=== PATIENT | male | born 1965 | race Hispanic/Latino ===

== ENCOUNTER 2018-08-03 19:24 | Emergency (ER) | payer MEDICARE ==
--- NOTE | 2018-08-03 19:53 | Emergency Department Report ---
Blank Doc - Documentation Documentation: This is a 52-year-old male that presents with SI. This initial assessment/diagnostic orders/clinical plan/treatment(s) is/are subject to change based on patient's health status, clinical progression and re- assessment by fellow clinical providers in the ED. Further treatment and workup at subsequent clinical providers discretion. Patient/guardians urged not to elope from the ED as their condition may be serious if not clinically assessed and managed. Initial orders include: 1- Patient sent to MAIN ED for further evaluation and treatment 2- planer chain offbearer was notified to have patient be brought back [facility]. 3- RN was notified to keep patient as close range and observation until room available 4- Patient presents with substantial risk of imminent harm to self, appears to be so unable to care for his/her own physical health and safety as to create an imminently life-endangering crisis, and has committed/expressed life endangering crisis to self. Due to this and other complaints, patient is put on 1013.
[2018-08-03 20:39] LABS: Hemoglobin 11.8 gm/dl (11.8-15.2); Mean Corpuscular HGB Conc 36 % (32-34); Mean Corpuscular Volume 85 fl (84-94); Platelet Count 253 K/mm3 (140-440); Red Blood Count 3.87 M/mm3 (3.65-5.03); Red Cell Distribution Width 17.1 % (13.2-15.2)
[2018-08-03 20:49] LABS: BUN/Creatinine Ratio 3; Blood Urea Nitrogen 3 mg/dL (9-20); Calcium 9.5 mg/dL (8.4-10.2); Hemolysis Index 5
[2018-08-03 20:57] LABS: Basophils % (Auto) 0.2 % (0.0-1.8); Eosinophils # (Auto) 0.1 K/mm3 (0.0-0.4); Eosinophils % (Auto) 1.9 % (0.0-4.3); Lymphocytes # (Auto) 2.3 K/mm3 (1.2-5.4); Lymphocytes % (Auto) 31.9 % (13.4-35.0); Monocytes # (Auto) 0.8 K/mm3 (0.0-0.8); Monocytes % (Auto) 10.6 % (0.0-7.3)
--- NOTE | 2018-08-03 21:05 | Emergency Department Report ---
ED Psych HPI - General Chief Complaint: Psych Stated Complaint: MH SUICIDAL THOUGHTS Time Seen by Provider: 08/03/18 19:52 Source: patient Mode of arrival: Ambulatory - History of Present Illness Initial Comments: Patient is a 52-year-old male with past history of mild developmental delay and schizophrenia who is presenting with 2 weeks of suicidal ideations without obvious plan. Patient states he has been feeling very depressed lately and doesn't feel like living anymore. Patient states he is not using any alcohol or drugs. Patient not having any auditory or visual hallucinations. Patient lives in a [facility]. Associated Psychiatric Symptoms: depression, suicidal ideation - Related Data Home Medications Medication Instructions Recorded Confirmed Last Taken FLUoxetine [PROzac] 40 mg PO QAM 08/03/18 08/14/18 08/03/18 diphenhydrAMINE [Benadryl CAP] 100 mg PO QHS 08/03/18 08/14/18 08/03/18 Allopurinol [Zyloprim] 100 mg PO QDAY 08/14/18 08/14/18 Unknown Cholecalciferol (Vitamin D3) 50,000 unit PO QWEEK 08/14/18 08/14/18 Unknown [Vitamin D3 50,000UNIT CAP] FLUoxetine [PROzac] 20 mg PO DAILY@1200 08/14/18 08/14/18 Unknown LORazepam [Ativan] 1 mg PO QAM 08/14/18 08/14/18 Unknown LORazepam [Ativan] 2 mg PO QHS 08/14/18 08/14/18 Unknown Multivitamin Tab [Multiple Vitamin 1 each PO QDAY 08/14/18 08/14/18 Unknown TAB (Theragran)] OLANZapine [Zyprexa] 10 mg PO QAM 08/14/18 08/14/18 Unknown OLANZapine [Zyprexa] 20 mg PO HS 08/14/18 08/14/18 Unknown Simvastatin 20 mg PO HS 08/14/18 08/14/18 Unknown buPROPion XL [Wellbutrin Xl] 150 mg PO QAM 08/14/18 08/14/18 Unknown risperiDONE [Risperdal] 2 mg PO QAM 08/14/18 08/14/18 Unknown Allergies Allergy/AdvReac Type Severity Reaction Status Date / Time Penicillins Allergy Unknown Verified 08/14/18 15:52 ED Review of Systems ROS: Stated complaint: MH SUICIDAL THOUGHTS Other details as noted in HPI Comment: All other systems reviewed and negative ED Past Medical Hx - Past Medical History Previous Medical History?: Yes Hx Psychiatric Treatment: Yes (schizophrenia, depression) Additional medical history: Mild retardation, - Surgical History Past Surgical History?: No - Social History Smoking Status: Former Smoker Substance Use Type: None - Medications Home Medications: Home Medications Medication Instructions Recorded Confirmed Last Taken Type FLUoxetine [PROzac] 40 mg PO QAM 08/03/18 08/14/18 08/03/18 History diphenhydrAMINE [Benadryl CAP] 100 mg PO QHS 08/03/18 08/14/18 08/03/18 History Allopurinol [Zyloprim] 100 mg PO QDAY 08/14/18 08/14/18 Unknown History Cholecalciferol (Vitamin D3) 50,000 unit PO QWEEK 08/14/18 08/14/18 Unknown History [Vitamin D3 50,000UNIT CAP] FLUoxetine [PROzac] 20 mg PO DAILY@1200 08/14/18 08/14/18 Unknown History LORazepam [Ativan] 1 mg PO QAM 08/14/18 08/14/18 Unknown History LORazepam [Ativan] 2 mg PO QHS 08/14/18 08/14/18 Unknown History Multivitamin Tab [Multiple Vitamin 1 each PO QDAY 08/14/18 08/14/18 Unknown History TAB (Theragran)] OLANZapine [Zyprexa] 10 mg PO QAM 08/14/18 08/14/18 Unknown History OLANZapine [Zyprexa] 20 mg PO HS 08/14/18 08/14/18 Unknown History Simvastatin 20 mg PO 08/14/18 08/14/18 Unknown History buPROPion XL [Wellbutrin Xl] 150 mg PO QAM 08/14/18 08/14/18 Unknown History risperiDONE [Risperdal] 2 mg PO QAM 08/14/18 08/14/18 Unknown History ED Physical Exam - General Limitations: Other General appearance: alert, in no apparent distress - Head Head exam: Present: atraumatic, normocephalic - Eye Eye exam: Present: normal appearance, PERRL, EOMI - ENT ENT exam: Present: mucous membranes moist - Neck Neck exam: Present: normal inspection - Respiratory Respiratory exam: Present: normal lung sounds bilaterally. Absent: respiratory distress, wheezes, rales, rhonchi - Cardiovascular Cardiovascular Exam: Present: regular rate, normal rhythm. Absent: systolic murmur, diastolic murmur, rubs, gallop - GI/Abdominal GI/Abdominal exam: Present: soft, normal bowel sounds. Absent: distended, tenderness, guarding, rebound - Rectal Rectal exam: Present: deferred - Extremities Exam Extremities exam: Present: normal inspection - Back Exam Back exam: Present: normal inspection - Neurological Exam Neurological exam: Present: alert, oriented X3 - Psychiatric Psychiatric exam: Present: normal affect, normal mood - Skin Skin exam: Present: warm, dry, intact, normal color. Absent: rash ED Course Vital Signs 08/03/18 08/04/18 19:53 01:41 Temperature 97.7 F 97.9 F Pulse Rate 93 H 82 Respiratory 18 Rate Blood Pressure 136/81 Blood Pressure 138/86 [Left] O2 Sat by Pulse 98 Oximetry ED Medical Decision Making - Lab Data Result diagrams: 08/03/18 20:02 08/03/18 20:02 Lab Results 08/03/18 08/03/18 08/03/18 Range/Units 20:02 20:02 20:02 WBC 7.2 (4.5-11.0) K/mm3 RBC 3.87 (3.65-5.03) M/mm3 Hgb 11.8 (11.8-15.2) gm/dl Hct 33.0 L (35.5-45.6) % MCV 85 (84-94) fl MCH 31 (28-32) pg MCHC 36 H (32-34) % RDW 17.1 H (13.2-15.2) % Plt Count 253 (140-440) K/mm3 Lymph % (Auto) 31.9 (13.4-35.0) % [place] % (Auto) 10.6 H (0.0-7.3) % Eos % (Auto) 1.9 (0.0-4.3) % Baso % (Auto) 0.2 (0.0-1.8) % Lymph # 2.3 (1.2-5.4) K/mm3 [place] # 0.8 (0.0-0.8) K/mm3 Eos # 0.1 (0.0-0.4) K/mm3 Baso # 0.0 (0.0-0.1) K/mm3 Add Manual Diff Complete Total Counted 100 Seg Neutrophils % 55.4 (40.0-70.0) % Seg Neuts % (Manual) 65.0 (40.0-70.0) % Band Neutrophils % 0 % Lymphocytes % (Manual) 27.0 (13.4-35.0) % Reactive Lymphs % (Man) 0 % Monocytes % (Manual) 5.0 (0.0-7.3) % Eosinophils % (Manual) 2.0 (0.0-4.3) % Basophils % (Manual) 1.0 (0.0-1.8) % Metamyelocytes % 0 % Myelocytes % 0 % Promyelocytes % 0 % Blast Cells % 0 % Nucleated RBC % Not Reportable Seg Neutrophils # 4.1 (1.8-7.7) K/mm3 Seg Neutrophils # Man 4.7 (1.8-7.7) K/mm3 Band Neutrophils # 0.0 K/mm3 Lymphocytes # (Manual) 1.9 (1.2-5.4) K/mm3 Abs React Lymphs (Man) 0.0 K/mm3 Monocytes # (Manual) 0.4 (0.0-0.8) K/mm3 Eosinophils # (Manual) 0.1 (0.0-0.4) K/mm3 Basophils # (Manual) 0.1 (0.0-0.1) K/mm3 Metamyelocytes # 0.0 K/mm3 Myelocytes # 0.0 K/mm3 Promyelocytes # 0.0 K/mm3 Blast Cells # 0.0 K/mm3 WBC Morphology Not Reportable Hypersegmented Neuts Not Reportable Hyposegmented Neuts Not Reportable Hypogranular Neuts Not Reportable Smudge Cells Not Reportable Toxic Granulation Not Reportable Toxic Vacuolation Not Reportable Dohle Bodies Not Reportable Pelger-Huet Anomaly Not Reportable Anne-Marie Rods Not Reportable Platelet Estimate Not Reportable Clumped Platelets Not Reportable Plt Clumps, EDTA Not Reportable Large Platelets Not Reportable Giant Platelets Not Reportable Platelet Satelliting Not Reportable Plt Morphology Comment Not Reportable RBC Morphology Normal Dimorphic RBCs Not Reportable Polychromasia Not Reportable Hypochromasia Not Reportable Poikilocytosis Not Reportable Anisocytosis Not Reportable Microcytosis Not Reportable Macrocytosis Not Reportable Spherocytes Not Reportable Pappenheimer Bodies Not Reportable Sickle Cells Not Reportable Target Cells Not Reportable Tear Drop Cells Not Reportable Ovalocytes Not Reportable Helmet Cells Not Reportable Cunningham-Nicut Bodies Not Reportable [place] Rings Not Reportable Mikel Cells Not Reportable Bite Cells Not Reportable Crenated Cell Not Reportable Elliptocytes Not Reportable Acanthocytes (Spur) Not Reportable Rouleaux Not Reportable Hemoglobin C Crystals Not Reportable Schistocytes Not Reportable Malaria parasites Not Reportable Hector Bodies Not Reportable Hem Pathologist Commnt No Sodium 133 L (137-145) mmol/L Potassium 3.3 L (3.6-5.0) mmol/L Chloride 95.3 L (98-107) mmol/L Carbon Dioxide 22 (22-30) mmol/L Anion Gap 19 mmol/L BUN 3 L (9-20) mg/dL Creatinine 0.9 (0.8-1.5) mg/dL Estimated GFR > 60 ml/min BUN/Creatinine Ratio 3 % Glucose 99 (75-100) mg/dL Calcium 9.5 (8.4-10.2) mg/dL Urine Color (Yellow) Urine Turbidity (Clear) Urine pH (5.0-7.0) Ur Specific [place] (1.003-1.030) Urine Protein (Negative) mg/dL Urine Glucose (UA) (Negative) mg/dL Urine Ketones (Negative) mg/dL Urine Blood (Negative) Urine Nitrite (Negative) Urine Bilirubin (Negative) Urine Urobilinogen (<2.0) mg/dL Ur Leukocyte Esterase (Negative) Urine WBC (Auto) (0.0-6.0) /HPF Urine RBC (Auto) (0.0-6.0) /HPF Urine Mucus /HPF Salicylates < 0.3 L (2.8-20.0) mg/dL Urine Opiates Screen Urine Methadone Screen Acetaminophen (10.0-30.0) ug/mL Ur Barbiturates Screen Ur Phencyclidine Scrn Ur Amphetamines Screen U Benzodiazepines Scrn Urine Cocaine Screen U Marijuana (THC) Screen Drugs of Abuse Note Plasma/Serum Alcohol (0-0.07) % 08/03/18 08/03/18 08/03/18 Range/Units 20:02 20:02 20:30 WBC (4.5-11.0) K/mm3 RBC (3.65-5.03) M/mm3 Hgb (11.8-15.2) gm/dl Hct (35.5-45.6) % MCV (84-94) fl MCH (28-32) pg MCHC (32-34) % RDW (13.2-15.2) % Plt Count (140-440) K/mm3 Lymph % (Auto) (13.4-35.0) % [place] % (Auto) (0.0-7.3) % Eos % (Auto) (0.0-4.3) % Baso % (Auto) (0.0-1.8) % Lymph # (1.2-5.4) K/mm3 [place] # (0.0-0.8) K/mm3 Eos # (0.0-0.4) K/mm3 Baso # (0.0-0.1) K/mm3 Add Manual Diff Total Counted Seg Neutrophils % (40.0-70.0) % Seg Neuts % (Manual) (40.0-70.0) % Band Neutrophils % % Lymphocytes % (Manual) (13.4-35.0) % Reactive Lymphs % (Man) % Monocytes % (Manual) (0.0-7.3) % Eosinophils % (Manual) (0.0-4.3) % Basophils % (Manual) (0.0-1.8) % Metamyelocytes % % Myelocytes % % Promyelocytes % % Blast Cells % % Nucleated RBC % Seg Neutrophils # (1.8-7.7) K/mm3 Seg Neutrophils # Man (1.8-7.7) K/mm3 Band Neutrophils # K/mm3 Lymphocytes # (Manual) (1.2-5.4) K/mm3 Abs React Lymphs (Man) K/mm3 Monocytes # (Manual) (0.0-0.8) K/mm3 Eosinophils # (Manual) (0.0-0.4) K/mm3 Basophils # (Manual) (0.0-0.1) K/mm3 Metamyelocytes # K/mm3 Myelocytes # K/mm3 Promyelocytes # K/mm3 Blast Cells # K/mm3 WBC Morphology Hypersegmented Neuts Hyposegmented Neuts Hypogranular Neuts Smudge Cells Toxic Granulation Toxic Vacuolation Dohle Bodies Pelger-Huet Anomaly Anne-Marie Rods Platelet Estimate Clumped Platelets Plt Clumps, EDTA Large Platelets Giant Platelets Platelet Satelliting Plt Morphology Comment RBC Morphology Dimorphic RBCs Polychromasia Hypochromasia Poikilocytosis Anisocytosis Microcytosis Macrocytosis Spherocytes Pappenheimer Bodies Sickle Cells Target Cells Tear Drop Cells Ovalocytes Helmet Cells Cunningham-Nicut Bodies [place] Rings [place] Cells Bite Cells Crenated Cell Elliptocytes Acanthocytes (Spur) Rouleaux Hemoglobin C Crystals Schistocytes Malaria parasites Hector Bodies Hem Pathologist Commnt Sodium (137-145) mmol/L Potassium (3.6-5.0) mmol/L Chloride (98-107) mmol/L Carbon Dioxide (22-30) mmol/L Anion Gap mmol/L BUN (9-20) mg/dL Creatinine (0.8-1.5) mg/dL Estimated GFR ml/min BUN/Creatinine Ratio % Glucose (75-100) mg/dL Calcium (8.4-10.2) mg/dL Urine Color Colorless (Yellow) Urine Turbidity Clear (Clear) Urine pH 6.0 (5.0-7.0) Ur Specific [place] 1.001 L (1.003-1.030) Urine Protein <15 mg/dl (Negative) mg/dL Urine Glucose (UA) Neg (Negative) mg/dL Urine Ketones Neg (Negative) mg/dL Urine Blood Neg (Negative) Urine Nitrite Neg (Negative) Urine Bilirubin Neg (Negative) Urine Urobilinogen < 2.0 (<2.0) mg/dL Ur Leukocyte Esterase Neg (Negative) Urine WBC (Auto) 1.0 (0.0-6.0) /HPF Urine RBC (Auto) 1.0 (0.0-6.0) /HPF Urine Mucus Few /HPF Salicylates (2.8-20.0) mg/dL Urine Opiates Screen Urine Methadone Screen Acetaminophen < 5.0 L (10.0-30.0) ug/mL Ur Barbiturates Screen Ur Phencyclidine Scrn Ur Amphetamines Screen U Benzodiazepines Scrn Urine Cocaine Screen U Marijuana (THC) Screen Drugs of Abuse Note Plasma/Serum Alcohol < 0.01 (0-0.07) % 08/03/18 Range/Units 20:30 WBC (4.5-11.0) K/mm3 RBC (3.65-5.03) M/mm3 Hgb (11.8-15.2) gm/dl Hct (35.5-45.6) % MCV (84-94) fl MCH (28-32) pg MCHC (32-34) % RDW (13.2-15.2) % Plt Count (140-440) K/mm3 Lymph % (Auto) (13.4-35.0) % [place] % (Auto) (0.0-7.3) % Eos % (Auto) (0.0-4.3) % Baso % (Auto) (0.0-1.8) % Lymph # (1.2-5.4) K/mm3 [place] # (0.0-0.8) K/mm3 Eos # (0.0-0.4) K/mm3 Baso # (0.0-0.1) K/mm3 Add Manual Diff Total Counted Seg Neutrophils % (40.0-70.0) % Seg Neuts % (Manual) (40.0-70.0) % Band Neutrophils % % Lymphocytes % (Manual) (13.4-35.0) % Reactive Lymphs % (Man) % Monocytes % (Manual) (0.0-7.3) % Eosinophils % (Manual) (0.0-4.3) % Basophils % (Manual) (0.0-1.8) % Metamyelocytes % % Myelocytes % % Promyelocytes % % Blast Cells % % Nucleated RBC % Seg Neutrophils # (1.8-7.7) K/mm3 Seg Neutrophils # Man (1.8-7.7) K/mm3 Band Neutrophils # K/mm3 Lymphocytes # (Manual) (1.2-5.4) K/mm3 Abs React Lymphs (Man) K/mm3 Monocytes # (Manual) (0.0-0.8) K/mm3 Eosinophils # (Manual) (0.0-0.4) K/mm3 Basophils # (Manual) (0.0-0.1) K/mm3 Metamyelocytes # K/mm3 Myelocytes # K/mm3 Promyelocytes # K/mm3 Blast Cells # K/mm3 WBC Morphology Hypersegmented Neuts Hyposegmented Neuts Hypogranular Neuts Smudge Cells Toxic Granulation Toxic Vacuolation Dohle Bodies Pelger-Huet Anomaly Anne-Marie Rods Platelet Estimate Clumped Platelets Plt Clumps, EDTA Large Platelets Giant Platelets Platelet Satelliting Plt Morphology Comment RBC Morphology Dimorphic RBCs Polychromasia Hypochromasia Poikilocytosis Anisocytosis Microcytosis Macrocytosis Spherocytes Pappenheimer Bodies Sickle Cells Target Cells Tear Drop Cells Ovalocytes Helmet Cells Cunningham-Nicut Bodies [place] Rings Mikel Cells Bite Cells Crenated Cell Elliptocytes Acanthocytes (Spur) Rouleaux Hemoglobin C Crystals Schistocytes Malaria parasites Hector Bodies Hem Pathologist Commnt Sodium (137-145) mmol/L Potassium (3.6-5.0) mmol/L Chloride (98-107) mmol/L Carbon Dioxide (22-30) mmol/L Anion Gap mmol/L BUN (9-20) mg/dL Creatinine (0.8-1.5) mg/dL Estimated GFR ml/min BUN/Creatinine Ratio % Glucose (75-100) mg/dL Calcium (8.4-10.2) mg/dL Urine Color (Yellow) Urine Turbidity (Clear) Urine pH (5.0-7.0) Ur Specific [place] (1.003-1.030) Urine Protein (Negative) mg/dL Urine Glucose (UA) (Negative) mg/dL Urine Ketones (Negative) mg/dL Urine Blood (Negative) Urine Nitrite (Negative) Urine Bilirubin (Negative) Urine Urobilinogen (<2.0) mg/dL Ur Leukocyte Esterase (Negative) Urine WBC (Auto) (0.0-6.0) /HPF Urine RBC (Auto) (0.0-6.0) /HPF Urine Mucus /HPF Salicylates (2.8-20.0) mg/dL Urine Opiates Screen Presumptive negative Urine Methadone Screen Presumptive negative Acetaminophen (10.0-30.0) ug/mL Ur Barbiturates Screen Presumptive negative Ur Phencyclidine Scrn Presumptive negative Ur Amphetamines Screen Presumptive negative U Benzodiazepines Scrn Presumptive negative Urine Cocaine Screen Presumptive negative U Marijuana (THC) Screen Presumptive negative Drugs of Abuse Note Disclamer Plasma/Serum Alcohol (0-0.07) % - Medical Decision Making Patient is a 52-year-old gentleman who is presenting with mental health issues. Patient on his laboratory studies does show a very slight decrease of his sodium chloride level. Patient given a liter of normal saline. Patient is now medically clear for psychiatric placement. Critical care attestation.: If time is entered above; I have spent that time in minutes in the direct care of this critically ill patient, excluding procedure time. ED Disposition Clinical Impression: Encounter for psychiatric assessment, Suicidal ideation Disposition: [id number]/TX-[id number] PSY HOSP/PSY UNIT Is pt being admited?: No Condition: Stable Referrals: ZOHAIB COLIN MD [Primary Care Provider] - 3-5 Days
[2018-08-03 21:07] LABS: Bilirubin,Urine NEG (Negative); Blood,Urine NEG (Negative); Color,Urine Colorless (Yellow); Mucus,Urine FEW /HPF; Protein,Urine <15 mg/dL mg/dL (Negative); Urobilinogen,Urine < 2.0 mg/dL (<2.0)
[2018-08-03 21:31] LABS: Amphetamine Screen,Urine PRESUMPTIVE NEGATIVE; Benzodiazepines Screen,Urine PRESUMPTIVE NEGATIVE; Cannabinoid Screen,Urine PRESUMPTIVE NEGATIVE; Cocaine Screen,Urine PRESUMPTIVE NEGATIVE; Methadone Screen,Urine PRESUMPTIVE NEGATIVE; Opiate Screen,Urine PRESUMPTIVE NEGATIVE
[2018-08-03] MEDS ORDERED: NACL 0.9% 1000 ML 1,000 ML IV ONE (21:35)
[2018-08-03] MEDS ORDERED: K-DUR PO ONE (21:35)
[2018-08-03 21:50] LABS: RBC Morphology Normal; Total Cells Counted 100
[2018-08-03] MEDS ORDERED: BENADRYL PO PRN (22:53)
[2018-08-04 01:42] VITALS: BP 138/86
== END 2018-08-04 07:44 ==
LOC: EEVIPCON 19:24 → ED 19:24
DX: F32.9 Major depressive disorder, single episode, unspecified (principal); R45.851 Suicidal ideations; F20.9 Schizophrenia, unspecified; Z87.891 Personal history of nicotine dependence; Z88.0 Allergy status to penicillin; Z79.899 Other long term (current) drug therapy
CPT/HCPCS: 36415; 80048; 80307; 81001; 85007; 85025; 99285; G0480; J7030; 80320

== ENCOUNTER 2018-08-14 15:51 | Inpatient (IN) | payer MEDICARE ==
--- NOTE | 2018-08-14 16:48 | Emergency Department Report ---
ED Shortness of Breath HPI - General Chief Complaint: Dyspnea/Respdistress Stated Complaint: SOB Time Seen by Provider: 08/14/18 16:15 Source: patient, old records reviewed Mode of arrival: Ambulatory Limitations: No Limitations - History of Present Illness Initial Comments: 52-year-old male with a past medical history is mild developmental delay, schiz ophrenia, and depression presented to the hospital after being discharged from [facility] today with shortness of breath 1 week. Patient was admitted to hospital 1 week for suicidal ideation. He was discharged into the care of a provider from his assisted living facility who was at the bedside. Patient apparently was treated with antibiotics while at [facility] without improvement. He has a persistent dry cough and was noted to have difficulty breathing when picked up by assisted jail provider. Initial triage note says 86% saturation on room air and subsequently is documented patient has a 95% O2 sat on 3 L nasal cannula. Initial respiratory rate of 37 documented as well with a repeat rate 25 while on supplemental oxygen. He has a history of smoking in the past but denies current tobacco use, cardiac history other than a heart murmur, and denies history of lung disease. No complaints of calf tenderness, leg edema, hemoptysis, or fever. Patient did complain of mild anterior chest pain earlier but denies chest pain at this time. - Related Data Home Medications Medication Instructions Recorded Confirmed Last Taken FLUoxetine [PROzac] 40 mg PO QAM 08/03/18 08/14/18 08/03/18 diphenhydrAMINE [Benadryl CAP] 100 mg PO QHS 08/03/18 08/14/18 08/03/18 Allopurinol [Zyloprim] 100 mg PO QDAY 08/14/18 08/14/18 Unknown Cholecalciferol (Vitamin D3) 50,000 unit PO QWEEK 08/14/18 08/14/18 Unknown [Vitamin D3 50,000UNIT CAP] FLUoxetine [PROzac] 20 mg PO DAILY@1200 08/14/18 08/14/18 Unknown LORazepam [Ativan] 1 mg PO QAM 08/14/18 08/14/18 Unknown LORazepam [Ativan] 2 mg PO QHS 08/14/18 08/14/18 Unknown Multivitamin Tab [Multiple Vitamin 1 each PO QDAY 08/14/18 08/14/18 Unknown TAB (Theragran)] OLANZapine [Zyprexa] 10 mg PO QAM 08/14/18 08/14/18 Unknown OLANZapine [Zyprexa] 20 mg PO HS 08/14/18 08/14/18 Unknown Simvastatin 20 mg PO 08/14/18 08/14/18 Unknown buPROPion XL [Wellbutrin Xl] 150 mg PO QAM 08/14/18 08/14/18 Unknown risperiDONE [Risperdal] 2 mg PO QAM 08/14/18 08/14/18 Unknown Allergies Allergy/AdvReac Type Severity Reaction Status Date / Time Penicillins Allergy Unknown Verified 08/14/18 15:52 ED Review of Systems ROS: Stated complaint: SOB Other details as noted in HPI Comment: All other systems reviewed and negative ED Past Medical Hx - Past Medical History Hx Psychiatric Treatment: Yes (schizophrenia, depression) Additional medical history: Mild retardation, - Social History Smoking Status: Former Smoker Substance Use Type: None - Medications Home Medications: Home Medications Medication Instructions Recorded Confirmed Last Taken Type FLUoxetine [PROzac] 40 mg PO QAM 08/03/18 08/14/18 08/03/18 History diphenhydrAMINE [Benadryl CAP] 100 mg PO QHS 08/03/18 08/14/18 08/03/18 History Allopurinol [Zyloprim] 100 mg PO QDAY 08/14/18 08/14/18 Unknown History Cholecalciferol (Vitamin D3) 50,000 unit PO QWEEK 08/14/18 08/14/18 Unknown History [Vitamin D3 50,000UNIT CAP] FLUoxetine [PROzac] 20 mg PO DAILY@1200 08/14/18 08/14/18 Unknown History LORazepam [Ativan] 1 mg PO QAM 08/14/18 08/14/18 Unknown History LORazepam [Ativan] 2 mg PO QHS 08/14/18 08/14/18 Unknown History Multivitamin Tab [Multiple Vitamin 1 each PO QDAY 08/14/18 08/14/18 Unknown Hist ory TAB (Theragran)] OLANZapine [Zyprexa] 10 mg PO QAM 08/14/18 08/14/18 Unknown History OLANZapine [Zyprexa] 20 mg PO 08/14/18 08/14/18 Unknown History Simvastatin 20 mg PO 08/14/18 08/14/18 Unknown History buPROPion XL [Wellbutrin Xl] 150 mg PO QAM 08/14/18 08/14/18 Unknown History risperiDONE [Risperdal] 2 mg PO QAM 08/14/18 08/14/18 Unknown History ED Physical Exam - General Limitations: No Limitations - Other Other exam information: General: No limitations Head exam: Atraumatic, normocephalic Eyes exam: Normal appearance, pupils equal reactive to light, extraocular movements intact ENT: Moist mucous membrane, normal oropharynx Neck exam: Normal inspection, full range of motion, no meningismus nontender Respiratory exam: Tachypnea, bilateral rhonchi, intermittent dry cough with deep inspiration Cardiovascular: Normal rate and rhythm, normal heart sounds Abdomen: Soft, nondistended, and nontender, with normal bowel sounds, no rebound, or guarding Extremity: Full range of motion normal inspection, no calf tenderness or leg edema Back: Normal Inspection, full range of motion, no tenderness Neurologic: Alert, cranial nerves intact, no motor or sensory deficit Psychiatric: normal affect, normal mood Skin: Warm, dry, intact ED Course Vital Signs 08/14/18 08/14/18 08/14/18 16:00 16:03 16:15 Temperature 98.7 F Pulse Rate 88 87 Respiratory 37 H 25 H Rate Blood Pressure 116/69 O2 Sat by Pulse 86 95 94 Oximetry 08/14/18 08/14/18 08/14/18 16:30 16:45 17:00 Temperature Pulse Rate 89 86 80 Respiratory 32 H 23 43 H Rate Blood Pressure 123/78 123/78 120/71 O2 Sat by Pulse 94 90 95 Oximetry 08/14/18 08/14/18 08/14/18 17:21 17:30 17:45 Temperature Pulse Rate 82 90 Respiratory 28 H 36 H Rate Blood Pressure 120/71 114/63 121/65 O2 Sat by Pulse 100 97 98 Oximetry 08/14/18 08/14/18 08/14/18 18:00 18:15 18:30 Temperature Pulse Rate 82 88 77 Respiratory 20 29 H 34 H Rate Blood Pressure 118/68 134/77 130/67 O2 Sat by Pulse 98 95 96 Oximetry 08/14/18 08/14/18 08/14/18 18:45 19:00 19:55 Temperature Pulse Rate 83 79 Respiratory 28 H 30 H 33 H Rate Blood Pressure 129/74 120/64 120/64 O2 Sat by Pulse 93 94 94 Oximetry 08/14/18 08/14/18 08/14/18 20:00 20:15 20:30 Temperature Pulse Rate 78 78 Respiratory 21 24 Rate Blood Pressure 128/65 121/66 134/77 O2 Sat by Pulse 94 98 98 Oximetry - ABG Interpretation Ph: [phone] PCO2: 29 PO2: 57 Bicarbonate: 21 Interpretation: respiratory alkalosis, other (mild hypoxia) ED Medical Decision Making - Lab Data Result diagrams: 08/14/18 16:33 08/14/18 16:43 Lab Results 08/14/18 08/14/18 08/14/18 Range/Units 16:33 16:33 16:33 WBC 8.8 (4.5-11.0) K/mm3 RBC 3.38 L (3.65-5.03) M/mm3 Hgb 9.9 L (11.8-15.2) gm/dl Hct 29.2 L (35.5-45.6) % MCV 86 (84-94) fl MCH 29 (28-32) pg MCHC 34 (32-34) % RDW 17.3 H (13.2-15.2) % Plt Count 331 (140-440) K/mm3 Add Manual Diff Complete Total Counted 100 Seg Neuts % (Manual) 87.0 H (40.0-70.0) % Band Neutrophils % 0 % Lymphocytes % (Manual) 6.0 L (13.4-35.0) % Reactive Lymphs % (Man) 0 % Monocytes % (Manual) 4.0 (0.0-7.3) % Eosinophils % (Manual) 3.0 (0.0-4.3) % Basophils % (Manual) 0 (0.0-1.8) % Metamyelocytes % 0 % Myelocytes % 0 % Promyelocytes % 0 % Blast Cells % 0 % Nucleated RBC % Not Reportable Seg Neutrophils # Man 7.7 (1.8-7.7) K/mm3 Band Neutrophils # 0.0 K/mm3 Lymphocytes # (Manual) 0.5 L (1.2-5.4) K/mm3 Abs React Lymphs (Man) 0.0 K/mm3 Monocytes # (Manual) 0.4 (0.0-0.8) K/mm3 Eosinophils # (Manual) 0.3 (0.0-0.4) K/mm3 Basophils # (Manual) 0.0 (0.0-0.1) K/mm3 Metamyelocytes # 0.0 K/mm3 Myelocytes # 0.0 K/mm3 Promyelocytes # 0.0 K/mm3 Blast Cells # 0.0 K/mm3 WBC Morphology Not Reportable Hypersegmented Neuts Not Reportable Hyposegmented Neuts Not Reportable Hypogranular Neuts Not Reportable Smudge Cells Not Reportable Toxic Granulation Not Reportable Toxic Vacuolation Not Reportable Dohle Bodies Not Reportable Pelger-Huet Anomaly Not Reportable Anne-Marie Rods Not Reportable Platelet Estimate Appears normal Clumped Platelets Not Reportable Plt Clumps, EDTA Not Reportable Large Platelets Not Reportable Giant Platelets Not Reportable Platelet Satelliting Not Reportable Plt Morphology Comment Not Reportable RBC Morphology Not Reportable Dimorphic RBCs Not Reportable Polychromasia Not Reportable Hypochromasia Not Reportable Poikilocytosis Not Reportable Anisocytosis Few Microcytosis Not Reportable Macrocytosis Not Reportable Spherocytes Not Reportable Pappenheimer Bodies Not Reportable Sickle Cells Not Reportable Target Cells Not Reportable Tear Drop Cells Not Reportable Ovalocytes Not Reportable Helmet Cells Not Reportable Cunningham-Watchtower Bodies Not Reportable Sodus Rings Not Reportable [place] Cells Not Reportable Bite Cells Not Reportable Crenated Cell Not Reportable Elliptocytes Not Reportable Acanthocytes (Spur) Not Reportable Rouleaux Not Reportable Hemoglobin C Crystals Not Reportable Schistocytes Not Reportable Malaria parasites Not Reportable Hector Bodies Not Reportable Hem Pathologist Commnt No PT (12.2-14.9) Sec. INR (0.87-1.13) APTT (24.2-36.6) Sec. POC ABG pH (7.35-7.45) POC ABG pO2 (80-105) POC ABG HCO3 (22-26 mml/L) POC ABG Total CO2 (23-27mmol/L) POC ABG O2 Sat POC ABG Base Excess ((-2) - (+3)mmol/L) FiO2 % Sodium (137-145) mmol/L Potassium (3.6-5.0) mmol/L Chloride (98-107) mmol/L Carbon Dioxide (22-30) mmol/L Anion Gap mmol/L BUN (9-20) mg/dL Creatinine (0.8-1.5) mg/dL Estimated GFR ml/min BUN/Creatinine Ratio % Glucose (75-100) mg/dL Calcium (8.4-10.2) mg/dL Total Creatine Kinase 204 H (55-170) units/L CK-MB (CK-2) 1.9 (0.0-4.0) ng/mL CK-MB (CK-2) Rel Index 0.9 (0-4) Troponin T < 0.010 (0.00-0.029) ng/mL NT-Pro-B Natriuret Pep (0-900) pg/mL 08/14/18 08/14/18 08/14/18 Range/Units 16:33 16:43 16:43 WBC (4.5-11.0) K/mm3 RBC (3.65-5.03) M/mm3 Hgb (11.8-15.2) gm/dl Hct (35.5-45.6) % MCV (84-94) fl MCH (28-32) pg MCHC (32-34) % RDW (13.2-15.2) % Plt Count (140-440) K/mm3 Add Manual Diff Total Counted Seg Neuts % (Manual) (40.0-70.0) % Band Neutrophils % % Lymphocytes % (Manual) (13.4-35.0) % Reactive Lymphs % (Man) % Monocytes % (Manual) (0.0-7.3) % Eosinophils % (Manual) (0.0-4.3) % Basophils % (Manual) (0.0-1.8) % Metamyelocytes % % Myelocytes % % Promyelocytes % % Blast Cells % % Nucleated RBC % Seg Neutrophils # Man (1.8-7.7) K/mm3 Band Neutrophils # K/mm3 Lymphocytes # (Manual) (1.2-5.4) K/mm3 Abs React Lymphs (Man) K/mm3 Monocytes # (Manual) (0.0-0.8) K/mm3 Eosinophils # (Manual) (0.0-0.4) K/mm3 Basophils # (Manual) (0.0-0.1) K/mm3 Metamyelocytes # K/mm3 Myelocytes # K/mm3 Promyelocytes # K/mm3 Blast Cells # K/mm3 WBC Morphology Hypersegmented Neuts Hyposegmented Neuts Hypogranular Neuts Smudge Cells Toxic Granulation Toxic Vacuolation Dohle Bodies Pelger-Huet Anomaly Anne-Marie Rods Platelet Estimate Clumped Platelets Plt Clumps, EDTA Large Platelets Giant Platelets Platelet Satelliting Plt Morphology Comment RBC Morphology Dimorphic RBCs Polychromasia Hypochromasia Poikilocytosis Anisocytosis Microcytosis Macrocytosis Spherocytes Pappenheimer Bodies Sickle Cells Target Cells Tear Drop Cells Ovalocytes Helmet Cells Cunningham-Watchtower Bodies [place] Rings [place] Cells Bite Cells Crenated Cell Elliptocytes Acanthocytes (Spur) Rouleaux Hemoglobin C Crystals Schistocytes Malaria parasites Hector Bodies Hem Pathologist Commnt PT 15.1 H (12.2-14.9) Sec. INR 1.22 H (0.87-1.13) APTT 31.2 (24.2-36.6) Sec. POC ABG pH (7.35-7.45) POC ABG pO2 (80-105) POC ABG HCO3 (22-26 mml/L) POC ABG Total CO2 (23-27mmol/L) POC ABG O2 Sat POC ABG Base Excess ((-2) - (+3)mmol/L) FiO2 % Sodium 140 (137-145) mmol/L Potassium 3.5 L (3.6-5.0) mmol/L Chloride 101.5 (98-107) mmol/L Carbon Dioxide 22 (22-30) mmol/L Anion Gap 20 mmol/L BUN 13 (9-20) mg/dL Creatinine 0.9 (0.8-1.5) mg/dL Estimated GFR > 60 ml/min BUN/Creatinine Ratio 14 % Glucose 99 (75-100) mg/dL Calcium 9.1 (8.4-10.2) mg/dL Total Creatine Kinase (55-170) units/L CK-MB (CK-2) (0.0-4.0) ng/mL CK-MB (CK-2) Rel Index (0-4) Troponin T (0.00-0.029) ng/mL NT-Pro-B Natriuret Pep 199.0 (0-900) pg/mL 08/14/18 Range/Units 17:01 WBC (4.5-11.0) K/mm3 RBC (3.65-5.03) M/mm3 Hgb (11.8-15.2) gm/dl Hct (35.5-45.6) % MCV (84-94) fl MCH (28-32) pg MCHC (32-34) % RDW (13.2-15.2) % Plt Count (140-440) K/mm3 Add Manual Diff Total Counted Seg Neuts % (Manual) (40.0-70.0) % Band Neutrophils % % Lymphocytes % (Manual) (13.4-35.0) % Reactive Lymphs % (Man) % Monocytes % (Manual) (0.0-7.3) % Eosinophils % (Manual) (0.0-4.3) % Basophils % (Manual) (0.0-1.8) % Metamyelocytes % % Myelocytes % % Promyelocytes % % Blast Cells % % Nucleated RBC % Seg Neutrophils # Man (1.8-7.7) K/mm3 Band Neutrophils # K/mm3 Lymphocytes # (Manual) (1.2-5.4) K/mm3 Abs React Lymphs (Man) K/mm3 Monocytes # (Manual) (0.0-0.8) K/mm3 Eosinophils # (Manual) (0.0-0.4) K/mm3 Basophils # (Manual) (0.0-0.1) K/mm3 Metamyelocytes # K/mm3 Myelocytes # K/mm3 Promyelocytes # K/mm3 Blast Cells # K/mm3 WBC Morphology Hypersegmented Neuts Hyposegmented Neuts Hypogranular Neuts Smudge Cells Toxic Granulation Toxic Vacuolation Dohle Bodies Pelger-Huet Anomaly Anne-Marie Rods Platelet Estimate Clumped Platelets Plt Clumps, EDTA Large Platelets Giant Platelets Platelet Satelliting Plt Morphology Comment RBC Morphology Dimorphic RBCs Polychromasia Hypochromasia Poikilocytosis Anisocytosis Microcytosis Macrocytosis Spherocytes Pappenheimer Bodies Sickle Cells Target Cells Tear Drop Cells Ovalocytes Helmet Cells Cunningham-Watchtower Bodies [place] Rings [place] Cells Bite Cells Crenated Cell Elliptocytes Acanthocytes (Spur) Rouleaux Hemoglobin C Crystals Schistocytes Malaria parasites Hector Bodies Hem Pathologist Commnt PT (12.2-14.9) Sec. INR (0.87-1.13) APTT (24.2-36.6) Sec. POC ABG pH 7.468 H (7.35-7.45) POC ABG pO2 57 L (80-105) POC ABG HCO3 21.2 (22-26 mml/L) POC ABG Total CO2 22 (23-27mmol/L) POC ABG O2 Sat 91 POC ABG Base Excess -2 ((-2) - (+3)mmol/L) FiO2 21 % Sodium (137-145) mmol/L Potassium (3.6-5.0) mmol/L Chloride (98-107) mmol/L Carbon Dioxide (22-30) mmol/L Anion Gap mmol/L BUN (9-20) mg/dL Creatinine (0.8-1.5) mg/dL Estimated GFR ml/min BUN/Creatinine Ratio % Glucose (75-100) mg/dL Calcium (8.4-10.2) mg/dL Total Creatine Kinase (55-170) units/L CK-MB (CK-2) (0.0-4.0) ng/mL CK-MB (CK-2) Rel Index (0-4) Troponin T (0.00-0.029) ng/mL NT-Pro-B Natriuret Pep (0-900) pg/mL - EKG Data -: EKG Interpreted by Id EKG shows normal: sinus rhythm, axis (qrs -28 ), QRS complexes (qrsd 96), ST-T waves (no stemi) Rate: normal (88) - EKG Data When compared to previous EKG there are: previous EKG unavailable - Radiology Data Radiology results: report reviewed PROCEDURE: Chest XR. TECHNIQUE: AP and lateral chest radiographs were obtained. HISTORY: Cough, shortness of breath. COMPARISONS: None. FINDINGS: The patient has taken a shallow inspiration. The heart size is difficult to evaluate. The lungs are hypoinflated. There is some hazy opacity in the left midlung which could represent early pneumonia. Repeat PA and lateral radiographs done in the radiology Department are recommended. There are no pleural effusions. The soft tissues and regional skeleton are unremarkable. IMPRESSION: Shallow inspiration. Limited study. Possible early left-sided pneumonia. PROCEDURE: CT ANGIO CHEST TECHNIQUE: Computerized tomographic angiography of the chest was performed after the IV injection of iodinated nonionic contrast including image processing. The image data was postprocessed using 2-dimensional multiplanar reformatted (MPR) and 3-dimensional (MIP and/or volume rendered) techniques. Automated exposure control, adjustment of mA and/or kV according to patient size, or iterative reconstruction dose optimization techniques were utilized. CT DOSE LENGTH PRODUCT: 665.1 mGycm HISTORY: sob, cough FINDINGS: Contrast-enhanced CT angiography of the chest was performed following the intravenous administration of iodinated contrast. Sagittal and coronal MIP three-dimensional reformatted images were generated. These images demonstrate no CT evidence of pulmonary thromboembolic disease. Th ere is no aortic dissection. The ascending thoracic aorta is normal in size. The heart is mildly large. There are mildly enlarged mediastinal lymph nodes. Left anterior hilar node measures approximately 2.7 x 1.1 cm. Right hilar node measures approximately 1.2 x 1.7 cm. There is multifocal bilateral airspace disease involving both upper lobes the lingula and both lower lobes, consistent with pneumonia. There is a small right pleural effusion. In the upper abdomen, the visualized portion of the liver and spleen are unremarkable. IMPRESSION: No CT evidence of pulmonary thromboembolic disease Multifocal bilateral airspace disease, suspicious for pneumonia Small right pleural effusion - Medical Decision Making ABG reveals a respiratory alkalosis mild hypoxia. Patient placed on 3 L of nasal cannula oxygen with improvement levaquin for b/l pneumonia given no signs of septic shock Dr Sosa informed for admission - Differential Diagnosis pneumonia, bronchitis, CHF, pulmonary embolism, [place] Critical Care Time: No Critical care attestation.: If time is entered above; I have spent that time in minutes in the direct care of this critically ill patient, excluding procedure time. ED Disposition Clinical Impression: Bilateral pneumonia, Mental deficiency, Schizophrenia, Depression, Anemia, Hypoxia, Respiratory alkalosis Disposition: OP ADMIT IP TO THIS HOSP Is pt being admited?: Yes Condition: Stable Time of Disposition: 22:00 (DR Sosa/hosp)
[2018-08-14 16:57] LABS: Hematocrit 29.2 % (35.5-45.6); Hemoglobin 9.9 gm/dl (11.8-15.2); Mean Corpuscular HGB Conc 34 % (32-34); Mean Corpuscular Volume 86 fl (84-94); Platelet Count 331 K/mm3 (140-440); Red Blood Count 3.38 M/mm3 (3.65-5.03); Red Cell Distribution Width 17.3 % (13.2-15.2)
[2018-08-14 17:19] LABS: BUN/Creatinine Ratio 14; Blood Urea Nitrogen 13 mg/dL (9-20); Calcium 9.1 mg/dL (8.4-10.2); Hemolysis Index 0
[2018-08-14 17:19] LABS: Creatine Kinase MB 1.9 ng/mL (0.0-4.0)
[2018-08-14 17:35] LABS: INR 1.22 (0.87-1.13)
[2018-08-14 17:36] LABS: Partial Thromboplastin Time 31.2 Sec. (24.2-36.6)
[2018-08-14 17:49] LABS: Basophils % (Manual) 0 % (0.0-1.8); Total Cells Counted 100
[2018-08-14 17:51] LABS: Anisocytosis Few
[2018-08-14] MEDS ORDERED: LEVAQUIN 750MG/150ML 750 MG/150 ML BAG IV ONE (17:58)
--- NOTE | 2018-08-14 18:16 | XRay Report ---
PROCEDURE: Chest. TECHNIQUE: AP and lateral chest radiographs were obtained. HISTORY: Cough, shortness of breath. COMPARISONS: None. FINDINGS: The patient has taken a shallow inspiration. The heart size is difficult to evaluate. The lungs are h ypoinflated. There is some hazy opacity in the left midlung which could represent early pneumonia. Re peat PA and lateral radiographs done in the radiology Department are recommended. There are no pleura l effusions. The soft tissues and regional skeleton are unremarkable. IMPRESSION: Shallow inspiration. Limited study. Possible early left-sided pneumonia. This document is electronically signed by Filipe La MD., August 14 2018 06:14:21 PM ET
--- NOTE | 2018-08-14 21:28 | Cat Scan Report ---
PROCEDURE: CT ANGIO CHEST TECHNIQUE: Computerized tomographic angiography of the chest was performed after the IV injection of iodinated nonionic contrast including image processing. The image data was postprocessed using 2-di mensional multiplanar reformatted (MPR) and 3-dimensional (MIP and/or volume rendered) techniques. Au tomated exposure control, adjustment of mA and/or kV according to patient size, or iterative reconstr uction dose optimization techniques were utilized. CT DOSE LENGTH PRODUCT: 665.1 mGycm HISTORY: sob, cough FINDINGS: Contrast-enhanced CT angiography of the chest was performed following the intravenous admin istration of iodinated contrast. Sagittal and coronal MIP three-dimensional reformatted images were g enerated. These images demonstrate no CT evidence of pulmonary thromboembolic disease. There is no aortic disse ction. The ascending thoracic aorta is normal in size. The heart is mildly large. There are mildly enlarged mediastinal lymph nodes. Left anterior hilar node measures approximately 2. 7 x 1.1 cm. Right hilar node measures approximately 1.2 x 1.7 cm. There is multifocal bilateral airspace disease involving both upper lobes the lingula and both lower lobes, consistent with pneumonia. There is a small right pleural effusion. In the upper abdomen, the visualized portion of the liver and spleen are unremarkable. IMPRESSION: No CT evidence of pulmonary thromboembolic disease Multifocal bilateral airspace disease, suspicious for pneumonia Small right pleural effusion This document is electronically signed by Bob Kitchen MD., August 14 2018 09:26:19 PM ET
[2018-08-14] MEDS ORDERED: ZOFRAN IV PRN (22:29)
[2018-08-14] MEDS ORDERED: SODIUM CHLORIDE FLUSH SYRINGE 10 ML IV PRN (22:29)
[2018-08-14] MEDS ORDERED: PERCOCET 5/325 PO PRN (22:35)
[2018-08-14] MEDS ORDERED: MILK OF MAGNESIA PO PRN (22:35)
--- NOTE | 2018-08-14 22:48 | History and Physical Report ---
<XIMENA SUN - Last Filed: 08/15/18 06:22> History of Present Illness Date of examination: 08/14/18 Date of admission: 08/14/18 22:09 Chief complaint: Acute Major depression with suicidal ideation History of depression History of schizophrenia History of present illness: Pt is a 52-year-old male with PMHx of developmental delay, schizophrenia, and depression who presents to the ER with complaints of shortness of breath and cou gh 1 day. According to the information provided to the ER from the facility, patient was discharged yesterday from a facility for suicidal ideation to have difficulty breathing. Patient O2 sat was noted to be 86% and improve after application of oxygen via n/c. Pt denies a history of COPD but admits to history of smoking, denies ill-contact but states that the air conditioning at the location was very cold, hemoptysis, or fever. Patient reports chest pain with cough, denies palpitation, denies headache, denies chest pain denies fever or chills. In the ER, pt had a chest x-ray that showed multifocal bilateral air space disease suspicious for pneumonia. Pt was started on antibiotic and a dmitted for further evaluation and treatment. Past History Past Medical History: No medical history, other (schizophrenia) Past Surgical History: No surgical history Social history: no significant social history Family history: no significant family history Medications and Allergies Allergies Allergy/AdvReac Type Severity Reaction Status Date / Time Penicillins Allergy Unknown Verified 08/14/18 15:52 Home Medications Medication Instructions Recorded Confirmed Last Taken Type FLUoxetine [PROzac] 40 mg PO QAM 08/03/18 08/14/18 08/03/18 History diphenhydrAMINE [Benadryl CAP] 100 mg PO QHS 08/03/18 08/14/18 08/03/18 History Allopurinol [Zyloprim] 100 mg PO QDAY 08/14/18 08/14/18 Unknown History Cholecalciferol (Vitamin D3) 50,000 unit PO QWEEK 08/14/18 08/14/18 Unknown History [Vitamin D3 50,000UNIT CAP] FLUoxetine [PROzac] 20 mg PO DAILY@1200 08/14/18 08/14/18 Unknown History LORazepam [Ativan] 1 mg PO QAM 08/14/18 08/14/18 Unknown History LORazepam [Ativan] 2 mg PO QHS 08/14/18 08/14/18 Unknown History Multivitamin Tab [Multiple Vitamin 1 each PO QDAY 08/14/18 08/14/18 Unknown History TAB (Theragran)] OLANZapine [Zyprexa] 10 mg PO QAM 08/14/18 08/14/18 Unknown History OLANZapine [Zyprexa] 20 mg PO HS 08/14/18 08/14/18 Unknown History Simvastatin 20 mg PO HS 08/14/18 08/14/18 Unknown History buPROPion XL [Wellbutrin Xl] 150 mg PO QAM 08/14/18 08/14/18 Unknown History risperiDONE [Risperdal] 2 mg PO QAM 08/14/18 08/14/18 Unknown History Active Meds: Active Medications Acetaminophen (Tylenol) 650 mg PO Q4H PRN PRN Reason: Pain MILD(1-3)/Fever >100.5/LOCO Docusate Sodium (Colace) 100 mg PO BID DOMINIC Enoxaparin Sodium (Lovenox) 30 mg SUB-Q QDAY DOMINIC Magnesium Hydroxide (Milk Of Magnesia) 30 ml PO Q4H PRN PRN Reason: Constipation Ondansetron HCl (Zofran) 4 mg IV Q8H PRN PRN Reason: Nausea And Vomiting Oxycodone/Acetaminophen (Percocet 5/325) 1 tab PO Q6H PRN PRN Reason: Pain, Moderate (4-6) Sodium Chloride (Sodium Chloride Flush Syringe 10 Ml) 10 ml IV BID DOMINIC Sodium Chloride (Sodium Chloride Flush Syringe 10 Ml) 10 ml IV PRN PRN PRN Reason: LINE FLUSH Exam - Constitutional Vitals: Temp Pulse Resp BP Pulse Ox 98.7 F 81 25 H 132/66 97 08/14/18 16:00 08/14/18 22:30 08/14/18 22:30 08/14/18 22:30 08/14/18 22:30 Results - Labs CBC & Chem 7: 08/14/18 16:33 08/14/18 16:43 Labs: Laboratory Last Values WBC 8.8 K/mm3 (4.5-11.0) 08/14/18 16:33 RBC 3.38 M/mm3 (3.65-5.03) L 08/14/18 16:33 Hgb 9.9 gm/dl (11.8-15.2) L 08/14/18 16:33 Hct 29.2 % (35.5-45.6) L 08/14/18 16:33 MCV 86 fl (84-94) 08/14/18 16:33 MCH 29 pg (28-32) 08/14/18 16:33 MCHC 34 % (32-34) 08/14/18 16:33 RDW 17.3 % (13.2-15.2) H 08/14/18 16:33 Plt Count 331 K/mm3 (140-440) 08/14/18 16:33 Add Manual Diff Complete 08/14/18 16:33 Total Counted 100 08/14/18 16:33 Seg Neuts % (Manual) 87.0 % (40.0-70.0) H 08/14/18 16:33 0 % 08/14/18 16:33 6.0 % (13.4-35.0) L 08/14/18 16:33 Reactive Lymphs % (Man) 0 % 08/14/18 16:33 4.0 % (0.0-7.3) 08/14/18 16:33 3.0 % (0.0-4.3) 08/14/18 16:33 0 % (0.0-1.8) 08/14/18 16:33 0 % 08/14/18 16:33 0 % 08/14/18 16:33 0 % 08/14/18 16:33 0 % 08/14/18 16:33 Nucleated RBC % Not Reportable 08/14/18 16:33 Seg Neutrophils # Man 7.7 K/mm3 (1.8-7.7) 08/14/18 16:33 Band Neutrophils # 0.0 K/mm3 08/14/18 16:33 0.5 K/mm3 (1.2-5.4) L 08/14/18 16:33 Abs React Lymphs (Man) 0.0 K/mm3 08/14/18 16:33 0.4 K/mm3 (0.0-0.8) 08/14/18 16:33 0.3 K/mm3 (0.0-0.4) 08/14/18 16:33 0.0 K/mm3 (0.0-0.1) 08/14/18 16:33 0.0 K/mm3 08/14/18 16:33 0.0 K/mm3 08/14/18 16:33 0.0 K/mm3 08/14/18 16:33 Blast Cells # 0.0 K/mm3 08/14/18 16:33 WBC Morphology Not Reportable 08/14/18 16:33 Hypersegmented Neuts Not Reportable 08/14/18 16:33 Hyposegmented Neuts Not Reportable 08/14/18 16:33 Hypogranular Neuts Not Reportable 08/14/18 16:33 Not Reportable 08/14/18 16:33 Not Reportable 08/14/18 16:33 Not Reportable 08/14/18 16:33 Not Reportable 08/14/18 16:33 Not Reportable 08/14/18 16:33 Not Reportable 08/14/18 16:33 Appears normal 08/14/18 16:33 Not Reportable 08/14/18 16:33 Plt Clumps, EDTA Not Reportable 08/14/18 16:33 Not Reportable 08/14/18 16:33 Not Reportable 08/14/18 16:33 Not Reportable 08/14/18 16:33 Plt Morphology Comment Not Reportable 08/14/18 16:33 RBC Morphology Not Reportable 08/14/18 16:33 Dimorphic RBCs Not Reportable 08/14/18 16:33 Not Reportable 08/14/18 16:33 Not Reportable 08/14/18 16:33 Not Reportable 08/14/18 16:33 Few 08/14/18 16:33 Not Reportable 08/14/18 16:33 Not Reportable 08/14/18 16:33 Not Reportable 08/14/18 16:33 Not Reportable 08/14/18 16:33 Not Reportable 08/14/18 16:33 Not Reportable 08/14/18 16:33 Not Reportable 08/14/18 16:33 Not Reportable 08/14/18 16:33 Not Reportable 08/14/18 16:33 Not Reportable 08/14/18 16:33 Not Reportable 08/14/18 16:33 Not Reportable 08/14/18 16:33 Not Reportable 08/14/18 16:33 Not Reportable 08/14/18 16:33 Not Reportable 08/14/18 16:33 Acanthocytes (Spur) Not Reportable 08/14/18 16:33 Rouleaux Not Reportable 08/14/18 16:33 Not Reportable 08/14/18 16:33 Not Reportable 08/14/18 16:33 Not Reportable 08/14/18 16:33 Not Reportable 08/14/18 16:33 Hem Pathologist Commnt No 08/14/18 16:33 PT 15.1 Sec. (12.2-14.9) H 08/14/18 16:43 INR 1.22 (0.87-1.13) H 08/14/18 16:43 APTT 31.2 Sec. (24.2-36.6) 08/14/18 16:43 POC ABG pH 7.468 (7.35-7.45) H 08/14/18 17:01 POC ABG pO2 57 (80-105) L 08/14/18 17:01 POC ABG HCO3 21.2 (22-26 mml/L) 08/14/18 17:01 POC ABG Total CO2 22 (23-27mmol/L) 08/14/18 17:01 POC ABG O2 Sat 91 08/14/18 17:01 POC ABG Base Excess -2 ((-2) - (+3)mmol/L) 08/14/18 17:01 21 % 08/14/18 17:01 Sodium 140 mmol/L (137-145) 08/14/18 16:43 Potassium 3.5 mmol/L (3.6-5.0) L 08/14/18 16:43 Chloride 101.5 mmol/L (98-107) 08/14/18 16:43 Carbon Dioxide 22 mmol/L (22-30) 08/14/18 16:43 20 mmol/L 08/14/18 16:43 BUN 13 mg/dL (9-20) 08/14/18 16:43 0.9 mg/dL (0.8-1.5) 08/14/18 16:43 Estimated GFR > 60 ml/min 08/14/18 16:43 14 % 08/14/18 16:43 Glucose 99 mg/dL (75-100) 08/14/18 16:43 Calcium 9.1 mg/dL (8.4-10.2) 08/14/18 16:43 204 units/L (55-170) H 08/14/18 16:33 CK-MB (CK-2) 1.9 ng/mL (0.0-4.0) 08/14/18 16:33 CK-MB (CK-2) Rel Index 0.9 (0-4) 08/14/18 16:33 < 0.010 ng/mL (0.00-0.029) 08/14/18 16:33 NT-Pro-B Natriuret Pep 199.0 pg/mL (0-900) 08/14/18 16:33 Assessment and Plan Assessment and plan: 1. Acute dyspnea 2 Acute pneumonia 3. History of schizophrenia 4. History of major depression 5. Recent suicidal ideation Plan: Patient is admitted for pneumonia Starts CAP Protocol with Levaquin Continue nebulizer treatmemt PRN for SOB O2 to keep sat > 92% Cough supressent with tessalon perle Resume home meds Further plan per hospital course Plan of care was d/w pt, voiced understanding Pt's condition and plan of care of care discussed with Dr Sosa Advance Directives: Yes VTE prophylaxis?: Mechanical <DEEDEE SOSA E - Last Filed: 08/17/18 21:51> History of Present Illness Date of admission: 08/14/18 22:09 Medications and Allergies Active Meds: Active Medications Acetaminophen (Tylenol) 650 mg PO Q4H PRN PRN Reason: Pain MILD(1-3)/Fever >100.5/LOCO Docusate Sodium (Colace) 100 mg PO BID DOMINIC Enoxaparin Sodium (Lovenox) 40 mg SUB-Q QDAY@1000 DOMINIC Famotidine (Pepcid) 20 mg PO BID DOMINIC Vancomycin HCl 1,500 mg/ (Sodium Chloride) 530 mls @ 333 mls/hr IV ONCE ONE; Protocol Stop: 08/15/18 07:05 Sodium Chloride (Nacl 0.9% 1000 Ml) 1,000 mls @ 50 mls/hr IV DIRECT DOMINIC Levofloxacin/Dextrose (Levaquin 750mg/150ml) 750 mg in 150 mls @ 100 mls/hr IV Q24HR DOMINIC; Protocol Vancomycin HCl 1,250 mg/ (Sodium Chloride) 275 mls @ 166.667 mls/hr IV Q12H DOMINIC Magnesium Hydroxide (Milk Of Magnesia) 30 ml PO Q4H PRN PRN Reason: Constipation Ondansetron HCl (Zofran) 4 mg IV Q8H PRN PRN Reason: Nausea And Vomiting Oxycodone/Acetaminophen (Percocet 5/325) 1 tab PO Q6H PRN PRN Reason: Pain, Moderate (4-6) Sodium Chloride (Sodium Chloride Flush Syringe 10 Ml) 10 ml IV BID DOMINIC Sodium Chloride (Sodium Chloride Flush Syringe 10 Ml) 10 ml IV PRN PRN PRN Reason: LINE FLUSH Exam - Constitutional Vitals: Temp Pulse Resp BP Pulse Ox 98.8 F 92 H 20 147/69 94 08/15/18 06:22 08/15/18 06:22 08/15/18 06:22 08/15/18 06:22 08/15/18 06:22 Results - Labs CBC & Chem 7: 08/17/18 09:09 08/17/18 09:09 Labs: Laboratory Last Values WBC 8.8 K/mm3 (4.5-11.0) 08/14/18 16:33 RBC 3.38 M/mm3 (3.65-5.03) L 08/14/18 16:33 Hgb 9.9 gm/dl (11.8-15.2) L 08/14/18 16:33 Hct 29.2 % (35.5-45.6) L 08/14/18 16:33 MCV 86 fl (84-94) 08/14/18 16:33 MCH 29 pg (28-32) 08/14/18 16:33 MCHC 34 % (32-34) 08/14/18 16:33 RDW 17.3 % (13.2-15.2) H 08/14/18 16:33 Plt Count 331 K/mm3 (140-440) 08/14/18 16:33 Add Manual Diff Complete 08/14/18 16:33 Total Counted 100 08/14/18 16:33 Seg Neuts % (Manual) 87.0 % (40.0-70.0) H 08/14/18 16:33 0 % 08/14/18 16:33 6.0 % (13.4-35.0) L 08/14/18 16:33 Reactive Lymphs % (Man) 0 % 08/14/18 16:33 4.0 % (0.0-7.3) 08/14/18 16:33 3.0 % (0.0-4.3) 08/14/18 16:33 0 % (0.0-1.8) 08/14/18 16:33 0 % 08/14/18 16:33 0 % 08/14/18 16:33 0 % 08/14/18 16:33 0 % 08/14/18 16:33 Nucleated RBC % Not Reportable 08/14/18 16:33 Seg Neutrophils # Man 7.7 K/mm3 (1.8-7.7) 08/14/18 16:33 Band Neutrophils # 0.0 K/mm3 08/14/18 16:33 0.5 K/mm3 (1.2-5.4) L 08/14/18 16:33 Abs React Lymphs (Man) 0.0 K/mm3 08/14/18 16:33 0.4 K/mm3 (0.0-0.8) 08/14/18 16:33 0.3 K/mm3 (0.0-0.4) 08/14/18 16:33 0.0 K/mm3 (0.0-0.1) 08/14/18 16:33 0.0 K/mm3 08/14/18 16:33 0.0 K/mm3 08/14/18 16:33 0.0 K/mm3 08/14/18 16:33 Blast Cells # 0.0 K/mm3 08/14/18 16:33 WBC Morphology Not Reportable 08/14/18 16:33 Hypersegmented Neuts Not Reportable 08/14/18 16:33 Hyposegmented Neuts Not Reportable 08/14/18 16:33 Hypogranular Neuts Not Reportable 08/14/18 16:33 Not Reportable 08/14/18 16:33 Not Reportable 08/14/18 16:33 Not Reportable 08/14/18 16:33 Not Reportable 08/14/18 16:33 Not Reportable 08/14/18 16:33 Not Reportable 08/14/18 16:33 Appears normal 08/14/18 16:33 Not Reportable 08/14/18 16:33 Plt Clumps, EDTA Not Reportable 08/14/18 16:33 Not Reportable 08/14/18 16:33 Not Reportable 08/14/18 16:33 Not Reportable 08/14/18 16:33 Plt Morphology Comment Not Reportable 08/14/18 16:33 RBC Morphology Not Reportable 08/14/18 16:33 Dimorphic RBCs Not Reportable 08/14/18 16:33 Not Reportable 08/14/18 16:33 Not Reportable 08/14/18 16:33 Not Reportable 08/14/18 16:33 Few 08/14/18 16:33 Not Reportable 08/14/18 16:33 Not Reportable 08/14/18 16:33 Not Reportable 08/14/18 16:33 Not Reportable 08/14/18 16:33 Not Reportable 08/14/18 16:33 Not Reportable 08/14/18 16:33 Not Reportable 08/14/18 16:33 Not Reportable 08/14/18 16:33 Not Reportable 08/14/18 16:33 Not Reportable 08/14/18 16:33 Not Reportable 08/14/18 16:33 Not Reportable 08/14/18 16:33 Not Reportable 08/14/18 16:33 Not Reportable 08/14/18 16:33 Not Reportable 08/14/18 16:33 Acanthocytes (Spur) Not Reportable 08/14/18 16:33 Rouleaux Not Reportable 08/14/18 16:33 Not Reportable 08/14/18 16:33 Not Reportable 08/14/18 16:33 Not Reportable 08/14/18 16:33 Not Reportable 08/14/18 16:33 Hem Pathologist Commnt No 08/14/18 16:33 PT 15.1 Sec. (12.2-14.9) H 08/14/18 16:43 INR 1.22 (0.87-1.13) H 08/14/18 16:43 APTT 31.2 Sec. (24.2-36.6) 08/14/18 16:43 POC ABG pH 7.468 (7.35-7.45) H 08/14/18 17:01 POC ABG pO2 57 (80-105) L 08/14/18 17:01 POC ABG HCO3 21.2 (22-26 mml/L) 08/14/18 17:01 POC ABG Total CO2 22 (23-27mmol/L) 08/14/18 17:01 POC ABG O2 Sat 91 08/14/18 17:01 POC ABG Base Excess -2 ((-2) - (+3)mmol/L) 08/14/18 17:01 21 % 08/14/18 17:01 Sodium 140 mmol/L (137-145) 08/14/18 16:43 Potassium 3.5 mmol/L (3.6-5.0) L 08/14/18 16:43 Chloride 101.5 mmol/L (98-107) 08/14/18 16:43 Carbon Dioxide 22 mmol/L (22-30) 08/14/18 16:43 20 mmol/L 08/14/18 16:43 BUN 13 mg/dL (9-20) 08/14/18 16:43 0.9 mg/dL (0.8-1.5) 08/14/18 16:43 Estimated GFR > 60 ml/min 08/14/18 16:43 14 % 08/14/18 16:43 Glucose 99 mg/dL (75-100) 08/14/18 16:43 Calcium 9.1 mg/dL (8.4-10.2) 08/14/18 16:43 204 units/L (55-170) H 08/14/18 16:33 CK-MB (CK-2) 1.9 ng/mL (0.0-4.0) 08/14/18 16:33 CK-MB (CK-2) Rel Index 0.9 (0-4) 08/14/18 16:33 < 0.010 ng/mL (0.00-0.029) 08/14/18 16:33 NT-Pro-B Natriuret Pep 199.0 pg/mL (0-900) 08/14/18 16:33 Presumptive negative 08/14/18 Unknown Presumptive negative 08/14/18 Unknown Ur Barbiturates Screen Presumptive negative 08/14/18 Unknown Ur Phencyclidine Scrn Presumptive negative 08/14/18 Unknown Ur Amphetamines Screen Presumptive negative 08/14/18 Unknown U Benzodiazepines Scrn Presumptive negative 08/14/18 Unknown Presumptive negative 08/14/18 Unknown U Marijuana (THC) Screen Presumptive negative 08/14/18 Unknown Disclamer 08/14/18 Unknown Assessment and Plan Assessment and plan: 52 -year-old man with a history of schizophrenia, depression and was recently discharged from [facility] for suicide ideation was brought to the emergency room complaining of cough for 1 week, shortness of breath. He received a course of antibiotic while at an [facility], unclear which one. Patient found to to have bilateral pneumonia, continue antibiotic. Patient seen and examined, d/w BUSINESS INTEGRATION ANALYST.
[2018-08-15 02:17] LABS: Amphetamine Screen,Urine PRESUMPTIVE NEGATIVE; Benzodiazepines Screen,Urine PRESUMPTIVE NEGATIVE; Cannabinoid Screen,Urine PRESUMPTIVE NEGATIVE; Cocaine Screen,Urine PRESUMPTIVE NEGATIVE; Methadone Screen,Urine PRESUMPTIVE NEGATIVE; Opiate Screen,Urine PRESUMPTIVE NEGATIVE
[2018-08-15] MEDS ORDERED: VANCOMYCIN 1,500 MG in NACL 0.9% 500 ML 500 ML IV ONE (05:30)
[2018-08-15] MEDS ORDERED: VANCOMYCIN PHARMACY TO DOSE IV SCH (06:00)
[2018-08-15] MEDS: NACL 0.9% 1000 ML 1,000 ML IV SCH (06:44)
[2018-08-15] MEDS: LEVAQUIN 750MG/150ML 750 MG/150 ML BAG IV SCH (09:52)
[2018-08-15] MEDS: PEPCID PO SCH ×2 (09:53→23:00)
[2018-08-15] MEDS: LOVENOX SUB-Q SCH (09:53)
[2018-08-15] MEDS: COLACE PO SCH ×2 (09:53→23:00)
[2018-08-15] MEDS ORDERED: LOVENOX SUB-Q SCH (10:00)
[2018-08-15] MEDS: TYLENOL PO PRN (10:06)
[2018-08-15] MEDS: VANCOMYCIN 1,250 MG in NACL 0.9% 250ML 250 ML IV SCH (19:26)
[2018-08-15] MEDS: SODIUM CHLORIDE FLUSH SYRINGE 10 ML IV SCH ×2 (19:26→23:00)
[2018-08-16] MEDS: VANCOMYCIN 1,250 MG in NACL 0.9% 250ML 250 ML IV SCH ×2 (07:02→18:21)
[2018-08-16] MEDS: PEPCID PO SCH ×2 (09:25→22:11)
[2018-08-16] MEDS: LEVAQUIN 750MG/150ML 750 MG/150 ML BAG IV SCH (09:25)
[2018-08-16] MEDS: LOVENOX SUB-Q SCH (09:26)
[2018-08-16] MEDS: COLACE PO SCH ×2 (09:26→23:00)
[2018-08-16] MEDS: SODIUM CHLORIDE FLUSH SYRINGE 10 ML IV SCH ×2 (09:31→22:14)
--- NOTE | 2018-08-16 12:05 | Progress Note ---
Assessment and Plan - Patient Problems (1) Bilateral pneumonia Current Visit: Yes Status: Acute Qualifiers: Lung location: lower lobe of lung Plan to address problem: Cont Abx (2) Respiratory failure with hypoxia Current Visit: Yes Status: Acute Qualifiers: Chronicity: acute Qualified Code(s): J96.01 - Acute respiratory failure with hypoxia Plan to address problem: Improved (3) Anemia Current Visit: Yes Status: Chronic Qualifiers: Anemia type: unspecified type Qualified Code(s): D64.9 - Anemia, unspecified Plan to address problem: Anemia w/u (4) Hypokalemia Current Visit: Yes Status: Acute Plan to address problem: Supplemented (5) Schizophrenia Current Visit: Yes Status: Chronic Qualifiers: Schizophrenia type: unspecified Qualified Code(s): F20.9 - Schizophrenia, unspecified Plan to address problem: Cont Zyprexa (6) Depression Current Visit: Yes Status: Chronic Qualifiers: Depression Type: unspecified Qualified Code(s): F32.9 - Major depressive disorder, single episode, unspecified Plan to address problem: Cont antidepressants (7) Gout Current Visit: Yes Status: Chronic Qualifiers: Gout site: unspecified site Plan to address problem: Cont Allopurinol (8) HLD (hyperlipidemia) Current Visit: Yes Status: Chronic Qualifiers: Hyperlipidemia type: mixed hyperlipidemia Qualified Code(s): E78.2 - Mixed hyperlipidemia Plan to address problem: Cont statins (9) DVT prophylaxis Current Visit: Yes Status: Acute Plan to address problem: On Lovenox and GI prophylaxis Subjective Date of service: 08/16/18 Principal diagnosis: LLL PNA Interval history: 52-year-old male with PMHx of developmental delay, schizophrenia, and depression presents to the ER with complaints of shortness of breath and cough 1 day. According to the information provided to the ER from the facility, patient was discharged yesterday from a facility for suicidal ideation . Has difficulty breathing. Patient O2 sat was noted to be 86% and improve after application of oxygen via n/c. Pt denies a history of COPD but admits to history of smoking, denies ill-contact but states that the air conditioning at the location was very cold, denies palpitation, denies headache, denies chest pain denies fever or chills. In the ER, pt had a chest x-ray that showed multifocal bilateral air space disease suspicious for pneumonia. Objective - Constitutional Vitals: Vital Signs - 12hr 08/16/18 08/16/18 05:32 08:36 Temperature 98.3 F Pulse Rate 90 Respiratory 20 Rate Blood Pressure 144/89 O2 Sat by Pulse 97 97 Oximetry General appearance: Present: no acute distress, well-nourished - EENT Eyes: PERRL, EOM intact ENT: hearing intact, clear oral mucosa Ears: bilateral: normal - Neck Neck: supple, normal ROM - Respiratory Respiratory effort: normal Respiratory: bilateral: CTA, rhonchi, wheezing - Breasts Breasts: normal - Cardiovascular Heart rate: 78 Rhythm: regular Heart Sounds: Present: S1 & S2. Absent: gallop, rub Extremities: no ischemia, pulses intact, No edema, normal color, Full ROM - Gastrointestinal General gastrointestinal: Present: soft, non-tender, non-distended, normal bowel sounds - Genitourinary Male genitourinary: deferred, normal - Integumentary Integumentary: clear, warm, dry - Musculoskeletal Musculoskeletal: 1, strength equal bilaterally - Neurologic Neurologic: moves all extremities - Psychiatric Psychiatric: memory intact, appropriate mood/affect, intact judgment & insight - Allied health notes Allied health notes reviewed: nursing, case management - Labs CBC & Chem 7: 08/14/18 16:33 08/14/18 16:43
--- NOTE | 2018-08-16 12:20 | Progress Note ---
Assessment and Plan - Patient Problems (1) Bilateral pneumonia Current Visit: Yes Status: Acute Qualifiers: Lung location: lower lobe of lung Plan to address problem: Cont Abx (2) Respiratory failure with hypoxia Current Visit: Yes Status: Acute Qualifiers: Chronicity: acute Qualified Code(s): J96.01 - Acute respiratory failure with hypoxia Plan to address problem: Improved (3) Anemia Current Visit: Yes Status: Chronic Qualifiers: Anemia type: unspecified type Qualified Code(s): D64.9 - Anemia, unspecified Plan to address problem: Anemia w/u (4) Hypokalemia Current Visit: Yes Status: Acute Plan to address problem: Supplemented (5) Schizophrenia Current Visit: Yes Status: Chronic Qualifiers: Schizophrenia type: unspecified Qualified Code(s): F20.9 - Schizophrenia, unspecified Plan to address problem: Cont Zyprexa (6) Depression Current Visit: Yes Status: Chronic Qualifiers: Depression Type: unspecified Qualified Code(s): F32.9 - Major depressive disorder, single episode, unspecified Plan to address problem: Cont antidepressants (7) Gout Current Visit: Yes Status: Chronic Qualifiers: Gout site: unspecified site Plan to address problem: Cont Allopurinol (8) HLD (hyperlipidemia) Current Visit: Yes Status: Chronic Qualifiers: Hyperlipidemia type: mixed hyperlipidemia Qualified Code(s): E78.2 - Mixed hyperlipidemia Plan to address problem: Cont statins (9) DVT prophylaxis Current Visit: Yes Status: Acute Plan to address problem: On Lovenox and GI prophylaxis Subjective Date of service: 08/15/18 Principal diagnosis: LLL PNA Interval history: 52-year-old male with PMHx of developmental delay, schizophrenia, and depression presents to the ER with complaints of shortness of breath and cough 1 day. According to the information provided to the ER from the facility, patient was discharged yesterday from a facility for suicidal ideation . Has difficulty breathing. Patient O2 sat was noted to be 86% and improve after application of oxygen via n/c. Pt denies a history of COPD but admits to history of smoking, denies ill-contact but states that the air conditioning at the location was very cold, denies palpitation, denies headache, denies chest pain denies fever or chills. In the ER, pt had a chest x-ray that showed multifocal bilateral air space disease suspicious for pneumonia. Objective - Constitutional Vitals: Vital Signs - 12hr 08/16/18 08/16/18 08/16/18 05:32 08:36 11:19 Temperature 98.3 F 98.8 F Pulse Rate 90 69 Respiratory 20 20 Rate Blood Pressure 144/89 115/68 O2 Sat by Pulse 97 97 93 Oximetry General appearance: Present: no acute distress, well-nourished - EENT Eyes: PERRL, EOM intact ENT: hearing intact, clear oral mucosa Ears: bilateral: normal - Neck Neck: supple, normal ROM - Respiratory Respiratory effort: normal Respiratory: bilateral: CTA - Breasts Breasts: normal - Cardiovascular Heart rate: 78 Rhythm: regular Heart Sounds: Present: S1 & S2. Absent: gallop, rub Extremities: no ischemia, pulses intact, No edema, normal color, Full ROM - Gastrointestinal General gastrointestinal: Present: soft, non-tender, non-distended, normal bowel sounds - Genitourinary Male genitourinary: normal - Integumentary Integumentary: clear, warm, dry - Musculoskeletal Musculoskeletal: 1, strength equal bilaterally - Neurologic Neurologic: moves all extremities - Psychiatric Psychiatric: memory intact, appropriate mood/affect, intact judgment & insight - Labs CBC & Chem 7: 08/14/18 16:33 08/14/18 16:43
[2018-08-16] MEDS: ZYLOPRIM PO SCH (14:31)
[2018-08-16] MEDS: DUONEB *Not for PRN Use IH SCH ×2 (16:17→20:52)
[2018-08-16] MEDS: NACL 0.9% 1000 ML 1,000 ML IV SCH (18:21)
[2018-08-16] MEDS ORDERED: NON-FORMULARY (Olanzapine [Zyprexa] 20 MG) PO SCH (22:00)
[2018-08-16] MEDS ORDERED: NON-FORMULARY (Simvastatin [Simvastatin] 20 MG) PO SCH (22:00)
[2018-08-16] MEDS: PRAVACHOL PO SCH (22:08)
[2018-08-16] MEDS: ATIVAN PO SCH (22:10)
[2018-08-16] MEDS: BENADRYL PO SCH (22:11)
[2018-08-17] MEDS: DUONEB *Not for PRN Use IH SCH ×4 (07:40→21:03)
[2018-08-17] MEDS: VANCOMYCIN 1,250 MG in NACL 0.9% 250ML 250 ML IV SCH ×2 (08:28→17:32)
[2018-08-17] MEDS: LEVAQUIN 750MG/150ML 750 MG/150 ML BAG IV SCH (09:42)
[2018-08-17] MEDS: WELLBUTRIN XL PO SCH (09:45)
[2018-08-17] MEDS: ZYLOPRIM PO SCH (09:45)
[2018-08-17] MEDS: RisperDAL PO SCH (09:45)
[2018-08-17] MEDS: LOVENOX SUB-Q SCH (09:45)
[2018-08-17] MEDS: PEPCID PO SCH ×2 (09:45→22:24)
[2018-08-17] MEDS: COLACE PO SCH ×3 (09:46→22:24)
[2018-08-17] MEDS: SODIUM CHLORIDE FLUSH SYRINGE 10 ML IV SCH ×2 (09:46→22:25)
[2018-08-17] MEDS ORDERED: NON-FORMULARY (Risperidone [Risperdal] 2 MG) PO SCH (10:00)
[2018-08-17] MEDS ORDERED: OLANZAPINE 10 MG PO SCH (10:00)
[2018-08-17 10:37] LABS: Basophils % (Auto) 0.2 % (0.0-1.8); Eosinophils # (Auto) 0.1 K/mm3 (0.0-0.4); Eosinophils % (Auto) 0.8 % (0.0-4.3); Lymphocytes # (Auto) 0.5 K/mm3 (1.2-5.4); Lymphocytes % (Auto) 7.1 % (13.4-35.0); Mean Corpuscular HGB Conc 33 % (32-34); Mean Corpuscular Volume 87 fl (84-94); Monocytes # (Auto) 0.7 K/mm3 (0.0-0.8); Monocytes % (Auto) 9.2 % (0.0-7.3); Platelet Count 293 K/mm3 (140-440); Red Blood Count 3.12 M/mm3 (3.65-5.03)
[2018-08-17] MEDS: PROzac PO SCH (11:03)
[2018-08-17 11:44] LABS: Alanine Aminotransferase 21 units/L (7-56); Albumin 3.2 g/dL (3.9-5); BUN/Creatinine Ratio 9; Blood Urea Nitrogen 7 mg/dL (9-20); Calcium 8.4 mg/dL (8.4-10.2); Hemolysis Index 21
[2018-08-17] MEDS: BENADRYL PO SCH (22:24)
[2018-08-17] MEDS: PRAVACHOL PO SCH (22:24)
[2018-08-17] MEDS: ATIVAN PO SCH (22:25)
--- NOTE | 2018-08-17 23:26 | Event Note ---
Date: 08/17/18 Call to see patient He has increase work of breathing on BIPAP Give steroids now, neb treatment and start aztrenam ABG reviewed, will repeat ABG, obtain CXR transfer patient to [facility] for close monitoring The high probability of a clinically significant, sudden or life threatening deterioration of the [CV, GI, respiratory] system(s) required my full and direct attention, intervention and personal management. The aggregate critical care time was [ 35] minutes. This time is in addition to time spent performing reported procedures but includes the following: x] Data Review and interpretation [x] Patient assessment and monitoring of vital signs [x] Documentation [x] Medication orders and management
[2018-08-17] MEDS ORDERED: SOLU-Medrol IV ONE (23:32)
[2018-08-17] MEDS: AZACTAM/NS 1 GM/50 ML 1 GM/50 ML VIAL IV SCH (23:50)
--- NOTE | 2018-08-18 00:56 | XRay Report ---
PROCEDURE: Chest. TECHNIQUE: Portable AP view. HISTORY: Shortness of breath. COMPARISONS: Chest 08/14/2018. FINDINGS: The heart size is normal. The right lung is grossly clear. There are some air bronchograms visible in the lower half of the left lung. There is some fluffy opacity present laterally. The basilar opacity has worsened since the previous study. Left-sided pneumonia is considered likely. There are no defin ite pleural effusions. The soft tissues are unremarkable. There is a mild thoracic scoliosis. IMPRESSION: Worsening of left-sided pneumonia. This document is electronically signed by Filipe La MD., August 18 2018 12:54:12 AM ET
[2018-08-18] MEDS: SOLU-Medrol IV SCH ×4 (01:39→19:13)
[2018-08-18] MEDS: NACL 0.9% 1000 ML 1,000 ML IV SCH (04:31)
[2018-08-18] MEDS: AZACTAM/NS 1 GM/50 ML 1 GM/50 ML VIAL IV SCH ×3 (06:11→19:13)
[2018-08-18] MEDS: DUONEB *Not for PRN Use IH SCH ×4 (08:16→19:27)
--- NOTE | 2018-08-18 12:54 | Consultation ---
History of Present Illness Consult date: 08/18/18 Requesting physician: MARTHA AZUL Reason for consult: other (Acute Hypoxemic Respiratory Failure) History of present illness: PULMONARY/CCM CONSULT NOTE (Full dictation # [id number]) Please see dictated notes for full details Past History Past Medical History: No medical history, other (schizophrenia) Past Surgical History: No surgical history Social history: no significant social history Family history: no significant family history Medications and Allergies Allergies Allergy/AdvReac Type Severity Reaction Status Date / Time Penicillins Allergy Unknown Verified 08/14/18 15:52 Home Medications Medication Instructions Recorded Confirmed Last Taken Type FLUoxetine [PROzac] 40 mg PO QAM 08/03/18 08/14/18 08/03/18 History diphenhydrAMINE [Benadryl CAP] 100 mg PO QHS 08/03/18 08/14/18 08/03/18 History Allopurinol [Zyloprim] 100 mg PO QDAY 08/14/18 08/14/18 Unknown History Cholecalciferol (Vitamin D3) 50,000 unit PO QWEEK 08/14/18 08/14/18 Unknown History [Vitamin D3 50,000UNIT CAP] FLUoxetine [PROzac] 20 mg PO DAILY@1200 08/14/18 08/14/18 Unknown History LORazepam [Ativan] 1 mg PO QAM 08/14/18 08/14/18 Unknown History LORazepam [Ativan] 2 mg PO QHS 08/14/18 08/14/18 Unknown History Multivitamin Tab [Multiple Vitamin 1 each PO QDAY 08/14/18 08/14/18 Unknown His tory TAB (Theragran)] OLANZapine [Zyprexa] 10 mg PO QAM 08/14/18 08/14/18 Unknown History OLANZapine [Zyprexa] 20 mg PO HS 08/14/18 08/14/18 Unknown History Simvastatin 20 mg PO HS 08/14/18 08/14/18 Unknown History buPROPion XL [Wellbutrin Xl] 150 mg PO QAM 08/14/18 08/14/18 Unknown History risperiDONE [Risperdal] 2 mg PO QAM 08/14/18 08/14/18 Unknown History Active Meds: Active Medications Acetaminophen (Tylenol) 650 mg PO Q4H PRN PRN Reason: Pain MILD(1-3)/Fever >100.5/LOCO Last Admin: 08/15/18 10:06 Dose: 650 mg Documented by: Albuterol/Ipratropium (Duoneb *Not For Prn Use*) 1 ampul IH QIDRT [facility] Last Admin: 08/18/18 08:16 Dose: 1 ampul Documented by: Allopurinol (Zyloprim) 100 mg PO QDAY [facility] Last Admin: 08/17/18 09:45 Dose: 100 mg Documented by: Bupropion HCl (Wellbutrin Xl) 150 mg PO QAM [facility] Last Admin: 08/17/18 09:45 Dose: 150 mg Documented by: Diphenhydramine HCl (Benadryl) 100 mg PO QHS [facility] Last Admin: 08/17/18 22:24 Dose: 100 mg Documented by: Docusate Sodium (Colace) 100 mg PO BID [facility] Last Admin: 08/17/18 22:24 Dose: Not Given Documented by: Enoxaparin Sodium (Lovenox) 40 mg SUB-Q QDAY@1000 [facility] Last Admin: 08/17/18 09:45 Dose: 40 mg Documented by: Famotidine (Pepcid) 20 mg PO BID [facility] Last Admin: 08/17/18 22:24 Dose: 20 mg Documented by: Fluoxetine HCl (Prozac) 20 mg PO DAILY@1200 [facility] Last Admin: 08/17/18 11:03 Dose: 20 mg Documented by: Sodium Chloride (Nacl 0.9% 1000 Ml) 1,000 mls @ 50 mls/hr IV DIRECT [facility] Last Admin: 08/18/18 04:31 Dose: 50 mls/hr Documented by: Aztreonam (Azactam/Ns 1 Gm/50 Ml) 1 gm in 50 mls @ 50 mls/hr IV Q6HR [facility]; Protocol Last Admin: 08/18/18 06:11 Dose: 50 mls/hr Documented by: Vancomycin HCl 1,250 mg/ (Sodium Chloride) 275 mls @ 166.667 mls/hr IV Q8H [facility] Levofloxacin (Levaquin) 750 mg PO DAILY [facility] Lorazepam (Ativan) 2 mg PO QHS [facility] Last Admin: 08/17/18 22:25 Dose: 2 mg Documented by: Magnesium Hydroxide (Milk Of Magnesia) 30 ml PO Q4H PRN PRN Reason: Constipation Methylprednisolone Sodium Succinate (Solu-Medrol) 125 mg IV Q6HR [facility] Last Admin: 08/18/18 06:11 Dose: 125 mg Documented by: Olanzapine (Zyprexa) 20 mg PO QHS [facility] Last Admin: 08/17/18 22:27 Dose: 20 mg Documented by: Ondansetron HCl (Zofran) 4 mg IV Q8H PRN PRN Reason: Nausea And Vomiting Pravastatin Sodium (Pravachol) 40 mg PO QHS [facility] Last Admin: 08/17/18 22:24 Dose: 40 mg Documented by: Risperidone (Risperdal) 2 mg PO QAM [facility] Last Admin: 08/17/18 09:45 Dose: 2 mg Documented by: Sodium Chloride (Sodium Chloride Flush Syringe 10 Ml) 10 ml IV BID [facility] Last Admin: 08/17/18 22:25 Dose: 10 ml Documented by: Sodium Chloride (Sodium Chloride Flush Syringe 10 Ml) 10 ml IV PRN PRN PRN Reason: LINE FLUSH Physical Examination Vital signs: Vital Signs Temp Pulse Ox 98.7 F 86 08/14/18 16:00 08/14/18 16:00 Results - Laboratory Findings CBC and BMP: 08/17/18 09:09 08/17/18 09:09 ABG POC ABG pH 7.383 (7.35-7.45) 08/18/18 01:21 POC ABG pCO2 40.6 (35-45) 08/18/18 01:21 POC ABG pO2 98 (80-105) 08/18/18 01:21 POC ABG HCO3 24.2 (22-26 mml/L) 08/18/18 01:21 POC ABG Total CO2 25 (23-27mmol/L) 08/18/18 01:21 POC ABG O2 Sat 97 08/18/18 01:21 PT/INR, D-dimer PT 15.1 Sec. (12.2-14.9) H 08/14/18 16:43 INR 1.22 (0.87-1.13) H 08/14/18 16:43 Abnormal lab findings: Abnormal Labs 08/14/18 08/14/18 08/14/18 16:33 16:33 16:43 RBC 3.38 L Hgb 9.9 L Hct 29.2 L RDW 17.3 H Lymph % (Auto) [place] % (Auto) Lymph # Seg Neutrophils % Seg Neuts % (Manual) 87.0 H Lymphocytes % (Manual) 6.0 L Lymphocytes # (Manual) 0.5 L PT INR POC ABG pH POC ABG pCO2 POC ABG pO2 Potassium 3.5 L Carbon Dioxide BUN Glucose Total Creatine Kinase 204 H Total Protein Albumin Vancomycin Trough 08/14/18 08/14/18 08/17/18 16:43 17:01 09:09 RBC 3.12 L Hgb 9.0 L Hct 27.0 L RDW 17.0 H Lymph % (Auto) 7.1 L [place] % (Auto) 9.2 H Lymph # 0.5 L Seg Neutrophils % 82.7 H Seg Neuts % (Manual) Lymphocytes % (Manual) Lymphocytes # (Manual) PT 15.1 H INR 1.22 H POC ABG pH 7.468 H POC ABG pCO2 POC ABG pO2 57 L Potassium Carbon Dioxide BUN Glucose Total Creatine Kinase Total Protein Albumin Vancomycin Trough 08/17/18 08/17/18 08/17/18 09:09 11:30 23:21 RBC Hgb Hct RDW Lymph % (Auto) [place] % (Auto) Lymph # Seg Neutrophils % Seg Neuts % (Manual) Lymphocytes % (Manual) Lymphocytes # (Manual) PT INR POC ABG pH 7.225 L POC ABG pCO2 54.6 H POC ABG pO2 50 L 110 H Potassium 3.5 L Carbon Dioxide 20 L BUN 7 L Glucose 125 H Total Creatine Kinase Total Protein 6.2 L Albumin 3.2 L Vancomycin Trough 08/18/18 04:49 RBC Hgb Hct RDW Lymph % (Auto) [place] % (Auto) Lymph # Seg Neutrophils % Seg Neuts % (Manual) Lymphocytes % (Manual) Lymphocytes # (Manual) PT INR POC ABG pH POC ABG pCO2 POC ABG pO2 Potassium Carbon Dioxide BUN Glucose Total Creatine Kinase Total Protein Albumin Vancomycin Trough 4.7 L
[2018-08-18] MEDS ORDERED: HYDROMET PO PRN (13:09)
[2018-08-18] MEDS ORDERED: HALDOL IV PRN (13:18)
[2018-08-18] MEDS: PEPCID PO SCH ×2 (13:20→22:05)
[2018-08-18] MEDS: COLACE PO SCH ×2 (13:20→22:05)
[2018-08-18] MEDS: LOVENOX SUB-Q SCH (13:21)
[2018-08-18] MEDS: RisperDAL PO SCH (13:21)
[2018-08-18] MEDS ORDERED: LASIX IV STA (13:23)
[2018-08-18] MEDS ORDERED: LASIX ONE (13:26)
[2018-08-18] MEDS: LEVAQUIN PO SCH (13:32)
[2018-08-18] MEDS: ZYLOPRIM PO SCH (13:32)
[2018-08-18] MEDS: SODIUM CHLORIDE FLUSH SYRINGE 10 ML IV SCH ×2 (13:33→22:15)
[2018-08-18] MEDS: PROzac PO SCH (13:34)
[2018-08-18] MEDS: WELLBUTRIN XL PO SCH (13:42)
[2018-08-18 14:35] LABS: Hematocrit 30.2 % (35.5-45.6); Hemoglobin 10.1 gm/dl (11.8-15.2); Mean Corpuscular HGB Conc 33 % (32-34); Mean Corpuscular Volume 87 fl (84-94); Red Blood Count 3.46 M/mm3 (3.65-5.03); Red Cell Distribution Width 17.6 % (13.2-15.2)
[2018-08-18 14:55] LABS: C-Reactive Protein 31.1 mg/dL (0.00-1.30)
[2018-08-18 14:59] LABS: BUN/Creatinine Ratio TNR; Blood Urea Nitrogen TNR mg/dL (9-20); Calcium TNR mg/dL (8.4-10.2); Hemolysis Index TNR
--- NOTE | 2018-08-18 15:05 | Progress Note ---
Assessment and Plan - Patient Problems (1) Bilateral pneumonia Current Visit: Yes Status: Acute Qualifiers: Lung location: lower lobe of lung Plan to address problem: Cont Abx (2) Respiratory failure with hypoxia Current Visit: Yes Status: Acute Qualifiers: Chronicity: acute Qualified Code(s): J96.01 - Acute respiratory failure with hypoxia Plan to address problem: Improved (3) Anemia Current Visit: Yes Status: Chronic Qualifiers: Anemia type: unspecified type Qualified Code(s): D64.9 - Anemia, unspecified Plan to address problem: Anemia w/u (4) Hypokalemia Current Visit: Yes Status: Acute Plan to address problem: Supplemented (5) Schizophrenia Current Visit: Yes Status: Chronic Qualifiers: Schizophrenia type: unspecified Qualified Code(s): F20.9 - Schizophrenia, unspecified Plan to address problem: Cont Zyprexa (6) Depression Current Visit: Yes Status: Chronic Qualifiers: Depression Type: unspecified Qualified Code(s): F32.9 - Major depressive disorder, single episode, unspecified Plan to address problem: Cont antidepressants (7) Gout Current Visit: Yes Status: Chronic Qualifiers: Gout site: unspecified site Plan to address problem: Cont Allopurinol (8) HLD (hyperlipidemia) Current Visit: Yes Status: Chronic Qualifiers: Hyperlipidemia type: mixed hyperlipidemia Qualified Code(s): E78.2 - Mixed hyperlipidemia Plan to address problem: Cont statins (9) DVT prophylaxis Current Visit: Yes Status: Acute Plan to address problem: On Lovenox and GI prophylaxis Subjective Date of service: 08/17/18 Principal diagnosis: LLL PNA Interval history: 52-year-old male with PMHx of developmental delay, schizophrenia, and depression presents to the ER with complaints of shortness of breath and cough 1 day. According to the information provided to the ER from the facility, patient was discharged yesterday from a facility for suicidal ideation . Has difficulty breathing. Patient O2 sat was noted to be 86% and improve after application of oxygen via n/c. Pt denies a history of COPD but admits to history of smoking, denies ill-contact but states that the air conditioning at the location was very cold, denies palpitation, denies headache, denies chest pain denies fever or chills. In the ER, pt had a chest x-ray that showed multifocal bilateral air space disease suspicious for pneumonia. Objective - Constitutional Vitals: Vital Signs - 12hr 08/18/18 08/18/18 08/18/18 03:11 03:21 03:30 Temperature Pulse Rate 87 86 85 Pulse Rate [ Bilateral] Pulse Rate [ From Monitor] Respiratory 39 H 37 H 38 H Rate Respiratory Rate [Bilateral ] Blood Pressure 125/76 125/76 124/66 O2 Sat by Pulse 92 Oximetry 08/18/18 08/18/18 08/18/18 03:41 03:51 04:00 Temperature 99.2 F Pulse Rate 84 83 83 Pulse Rate [ Bilateral] Pulse Rate [ 83 From Monitor] Respiratory 37 H 37 H 35 H Rate Respiratory Rate [Bilateral ] Blood Pressure 124/66 124/66 114/70 O2 Sat by Pulse 95 Oximetry 08/18/18 08/18/18 08/18/18 04:11 04:21 04:30 Temperature Pulse Rate 84 84 84 Pulse Rate [ Bilateral] Pulse Rate [ From Monitor] Respiratory 36 H 36 H 36 H Rate Respiratory Rate [Bilateral ] Blood Pressure 114/70 114/70 117/67 O2 Sat by Pulse 95 95 95 Oximetry 08/18/18 08/18/18 08/18/18 04:41 04:51 05:00 Temperature Pulse Rate 107 H 88 83 Pulse Rate [ Bilateral] Pulse Rate [ From Monitor] Respiratory 42 H 35 H 38 H Rate Respiratory Rate [Bilateral ] Blood Pressure 117/67 117/67 94/60 O2 Sat by Pulse 94 95 94 Oximetry 08/18/18 08/18/18 08/18/18 05:11 05:21 05:30 Temperature Pulse Rate 80 82 81 Pulse Rate [ Bilateral] Pulse Rate [ From Monitor] Respiratory 33 H 35 H 35 H Rate Respiratory Rate [Bilateral ] Blood Pressure 94/60 94/60 103/62 O2 Sat by Pulse 95 95 92 Oximetry 08/18/18 08/18/18 08/18/18 05:41 05:51 06:00 Temperature Pulse Rate 80 79 79 Pulse Rate [ Bilateral] Pulse Rate [ From Monitor] Respiratory 36 H 36 H 37 H Rate Respiratory Rate [Bilateral ] Blood Pressure 103/62 103/62 99/62 O2 Sat by Pulse 95 95 95 Oximetry 08/18/18 08/18/18 08/18/18 06:11 06:21 06:30 Temperature Pulse Rate 80 80 77 Pulse Rate [ Bilateral] Pulse Rate [ From Monitor] Respiratory 33 H 34 H 32 H Rate Respiratory Rate [Bilateral ] Blood Pressure 99/62 99/62 103/63 O2 Sat by Pulse 94 94 94 Oximetry 08/18/18 08/18/18 08/18/18 06:41 06:51 07:00 Temperature Pulse Rate 78 77 77 Pulse Rate [ Bilateral] Pulse Rate [ From Monitor] Respiratory 34 H 35 H 33 H Rate Respiratory Rate [Bilateral ] Blood Pressure 103/63 103/63 106/66 O2 Sat by Pulse 95 95 95 Oximetry 08/18/18 08/18/18 08/18/18 07:11 07:21 07:30 Temperature Pulse Rate 80 77 84 Pulse Rate [ Bilateral] Pulse Rate [ From Monitor] Respiratory 33 H 28 H 36 H Rate Respiratory Rate [Bilateral ] Blood Pressure 106/66 106/66 113/67 O2 Sat by Pulse 95 97 98 Oximetry 08/18/18 08/18/18 08/18/18 07:40 07:51 08:00 Temperature 97.1 F L Pulse Rate 93 H 95 H 83 Pulse Rate [ Bilateral] Pulse Rate [ From Monitor] Respiratory 41 H 35 H 42 H Rate Respiratory Rate [Bilateral ] Blood Pressure 113/67 113/67 103/55 O2 Sat by Pulse 94 94 92 Oximetry 08/18/18 08/18/18 08/18/18 08:11 08:12 08:16 Temperature Pulse Rate 115 H 107 H Pulse Rate [ 104 H Bilateral] Pulse Rate [ From Monitor] Respiratory 36 H 48 H Rate Respiratory 45 H Rate [Bilateral ] Blood Pressure 113/67 103/55 O2 Sat by Pulse 78 L 94 Oximetry 08/18/18 08/18/18 08/18/18 08:21 08:26 08:31 Temperature Pulse Rate 109 H 113 H Pulse Rate [ 120 H Bilateral] Pulse Rate [ From Monitor] Respiratory 50 H 51 H Rate Respiratory 45 H Rate [Bilateral ] Blood Pressure 113/67 99/60 O2 Sat by Pulse 92 96 Oximetry 08/18/18 08/18/18 08/18/18 08:41 08:51 09:00 Temperature Pulse Rate 103 H 98 H 94 H Pulse Rate [ Bilateral] Pulse Rate [ From Monitor] Respiratory 45 H 39 H 42 H Rate Respiratory Rate [Bilateral ] Blood Pressure 99/60 99/60 115/55 O2 Sat by Pulse 98 98 95 Oximetry 08/18/18 08/18/18 08/18/18 09:11 09:21 09:30 Temperature Pulse Rate 94 H 91 H 97 H Pulse Rate [ Bilateral] Pulse Rate [ From Monitor] Respiratory 44 H 37 H 36 H Rate Respiratory Rate [Bilateral ] Blood Pressure 99/60 99/60 123/64 O2 Sat by Pulse 98 96 96 Oximetry 08/18/18 08/18/18 08/18/18 09:41 09:51 10:00 Temperature Pulse Rate 89 89 92 H Pulse Rate [ Bilateral] Pulse Rate [ From Monitor] Respiratory 35 H 35 H 37 H Rate Respiratory Rate [Bilateral ] Blood Pressure 123/64 123/64 124/72 O2 Sat by Pulse 96 97 96 Oximetry 08/18/18 08/18/18 08/18/18 10:11 10:21 10:30 Temperature Pulse Rate 85 83 85 Pulse Rate [ Bilateral] Pulse Rate [ From Monitor] Respiratory 35 H 35 H 35 H Rate Respiratory Rate [Bilateral ] Blood Pressure 124/72 124/72 116/71 O2 Sat by Pulse 96 97 95 Oximetry 08/18/18 08/18/18 08/18/18 10:41 10:51 11:00 Temperature Pulse Rate 83 85 86 Pulse Rate [ Bilateral] Pulse Rate [ From Monitor] Respiratory 35 H 36 H 35 H Rate Respiratory Rate [Bilateral ] Blood Pressure 116/71 116/71 120/65 O2 Sat by Pulse 97 95 93 Oximetry 08/18/18 08/18/18 08/18/18 11:09 11:11 11:21 Temperature Pulse Rate 89 89 85 Pulse Rate [ Bilateral] Pulse Rate [ From Monitor] Respiratory 35 H 36 H 31 H Rate Respiratory Rate [Bilateral ] Blood Pressure 120/65 116/71 116/71 O2 Sat by Pulse 92 92 92 Oximetry 08/18/18 08/18/18 08/18/18 11:30 11:41 11:51 Temperature Pulse Rate 88 87 84 Pulse Rate [ Bilateral] Pulse Rate [ From Monitor] Respiratory 33 H 35 H 36 H Rate Respiratory Rate [Bilateral ] Blood Pressure 120/73 120/73 120/73 O2 Sat by Pulse 93 92 91 Oximetry 08/18/18 08/18/18 08/18/18 12:00 12:11 12:21 Temperature Pulse Rate 85 90 85 Pulse Rate [ Bilateral] Pulse Rate [ From Monitor] Respiratory 37 H 35 H 38 H Rate Respiratory Rate [Bilateral ] Blood Pressure 111/72 111/72 111/72 O2 Sat by Pulse 88 92 90 Oximetry 08/18/18 13:06 Temperature Pulse Rate 100 H Pulse Rate [ Bilateral] Pulse Rate [ From Monitor] Respiratory 48 H Rate Respiratory Rate [Bilateral ] Blood Pressure 118/66 O2 Sat by Pulse 86 Oximetry General appearance: Present: no acute distress, well-nourished - EENT Eyes: PERRL, EOM intact ENT: hearing intact, clear oral mucosa Ears: bilateral: normal - Neck Neck: supple, normal ROM - Respiratory Respiratory effort: normal Respiratory: bilateral: CTA - Breasts Breasts: normal - Cardiovascular Rhythm: regular Heart Sounds: Present: S1 & S2. Absent: gallop, rub Extremities: pulses intact, No edema, normal color, Full ROM - Gastrointestinal General gastrointestinal: Present: soft, non-tender, non-distended, normal bowel sounds - Genitourinary Male genitourinary: normal - Integumentary Integumentary: clear, warm, dry - Musculoskeletal Musculoskeletal: 1, strength equal bilaterally - Neurologic Neurologic: moves all extremities - Psychiatric Psychiatric: memory intact, appropriate mood/affect, intact judgment & insight - Labs CBC & Chem 7: 08/18/18 13:50 08/18/18 13:50 Labs: Abnormal lab results 08/17/18 08/18/18 08/18/18 Range/Units 23:21 04:49 13:06 WBC (4.5-11.0) K/mm3 RBC (3.65-5.03) M/mm3 Hgb (11.8-15.2) gm/dl Hct (35.5-45.6) % RDW (13.2-15.2) % POC ABG pH 7.225 L (7.35-7.45) POC ABG pCO2 54.6 H (35-45) POC ABG pO2 110 H 58 L (80-105) C-Reactive Protein (0.00-1.30) mg/dL Vancomycin Trough 4.7 L (5.0-20.0) ug/mL 08/18/18 08/18/18 Range/Units 13:50 13:50 WBC 14.8 H (4.5-11.0) K/mm3 RBC 3.46 L (3.65-5.03) M/mm3 Hgb 10.1 L (11.8-15.2) gm/dl Hct 30.2 L (35.5-45.6) % RDW 17.6 H (13.2-15.2) % POC ABG pH (7.35-7.45) POC ABG pCO2 (35-45) POC ABG pO2 (80-105) C-Reactive Protein 31.10 H (0.00-1.30) mg/dL Vancomycin Trough (5.0-20.0) ug/mL
[2018-08-18 16:28] LABS: Band Neutrophils # (Manual) 0.1 K/mm3; Basophils % (Manual) 0 % (0.0-1.8); Eosinophils % (Manual) 0 % (0.0-4.3); Total Cells Counted 100
[2018-08-18 16:29] LABS: Anisocytosis 1+; Giant Platelets Few; Hypochromasia 1+; Ovalocytes Few
[2018-08-18 16:30] LABS: Platelet Estimate Consistent w Auto; Poikilocytosis 1+
[2018-08-18 17:05] LABS: Platelet Count 273 K/mm3 (140-440)
[2018-08-18] MEDS: LASIX IV SCH (19:13)
[2018-08-18] MEDS: ATIVAN PO SCH (22:05)
[2018-08-18] MEDS: PRAVACHOL PO SCH (22:05)
[2018-08-18] MEDS: BENADRYL PO SCH (22:05)
[2018-08-19] MEDS: SOLU-Medrol IV SCH ×4 (00:11→22:10)
[2018-08-19] MEDS: AZACTAM/NS 1 GM/50 ML 1 GM/50 ML VIAL IV SCH ×3 (00:11→12:32)
[2018-08-19] MEDS: VANCOMYCIN 1,250 MG in NACL 0.9% 250ML 250 ML IV SCH ×5 (00:12→16:33)
[2018-08-19] MEDS: LASIX IV SCH ×2 (06:15→18:22)
--- NOTE | 2018-08-19 07:09 | Progress Note ---
Assessment and Plan - Patient Problems (1) Respiratory failure with hypoxia Current Visit: Yes Status: Acute Qualifiers: Chronicity: acute Qualified Code(s): J96.01 - Acute respiratory failure with hypoxia Plan to address problem: On Bipap Intubation if necessary Duonebs IV Solumedrol and IV abx (2) Bilateral pneumonia Current Visit: Yes Status: Acute Qualifiers: Lung location: lower lobe of lung Plan to address problem: Cont Abx (3) Anemia Current Visit: Yes Status: Chronic Qualifiers: Anemia type: unspecified type Qualified Code(s): D64.9 - Anemia, unspecified Plan to address problem: Anemia w/u (4) Hypokalemia Current Visit: Yes Status: Acute Plan to address problem: Supplemented (5) Schizophrenia Current Visit: Yes Status: Chronic Qualifiers: Schizophrenia type: unspecified Qualified Code(s): F20.9 - Schizophrenia, unspecified Plan to address problem: Cont Zyprexa (6) Depression Current Visit: Yes Status: Chronic Qualifiers: Depression Type: unspecified Qualified Code(s): F32.9 - Major depressive disorder, single episode, unspecified Plan to address problem: Cont antidepressants (7) Gout Current Visit: Yes Status: Chronic Qualifiers: Gout site: unspecified site Plan to address problem: Cont Allopurinol (8) HLD (hyperlipidemia) Current Visit: Yes Status: Chronic Qualifiers: Hyperlipidemia type: mixed hyperlipidemia Qualified Code(s): E78.2 - Mixed hyperlipidemia Plan to address problem: Cont statins (9) DVT prophylaxis Current Visit: Yes Status: Acute Plan to address problem: On Lovenox and GI prophylaxis Subjective Date of service: 08/18/18 Principal diagnosis: LLL PNA Interval history: 52-year-old male with PMHx of developmental delay, schizophrenia, and depression presents to the ER with complaints of shortness of breath and cough 1 day. According to the information provided to the ER from the facility, patient was discharged yesterday from a facility for suicidal ideation . Has difficulty breathing. Patient O2 sat was noted to be 86% and improve after application of oxygen via n/c. Pt denies a history of COPD but admits to history of smoking, denies ill-contact but states that the air conditioning at the location was very cold, denies palpitation, denies headache, denies chest pain denies fever or chills. In the ER, pt had a chest x-ray that showed multifocal bilateral air space disease suspicious for pneumonia. Overnite went into resp distress and transferred to ICU for Intesive care On Bipap Objective - Constitutional Vitals: Vital Signs - 12hr 08/18/18 08/18/18 08/18/18 19:21 19:28 19:30 Temperature Pulse Rate 85 79 Pulse Rate [ From Monitor] Pulse Rate [ 79 Left Lower Lobe ] Respiratory 33 H 41 H Rate Respiratory 39 H Rate [Left Lower Lobe] Blood Pressure 122/72 118/71 O2 Sat by Pulse 95 95 Oximetry 08/18/18 08/18/18 08/18/18 19:35 19:47 20:00 Temperature 98.2 F Pulse Rate 100 H Pulse Rate [ 102 H From Monitor] Pulse Rate [ 80 Left Lower Lobe ] Respiratory 45 H Rate Respiratory 45 H Rate [Left Lower Lobe] Blood Pressure 117/60 O2 Sat by Pulse 95 Oximetry 08/18/18 08/18/18 08/18/18 20:01 20:30 21:00 Temperature Pulse Rate 103 H 94 H 91 H Pulse Rate [ From Monitor] Pulse Rate [ Left Lower Lobe ] Respiratory 44 H 47 H 41 H Rate Respiratory Rate [Left Lower Lobe] Blood Pressure 117/60 112/63 100/54 O2 Sat by Pulse 94 94 Oximetry 08/18/18 08/18/18 08/18/18 21:30 22:00 22:30 Temperature Pulse Rate 89 85 83 Pulse Rate [ From Monitor] Pulse Rate [ Left Lower Lobe ] Respiratory 41 H 37 H 30 H Rate Respiratory Rate [Left Lower Lobe] Blood Pressure 111/61 104/59 113/63 O2 Sat by Pulse 95 95 95 Oximetry 08/18/18 08/18/18 08/19/18 23:00 23:30 00:00 Temperature 97.8 F Pulse Rate 88 84 83 Pulse Rate [ 102 H From Monitor] Pulse Rate [ Left Lower Lobe ] Respiratory 28 H 28 H 27 H Rate Respiratory Rate [Left Lower Lobe] Blood Pressure 110/60 103/58 110/62 O2 Sat by Pulse 92 93 95 Oximetry 08/19/18 08/19/18 08/19/18 00:30 01:00 01:30 Temperature Pulse Rate 83 81 83 Pulse Rate [ From Monitor] Pulse Rate [ Left Lower Lobe ] Respiratory 25 H 27 H 28 H Rate Respiratory Rate [Left Lower Lobe] Blood Pressure 104/57 104/57 103/58 O2 Sat by Pulse 89 89 89 Oximetry 08/19/18 08/19/18 08/19/18 02:00 02:30 03:00 Temperature Pulse Rate 81 77 81 Pulse Rate [ From Monitor] Pulse Rate [ Left Lower Lobe ] Respiratory 28 H 30 H 29 H Rate Respiratory Rate [Left Lower Lobe] Blood Pressure 97/54 104/59 99/59 O2 Sat by Pulse 89 90 91 Oximetry 08/19/18 08/19/18 08/19/18 03:30 04:00 04:23 Temperature 98.9 F Pulse Rate 82 82 84 Pulse Rate [ 102 H From Monitor] Pulse Rate [ Left Lower Lobe ] Respiratory 33 H 29 H 32 H Rate Respiratory Rate [Left Lower Lobe] Blood Pressure 101/49 99/53 99/53 O2 Sat by Pulse 90 91 95 Oximetry 08/19/18 08/19/18 08/19/18 04:30 05:00 05:30 Temperature Pulse Rate 91 H 80 83 Pulse Rate [ From Monitor] Pulse Rate [ Left Lower Lobe ] Respiratory 33 H 30 H 29 H Rate Respiratory Rate [Left Lower Lobe] Blood Pressure 101/49 101/47 106/53 O2 Sat by Pulse 91 92 Oximetry 08/19/18 06:00 Temperature Pulse Rate 78 Pulse Rate [ From Monitor] Pulse Rate [ Left Lower Lobe ] Respiratory 26 H Rate Respiratory Rate [Left Lower Lobe] Blood Pressure 97/46 O2 Sat by Pulse 91 Oximetry General appearance: Present: severe distress, well-nourished - EENT Eyes: PERRL, EOM intact ENT: hearing intact, clear oral mucosa Ears: bilateral: normal - Neck Neck: supple, normal ROM - Respiratory Respiratory effort: normal Respiratory: bilateral: CTA, rhonchi, wheezing - Breasts Breasts: normal - Cardiovascular Heart rate: 99 Rhythm: regular Heart Sounds: Present: S1 & S2. Absent: gallop, rub Extremities: pulses intact, No edema, normal color, Full ROM - Gastrointestinal General gastrointestinal: Present: soft, non-tender, non-distended, normal bowel sounds - Genitourinary Male genitourinary: normal - Integumentary Integumentary: clear, warm, dry - Musculoskeletal Musculoskeletal: 1, strength equal bilaterally - Neurologic Neurologic: moves all extremities - Psychiatric Psychiatric: memory intact, appropriate mood/affect, intact judgment & insight - Labs CBC & Chem 7: 08/18/18 13:50 08/18/18 13:50 Labs: Abnormal lab results 08/18/18 08/18/18 08/18/18 Range/Units 13:06 13:50 13:50 WBC 14.8 H (4.5-11.0) K/mm3 RBC 3.46 L (3.65-5.03) M/mm3 Hgb 10.1 L (11.8-15.2) gm/dl Hct 30.2 L (35.5-45.6) % RDW 17.6 H (13.2-15.2) % Seg Neuts % (Manual) 95.0 H (40.0-70.0) % Lymphocytes % (Manual) 3.0 L (13.4-35.0) % Seg Neutrophils # Man 14.1 H (1.8-7.7) K/mm3 Lymphocytes # (Manual) 0.4 L (1.2-5.4) K/mm3 POC ABG pO2 58 L (80-105) C-Reactive Protein 31.10 H (0.00-1.30) mg/dL CXR Worsening Left sided Pneumonia - Imaging and cardiology Chest x-ray: report reviewed
[2018-08-19] MEDS ORDERED: PROVENTIL IH PRN (07:17)
--- NOTE | 2018-08-19 07:56 | Progress Note ---
Assessment and Plan Acute respiratory failure secondary to bilateral pneumonia HAP present on admission Schizophrenia, Depression Developmental delay Endotracheal intubation, once intubated -Lung protective strategies -CXR and ABG -VAP bundle addressed -Supplemental oxygen to keep O2 sats 88-90% -Bronchodilators -Short course of steroids -Place small bowel feeding tube, once position is confirmed start enteral tube feeding -Accuchecks with glycemic control -Target blood glucose <180mg/dL -Nutrition consult -Agitation management -Titrate sedation to RAAS 0 to -1 -Prevention of delirium, maintenance of sleep-wake cycle -Empiric antibiotic therapy for HAP/aspiration pneumonia -Will de-escalate therapy based on microbiology/SD/Cultures -Avoid nephrotoxic agents, adjust all antibiotics and medications for CrCL and GFR -VTE and Stress ulcer prophylaxis Consults- ID CONDITION: CRITICAL PROGNOSIS: GUARDED CODE STATUS: FULL CODE The high probability of a clinically significant, sudden or life-threatening deterioration of the [respiratory] system(s) required my full and direct attention, intervention and personal management. The aggregate critical care time was [65] minutes without overlap. Time includes spent on; [x] Data Review and interpretation [x] Patient assessment and monitoring of vital signs [x] Documentation [x] Medication orders and management Subjective Date of service: 08/19/18 Principal diagnosis: LLL PNA Interval history: Patient is seen today for: Acute hypoxemic respiratory failure, multifocal pneumonia, Seen and examined at bedside; 24hour events reviewed; nursing and respiratory c are staff consulted; no adverse overnight events reported to me; on going low grade fevers, has been on continuous BIPAP with acute desaturations when it is taken off, did not tolerate high flow oxygen Objective - Exam Narrative Exam: Physical Exam: Constitutional: tacypnic with moderate respiratory distress on BIPAP Head, Ears, Nose: Normocephalic, atraumatic. External ears, nose normal Eyes: Conjunctivae/corneas clear. No icterus. No ptosis. Neck: Supple, no meningeal signs Cardiovascular: Tacycardia, S1, S2 normal. Respiratory:Decreased AE bilaterally, GI: Soft, non-tender; bowel sounds normal. No peritoneal signs Musculoskeletal: No pedal edema, no cyanosis. Skin: No rash or abscess Hem/Lymphatic: No palpable cervical or supraclavicular nodes. No lymphangitis Psych: no agitation Neurological: Awake, alert, non-focal Vital Signs - 12hr 08/18/18 08/18/18 08/18/18 20:00 20:01 20:30 Temperature Pulse Rate 100 H 103 H 94 H Pulse Rate [ 102 H From Monitor] Respiratory 45 H 44 H 47 H Rate Blood Pressure 117/60 117/60 112/63 O2 Sat by Pulse 95 94 Oximetry 08/18/18 08/18/18 08/18/18 21:00 21:30 22:00 Temperature Pulse Rate 91 H 89 85 Pulse Rate [ From Monitor] Respiratory 41 H 41 H 37 H Rate Blood Pressure 100/54 111/61 104/59 O2 Sat by Pulse 94 95 95 Oximetry 08/18/18 08/18/18 08/18/18 22:30 23:00 23:30 Temperature Pulse Rate 83 88 84 Pulse Rate [ From Monitor] Respiratory 30 H 28 H 28 H Rate Blood Pressure 113/63 110/60 103/58 O2 Sat by Pulse 95 92 93 Oximetry 08/19/18 08/19/18 08/19/18 00:00 00:30 01:00 Temperature 97.8 F Pulse Rate 83 83 81 Pulse Rate [ 102 H From Monitor] Respiratory 27 H 25 H 27 H Rate Blood Pressure 110/62 104/57 104/57 O2 Sat by Pulse 95 89 89 Oximetry 08/19/18 08/19/18 08/19/18 01:30 02:00 02:30 Temperature Pulse Rate 83 81 77 Pulse Rate [ From Monitor] Respiratory 28 H 28 H 30 H Rate Blood Pressure 103/58 97/54 104/59 O2 Sat by Pulse 89 89 90 Oximetry 08/19/18 08/19/18 08/19/18 03:00 03:30 04:00 Temperature 98.9 F Pulse Rate 81 82 82 Pulse Rate [ 102 H From Monitor] Respiratory 29 H 33 H 29 H Rate Blood Pressure 99/59 101/49 99/53 O2 Sat by Pulse 91 90 91 Oximetry 08/19/18 08/19/18 08/19/18 04:23 04:30 05:00 Temperature Pulse Rate 84 91 H 80 Pulse Rate [ From Monitor] Respiratory 32 H 33 H 30 H Rate Blood Pressure 99/53 101/49 101/47 O2 Sat by Pulse 95 91 Oximetry 08/19/18 08/19/18 08/19/18 05:30 06:00 06:30 Temperature Pulse Rate 83 78 80 Pulse Rate [ From Monitor] Respiratory 29 H 26 H 28 H Rate Blood Pressure 106/53 97/46 102/63 O2 Sat by Pulse 92 91 95 Oximetry 08/19/18 08/19/18 07:00 07:30 Temperature Pulse Rate 86 90 Pulse Rate [ From Monitor] Respiratory 31 H 34 H Rate Blood Pressure 117/74 112/54 O2 Sat by Pulse 93 93 Oximetry CBC and BMP: 08/19/18 07:25 08/19/18 07:25 ABG, PT/INR, D-dimer: ABG POC ABG pH 7.419 (7.35-7.45) 08/19/18 04:40 POC ABG pCO2 41.6 (35-45) 08/19/18 04:40 POC ABG pO2 89 (80-105) 08/19/18 04:40 POC ABG HCO3 26.9 (22-26 mml/L) 08/19/18 04:40 POC ABG Total CO2 28 (23-27mmol/L) 08/19/18 04:40 POC ABG O2 Sat 97 08/19/18 04:40 PT/INR, D-dimer PT 15.1 Sec. (12.2-14.9) H 08/14/18 16:43 INR 1.22 (0.87-1.13) H 08/14/18 16:43 Abnormal lab findings: Abnormal Labs 08/14/18 08/14/18 08/14/18 16:33 16:33 16:43 WBC RBC 3.38 L Hgb 9.9 L Hct 29.2 L RDW 17.3 H Lymph % (Auto) Blount % (Auto) Lymph # Seg Neutrophils % Seg Neuts % (Manual) 87.0 H Lymphocytes % (Manual) 6.0 L Seg Neutrophils # Man Lymphocytes # (Manual) 0.5 L PT INR POC ABG pH POC ABG pCO2 POC ABG pO2 Potassium 3.5 L Carbon Dioxide BUN Glucose Total Creatine Kinase 204 H C-Reactive Protein Total Protein Albumin Vancomycin Trough 08/14/18 08/14/18 08/17/18 16:43 17:01 09:09 WBC RBC 3.12 L Hgb 9.0 L Hct 27.0 L RDW 17.0 H Lymph % (Auto) 7.1 L Blount % (Auto) 9.2 H Lymph # 0.5 L Seg Neutrophils % 82.7 H Seg Neuts % (Manual) Lymphocytes % (Manual) Seg Neutrophils # Man Lymphocytes # (Manual) PT 15.1 H INR 1.22 H POC ABG pH 7.468 H POC ABG pCO2 POC ABG pO2 57 L Potassium Carbon Dioxide BUN Glucose Total Creatine Kinase C-Reactive Protein Total Protein Albumin Vancomycin Trough 08/17/18 08/17/18 08/17/18 09:09 11:30 23:21 WBC RBC Hgb Hct RDW Lymph % (Auto) Blount % (Auto) Lymph # Seg Neutrophils % Seg Neuts % (Manual) Lymphocytes % (Manual) Seg Neutrophils # Man Lymphocytes # (Manual) PT INR POC ABG pH 7.225 L POC ABG pCO2 54.6 H POC ABG pO2 50 L 110 H Potassium 3.5 L Carbon Dioxide 20 L BUN 7 L Glucose 125 H Total Creatine Kinase C-Reactive Protein Total Protein 6.2 L Albumin 3.2 L Vancomycin Trough 08/18/18 08/18/18 08/18/18 04:49 13:06 13:50 WBC RBC Hgb Hct RDW Lymph % (Auto) Blount % (Auto) Lymph # Seg Neutrophils % Seg Neuts % (Manual) Lymphocytes % (Manual) Seg Neutrophils # Man Lymphocytes # (Manual) PT INR POC ABG pH POC ABG pCO2 POC ABG pO2 58 L Potassium Carbon Dioxide BUN Glucose Total Creatine Kinase C-Reactive Protein 31.10 H Total Protein Albumin Vancomycin Trough 4.7 L 08/18/18 13:50 WBC 14.8 H RBC 3.46 L Hgb 10.1 L Hct 30.2 L RDW 17.6 H Lymph % (Auto) Blount % (Auto) Lymph # Seg Neutrophils % Seg Neuts % (Manual) 95.0 H Lymphocytes % (Manual) 3.0 L Seg Neutrophils # Man 14.1 H Lymphocytes # (Manual) 0.4 L PT INR POC ABG pH POC ABG pCO2 POC ABG pO2 Potassium Carbon Dioxide BUN Glucose Total Creatine Kinase C-Reactive Protein Total Protein Albumin Vancomycin Trough
[2018-08-19 08:09] LABS: Alanine Aminotransferase 24 units/L (7-56); BUN/Creatinine Ratio 23; Blood Urea Nitrogen 23 mg/dL (9-20); Calcium 8.9 mg/dL (8.4-10.2); Hemolysis Index 19
[2018-08-19] MEDS: DUONEB *Not for PRN Use IH SCH ×4 (08:55→20:15)
[2018-08-19 09:02] LABS: Hematocrit 28.9 % (35.5-45.6); Hemoglobin 9.5 gm/dl (11.8-15.2); Mean Corpuscular HGB Conc 33 % (32-34); Mean Corpuscular Volume 87 fl (84-94); Platelet Count 319 K/mm3 (140-440); Red Blood Count 3.32 M/mm3 (3.65-5.03); Red Cell Distribution Width 17.7 % (13.2-15.2)
[2018-08-19] MEDS: SODIUM CHLORIDE FLUSH SYRINGE 10 ML IV SCH ×2 (10:30→22:20)
[2018-08-19 10:36] LABS: Total Cells Counted 100
[2018-08-19 10:37] LABS: Basophils % (Manual) 0 % (0.0-1.8); Eosinophils % (Manual) 0 % (0.0-4.3); Monocytes % (Manual) 0 % (0.0-7.3)
[2018-08-19 10:38] LABS: Hypochromasia 1+
[2018-08-19] MEDS: LOVENOX SUB-Q SCH (10:38)
[2018-08-19 10:39] LABS: Platelet Estimate Consistent w Auto
[2018-08-19] MEDS: COLACE PO SCH ×2 (10:39→22:10)
[2018-08-19] MEDS: PEPCID PO SCH ×2 (10:39→22:10)
[2018-08-19] MEDS: RisperDAL PO SCH (10:39)
[2018-08-19] MEDS: LEVAQUIN PO SCH (10:40)
[2018-08-19] MEDS: WELLBUTRIN XL PO SCH (10:55)
[2018-08-19] MEDS: PROzac PO SCH (11:10)
[2018-08-19] MEDS ORDERED: SUBLIMAZE ONE (11:46)
--- NOTE | 2018-08-19 11:56 | Procedure Note ---
Date of procedure: 08/19/18 Pre-op diagnosis: Acute hypoxemic respiratory failure, multifocal PNA Post-op diagnosis: same Procedure: Endotracheal intubation using Mac4, direct laryngoscopy Vocal cords visualized, size 8.0 placed without difficulty. Midazolam 3mg and Sux 50mg was administered prior to intubation Anesthesia: other (RSI- midazolam 3mg, Suxa 50mg) Surgeon: RAQUEL ARTEAGA Estimated blood loss: none Pathology: none Condition: critical Disposition: ICU
[2018-08-19] MEDS ORDERED: VASELINE LIP THERAPY TP PRN (12:01)
[2018-08-19] MEDS ORDERED: SUBLIMAZE IV PRN (12:01)
[2018-08-19] MEDS ORDERED: ARTIFICIAL TEARS OPHTH OINT OU PRN (12:01)
[2018-08-19] MEDS ORDERED: VERSED ONE (12:04)
[2018-08-19] MEDS: fentaNYL DRIP Premix 2,000 MCG/100 ML BAG IV SCH ×2 (12:35→18:15)
[2018-08-19] MEDS: DIPRIVAN 10 MG/ML 1,000 MG/100 ML BOTTLE IV SCH ×2 (12:44→22:10)
--- NOTE | 2018-08-19 13:22 | XRay Report ---
PROCEDURE: XR CHEST 1V AP TECHNIQUE: Frontal chest radiograph. HISTORY: intubation COMPARISONS: 08/17/2018. FINDINGS: The endotracheal tube tip projects in the mid thoracic trachea. The enteric tube tip projects in the stomach. The cardiomediastinal silhouette is normal. Multifocal bilateral consolidative opacities are worsened. No pleural effusion. No pneumothorax. No acute osseous abnormality. IMPRESSION: 1. Endotracheal tube tip projecting in the mid thoracic trachea. 2. Worsened multifocal bilateral pneumonia. This document is electronically signed by Patricia Priest., August 19 2018 01:20:33 PM ET
[2018-08-19] MEDS ORDERED: SIMPLE SYRUP FEEDTUBE PRN ×2 (13:43)
[2018-08-19] MEDS ORDERED: PANCREAZE DR 10,500 UNIT FEEDTUBE PRN (13:43)
[2018-08-19] MEDS ORDERED: SODIUM BICARBONATE FEEDTUBE PRN (13:43)
--- NOTE | 2018-08-19 14:40 | Consultation ---
HISTORY OF PRESENT ILLNESS: The patient is a 52-year-old male with past medical history significant for mild developmental delay, schizophrenia and depression. He apparently was at outpatient rehab/psych unit [facility]. He was discharged on the day of presentation, which I believe was yesterday, came in complaining of shortness of breath that had been going on about a week. He reportedly had been treated for a possible pneumonia at outpatient rehab facility. He was hypoxemic in the Emergency Room. He does have a tobacco smoking history in the past, unable to quantify it. He denied current tobacco use. He was evaluated in the Emergency Room and ultimately diagnosed with bilateral pneumonia and he was admitted with a diagnosis of pneumonia, CHF, possible PE and admitted to the medical floor. It seems like he decompensated later in the day with increased work of breathing, was placed on BiPAP and transferred to the intensive care unit for closer monitoring. The patient has continued to be short of breath in the unit and we are asked to assist with management. He denied any nausea, vomiting, or overt aspiration prior to coming to the hospital. When I stopped by to see him, he was resting in bed. He was on the BiPAP machine breathing in the 40s. He had just been aroused from sleep. He denied any acute chest pain. He admitted to shortness of breath. He denied any new onset leg pain or swelling either unilaterally or bilaterally or any suggestion of venous thromboembolic phenomenon. He denied any subjective fevers. He mentioned that he might have been around someone who was ill too and may have picked up something from them. This really is as much of the history of presentation as I have. PAST MEDICAL HISTORY: 1. Schizophrenia. 2. Developmental delay, depression. PAST SURGICAL HISTORY: Denies. MEDICATIONS: He was on at the time I stopped by to see him were reviewed. Pertinent medications include the following: Tylenol 650 mg p.o. q. 4 hours p.r.n. mild pain or fevers, DuoNeb nebulizer treatments q.i.d., allopurinol 100 mg p.o. daily, Azactam 1 gram IV q. 6 hours, Wellbutrin-XL 150 mg p.o. q.a.m., Benadryl 100 mg p.o. at bedtime, docusate sodium 100 mg p.o. b.i.d., Lovenox 40 mg subcutaneous daily, Pepcid 20 mg p.o. b.i.d., Prozac 20 mg p.o. daily, Levaquin 750 mg p.o. daily, Ativan 2 mg p.o. at bedtime scheduled, Solu-Medrol 125 mg IV q. 6 hours, Zyprexa 20 mg p.o. at bedtime, Zofran 4 mg IV q. 8 hours p.r.n. nausea and vomiting, Pravachol 40 mg p.o. at bedtime, Risperdal 2 mg p.o. q.a.m., and vancomycin 1.25 grams IV q. 8 hours. ALLERGIES: TO PENICILLINS. NATURE OF THIS ALLERGY IS UNKNOWN. DIET: Well-built gentleman. Denies acute weight loss or gain in the preceding few weeks to months. FAMILY AND SOCIAL HISTORY: Apparently lives in the community. He describes himself as a former smoker. Denies current alcohol, tobacco, or illicit drug use or abuse. Family history is otherwise unknown. REVIEW OF SYSTEMS: Difficult to obtain secondary to the patient's medical and mental condition. Since he has been here, no gross hematochezia or melena, no gross hematuria. No hematemesis. No hemoptysis. He denies palpitations. He denies any new onset seizures. No new onset focal weakness. He denies heat or cold intolerance. He denies polydipsia or polyuria. Complete 13-system review of systems is obtained as best as I could. Pertinent positives and/or negatives are as in body of history above, otherwise noncontributory. PHYSICAL EXAMINATION: VITAL SIGNS: At presentation, he was afebrile, temperature 98.7 degrees Fahrenheit with a pulse of 88, respiratory rate of 37, blood pressure 116/69, oxygen sats were 94%, inspired oxygen concentration at that time was not recorded. His T-max has been 100.4 axillary that was yesterday. When I stopped by to see him, he was on the bilevel positive air pressure ventilation therapy 06/12 with a sat rate of 20 and 80% FiO2. GENERAL: This is a middle-aged male. Normocephalic, atraumatic, on the bilevel positive air pressure ventilation machine with moderately increased respiratory effort at rest. EXAMINATION OF THE HEAD, EYES, EARS, NOSE AND THROAT: He is anicteric. No conjunctival erythema. Oropharynx is moist, has the BiPAP full mask on him. No thyromegaly, no gross jugular venous distention. Grossly, no palpable lymph nodes in the supraclavicular or submandibular lymph node chains. LUNGS: Auscultation of both lung [place] reveals bilateral rales and crackles. No active wheezing. CARDIAC: Heart sounds 1 and 2 are heard, regular rate and rhythm at the time of my evaluation without overt rubs or murmurs. ABDOMEN: Soft, full, bowel sounds are positive, nontender. No palpable hepatosplenomegaly. EXTREMITIES: Without overt digital clubbing or cyanosis and no pedal edema. He has full range of movement. Pedal pulses are palpable and strong bilaterally. NEUROLOGICALLY: Pupils equal, round, about 3-4 mm, reactive to light. Extraocular muscle movements appeared intact. He had spontaneous movements to all 4 extremities. The skin was of normal turgor without overt cellulitis or rash. He was warm to touch. PSYCHIATRIC: His mood was actually normal and his affect was appropriate. LABORATORY DATA: From my review are as follows: Admission white cell count 8800, hemoglobin 9.9, hematocrit 29.2, platelets 331. No band forms at presentation. INR 1.22. Arterial blood gas at presentation showed a pH of 7.47, pCO2 was not recorded, pO2 was 57 on room air. Serum sodium was 140, potassium 3.5, chloride 102, bicarbonate 22, BUN 13, creatinine 0.9 and a glucose of 99. CPK was up slightly at 204. Troponin within normal limits. BNP was within normal limits. Urine drug screen was negative. Most recent ABG showed a pH of 7.39, pO2 was ____, 70% FiO2 on the BiPAP machine with the above-mentioned settings. Hemoglobin was 9.0 yesterday. His earlier gas showed a pH of 7.38, pCO2 of 41, pO2 of 98 on 100% FiO2 on BiPAP. His BUN today is 7, creatinine is 0.8. Vancomycin trough 4.7. Blood cultures no growth to date. Chest x-ray has been reviewed. I have also reviewed the CT angio. I do agree no gross filling defects consistent with significant pulmonary emboli. He has bilateral patchy infiltrates involving both lung [place] as well as dependent infiltrates with some air bronchograms, significant motion artifact, minimal ____ pleural effusion. He does have some mediastinal adenopathy, left hilar node 2.7 x 1.1 cm and right hilar node 1.2 x 1.7 as well as some ground-glass opacifications. ASSESSMENT: 1. Acute hypoxemic respiratory failure. 2. Acute respiratory distress syndrome. 3. Possible aspiration pneumonia. 4. History of depression. 5. History of schizophrenia. 6. Anemia that is normocytic. 7. Mild metabolic acidosis. 8. Hypokalemia. PLAN: There may be an element of pulmonary edema also at [facility] in this gentleman. I do note that his BMP was within normal limits at presentation. It is unclear how much volume resuscitation he has received during this admission though and again it is unclear what his baseline cardiac function is. He does not also seem to have gross cardiomegaly and some of the interstitial markings actually appear to be chronic and this gentleman could well have a diffuse proliferative lung disease. The hope will be that we can get him through this with bilevel positive airway pressure ventilation support. I will try and get his antipsychotic medications into him and see if this can take an edge of his breathing. He seems to calm down and breathe a little easier on the machine when he is not agitated or excited. We will try and get some sputum sent for Gram stain, cultures and sensitivities. I will get a CRP level and a lactic acid level to better evaluate the true infectious potential of this infiltrates. We will continue systemic steroids for now. I will add long-acting bronchodilators and inhaled corticosteroids in the short term. Infectious Disease input will be sought. I will give him a trial of Lasix 20 mg IV x 1 and watch his response to that. Stat chemistries will be done as well as a repeat CBC and addressed. I will also get a magnesium level and address as necessary. A 2D echocardiogram will be ordered. I have asked him about his DNR status. He wants me to do everything including intubation. If he does not respond to the continuous BiPAP therapy, we will go ahead and electively intubate him. He is appropriately on GI and DVT prophylaxis. Flu and pneumonia vaccination will be addressed per protocol. Thank you very much for the consult, Dr. Longoria. We will follow along. We will follow him closely. He is at higher risk including the risk of from cardiopulmonary system deterioration. At this time, I have spent about 35-40 minutes of critical care time without overlap and excluding any procedural time that may be necessary. JOB# [id number] OMARI[facility]JOANNA STUB[facility]
--- NOTE | 2018-08-19 15:23 | Consultation ---
History of Present Illness - Reason for Consult Consult date: 08/19/18 Bilateral pneumonia Requesting physician: CAITIE BOYD - History of Present Illness The patient is a 52-year-old male with history of developmental delay, schizophrenia, recently discharged from a psychiatric facility for suicidal ideation and was admitted from the emergency room on 08/14/2018 after he presented with complaints of cough with shortness of breath. He was noted to be hypoxic. Chest x-ray was suggestive of bilateral multifocal pneumonia. He was requiring BiPAP. Started empirically on levofloxacin and vancomycin. Due to worsening, he was intubated, aztreonam was added. Infectious diseases was consulted. Patient is also on IV steroids. Patient has had a few low-grade tem peratures this hospitalization. MAXIMUM TEMPERATURE was 100.4F yesterday. Unable to obtain history, history obtained by chart review. Review of Systems: Sedated, intubated unable to provide. Past History Past Medical History: No medical history, other (schizophrenia) Past Surgical History: No surgical history Social history: no significant social history Family history: no significant family history Medications and Allergies Allergies Allergy/AdvReac Type Severity Reaction Status Date / Time Penicillins Allergy Unknown Verified 08/14/18 15:52 Home Medications Medication Instructions Recorded Confirmed Last Taken Type FLUoxetine [PROzac] 40 mg PO QAM 08/03/18 08/14/18 08/03/18 History diphenhydrAMINE [Benadryl CAP] 100 mg PO QHS 08/03/18 08/14/18 08/03/18 History Allopurinol [Zyloprim] 100 mg PO QDAY 08/14/18 08/14/18 Unknown History Cholecalciferol (Vitamin D3) 50,000 unit PO QWEEK 08/14/18 08/14/18 Unknown History [Vitamin D3 50,000UNIT CAP] FLUoxetine [PROzac] 20 mg PO DAILY@1200 08/14/18 08/14/18 Unknown History LORazepam [Ativan] 1 mg PO QAM 08/14/18 08/14/18 Unknown History LORazepam [Ativan] 2 mg PO QHS 08/14/18 08/14/18 Unknown History Multivitamin Tab [Multiple Vitamin 1 each PO QDAY 08/14/18 08/14/18 Unknown History TAB (Theragran)] OLANZapine [Zyprexa] 10 mg PO QAM 08/14/18 08/14/18 Unknown History OLANZapine [Zyprexa] 20 mg PO 08/14/18 08/14/18 Unknown History Simvastatin 20 mg PO 08/14/18 08/14/18 Unknown History buPROPion XL [Wellbutrin Xl] 150 mg PO QA 08/14/18 08/14/18 Unknown History risperiDONE [Risperdal] 2 mg PO QA 08/14/18 08/14/18 Unknown History Active Meds: Active Medications Acetaminophen (Tylenol) 650 mg PO Q4H PRN PRN Reason: Pain MILD(1-3)/Fever >100.5/LOCO Last Admin: 08/15/18 10:06 Dose: 650 mg Documented by: Albuterol (Proventil) 2.5 mg IH Q4HRT PRN PRN Reason: Shortness Of Breath Albuterol/Ipratropium (Duoneb *Not For Prn Use*) 1 ampul IH QIDRT [facility] Last Admin: 08/19/18 12:55 Dose: 1 ampul Documented by: Allopurinol (Zyloprim) 100 mg PO QDAY [facility] Last Admin: 08/18/18 13:32 Dose: 100 mg Documented by: Lipase/Protease/Amylase (Pancrerubén Dr 10,500 Unit) 1 each FEEDTUBE PRN PRN PRN Reason: For Clogged Feeding Tube Bupropion HCl (Wellbutrin Xl) 150 mg PO QAM [facility] Last Admin: 08/19/18 10:55 Dose: 150 mg Documented by: Diphenhydramine HCl (Benadryl) 100 mg PO QHS [facility] Last Admin: 08/18/18 22:05 Dose: 100 mg Documented by: Docusate Sodium (Colace) 100 mg PO BID [facility] Last Admin: 08/19/18 10:39 Dose: 100 mg Documented by: Enoxaparin Sodium (Lovenox) 40 mg SUB-Q QDAY@1000 [facility] Last Admin: 08/19/18 10:38 Dose: 40 mg Documented by: Famotidine (Pepcid) 20 mg PO BID [facility] Last Admin: 08/19/18 10:39 Dose: 20 mg Documented by: Fentanyl (Sublimaze) 50 mcg IV Q10MIN PRN PRN Reason: ANALGESIA Fluoxetine HCl (Prozac) 20 mg PO DAILY@1200 [facility] Last Admin: 08/19/18 11:10 Dose: 20 mg Documented by: Furosemide (Lasix) 20 mg IV 0600,1800 [facility] Last Admin: 08/19/18 06:15 Dose: 20 mg Documented by: Haloperidol Lactate (Haldol) 5 mg IV Q6H PRN PRN Reason: Agitation Stop: 08/20/18 13:17 Last Admin: 08/19/18 08:11 Dose: 5 mg Documented by: Hydrocodone Bit/Homatropine Methylb (Hydromet) 10 ml PO Q6H PRN PRN Reason: Cough Last Admin: 08/18/18 13:35 Dose: 10 ml Documented by: Hydrophilic Ointment (Vaseline Lip Therapy) 1 applic TP Q2HR PRN PRN Reason: Dry Lips Sodium Chloride (Nacl 0.9% 1000 Ml) 1,000 mls @ 50 mls/hr IV DIRECT [facility] Last Admin: 08/18/18 04:31 Dose: 50 mls/hr Documented by: Aztreonam (Azactam/Ns 1 Gm/50 Ml) 1 gm in 50 mls @ 50 mls/hr IV Q6HR [facility]; Protocol Last Admin: 08/19/18 06:15 Dose: 50 mls/hr Documented by: Vancomycin HCl 1,250 mg/ (Sodium Chloride) 275 mls @ 166.667 mls/hr IV Q8H [facility] Last Admin: 08/19/18 08:21 Dose: 166.667 mls/hr Documented by: Fentanyl Citrate (Fentanyl Drip Premix) 2,000 mcg in 100 mls @ 3.935 mls/hr IV TITR [facility]; Protocol Propofol (Diprivan 10 Mg/Ml) 1,000 mg in 100 mls @ 2.361 mls/hr IV TITR [facility]; Protocol Last Titration: 08/19/18 13:16 Dose: 20 mcg/kg/min, 9.444 mls/hr Documented by: Levofloxacin (Levaquin) 750 mg PO DAILY [facility] Last Admin: 08/19/18 10:40 Dose: 750 mg Documented by: Lorazepam (Ativan) 2 mg PO QHS [facility] Last Admin: 08/18/18 22:05 Dose: 2 mg Documented by: Magnesium Hydroxide (Milk Of Magnesia) 30 ml PO Q4H PRN PRN Reason: Constipation Methylprednisolone Sodium Succinate (Solu-Medrol) 60 mg IV Q8HR [facility] Multi-Ingred Cream/Lotion/Oil/Oint (Artificial Tears Ophth Oint) 1 applic OU Q4HR PRN PRN Reason: Dry Eye(s) Olanzapine (Zyprexa) 20 mg PO QHS [facility] Last Admin: 08/18/18 22:05 Dose: 20 mg Documented by: Ondansetron HCl (Zofran) 4 mg IV Q8H PRN PRN Reason: Nausea And Vomiting Pravastatin Sodium (Pravachol) 40 mg PO QHS [facility] Last Admin: 08/18/18 22:05 Dose: 40 mg Documented by: Risperidone (Risperdal) 2 mg PO QAM [facility] Last Admin: 08/19/18 10:39 Dose: 2 mg Documented by: Simple Syrup (Simple Syrup) 15 ml FEEDTUBE PRN PRN PRN Reason: Hypoglycemia Simple Syrup (Simple Syrup) 30 ml FEEDTUBE PRN PRN PRN Reason: Hypoglycemia Sodium Bicarbonate (Sodium Bicarbonate) 325 mg FEEDTUBE PRN PRN PRN Reason: For Clogged Feeding Tube Sodium Chloride (Sodium Chloride Flush Syringe 10 Ml) 10 ml IV BID [facility] Last Admin: 08/18/18 22:15 Dose: 10 ml Documented by: Sodium Chloride (Sodium Chloride Flush Syringe 10 Ml) 10 ml IV PRN PRN PRN Reason: LINE FLUSH Physical Examination - Physical Exam Narrative exam: Physical Exam: Constitutional: sedated, intubated Head, Ears, Nose: Normocephalic, atraumatic. External ears, nose normal Eyes: Conjunctivae/corneas clear. No icterus. No ptosis. Neck: Supple, no meningeal signs Oral: intubated Cardiovascular: S1, S2 normal. Respiratory: Good air entry, clear to auscultation bilaterally GI: Soft, non-tender; bowel sounds normal. No peritoneal signs Musculoskeletal: No pedal edema, no cyanosis. Skin: No rash or abscess Hem/Lymphatic: No palpable cervical or supraclavicular nodes. No lymphangitis Psych: no agitation Neurological: sedated, intubated, on vent - Constitutional Vitals: Vital Signs Temp Pulse Resp BP Pulse Ox 97.6 F 92 H 35 H 120/63 97 08/19/18 12:00 08/19/18 11:50 08/19/18 11:00 08/19/18 11:50 08/19/18 11:50 Temperature -Last 24 Hours Temperature 97.6 F Temperature 97.6 F Temperature 98.9 F Temperature 97.8 F Temperature 98.2 F Temperature 98.3 F Results - Labs CBC & Chem 7: 08/19/18 07:25 08/19/18 07:25 Labs: Abnormal lab results 08/18/18 08/19/18 08/19/18 Range/Units 13:50 07:25 07:25 WBC 12.7 H (4.5-11.0) K/mm3 RBC 3.32 L (3.65-5.03) M/mm3 Hgb 9.5 L (11.8-15.2) gm/dl Hct 28.9 L (35.5-45.6) % RDW 17.7 H (13.2-15.2) % Seg Neuts % (Manual) 95.0 H 95.0 H (40.0-70.0) % Lymphocytes % (Manual) 3.0 L 5.0 L (13.4-35.0) % Seg Neutrophils # Man 14.1 H 12.1 H (1.8-7.7) K/mm3 Lymphocytes # (Manual) 0.4 L 0.6 L (1.2-5.4) K/mm3 POC ABG pCO2 (35-45) POC ABG pO2 (80-105) BUN 23 H (9-20) mg/dL Glucose 139 H (75-100) mg/dL AST 41 H (5-40) units/L Alkaline Phosphatase 149 H (35-129) units/L Albumin 3.0 L (3.9-5) g/dL 08/19/18 Range/Units 15:10 WBC (4.5-11.0) K/mm3 RBC (3.65-5.03) M/mm3 Hgb (11.8-15.2) gm/dl Hct (35.5-45.6) % RDW (13.2-15.2) % Seg Neuts % (Manual) (40.0-70.0) % Lymphocytes % (Manual) (13.4-35.0) % Seg Neutrophils # Man (1.8-7.7) K/mm3 Lymphocytes # (Manual) (1.2-5.4) K/mm3 POC ABG pCO2 49.0 H (35-45) POC ABG pO2 71 L (80-105) BUN (9-20) mg/dL Glucose (75-100) mg/dL AST (5-40) units/L Alkaline Phosphatase (35-129) units/L Albumin (3.9-5) g/dL - Imaging and Cardiology Chest x-ray: report reviewed, image reviewed (Chest x-ray shows multifocal bilateral pneumonia. Endotracheal tube in position) CT scan - chest: report reviewed, image reviewed (CT chest and you have shows no evidence of pulmonary embolism. Showed multifocal bilateral airspace disease concerning for pneumonia.) Assessment and Plan Cultures: 08/14/2018 Blood culture: No growth A/P: 52-year-old male with history of developmental delay, schizophrenia, recently discharged from a psychiatric facility for suicidal ideation now with: 1) Acute respiratory failure secondary to bilateral pneumonia: Cover for HCAP given recent hospitalization to psych facility. Intubated, sedated. 2) Schizophrenia, Depression: Patient is on risperidone, olanzapine, Haldol. Also on Wellbutrin and fluoxetine. At risk of QT prolongation especially with levofloxacin. 3) PCN allergy: unknown, at least >10 years history per his caregiver at the bedside. Low risk of cross reactivity with Cephalosporins. Recs: d/rachell Aztreonam, levofloxacin Started IV Cefepime 2 gm q12 hrs Added Doxycycline for atypical coverage (avoiding Azithromycin and Levofloxacin due to risk of QT prolongation) Continue IV Vancomycin, target trough: 10-20 mcg/ml Pneumococcal and Legionella Ur Ag Influenza screen ordered D/W RN and caregiver at bedside. Levi Luna MD [facility] C: [phone] O: [phone] F: [phone]
[2018-08-19] MEDS: ZYLOPRIM PO SCH (15:33)
[2018-08-19] MEDS: DOXYCYCLINE HYCLATE 100 MG in NACL 0.9% 250ML 250 ML IV SCH (16:19)
--- NOTE | 2018-08-19 18:09 | Progress Note ---
Assessment and Plan ./Acute Respiratory failure with hypoxia S/p Bipap but no improvement Intubated today, CC following cont Duonebs IV Solumedrol and IV abx / Bilateral pneumonia, patient not in sepsis Cont Abx, follow cx, ID consulted Cover for HCAP given recent hospitalization to psych facility. /Leukocytosis, steroid-induced / Anemia Anemia w/u ordered / Hypokalemia, Supplemented / Schizophrenia, on Zyprexa /Depression, on antidepressants / Gout , Cont Allopurinol / HLD (hyperlipidemia), Cont statins / DVT prophylaxis On Lovenox and GI prophylaxis Brief history: 52-year-old male with PMHx of developmental delay, schizophrenia, and depression with recent h/o SI presented to the ER with complaints of shortness of breath and cough 1 day. Patient O2 sat was noted to be 86% and improve after application of oxygen via n/c. Pt denies a history of COPD but admits to history of smoking. In the ER, pt had a chest x-ray that showed multifocal bilateral air space disease suspicious for pneumonia. Following admission Overnight went into resp distress and transferred to ICU for Intesive care On Bipap. He then eventually intubated today. Subjective Date of service: 08/19/18 Principal diagnosis: BL PNA Interval history: Patient seen and examined. Medical records and medication list reviewed. Overnight remained on BiPAP but noticed to have increased work for breathing Patient intubated today at bedside Discussed with critical care attending Objective - Constitutional Vitals: Vital Signs - 12hr 08/19/18 08/19/18 08/19/18 06:30 07:00 07:30 Temperature Pulse Rate 80 86 90 Pulse Rate [ From Monitor] Respiratory 28 H 31 H 34 H Rate Blood Pressure 102/63 117/74 112/54 O2 Sat by Pulse 95 93 93 Oximetry 08/19/18 08/19/18 08/19/18 08:00 08:30 09:00 Temperature 97.6 F Pulse Rate 97 H 82 80 Pulse Rate [ 91 H From Monitor] Respiratory 54 H 29 H 28 H Rate Blood Pressure 108/58 113/63 112/58 O2 Sat by Pulse 92 93 94 Oximetry 08/19/18 08/19/18 08/19/18 09:30 10:00 10:30 Temperature Pulse Rate 97 H 89 97 H Pulse Rate [ From Monitor] Respiratory 34 H 31 H 35 H Rate Blood Pressure 111/56 113/60 129/74 O2 Sat by Pulse 88 89 91 Oximetry 08/19/18 08/19/18 08/19/18 11:00 11:30 11:50 Temperature Pulse Rate 92 H 106 H 92 H Pulse Rate [ From Monitor] Respiratory 35 H 44 H Rate Blood Pressure 120/63 121/68 120/63 O2 Sat by Pulse 93 89 97 Oximetry 08/19/18 08/19/18 08/19/18 12:00 12:30 13:00 Temperature 97.6 F Pulse Rate 112 H 125 H 106 H Pulse Rate [ 91 H From Monitor] Respiratory 22 38 H 25 H Rate Blood Pressure 126/72 109/76 101/46 O2 Sat by Pulse 88 86 89 Oximetry 08/19/18 08/19/18 08/19/18 13:30 14:00 14:30 Temperature Pulse Rate 87 83 83 Pulse Rate [ From Monitor] Respiratory 19 13 20 Rate Blood Pressure 91/47 90/52 100/54 O2 Sat by Pulse 90 93 Oximetry 08/19/18 08/19/18 08/19/18 15:00 15:30 16:00 Temperature 98.3 F Pulse Rate 80 76 81 Pulse Rate [ From Monitor] Respiratory 24 30 H 28 H Rate Blood Pressure 85/60 104/56 95/55 O2 Sat by Pulse 90 95 92 Oximetry 08/19/18 16:30 Temperature Pulse Rate 76 Pulse Rate [ From Monitor] Respiratory 30 H Rate Blood Pressure 100/63 O2 Sat by Pulse 94 Oximetry General appearance: Present: no acute distress, well-nourished - EENT Eyes: no scleral icterus, no conjunctival injection ENT: clear oral mucosa, dentition normal, other (intubated) Ears: bilateral: normal - Neck Neck: supple - Respiratory Respiratory effort: other (on MV) Respiratory: bilateral: rhonchi - Cardiovascular Rhythm: regular Heart Sounds: Present: S1 & S2. Absent: gallop, rub Extremities: pulses intact, No edema, normal color - Gastrointestinal General gastrointestinal: Present: soft, non-tender, non-distended, normal bowel sounds - Integumentary Integumentary: clear, warm, dry - Musculoskeletal Musculoskeletal: 1, strength equal bilaterally - Neurologic Neurologic: moves all extremities - Psychiatric Psychiatric: other (sedated) - Labs CBC & Chem 7: 08/19/18 07:25 06/29/19 07:25 Labs: Abnormal lab results 06/29/19 06/29/19 06/29/19 Range/Units 07:25 07:25 15:10 WBC 12.7 H (4.5-11.0) K/mm3 RBC 3.32 L (3.65-5.03) M/mm3 Hgb 9.5 L (11.8-15.2) gm/dl Hct 28.9 L (35.5-45.6) % RDW 17.7 H (13.2-15.2) % Seg Neuts % (Manual) 95.0 H (40.0-70.0) % Lymphocytes % (Manual) 5.0 L (13.4-35.0) % Seg Neutrophils # Man 12.1 H (1.8-7.7) K/mm3 Lymphocytes # (Manual) 0.6 L (1.2-5.4) K/mm3 POC ABG pCO2 49.0 H (35-45) POC ABG pO2 71 L (80-105) BUN 23 H (9-20) mg/dL Glucose 139 H (75-100) mg/dL AST 41 H (5-40) units/L Alkaline Phosphatase 149 H (35-129) units/L Albumin 3.0 L (3.9-5) g/dL - Imaging and cardiology Chest x-ray: report reviewed
[2018-08-19] MEDS: MAXIPIME/NS 2 GM/100 ML 2 GM/100 ML BAG IV SCH (18:18)
[2018-08-19] MEDS: BENADRYL PO SCH (22:00)
[2018-08-19] MEDS: ATIVAN PO SCH (22:10)
[2018-08-19] MEDS: PRAVACHOL PO SCH (22:10)
[2018-08-19] MEDS: NACL 0.9% 1000 ML 1,000 ML IV SCH (22:54)
[2018-08-20] MEDS: fentaNYL DRIP Premix 2,000 MCG/100 ML BAG IV SCH ×3 (00:18→18:26)
[2018-08-20] MEDS: VANCOMYCIN 1,250 MG in NACL 0.9% 250ML 250 ML IV SCH ×3 (00:18→18:17)
[2018-08-20] MEDS: MAXIPIME/NS 2 GM/100 ML 2 GM/100 ML BAG IV SCH ×2 (05:08→18:34)
[2018-08-20] MEDS: DOXYCYCLINE HYCLATE 100 MG in NACL 0.9% 250ML 250 ML IV SCH ×2 (05:30→18:56)
[2018-08-20] MEDS: SOLU-Medrol IV SCH ×3 (06:08→21:27)
[2018-08-20] MEDS: LASIX IV SCH ×2 (06:09→18:45)
[2018-08-20] MEDS: KCL 20MEQ/100ML 20 MEQ/100 ML BAG IV SCH ×3 (07:41→09:50)
[2018-08-20] MEDS: DIPRIVAN 10 MG/ML 1,000 MG/100 ML BOTTLE IV SCH (07:42)
[2018-08-20] MEDS: DUONEB *Not for PRN Use IH SCH ×5 (07:45→19:28)
--- NOTE | 2018-08-20 08:06 | XRay Report ---
EXAM: XR CHEST 1V AP HISTORY: follow up respiratory failure TECHNIQUE: AP chest x-ray dated 08/20/2018 at 1:51 AM. COMPARISON: Chest x-ray dated 08/19/2018 FINDINGS: ET tube in situ with distal tip approximately 4.1 cm above the ben (adequate position). Dobbhoff f eeding tube in situ with distal tip in the proximal body of stomach. There is evidence for cardiomegaly. The pulmonary vascularity and interstitial markings are diffusely prominent, consistent with CHF or volume overload in the appropriate clinical setting; differential diagnosis includes (but is not limited to) bronchitis and bronchopneumonia in the appropriate clinica l setting. Large lingular and left lower lobe lung parenchymal infiltrates in keeping with acute consolidative p neumonia or clinical setting. There is no pneumothorax seen. The visualized bony structures are withi n normal limits. IMPRESSION: 1. Findings consistent with CHF or volume overload in the appropriate clinical setting (with mild i nterval improvement since the previous exam); DDX includes bronchitis and bronchopneumonia in the marcelino ropriate clinical setting. Clinical correlation is advised. 2. Large lingular and left lower lobe lung parenchymal infiltrates in keeping with acute consolidati ve pneumonia or clinical setting. 3. Recommend clinical correlation and appropriate followup evaluation as clinically warranted to ens ure complete clearance. This document is electronically signed by Maria De Jesus Biggs MD., August 20 2018 08:04:04 AM [place]
--- NOTE | 2018-08-20 09:33 | Progress Note ---
Assessment and Plan Acute respiratory failure secondary to bilateral pneumonia, now on MVS HAP present on admission Schizophrenia, Depression Developmental delay Leukocytosis -Lung protective strategies -Wean FIO2 , once at 50 % with acceptable PaO2, start weaning PEEP -CXR and ABG in am -VAP bundle addressed -Supplemental oxygen to keep O2 sats 88-90% -Bronchodilators -Short course of steroids -Diuresis, while monitoring hemodynamics, renal function and electrolyte profile -Accuchecks with glycemic control -Target blood glucose <180mg/dL -Enteral nutrition with aspiration precautions -Agitation management -Titrate sedation to RAAS 0 to -1 -Prevention of delirium, maintenance of sleep-wake cycle -Empiric antibiotic therapy for HAP/aspiration pneumonia -Will de-escalate therapy based on microbiology/SD/Cultures -Avoid nephrotoxic agents, adjust all antibiotics and medications for CrCL and GFR -VTE and Stress ulcer prophylaxis -Place a hernandez catheter, clinically appears to have a distended bladder. Bladder scan ordered Will daily assess the need for ongoing need for hernandez catheter -Follow up 2D echo results/report ID consult notes reviewed, appreciate input Discussed care with hospitalist service Dicussed with RT/RN CONDITION: CRITICAL PROGNOSIS: GUARDED CODE STATUS: FULL CODE The high probability of a clinically significant, sudden or life-threatening deterioration of the [respiratory] system(s) required my full and direct attention, intervention and personal management. The aggregate critical care time was [35] minutes without overlap. Time includes spent on; [x] Data Review and interpretation [x] Patient assessment and monitoring of vital signs [x] Documentation [x] Medication orders and management Subjective Date of service: 08/20/18 Principal diagnosis: LLL PNA Interval history: Patient is seen today for: Acute hypoxemic respiratory failure, multifocal pneumonia, sepsis Seen and examined at bedside; 24hour events reviewed; nursing and respiratory care staff consulted; no adverse overnight events reported to me; on going low grade fevers,Vitals, labs, medications, chart and imaging reviewed. Remains on mechanical ventilatory support, on PEEP 10 and FIO2 of 100% PaO2 of 90 No vasopressor support Objective - Exam Narrative Exam: Constitutional:orally intubated, ETT to MVS No patietn-ventilatory dyssynchrony, not in any distress Head, Ears, Nose: Normocephalic, atraumatic. External ears, nose normal Eyes: Conjunctivae/corneas clear. No icterus. No ptosis. Neck: Supple, no meningeal signs Cardiovascular: Tachycardia, S1, S2 normal. Respiratory:Decreased AE bilaterally, Coarse BS bilaterally GI: Soft, non-tender; bowel sounds normal. No peritoneal signs Musculoskeletal: No pedal edema, no cyanosis. Skin: No rash or abscess Hem/Lymphatic: No palpable cervical or supraclavicular nodes. No lymphangitis Psych: no agitation Neurological:Sedated Vital Signs - 12hr 08/19/18 08/19/18 08/19/18 22:00 22:30 22:47 Temperature Pulse Rate 67 71 69 Pulse Rate [ 67 From Monitor] Pulse Rate [ Left Lower Lobe ] Respiratory 30 H 30 H 30 H Rate Respiratory Rate [Left Lower Lobe] Blood Pressure 101/57 108/66 101/59 O2 Sat by Pulse 97 89 96 Oximetry 08/19/18 08/19/18 08/19/18 23:00 23:04 23:30 Temperature Pulse Rate 67 65 61 Pulse Rate [ From Monitor] Pulse Rate [ Left Lower Lobe ] Respiratory 30 H 30 H 30 H Rate Respiratory Rate [Left Lower Lobe] Blood Pressure 100/57 100/57 101/54 O2 Sat by Pulse 98 98 99 Oximetry 08/19/18 08/20/18 08/20/18 23:45 00:00 00:30 Temperature 98.8 F Pulse Rate 65 59 L Pulse Rate [ 65 From Monitor] Pulse Rate [ Left Lower Lobe ] Respiratory 30 H 30 H Rate Respiratory Rate [Left Lower Lobe] Blood Pressure 100/56 101/55 O2 Sat by Pulse 96 100 Oximetry 08/20/18 08/20/18 08/20/18 01:00 01:30 02:00 Temperature Pulse Rate 63 59 L 57 L Pulse Rate [ 65 From Monitor] Pulse Rate [ Left Lower Lobe ] Respiratory 30 H 30 H 30 H Rate Respiratory Rate [Left Lower Lobe] Blood Pressure 97/49 104/55 105/60 O2 Sat by Pulse 100 100 99 Oximetry 08/20/18 08/20/18 08/20/18 02:30 03:00 03:30 Temperature Pulse Rate 55 L 53 L 51 L Pulse Rate [ From Monitor] Pulse Rate [ Left Lower Lobe ] Respiratory 30 H 30 H 30 H Rate Respiratory Rate [Left Lower Lobe] Blood Pressure 103/58 107/56 108/59 O2 Sat by Pulse 90 86 99 Oximetry 08/20/18 08/20/18 08/20/18 03:37 03:50 04:00 Temperature 98.4 F Pulse Rate 52 L 55 L Pulse Rate [ 57 L From Monitor] Pulse Rate [ Left Lower Lobe ] Respiratory 30 H Rate Respiratory Rate [Left Lower Lobe] Blood Pressure 102/56 105/54 O2 Sat by Pulse 97 94 Oximetry 08/20/18 08/20/18 08/20/18 04:30 05:00 05:30 Temperature Pulse Rate 59 L 55 L 54 L Pulse Rate [ From Monitor] Pulse Rate [ Left Lower Lobe ] Respiratory 30 H 30 H 30 H Rate Respiratory Rate [Left Lower Lobe] Blood Pressure 101/51 106/56 104/58 O2 Sat by Pulse 94 100 Oximetry 08/20/18 08/20/18 08/20/18 06:00 06:30 07:00 Temperature Pulse Rate 55 L 49 L 58 L Pulse Rate [ From Monitor] Pulse Rate [ Left Lower Lobe ] Respiratory 30 H 30 H 30 H Rate Respiratory Rate [Left Lower Lobe] Blood Pressure 102/60 116/67 101/57 O2 Sat by Pulse 95 94 96 Oximetry 08/20/18 08/20/18 08/20/18 07:30 07:35 07:49 Temperature Pulse Rate 55 L 53 L Pulse Rate [ From Monitor] Pulse Rate [ 76 Left Lower Lobe ] Respiratory 30 H Rate Respiratory 30 H Rate [Left Lower Lobe] Blood Pressure 111/68 111/68 O2 Sat by Pulse 99 100 Oximetry 08/20/18 08/20/18 08:00 08:30 Temperature 97.7 F Pulse Rate 63 66 Pulse Rate [ From Monitor] Pulse Rate [ Left Lower Lobe ] Respiratory 30 H 30 H Rate Respiratory Rate [Left Lower Lobe] Blood Pressure 105/65 121/83 O2 Sat by Pulse 86 92 Oximetry CBC and BMP: 08/23/18 05:34 08/23/18 05:34 ABG, PT/INR, D-dimer: ABG POC ABG pH 7.346 (7.35-7.45) L 08/20/18 04:03 POC ABG pCO2 50.2 (35-45) H 08/20/18 04:03 POC ABG pO2 180 (80-105) H 08/20/18 04:03 POC ABG HCO3 27.4 (22-26 mml/L) 08/20/18 04:03 POC ABG Total CO2 29 (23-27mmol/L) 08/20/18 04:03 POC ABG O2 Sat 100 08/20/18 04:03 PT/INR, D-dimer PT 15.1 Sec. (12.2-14.9) H 08/14/18 16:43 INR 1.22 (0.87-1.13) H 08/14/18 16:43 Abnormal lab findings: Abnormal Labs 08/14/18 08/14/18 08/14/18 16:33 16:33 16:43 WBC RBC 3.38 L Hgb 9.9 L Hct 29.2 L RDW 17.3 H Lymph % (Auto) [place] % (Auto) Lymph # Seg Neutrophils % Seg Neuts % (Manual) 87.0 H Lymphocytes % (Manual) 6.0 L Seg Neutrophils # Man Lymphocytes # (Manual) 0.5 L PT INR POC ABG pH POC ABG pCO2 POC ABG pO2 Potassium 3.5 L Carbon Dioxide BUN Glucose AST Alkaline Phosphatase Total Creatine Kinase 204 H C-Reactive Protein Total Protein Albumin Vancomycin Trough 08/14/18 08/14/18 08/17/18 16:43 17:01 09:09 WBC RBC 3.12 L Hgb 9.0 L Hct 27.0 L RDW 17.0 H Lymph % (Auto) 7.1 L [place] % (Auto) 9.2 H Lymph # 0.5 L Seg Neutrophils % 82.7 H Seg Neuts % (Manual) Lymphocytes % (Manual) Seg Neutrophils # Man Lymphocytes # (Manual) PT 15.1 H INR 1.22 H POC ABG pH 7.468 H POC ABG pCO2 POC ABG pO2 57 L Potassium Carbon Dioxide BUN Glucose AST Alkaline Phosphatase Total Creatine Kinase C-Reactive Protein Total Protein Albumin Vancomycin Trough 08/17/18 08/17/18 08/17/18 09:09 11:30 23:21 WBC RBC Hgb Hct RDW Lymph % (Auto) [place] % (Auto) Lymph # Seg Neutrophils % Seg Neuts % (Manual) Lymphocytes % (Manual) Seg Neutrophils # Man Lymphocytes # (Manual) PT INR POC ABG pH 7.225 L POC ABG pCO2 54.6 H POC ABG pO2 50 L 110 H Potassium 3.5 L Carbon Dioxide 20 L BUN 7 L Glucose 125 H AST Alkaline Phosphatase Total Creatine Kinase C-Reactive Protein Total Protein 6.2 L Albumin 3.2 L Vancomycin Trough 08/18/18 08/18/18 08/18/18 04:49 13:06 13:50 WBC RBC Hgb Hct RDW Lymph % (Auto) [place] % (Auto) Lymph # Seg Neutrophils % Seg Neuts % (Manual) Lymphocytes % (Manual) Seg Neutrophils # Man Lymphocytes # (Manual) PT INR POC ABG pH POC ABG pCO2 POC ABG pO2 58 L Potassium Carbon Dioxide BUN Glucose AST Alkaline Phosphatase Total Creatine Kinase C-Reactive Protein 31.10 H Total Protein Albumin Vancomycin Trough 4.7 L 08/18/18 08/19/18 08/19/18 13:50 07:25 07:25 WBC 14.8 H 12.7 H RBC 3.46 L 3.32 L Hgb 10.1 L 9.5 L Hct 30.2 L 28.9 L RDW 17.6 H 17.7 H Lymph % (Auto) [place] % (Auto) Lymph # Seg Neutrophils % Seg Neuts % (Manual) 95.0 H 95.0 H Lymphocytes % (Manual) 3.0 L 5.0 L Seg Neutrophils # Man 14.1 H 12.1 H Lymphocytes # (Manual) 0.4 L 0.6 L PT INR POC ABG pH POC ABG pCO2 POC ABG pO2 Potassium Carbon Dioxide BUN 23 H Glucose 139 H AST 41 H Alkaline Phosphatase 149 H Total Creatine Kinase C-Reactive Protein Total Protein Albumin 3.0 L Vancomycin Trough 08/19/18 08/20/18 15:10 04:03 WBC RBC Hgb Hct RDW Lymph % (Auto) [place] % (Auto) Lymph # Seg Neutrophils % Seg Neuts % (Manual) Lymphocytes % (Manual) Seg Neutrophils # Man Lymphocytes # (Manual) PT INR POC ABG pH 7.346 L POC ABG pCO2 49.0 H 50.2 H POC ABG pO2 71 L 180 H Potassium Carbon Dioxide BUN Glucose AST Alkaline Phosphatase Total Creatine Kinase C-Reactive Protein Total Protein Albumin Vancomycin Trough Chest x-ray: image reviewed (Bilateral alveolar infiltrates, alveolar edema/consolidation)
[2018-08-20] MEDS: PEPCID PO SCH ×2 (09:36→21:27)
[2018-08-20] MEDS: ZYLOPRIM PO SCH (09:36)
[2018-08-20] MEDS: RisperDAL PO SCH (09:37)
[2018-08-20] MEDS: LOVENOX SUB-Q SCH (09:37)
[2018-08-20] MEDS: SODIUM CHLORIDE FLUSH SYRINGE 10 ML IV SCH ×2 (09:39→21:28)
--- NOTE | 2018-08-20 11:14 | Progress Note ---
Assessment and Plan ./Acute Respiratory failure with hypoxia S/p Bipap but no improvement Intubated 08/19, CC following cont Duonebs IV Solumedrol and IV abx / Bilateral pneumonia, patient not in sepsis Cont Abx, follow cx, ID consulted Cover for HCAP given recent hospitalization to psych facility. /Leukocytosis, steroid-induced / Anemia Anemia w/u ordered / Hypokalemia, Supplemented / Schizophrenia, on Zyprexa /Depression, on antidepressants / Gout , Cont Allopurinol / HLD (hyperlipidemia), Cont statins / DVT prophylaxis On Lovenox and GI prophylaxis Brief history: 52-year-old male with PMHx of developmental delay, schizophrenia, and depression with recent h/o SI presented to the ER with complaints of shortness of breath and cough 1 day. Patient O2 sat was noted to be 86% and improve after application of oxygen via n/c. Pt denies a history of COPD but admits to history of smoking. In the ER, pt had a chest x-ray that showed multifocal bilateral air space disease suspicious for pneumonia. Following admission Overnight went into resp distress and transferred to ICU for Intesive care On Bipap. He then eventually intubated on 08/19. Subjective Date of service: 08/20/18 Principal diagnosis: BL PNA Interval history: Patient seen and examined. Medical records and medication list reviewed. Patient remained intubated and sedated Discussed with critical care attending Objective - Exam Narrative Exam: General appearance: Present: no acute distress, well-nourished - EENT Eyes: no scleral icterus, no conjunctival injection ENT: clear oral mucosa, dentition normal, other (intubated) Ears: bilateral: normal - Neck Neck: supple - Respiratory Respiratory effort: other (on MV) Respiratory: bilateral: rhonchi - Cardiovascular Rhythm: regular Heart Sounds: Present: S1 & S2. Absent: gallop, rub Extremities: pulses intact, No edema, normal color - Gastrointestinal General gastrointestinal: Present: soft, non-tender, non-distended, normal bowel sounds - Integumentary Integumentary: clear, warm, dry - Musculoskeletal Musculoskeletal: 1, strength equal bilaterally - Neurologic Neurologic: moves all extremities - Psychiatric Psychiatric: other (sedated) - Constitutional Vitals: Vital Signs - 12hr 08/19/18 08/19/18 08/20/18 23:30 23:45 00:00 Temperature 98.8 F Pulse Rate 61 65 Pulse Rate [ 65 From Monitor] Pulse Rate [ Left Lower Lobe ] Respiratory 30 H 30 H Rate Respiratory Rate [Left Lower Lobe] Blood Pressure 101/54 100/56 O2 Sat by Pulse 99 96 Oximetry 08/20/18 08/20/18 08/20/18 00:30 01:00 01:30 Temperature Pulse Rate 59 L 63 59 L Pulse Rate [ From Monitor] Pulse Rate [ Left Lower Lobe ] Respiratory 30 H 30 H 30 H Rate Respiratory Rate [Left Lower Lobe] Blood Pressure 101/55 97/49 104/55 O2 Sat by Pulse 100 100 100 Oximetry 08/20/18 08/20/18 08/20/18 02:00 02:30 03:00 Temperature Pulse Rate 57 L 55 L 53 L Pulse Rate [ 65 From Monitor] Pulse Rate [ Left Lower Lobe ] Respiratory 30 H 30 H 30 H Rate Respiratory Rate [Left Lower Lobe] Blood Pressure 105/60 103/58 107/56 O2 Sat by Pulse 99 90 86 Oximetry 08/20/18 08/20/18 08/20/18 03:30 03:37 03:50 Temperature 98.4 F Pulse Rate 51 L 52 L Pulse Rate [ From Monitor] Pulse Rate [ Left Lower Lobe ] Respiratory 30 H Rate Respiratory Rate [Left Lower Lobe] Blood Pressure 108/59 102/56 O2 Sat by Pulse 99 97 Oximetry 08/20/18 08/20/18 08/20/18 04:00 04:30 05:00 Temperature Pulse Rate 55 L 59 L 55 L Pulse Rate [ 57 L From Monitor] Pulse Rate [ Left Lower Lobe ] Respiratory 30 H 30 H 30 H Rate Respiratory Rate [Left Lower Lobe] Blood Pressure 105/54 101/51 106/56 O2 Sat by Pulse 94 94 100 Oximetry 08/20/18 08/20/18 08/20/18 05:30 06:00 06:30 Temperature Pulse Rate 54 L 55 L 49 L Pulse Rate [ From Monitor] Pulse Rate [ Left Lower Lobe ] Respiratory 30 H 30 H 30 H Rate Respiratory Rate [Left Lower Lobe] Blood Pressure 104/58 102/60 116/67 O2 Sat by Pulse 95 94 Oximetry 08/20/18 08/20/18 08/20/18 07:00 07:30 07:35 Temperature Pulse Rate 58 L 55 L 53 L Pulse Rate [ From Monitor] Pulse Rate [ Left Lower Lobe ] Respiratory 30 H 30 H Rate Respiratory Rate [Left Lower Lobe] Blood Pressure 101/57 111/68 111/68 O2 Sat by Pulse 96 99 100 Oximetry 08/20/18 08/20/18 08/20/18 07:49 08:00 08:30 Temperature 97.7 F Pulse Rate 63 66 Pulse Rate [ From Monitor] Pulse Rate [ 76 Left Lower Lobe ] Respiratory 30 H 30 H Rate Respiratory 30 H Rate [Left Lower Lobe] Blood Pressure 105/65 121/83 O2 Sat by Pulse 86 92 Oximetry 08/20/18 08/20/18 08/20/18 09:00 09:30 10:00 Temperature Pulse Rate 74 68 68 Pulse Rate [ From Monitor] Pulse Rate [ Left Lower Lobe ] Respiratory 28 H 20 22 Rate Respiratory Rate [Left Lower Lobe] Blood Pressure 118/70 107/60 117/64 O2 Sat by Pulse 98 99 97 Oximetry 08/20/18 08/20/18 10:30 11:00 Temperature Pulse Rate 73 65 Pulse Rate [ From Monitor] Pulse Rate [ Left Lower Lobe ] Respiratory 10 L 25 H Rate Respiratory Rate [Left Lower Lobe] Blood Pressure 108/54 103/58 O2 Sat by Pulse 100 100 Oximetry - Labs CBC & Chem 7: 08/21/18 04:43 08/21/18 04:43 Labs: Abnormal lab results 08/19/18 08/20/18 Range/Units 15:10 04:03 POC ABG pH 7.346 L (7.35-7.45) POC ABG pCO2 49.0 H 50.2 H (35-45) POC ABG pO2 71 L 180 H (80-105)
[2018-08-20] MEDS: WELLBUTRIN XL PO SCH (12:31)
[2018-08-20] MEDS: COLACE PO SCH ×2 (12:31→21:27)
[2018-08-20] MEDS: PROzac PO SCH (12:44)
[2018-08-20] MEDS ORDERED: QUELICIN ONE (14:32)
[2018-08-20] MEDS ORDERED: VERSED IV ONE (14:32)
[2018-08-20] MEDS: PRAVACHOL PO SCH (21:26)
[2018-08-20] MEDS: ATIVAN PO SCH (21:26)
[2018-08-20] MEDS: BENADRYL PO SCH (21:27)
[2018-08-21] MEDS: VANCOMYCIN 1,250 MG in NACL 0.9% 250ML 250 ML IV SCH ×2 (00:33→08:45)
[2018-08-21] MEDS: NACL 0.9% 1000 ML 1,000 ML IV SCH (02:45)
[2018-08-21] MEDS: MAXIPIME/NS 2 GM/100 ML 2 GM/100 ML BAG IV SCH (04:28)
[2018-08-21] MEDS: DOXYCYCLINE HYCLATE 100 MG in NACL 0.9% 250ML 250 ML IV SCH ×2 (04:29→16:24)
--- NOTE | 2018-08-21 04:33 | XRay Report ---
PROCEDURE: XR CHEST 1V AP TECHNIQUE: Chest radiograph single view. HISTORY: follow up respiratory failure COMPARISONS: 08/20/2018 . FINDINGS: Endotracheal tube terminates approximately 7 cm from the ben. Enteric tube is coiled within the st omach. Patient is rotated. No mediastinal shift. Cardiac silhouette is not enlarged. No pneumothorax. Left pleural effusion. Patchy opacities in the left greater than right lung are similar to prior. IMPRESSION: Satisfactory appearance of the patient's support apparatus without pneumothorax or significant change compared to 08/20/2018. This document is electronically signed by Filipe Rowe MD., August 21 2018 04:31:52 AM ET
[2018-08-21] MEDS: fentaNYL DRIP Premix 2,000 MCG/100 ML BAG IV SCH ×2 (05:32→18:58)
[2018-08-21] MEDS: SOLU-Medrol IV SCH ×3 (05:33→23:01)
[2018-08-21] MEDS: LASIX IV SCH ×2 (05:33→17:24)
[2018-08-21 05:39] LABS: Hematocrit 26.3 % (35.5-45.6); Hemoglobin 8.5 gm/dl (11.8-15.2); Mean Corpuscular HGB Conc 33 % (32-34); Mean Corpuscular Volume 87 fl (84-94); Platelet Count 273 K/mm3 (140-440); Red Blood Count 3.02 M/mm3 (3.65-5.03); Red Cell Distribution Width 17.9 % (13.2-15.2)
[2018-08-21 06:00] LABS: BUN/Creatinine Ratio 30; Blood Urea Nitrogen 27 mg/dL (9-20); Calcium 8.6 mg/dL (8.4-10.2); Hemolysis Index 0
[2018-08-21 07:59] LABS: Basophils % (Manual) 0 % (0.0-1.8); Eosinophils % (Manual) 0 % (0.0-4.3); Total Cells Counted 100
[2018-08-21 08:01] LABS: Anisocytosis Few; Hypochromasia Few
[2018-08-21 08:03] LABS: Platelet Estimate Consistent w Auto; Stomatocytes Few
[2018-08-21] MEDS: DUONEB *Not for PRN Use IH SCH ×4 (08:22→19:04)
[2018-08-21] MEDS: ZYLOPRIM PO SCH (09:00)
[2018-08-21] MEDS: RisperDAL PO SCH (09:00)
[2018-08-21] MEDS: LOVENOX SUB-Q SCH (09:00)
[2018-08-21] MEDS: WELLBUTRIN XL PO SCH (09:00)
[2018-08-21] MEDS: PEPCID PO SCH ×2 (09:00→23:06)
[2018-08-21] MEDS: SODIUM CHLORIDE FLUSH SYRINGE 10 ML IV SCH (09:01)
[2018-08-21] MEDS: COLACE PO SCH ×2 (09:29→23:18)
--- NOTE | 2018-08-21 09:39 | Progress Note ---
Assessment and Plan Acute hypoxemic respiratory failure. Acute respiratory distress syndrome. Possible aspiration pneumonia (HAP) History of depression. History of schizophrenia. Anemia that is normocytic. Mild metabolic acidosis. Hypokalemia. Developmental delay - advance ETT 2 cm - continue diuresis and follow BUN/Cr/electrolytes (reduce lasix to daily dosing) - advance enteral nutrition to goal rate - increase free water flushes to 300 mls q4h re: hypernatremia - begin Flomax (Urinary retention reported with 1.5 liters drained post hernandez catheter - reduce set rate to 25/min (repeat ABG tonight) - discontinue IVF - schedukle albuterol nebs - continue lung protective strategies - daily CXR and ABG in short term - VAP bundle addressed - continue supplemental oxygen to keep O2 sats 88-90% - continue bronchodilators with pulmonary hygiene per RT - continus systemic steroids with quick taper - continue accuchecks with glycemic control per SSI for target blood glucose <180mg/dL - Agitation management - Titrate sedation to RAAS 0 to -1 - Prevention of delirium, maintenance of sleep-wake cycle - Empiric antibiotic therapy for HAP/aspiration pneumonia (ID consult placed) - Will de-escalate therapy based on microbiology/SD/Cultures - Avoid nephrotoxic agents, adjust all antibiotics and medications for CrCL and GFR - VTE and Stress ulcer prophylaxis CONDITION: CRITICAL PROGNOSIS: GUARDED CODE STATUS: FULL CODE The high probability of a clinically significant, sudden or life-threatening deterioration of the [respiratory] system(s) required my full and direct attention, intervention and personal management. The aggregate critical care time was [32] minutes without overlap. Time includes spent on; [x] Data Review and interpretation [x] Patient assessment and monitoring of vital signs [x] Documentation [x] Medication orders and management Subjective Date of service: 08/21/18 Principal diagnosis: Ac. hypoxemic resp failure; Multifocal Pneumonia (HAP); ARDS; Anemia Interval history: Patient is seen today for: Acute hypoxemic respiratory failure; multifocal pneumonia (HAP); ARDS; depression; schizophrenia; Anemia; Developmental delay Seen and examined at bedside; 24hour events reviewed; nursing and respiratory care staff consulted; no adverse overnight events reported to me; intubated over the week end; hypoxemia slowly improving; FiO2 at 80% but rooom to wean; 2D ECHO shows diastolic dysfunction; good response to empiric diuresis Objective Vital Signs - 12hr 08/20/18 08/20/18 08/20/18 21:53 22:00 22:30 Temperature Pulse Rate 66 67 74 Pulse Rate [ Left Lower Lobe ] Respiratory 11 L 17 25 H Rate Respiratory Rate [Left Lower Lobe] Blood Pressure 103/53 106/55 110/57 O2 Sat by Pulse 100 100 100 Oximetry 08/20/18 08/20/18 08/20/18 23:00 23:30 23:41 Temperature Pulse Rate 70 66 68 Pulse Rate [ Left Lower Lobe ] Respiratory 12 11 L Rate Respiratory Rate [Left Lower Lobe] Blood Pressure 102/51 106/50 106/50 O2 Sat by Pulse 100 100 100 Oximetry 08/20/18 08/21/18 08/21/18 23:58 00:00 00:30 Temperature 98.2 F Pulse Rate 68 70 Pulse Rate [ Left Lower Lobe ] Respiratory 15 21 Rate Respiratory Rate [Left Lower Lobe] Blood Pressure 84/51 108/54 O2 Sat by Pulse 94 99 Oximetry 08/21/18 08/21/18 08/21/18 01:00 01:30 02:00 Temperature Pulse Rate 67 65 67 Pulse Rate [ Left Lower Lobe ] Respiratory 19 21 13 Rate Respiratory Rate [Left Lower Lobe] Blood Pressure 114/52 112/56 112/56 O2 Sat by Pulse 100 100 100 Oximetry 08/21/18 08/21/18 08/21/18 02:30 03:00 03:30 Temperature Pulse Rate 65 64 67 Pulse Rate [ Left Lower Lobe ] Respiratory 19 28 H 27 H Rate Respiratory Rate [Left Lower Lobe] Blood Pressure 103/52 109/53 109/51 O2 Sat by Pulse 100 100 100 Oximetry 08/21/18 08/21/18 08/21/18 04:00 04:04 04:30 Temperature 98.8 F Pulse Rate 68 64 67 Pulse Rate [ Left Lower Lobe ] Respiratory 24 30 H Rate Respiratory Rate [Left Lower Lobe] Blood Pressure 106/48 106/48 105/50 O2 Sat by Pulse 98 100 96 Oximetry 08/21/18 08/21/18 08/21/18 05:00 05:30 06:00 Temperature Pulse Rate 68 66 75 Pulse Rate [ Left Lower Lobe ] Respiratory 28 H 24 24 Rate Respiratory Rate [Left Lower Lobe] Blood Pressure 113/52 109/53 115/62 O2 Sat by Pulse 95 94 94 Oximetry 08/21/18 08/21/18 08/21/18 06:30 07:00 07:30 Temperature Pulse Rate 69 69 67 Pulse Rate [ Left Lower Lobe ] Respiratory 24 31 H 31 H Rate Respiratory Rate [Left Lower Lobe] Blood Pressure 109/53 109/51 108/53 O2 Sat by Pulse 92 96 95 Oximetry 08/21/18 08/21/18 08/21/18 08:00 08:30 09:00 Temperature Pulse Rate 69 108 H 84 Pulse Rate [ 98 H Left Lower Lobe ] Respiratory 28 H 22 19 Rate Respiratory 30 H Rate [Left Lower Lobe] Blood Pressure 103/52 109/43 114/53 O2 Sat by Pulse 95 88 98 Oximetry Constitutional: no acute distress, other (middle aged CM, normocephalic on MVS and riding set rate of 30/min) Eyes: non-icteric ENT: oropharynx moist, other (ETT 23 cm VENTURA) Neck: supple, no lymphadenopathy, other (no thyromegaly) Effort: mildly labored Ascultation: Bilateral: rales Percussion: Bilateral: not dull Cardiovascular: regular rate and rhythm, other (No R/M) Gastrointestinal: normoactive bowel sounds, soft, non-tender, non-distended Integumentary: normal Extremities: no cyanosis, no edema, pink and warm, pulses normal, no ischemia or petechiae Neurologic: non-focal exam (grossly), pupils equal and round, motor strength normal and, unable to assess, other (sedated) Psychiatric: other (sedated) CBC and BMP: 08/21/18 04:43 08/21/18 04:43 ABG, PT/INR, D-dimer: ABG POC ABG pH 7.368 (7.35-7.45) 08/21/18 04:18 POC ABG pCO2 51.0 (35-45) H 08/21/18 04:18 POC ABG pO2 78 (80-105) L 08/21/18 04:18 POC ABG HCO3 29.4 (22-26 mml/L) 08/21/18 04:18 POC ABG Total CO2 31 (23-27mmol/L) 08/21/18 04:18 POC ABG O2 Sat 95 08/21/18 04:18 PT/INR, D-dimer PT 15.1 Sec. (12.2-14.9) H 08/14/18 16:43 INR 1.22 (0.87-1.13) H 08/14/18 16:43 Abnormal lab findings: Abnormal Labs 08/14/18 08/14/18 08/14/18 16:33 16:33 16:43 WBC RBC 3.38 L Hgb 9.9 L Hct 29.2 L RDW 17.3 H Lymph % (Auto) Crawford % (Auto) Lymph # Seg Neutrophils % Seg Neuts % (Manual) 87.0 H Lymphocytes % (Manual) 6.0 L Seg Neutrophils # Man Lymphocytes # (Manual) 0.5 L PT INR POC ABG pH POC ABG pCO2 POC ABG pO2 Sodium Potassium 3.5 L Chloride Carbon Dioxide BUN Glucose AST Alkaline Phosphatase Total Creatine Kinase 204 H C-Reactive Protein Total Protein Albumin Vancomycin Trough 08/14/18 08/14/18 08/17/18 16:43 17:01 09:09 WBC RBC 3.12 L Hgb 9.0 L Hct 27.0 L RDW 17.0 H Lymph % (Auto) 7.1 L Crawford % (Auto) 9.2 H Lymph # 0.5 L Seg Neutrophils % 82.7 H Seg Neuts % (Manual) Lymphocytes % (Manual) Seg Neutrophils # Man Lymphocytes # (Manual) PT 15.1 H INR 1.22 H POC ABG pH 7.468 H POC ABG pCO2 POC ABG pO2 57 L Sodium Potassium Chloride Carbon Dioxide BUN Glucose AST Alkaline Phosphatase Total Creatine Kinase C-Reactive Protein Total Protein Albumin Vancomycin Trough 08/17/18 08/17/18 08/17/18 09:09 11:30 23:21 WBC RBC Hgb Hct RDW Lymph % (Auto) Crawford % (Auto) Lymph # Seg Neutrophils % Seg Neuts % (Manual) Lymphocytes % (Manual) Seg Neutrophils # Man Lymphocytes # (Manual) PT INR POC ABG pH 7.225 L POC ABG pCO2 54.6 H POC ABG pO2 50 L 110 H Sodium Potassium 3.5 L Chloride Carbon Dioxide 20 L BUN 7 L Glucose 125 H AST Alkaline Phosphatase Total Creatine Kinase C-Reactive Protein Total Protein 6.2 L Albumin 3.2 L Vancomycin Trough 08/18/18 08/18/18 08/18/18 04:49 13:06 13:50 WBC RBC Hgb Hct RDW Lymph % (Auto) Crawford % (Auto) Lymph # Seg Neutrophils % Seg Neuts % (Manual) Lymphocytes % (Manual) Seg Neutrophils # Man Lymphocytes # (Manual) PT INR POC ABG pH POC ABG pCO2 POC ABG pO2 58 L Sodium Potassium Chloride Carbon Dioxide BUN Glucose AST Alkaline Phosphatase Total Creatine Kinase C-Reactive Protein 31.10 H Total Protein Albumin Vancomycin Trough 4.7 L 08/18/18 08/19/18 08/19/18 13:50 07:25 07:25 WBC 14.8 H 12.7 H RBC 3.46 L 3.32 L Hgb 10.1 L 9.5 L Hct 30.2 L 28.9 L RDW 17.6 H 17.7 H Lymph % (Auto) Crawford % (Auto) Lymph # Seg Neutrophils % Seg Neuts % (Manual) 95.0 H 95.0 H Lymphocytes % (Manual) 3.0 L 5.0 L Seg Neutrophils # Man 14.1 H 12.1 H Lymphocytes # (Manual) 0.4 L 0.6 L PT INR POC ABG pH POC ABG pCO2 POC ABG pO2 Sodium Potassium Chloride Carbon Dioxide BUN 23 H Glucose 139 H AST 41 H Alkaline Phosphatase 149 H Total Creatine Kinase C-Reactive Protein Total Protein Albumin 3.0 L Vancomycin Trough 08/19/18 08/20/18 08/21/18 15:10 04:03 04:18 WBC RBC Hgb Hct RDW Lymph % (Auto) Crawford % (Auto) Lymph # Seg Neutrophils % Seg Neuts % (Manual) Lymphocytes % (Manual) Seg Neutrophils # Man Lymphocytes # (Manual) PT INR POC ABG pH 7.346 L POC ABG pCO2 49.0 H 50.2 H 51.0 H POC ABG pO2 71 L 180 H 78 L Sodium Potassium Chloride Carbon Dioxide BUN Glucose AST Alkaline Phosphatase Total Creatine Kinase C-Reactive Protein Total Protein Albumin Vancomycin Trough 08/21/18 08/21/18 04:43 04:43 WBC 14.1 H RBC 3.02 L Hgb 8.5 L Hct 26.3 L RDW 17.9 H Lymph % (Auto) Crawford % (Auto) Lymph # Seg Neutrophils % Seg Neuts % (Manual) 95.0 H Lymphocytes % (Manual) 3.0 L Seg Neutrophils # Man 13.4 H Lymphocytes # (Manual) 0.4 L PT INR POC ABG pH POC ABG pCO2 POC ABG pO2 Sodium 149 H Potassium Chloride 111.2 H Carbon Dioxide BUN 27 H Glucose 164 H AST Alkaline Phosphatase Total Creatine Kinase C-Reactive Protein Total Protein Albumin Vancomycin Trough Chest x-ray: image reviewed (TT riding high; persistent bilateral infiltrates) Allied health notes reviewed: nursing
--- NOTE | 2018-08-21 11:42 | Progress Note ---
Assessment and Plan Cultures: 08/14/2018 Blood culture: No growth 08/18/2018 resp culture: normal resp aminata. A/P: 52-year-old male with history of developmental delay, schizophrenia, recently discharged from a psychiatric facility for suicidal ideation now with: 1) Acute respiratory failure secondary to bilateral pneumonia: Cover for HCAP given recent hospitalization to psych facility. Intubated, sedated. 2) Schizophrenia, Depression: Patient is on risperidone, olanzapine, Haldol. Also on Wellbutrin and fluoxetine. At risk of QT prolongation especially with levofloxacin. 3) PCN allergy: unknown, at least >10 years history per his caregiver at the bedside. Low risk of cross reactivity with Cephalosporins. Tolerating Cefepime well. Recs: stopped Cefepime, switched to IV Ceftriaxone 2 gm q24 hrs discontinued vancomycin continue Doxycycline for atypical coverage (avoiding Azithromycin and Levofloxacin due to risk of QT prolongation) f/u Pneumococcal and Legionella Ur Ag Levi Luna MD [facility] C: [phone] O: [phone] F: [phone] Subjective Date of service: 08/21/18 Principal diagnosis: Ac. hypoxemic resp failure; Multifocal Pneumonia (HAP); ARDS; Anemia Interval history: No fever. Remains on the vent. Sedated. History and ROS limited. Objective - Exam Narrative Exam: Physical Exam: Constitutional: sedated, intubated Head, Ears, Nose: Normocephalic, atraumatic. External ears, nose normal Eyes: Conjunctivae/corneas clear. No icterus. No ptosis. Neck: Supple, no meningeal signs Oral: intubated Cardiovascular: S1, S2 normal, no murmur heard Respiratory: Good air entry, clear to auscultation bilaterally GI: Soft, non-tender; bowel sounds normal. No peritoneal signs Musculoskeletal: No pedal edema, no cyanosis. Skin: No rash or abscess Hem/Lymphatic: No palpable cervical or supraclavicular nodes. No lymphangitis Psych: no agitation Neurological: sedated, intubated, on vent - Constitutional Vitals: Vital Signs Temp Pulse Resp BP Pulse Ox 99.8 F H 72 31 H 106/53 96 08/21/18 08:00 08/21/18 11:28 08/21/18 10:30 08/21/18 11:28 08/21/18 11:28 Temperature -Last 24 Hours Temperature 99.8 F Temperature 98.8 F Temperature 98.2 F Temperature 98.9 F Temperature 98.4 F Temperature 97.7 F - Labs CBC & Chem 7: 08/21/18 04:43 08/21/18 04:43 Labs: Abnormal lab results 08/21/18 08/21/18 08/21/18 Range/Units 04:18 04:43 04:43 WBC 14.1 H (4.5-11.0) K/mm3 RBC 3.02 L (3.65-5.03) M/mm3 Hgb 8.5 L (11.8-15.2) gm/dl Hct 26.3 L (35.5-45.6) % RDW 17.9 H (13.2-15.2) % Seg Neuts % (Manual) 95.0 H (40.0-70.0) % Lymphocytes % (Manual) 3.0 L (13.4-35.0) % Seg Neutrophils # Man 13.4 H (1.8-7.7) K/mm3 Lymphocytes # (Manual) 0.4 L (1.2-5.4) K/mm3 POC ABG pCO2 51.0 H (35-45) POC ABG pO2 78 L (80-105) Sodium 149 H (137-145) mmol/L Chloride 111.2 H (98-107) mmol/L BUN 27 H (9-20) mg/dL Glucose 164 H (75-100) mg/dL - Imaging and cardiology Chest x-ray: report reviewed, image reviewed (bilateral infiltrates +. ET tube +)
[2018-08-21] MEDS: PROzac PO SCH (12:30)
[2018-08-21] MEDS: ROCEPHIN/NS 2 GM/100 ML 2 GM/100 ML BAG IV SCH (13:15)
[2018-08-21] MEDS: FLOMAX PO SCH (13:35)
--- NOTE | 2018-08-21 14:19 | Progress Note ---
Assessment and Plan ./Acute Respiratory failure with hypoxia S/p Bipap but no improvement Intubated 08/19, CC following cont Duonebs IV Solumedrol and IV abx / Bilateral pneumonia, patient not in sepsis Cont Abx, follow cx, ID consulted Cover for HCAP given recent hospitalization to psych facility. /Leukocytosis, steroid-induced / Anemia Anemia w/u ordered / Hypokalemia, Supplemented / Schizophrenia, on Zyprexa /Depression, on antidepressants / Gout , Cont Allopurinol / HLD (hyperlipidemia), Cont statins / DVT prophylaxis On Lovenox and GI prophylaxis Brief history: 52-year-old male with PMHx of developmental delay, schizophrenia, and depression with recent h/o SI presented to the ER with complaints of shortness of breath and cough 1 day. Patient O2 sat was noted to be 86% and improve after application of oxygen via n/c. Pt denies a history of COPD but admits to history of smoking. In the ER, pt had a chest x-ray that showed multifocal bilateral air space disease suspicious for pneumonia. Following admission Overnight went into resp distress and transferred to ICU for Intesive care On Bipap. He then eventually intubated on 08/19. The high probability of a clinically significant, sudden or life threatening deterioration of the [35] system(s) required my full and direct attention, intervention and personal management. The aggregate critical care time was [] minutes. This time is in addition to time spent performing reported procedures but includes the following: [x] Data Review and interpretation [x] Patient assessment and monitoring of vital signs [x] Documentation [x] Medication orders and management Subjective Date of service: 08/21/18 Principal diagnosis: BL PNA Interval history: Patient seen and examined. Medical records and medication list reviewed. Patient remained intubated and sedated Discussed with critical care attending Objective - Exam Narrative Exam: General appearance: Present: no acute distress, well-nourished - EENT Eyes: no scleral icterus, no conjunctival injection ENT: clear oral mucosa, dentition normal, other (intubated) Ears: bilateral: normal - Neck Neck: supple - Respiratory Respiratory effort: other (on MV) Respiratory: bilateral: rhonchi - Cardiovascular Rhythm: regular Heart Sounds: Present: S1 & S2. Absent: gallop, rub Extremities: pulses intact, No edema, normal color - Gastrointestinal General gastrointestinal: Present: soft, non-tender, non-distended, normal bowel sounds - Integumentary Integumentary: clear, warm, dry - Musculoskeletal Musculoskeletal: 1, strength equal bilaterally - Neurologic Neurologic: moves all extremities - Psychiatric Psychiatric: other (sedated) - Constitutional Vitals: Vital Signs - 12hr 08/21/18 08/21/18 08/21/18 02:30 03:00 03:30 Temperature Pulse Rate 65 64 67 Pulse Rate [ Throughout] Respiratory 19 28 H 27 H Rate Respiratory Rate [ Throughout] Blood Pressure 103/52 109/53 109/51 O2 Sat by Pulse 100 100 100 Oximetry 08/21/18 08/21/18 08/21/18 04:00 04:04 04:30 Temperature 98.8 F Pulse Rate 68 64 67 Pulse Rate [ Throughout] Respiratory 24 30 H Rate Respiratory Rate [ Throughout] Blood Pressure 106/48 106/48 105/50 O2 Sat by Pulse 98 100 96 Oximetry 08/21/18 08/21/18 08/21/18 05:00 05:30 06:00 Temperature Pulse Rate 68 66 75 Pulse Rate [ Throughout] Respiratory 28 H 24 24 Rate Respiratory Rate [ Throughout] Blood Pressure 113/52 109/53 115/62 O2 Sat by Pulse 95 94 94 Oximetry 08/21/18 08/21/18 08/21/18 06:30 07:00 07:30 Temperature Pulse Rate 69 69 67 Pulse Rate [ Throughout] Respiratory 24 31 H 31 H Rate Respiratory Rate [ Throughout] Blood Pressure 109/53 109/51 108/53 O2 Sat by Pulse 92 96 95 Oximetry 08/21/18 08/21/18 08/21/18 08:00 08:22 08:30 Temperature 99.8 F H Pulse Rate 69 108 H Pulse Rate [ 98 H Throughout] Respiratory 28 H 22 Rate Respiratory 30 H Rate [ Throughout] Blood Pressure 103/52 109/43 O2 Sat by Pulse 95 88 Oximetry 08/21/18 08/21/18 08/21/18 08:32 09:00 09:30 Temperature Pulse Rate 84 75 Pulse Rate [ 69 Throughout] Respiratory 19 25 H Rate Respiratory 25 H Rate [ Throughout] Blood Pressure 114/53 107/50 O2 Sat by Pulse 98 97 Oximetry 08/21/18 08/21/18 08/21/18 10:00 10:30 11:28 Temperature Pulse Rate 72 71 72 Pulse Rate [ 69 Throughout] Respiratory 28 H 31 H Rate Respiratory 24 Rate [ Throughout] Blood Pressure 106/52 109/50 106/53 O2 Sat by Pulse 95 97 96 Oximetry 08/21/18 11:38 Temperature Pulse Rate Pulse Rate [ 82 Throughout] Respiratory Rate Respiratory 28 H Rate [ Throughout] Blood Pressure O2 Sat by Pulse Oximetry - Labs CBC & Chem 7: 08/21/18 04:43 08/21/18 04:43 Labs: Abnormal lab results 08/21/18 08/21/18 08/21/18 Range/Units 04:18 04:43 04:43 WBC 14.1 H (4.5-11.0) K/mm3 RBC 3.02 L (3.65-5.03) M/mm3 Hgb 8.5 L (11.8-15.2) gm/dl Hct 26.3 L (35.5-45.6) % RDW 17.9 H (13.2-15.2) % Seg Neuts % (Manual) 95.0 H (40.0-70.0) % Lymphocytes % (Manual) 3.0 L (13.4-35.0) % Seg Neutrophils # Man 13.4 H (1.8-7.7) K/mm3 Lymphocytes # (Manual) 0.4 L (1.2-5.4) K/mm3 POC ABG pCO2 51.0 H (35-45) POC ABG pO2 78 L (80-105) Sodium 149 H (137-145) mmol/L Chloride 111.2 H (98-107) mmol/L BUN 27 H (9-20) mg/dL Glucose 164 H (75-100) mg/dL
[2018-08-21] MEDS ORDERED: PROVENTIL IH SCH (16:00)
[2018-08-21] MEDS: PRAVACHOL PO SCH (23:04)
[2018-08-21] MEDS: BENADRYL PO SCH (23:06)
[2018-08-21] MEDS: ATIVAN PO SCH (23:07)
[2018-08-21] MEDS: DIPRIVAN 10 MG/ML 1,000 MG/100 ML BOTTLE IV SCH (23:24)
--- NOTE | 2018-08-22 04:57 | XRay Report ---
CHEST 1 VIEW INDICATION / CLINICAL INFORMATION: follow up respiratory failure. COMPARISON: 08/21/2018 FINDINGS: SUPPORT DEVICES: It appears that the endotracheal tube has been advanced slightly. The tip is now 4 c m above the ben. Dobbhoff feeding tube is stable in position. HEART / MEDIASTINUM: No significant abnormality. LUNGS / PLEURA: There is diffuse bilateral airspace disease, greater within the left lung. Air bronch ograms are seen bilaterally, more obvious in the left lung. Overall the bilateral airspace disease ma y be slightly improved. No significant pleural effusion. No pneumothorax. ADDITIONAL FINDINGS: No significant additional findings. IMPRESSION: 1. Diffuse bilateral airspace disease, slightly improved compared to 08/21/2018. 2. ET tube has been advanced and is now 4 cm above the ben. Signer Name: Altagracia Bergeron MD Signed: 08/22/2018 4:53 AM Workstation Name: [id number]
[2018-08-22 06:42] LABS: BUN/Creatinine Ratio 31; Blood Urea Nitrogen 28 mg/dL (9-20); Calcium 8.6 mg/dL (8.4-10.2); Hemolysis Index 22
[2018-08-22] MEDS: DOXYCYCLINE HYCLATE 100 MG in NACL 0.9% 250ML 250 ML IV SCH ×2 (06:48→15:51)
[2018-08-22] MEDS: SOLU-Medrol IV SCH ×3 (06:49→21:46)
[2018-08-22] MEDS: DUONEB *Not for PRN Use IH SCH ×4 (08:17→19:30)
--- NOTE | 2018-08-22 08:56 | Progress Note ---
Assessment and Plan Assessment and plan: 52-year-old male with PMHx of developmental delay, schizophrenia, and depression with recent h/o SI presented to the ER with complaints of shortness of breath and cough 1 day. Patient O2 sat was noted to be 86% and improve after application of oxygen via n/c. Pt denies a history of COPD but admits to history of smoking. In the ER, pt had a chest x-ray that showed multifocal bilateral air space disease suspicious for pneumonia. Following admission Overnight went into resp distress and transferred to ICU for Intesive care On Bipap. He then eventually intubated on 08/19. Acute Respiratory failure with hypoxia s/p intubated 08/19/18 cont Duonebs IV Solumedrol and IV abx Bilateral pneumonia, Cont Abx, follow cx, ID consulted Cover for HCAP given recent hospitalization to psych facility. Leukocytosis, steroid-induced Anemia Anemia w/u ordered Hypokalemia, Supplemented Schizophrenia, on Zyprexa Depression, on antidepressants Gout , Cont Allopurinol HLD (hyperlipidemia), Cont statins DVT prophylaxis On Lovenox and GI prophylaxis History Interval history: Still intubated, sedated Hospitalist Physical - Physical exam Narrative exam: Gen: Not in acute distress, intubated, sedated HEENT: Normocephalic, atraumatic Neck: supple, no JVD Heart: S1 and S2 reg, no murmurs, rubs or gallop Lungs: Bilateral rhonchi, Abd: soft, non tender, non distended, normal BS Ext: No edema, no clubbing, no cyanosis, Neuro: Sedated, intubated - Constitutional Vitals: Temp Pulse Resp BP Pulse Ox 100.4 F H 72 23 119/65 94 08/22/18 03:33 08/22/18 08:25 08/22/18 08:17 08/22/18 08:25 08/22/18 08:25 General appearance: Present: no acute distress, well-nourished Results - Labs CBC & Chem 7: 08/21/18 04:43 08/22/18 05:46 Labs: Laboratory Last Values WBC 14.1 K/mm3 (4.5-11.0) H 08/21/18 04:43 RBC 3.02 M/mm3 (3.65-5.03) L 08/21/18 04:43 Hgb 8.5 gm/dl (11.8-15.2) L 08/21/18 04:43 Hct 26.3 % (35.5-45.6) L 08/21/18 04:43 MCV 87 fl (84-94) 08/21/18 04:43 MCH 28 pg (28-32) 08/21/18 04:43 MCHC 33 % (32-34) 08/21/18 04:43 RDW 17.9 % (13.2-15.2) H 08/21/18 04:43 Plt Count 273 K/mm3 (140-440) 08/21/18 04:43 Lymph % (Auto) Parking Assistant 08/18/18 13:50 [place] % (Auto) 9.2 % (0.0-7.3) H 08/17/18 09:09 Eos % (Auto) 0.8 % (0.0-4.3) 08/17/18 09:09 Baso % (Auto) 0.2 % (0.0-1.8) 08/17/18 09:09 Lymph # Parking Assistant 08/18/18 13:50 [place] # 0.7 K/mm3 (0.0-0.8) 08/17/18 09:09 Eos # 0.1 K/mm3 (0.0-0.4) 08/17/18 09:09 Baso # 0.0 K/mm3 (0.0-0.1) 08/17/18 09:09 Add Manual Diff Complete 08/21/18 04:43 Total Counted 100 08/21/18 04:43 Seg Neutrophils % Parking Assistant 08/21/18 04:43 Seg Neuts % (Manual) 95.0 % (40.0-70.0) H 08/21/18 04:43 0 % 08/21/18 04:43 3.0 % (13.4-35.0) L 08/21/18 04:43 Reactive Lymphs % (Man) 0 % 08/21/18 04:43 2.0 % (0.0-7.3) 08/21/18 04:43 0 % (0.0-4.3) 08/21/18 04:43 0 % (0.0-1.8) 08/21/18 04:43 0 % 08/21/18 04:43 0 % 08/21/18 04:43 0 % 08/21/18 04:43 0 % 08/21/18 04:43 Nucleated RBC % Not Reportable 08/21/18 04:43 Seg Neutrophils # 6.3 K/mm3 (1.8-7.7) 08/17/18 09:09 Seg Neutrophils # Man 13.4 K/mm3 (1.8-7.7) H 08/21/18 04:43 Band Neutrophils # 0.0 K/mm3 08/21/18 04:43 0.4 K/mm3 (1.2-5.4) L 08/21/18 04:43 Abs React Lymphs (Man) 0.0 K/mm3 08/21/18 04:43 0.3 K/mm3 (0.0-0.8) 08/21/18 04:43 0.0 K/mm3 (0.0-0.4) 08/21/18 04:43 0.0 K/mm3 (0.0-0.1) 08/21/18 04:43 0.0 K/mm3 08/21/18 04:43 0.0 K/mm3 08/21/18 04:43 0.0 K/mm3 08/21/18 04:43 Blast Cells # 0.0 K/mm3 08/21/18 04:43 WBC Morphology Not Reportable 08/21/18 04:43 WBC Morphology TNR 08/21/18 04:43 Hypersegmented Neuts Not Reportable 08/21/18 04:43 Hyposegmented Neuts Not Reportable 08/21/18 04:43 Hypogranular Neuts Not Reportable 08/21/18 04:43 Not Reportable 08/21/18 04:43 Not Reportable 08/21/18 04:43 Not Reportable 08/21/18 04:43 Not Reportable 08/21/18 04:43 Not Reportable 08/21/18 04:43 Not Reportable 08/21/18 04:43 Consistent w auto 08/21/18 04:43 Not Reportable 08/21/18 04:43 Plt Clumps, EDTA Not Reportable 08/21/18 04:43 Not Reportable 08/21/18 04:43 Not Reportable 08/21/18 04:43 Not Reportable 08/21/18 04:43 Plt Morphology Comment Not Reportable 08/21/18 04:43 RBC Morphology Not Reportable 08/21/18 04:43 Dimorphic RBCs Not Reportable 08/21/18 04:43 Not Reportable 08/21/18 04:43 Few 08/21/18 04:43 Not Reportable 08/21/18 04:43 Few 08/21/18 04:43 Not Reportable 08/21/18 04:43 Not Reportable 08/21/18 04:43 Not Reportable 08/21/18 04:43 Not Reportable 08/21/18 04:43 Not Reportable 08/21/18 04:43 Not Reportable 08/21/18 04:43 Not Reportable 08/21/18 04:43 Not Reportable 08/21/18 04:43 Few 08/21/18 04:43 Not Reportable 08/21/18 04:43 Not Reportable 08/21/18 04:43 Not Reportable 08/21/18 04:43 Not Reportable 08/21/18 04:43 Not Reportable 08/21/18 04:43 Not Reportable 08/21/18 04:43 Not Reportable 08/21/18 04:43 Acanthocytes (Spur) Not Reportable 08/21/18 04:43 Rouleaux Not Reportable 08/21/18 04:43 Not Reportable 08/21/18 04:43 Not Reportable 08/21/18 04:43 Not Reportable 08/21/18 04:43 Not Reportable 08/21/18 04:43 Hem Pathologist Commnt No 08/21/18 04:43 PT 15.1 Sec. (12.2-14.9) H 08/14/18 16:43 INR 1.22 (0.87-1.13) H 08/14/18 16:43 APTT 31.2 Sec. (24.2-36.6) 08/14/18 16:43 POC ABG pH 7.435 (7.35-7.45) 08/22/18 04:20 POC ABG pCO2 49.4 (35-45) H 08/22/18 04:20 POC ABG pO2 53 (80-105) L 08/22/18 04:20 POC ABG HCO3 33.2 (22-26 mml/L) 08/22/18 04:20 POC ABG Total CO2 35 (23-27mmol/L) 08/22/18 04:20 POC ABG O2 Sat 88 08/22/18 04:20 POC ABG Base Excess 9 ((-2) - (+3)mmol/L) 08/22/18 04:20 60 % 08/22/18 04:20 Sodium 148 mmol/L (137-145) H 08/22/18 05:46 Potassium 4.7 mmol/L (3.6-5.0) 08/22/18 05:46 Chloride 105.5 mmol/L (98-107) 08/22/18 05:46 Carbon Dioxide 30 mmol/L (22-30) 08/22/18 05:46 17 mmol/L 08/22/18 05:46 BUN 28 mg/dL (9-20) H 08/22/18 05:46 0.9 mg/dL (0.8-1.5) 08/22/18 05:46 Estimated GFR > 60 ml/min 08/22/18 05:46 31 % 08/22/18 05:46 Glucose 155 mg/dL (75-100) H 08/22/18 05:46 Lactic Acid 2.10 mmol/L (0.7-2.0) H* 08/22/18 05:46 Calcium 8.6 mg/dL (8.4-10.2) 08/22/18 05:46 Phosphorus 3.80 mg/dL (2.5-4.5) 08/18/18 13:50 Magnesium 2.00 mg/dL (1.7-2.3) 08/18/18 13:50 0.40 mg/dL (0.1-1.2) 08/19/18 07:25 AST 41 units/L (5-40) H 08/19/18 07:25 ALT 24 units/L (7-56) 08/19/18 07:25 149 units/L (35-129) H 08/19/18 07:25 204 units/L (55-170) H 08/14/18 16:33 CK-MB (CK-2) 1.9 ng/mL (0.0-4.0) 08/14/18 16:33 CK-MB (CK-2) Rel Index 0.9 (0-4) 08/14/18 16:33 < 0.010 ng/mL (0.00-0.029) 08/14/18 16:33 3.60 mg/dL (0.00-1.30) H 08/21/18 15:54 NT-Pro-B Natriuret Pep 199.0 pg/mL (0-900) 08/14/18 16:33 6.7 g/dL (6.3-8.2) 08/19/18 07:25 3.0 g/dL (3.9-5) L 08/19/18 07:25 0.8 % 08/19/18 07:25 Vancomycin Trough 19.3 ug/mL (5.0-20.0) 08/21/18 15:46 Presumptive negative 08/14/18 Unknown Presumptive negative 08/14/18 Unknown Ur Barbiturates Screen Presumptive negative 08/14/18 Unknown Ur Phencyclidine Scrn Presumptive negative 08/14/18 Unknown Ur Amphetamines Screen Presumptive negative 08/14/18 Unknown U Benzodiazepines Scrn Presumptive negative 08/14/18 Unknown Presumptive negative 08/14/18 Unknown U Marijuana (THC) Screen Presumptive negative 08/14/18 Unknown Disclamer 08/14/18 Unknown Active Medications - Current Medications Current Medications: Generic Name Dose Route Start Last Admin Trade Name Freq PRN Reason Stop Dose Admin Acetaminophen 650 mg 08/14/18 22:29 08/15/18 10:06 Tylenol PO 650 mg Q4H PRN Administration Pain MILD(1-3)/Fever >100.5/LOCO Albuterol 2.5 mg 08/19/18 07:17 Proventil IH Q4HRT PRN Shortness Of Breath Albuterol/Ipratropium 1 ampul 08/16/18 16:00 08/22/18 08:17 Duoneb *Not For Prn Use* IH 1 ampul QIDRT DOMINIC Administration Allopurinol 100 mg 08/16/18 13:00 08/21/18 09:00 Zyloprim PO 100 mg QDAY DOMINIC Administration Lipase/Protease/Amylase 1 each 08/19/18 13:43 Pancreaze 10,500 Unit FEEDTUBE PRN PRN For Clogged Feeding Tube Bupropion HCl 150 mg 08/17/18 10:00 08/21/18 09:00 Wellbutrin Xl PO 150 mg QAM DOMINIC Administration Diphenhydramine HCl 100 mg 08/16/18 22:00 08/21/18 23:06 Benadryl PO 100 mg QHS DOMINIC Administration Docusate Sodium 100 mg 08/15/18 10:00 08/21/18 23:18 Colace PO 100 mg BID DOMINIC Administration Enoxaparin Sodium 40 mg 08/15/18 10:00 08/21/18 09:00 Lovenox SUB-Q 40 mg QDAY@1000 DOMINIC Administration Famotidine 20 mg 08/15/18 10:00 08/21/18 23:06 Pepcid PO 20 mg BID DOMINIC Administration Fentanyl 50 mcg 08/19/18 12:01 Sublimaze IV Q10MIN PRN ANALGESIA Fluoxetine HCl 20 mg 08/17/18 12:00 08/21/18 12:30 Prozac PO 20 mg DAILY@1200 DOMINIC Administration Hydrocodone Bit/Homatropine Methylb 10 ml 08/18/18 13:09 08/18/18 13:35 Hydromet PO 10 ml Q6H PRN Administration Cough Hydrophilic Ointment 1 applic 08/19/18 12:01 Vaseline Lip Therapy TP Q2HR PRN Dry Lips Sodium Chloride 1,000 mls @ 50 mls/hr 08/15/18 06:00 08/21/18 02:45 Nacl 0.9% 1000 Ml IV 50 mls/hr DIRECT DOMINIC Administration Fentanyl Citrate 2,000 mcg in 100 mls @ 3.935 mls/hr 08/19/18 13:00 08/21/18 18:58 Fentanyl Drip Premix IV 2 mcg/kg/hr TITR DOMINIC 7.87 mls/hr Administration Protocol 1 MCG/KG/HR Propofol 1,000 mg in 100 mls @ 2.361 mls/hr 08/19/18 13:00 08/21/18 23:24 Diprivan 10 Mg/Ml IV 5 mcg/kg/min TITR DOMINIC 2.361 mls/hr Administration Protocol 5 MCG/KG/MIN Doxycycline Hyclate 100 mg/ 250 mls @ 250 mls/hr 08/19/18 16:30 08/22/18 06:48 Sodium Chloride IV 250 mls/hr Q12H DOMINIC Administration Protocol Ceftriaxone Sodium 2 gm in 100 mls @ 200 mls/hr 08/21/18 12:30 08/21/18 13:15 Rocephin/Ns 2 Gm/100 Ml IV 200 mls/hr Q24HR DOMINIC Administration Protocol Lorazepam 2 mg 08/16/18 22:00 08/21/18 23:07 Ativan PO 2 mg QHS DOMINIC Administration Magnesium Hydroxide 30 ml 08/14/18 22:35 Milk Of Magnesia PO Q4H PRN Constipation Methylprednisolone Sodium Succinate 60 mg 08/19/18 14:00 08/22/18 06:49 Solu-Medrol IV 60 mg Q8HR DOMINIC Administration Multi-Ingred Cream/Lotion/Oil/Oint 1 applic 08/19/18 12:01 Artificial Tears Ophth Oint OU Q4HR PRN Dry Eye(s) Olanzapine 20 mg 08/16/18 22:00 08/21/18 23:04 Zyprexa PO 20 mg QHS DOMINIC Administration Ondansetron HCl 4 mg 08/14/18 22:29 Zofran IV Q8H PRN Nausea And Vomiting Pravastatin Sodium 40 mg 08/16/18 22:00 08/21/18 23:04 Pravachol PO 40 mg QHS DOMINIC Administration Risperidone 2 mg 08/17/18 10:00 08/21/18 09:00 Risperdal PO 2 mg QAM DOMINCI Administration Simple Syrup 15 ml 08/19/18 13:43 Simple Syrup FEEDTUBE PRN PRN Hypoglycemia Simple Syrup 30 ml 08/19/18 13:43 Simple Syrup FEEDTUBE PRN PRN Hypoglycemia Sodium Bicarbonate 325 mg 08/19/18 13:43 Sodium Bicarbonate FEEDTUBE PRN PRN For Clogged Feeding Tube Sodium Chloride 10 ml 08/15/18 10:00 08/21/18 09:01 Sodium Chloride Flush Syringe 10 Ml IV 10 ml BID DOMINIC Administration Sodium Chloride 10 ml 08/14/18 22:29 Sodium Chloride Flush Syringe 10 Ml IV PRN PRN LINE FLUSH Tamsulosin HCl 0.4 mg 08/21/18 13:00 08/21/18 13:35 Flomax PO 0.4 mg QDAY DOMINIC Administration Nutrition/Malnutrition Assess - Dietary Evaluation Nutrition/Malnutrition Findings: Nutrition Notes Start: 08/19/18 13:37 Freq: Status: Active Protocol: Document 08/21/18 14:05 RM (Rec: 08/21/18 14:13 RM [email or web address]) Nutrition Notes Initial or Follow up Reassessment Current Diagnosis Respiratory Failure, Hyperlipidemia Other Pertinent Diagnosis LLL pneu, Developmental delay, Hx schizophrenia Current Diet Osmolite 1.5 at 55 ml/hr Labs/Tests Na 149 K 5 Pertinent Medications Lasix, Solumedrol, Propofol at 2.4ml/hr (provides 64 kcal) Height 5 ft 11 in Weight 74 kg [place] Body Weight (kg) 78.18 BMI 22.7 Subjective/Other Information Pt remains on vent. Observed Osmolite 1.5 infusing at goal rate. Per nurse pt is tolerating TF and MD ordered water flush increase to 300 ml to address hypernatremia. Percent of energy/protein needs met: 100%/88% Burn Absent Trauma Absent #1 Nutrition Diagnosis Inadequate oral intake Diagnosis Progress(for reassessment Continues documentation) Is patient on ventilator? Yes Is Patient Ambulatory and/or Out of Bed No REE-([facility]-confined to bed) [phone] Calculation Used for Recommendations [facility] Additional Notes Pro needs 1.2-2g/k-157g/ day Fluid needs 1ml/kcal Nutrition Intervention Nutrition Support: Osmolite 1.5 at 55ml/hr 300 ml water flush q4h until hypernatremia resolves. 150ml water flush q4h once hypernatremia resolves. Kcal 1,980 Protein (gm) 83 Carbohydrates (gm) 269 Fat (gm) 65 Fluid (mL) 1,006 Goal #1 TF tolerance Goal #2 TF (at goal rate) to continue to meet at least 80% energy and pro needs Anticipated Discharge Needs: Unable to determine at this time Follow-Up By: 08/24/18 Additional Comments Follow for TF tolerance, Na lab, K lab
[2018-08-22] MEDS: fentaNYL DRIP Premix 2,000 MCG/100 ML BAG IV SCH ×2 (09:49→20:08)
[2018-08-22] MEDS: ROCEPHIN/NS 2 GM/100 ML 2 GM/100 ML BAG IV SCH (10:00)
[2018-08-22] MEDS: LOVENOX SUB-Q SCH (10:09)
[2018-08-22] MEDS: WELLBUTRIN XL PO SCH (10:09)
[2018-08-22] MEDS: FLOMAX PO SCH (10:09)
[2018-08-22] MEDS: RisperDAL PO SCH (10:09)
[2018-08-22] MEDS: PEPCID PO SCH ×2 (10:10→21:46)
[2018-08-22] MEDS: ZYLOPRIM PO SCH (10:10)
[2018-08-22] MEDS: COLACE PO SCH ×2 (10:10→21:49)
[2018-08-22] MEDS: SODIUM CHLORIDE FLUSH SYRINGE 10 ML IV SCH ×2 (10:10→21:48)
--- NOTE | 2018-08-22 10:52 | Progress Note ---
Assessment and Plan Acute hypoxemic respiratory failure. Acute respiratory distress syndrome. Possible aspiration pneumonia (HAP) History of depression. History of schizophrenia. Anemia that is normocytic. Mild metabolic acidosis. Hypokalemia. Developmental delay - hold lasix - suspect mild lactic acidemia post diuresis is non-infectious; will trend CRP & lactate levels - advance enteral nutrition to goal rate - increase free water flushes to 300 mls q4h re: hypernatremia - continue Flomax (Urinary retention reported with 1.5 liters drained post hernandez catheter - reduce set rate to 20/min - increased Peep to 10 cm H2O - continue albuterol nebs with pulmonary hygiene per RT - continue lung protective strategies - daily CXR and ABG in short term - VAP bundle addressed - continue supplemental oxygen to keep O2 sats 88-90% - continue bronchodilators with pulmonary hygiene per RT - continus systemic steroids with quick taper - continue accuchecks with glycemic control per SSI for target blood glucose <180mg/dL - Agitation management - Titrate sedation to RASS 0 to -1 - Prevention of delirium, maintenance of sleep-wake cycle - Empiric antibiotic therapy for HAP/aspiration pneumonia (ID consult placed) - Will de-escalate therapy based on microbiology/SD/Cultures - Avoid nephrotoxic agents, adjust all antibiotics and medications for CrCL and GFR - VTE and Stress ulcer prophylaxis CONDITION: CRITICAL PROGNOSIS: GUARDED CODE STATUS: FULL CODE The high probability of a clinically significant, sudden or life-threatening deterioration of the [respiratory] system(s) required my full and direct attention, intervention and personal management. The aggregate critical care time was [36] minutes without overlap. Time includes spent on; [x] Data Review and interpretation [x] Patient assessment and monitoring of vital signs [x] Documentation [x] Medication orders and management Subjective Date of service: 08/22/18 Principal diagnosis: Ac. hypoxemic resp failure; Multifocal Pneumonia (HAP); ARDS; Anemia Interval history: Patient is seen today for: Acute hypoxemic respiratory failure; multifocal pneumonia (HAP); ARDS; depression; schizophrenia; Anemia; Developmental delay Seen and examined at bedside; 24hour events reviewed; nursing and respiratory care staff consulted; no adverse overnight events reported to me; remains on MVS; sedated; still requiring 70% FiO2 to keep O2 sat's > 90%; no high grade fevers; no seizures; very good response to diuretics overnight Objective Vital Signs - 12hr 07/01/19 07/01/19 07/01/19 23:00 23:30 23:46 Temperature 100.5 F H Pulse Rate 81 116 H Pulse Rate [ From Monitor] Pulse Rate [ Throughout] Respiratory 9 L 15 Rate Respiratory Rate [ Throughout] Blood Pressure 110/55 106/71 O2 Sat by Pulse 93 88 Oximetry 08/22/18 08/22/18 08/22/18 00:00 00:09 00:30 Temperature Pulse Rate 74 76 75 Pulse Rate [ 96 H From Monitor] Pulse Rate [ Throughout] Respiratory 10 L 9 L Rate Respiratory Rate [ Throughout] Blood Pressure 105/51 105/51 107/53 O2 Sat by Pulse 96 92 91 Oximetry 08/22/18 08/22/18 08/22/18 01:00 01:30 02:00 Temperature Pulse Rate 74 73 76 Pulse Rate [ From Monitor] Pulse Rate [ Throughout] Respiratory 12 9 L 10 L Rate Respiratory Rate [ Throughout] Blood Pressure 106/53 112/55 103/53 O2 Sat by Pulse 90 92 90 Oximetry 08/22/18 08/22/18 08/22/18 02:30 03:00 03:30 Temperature Pulse Rate 76 75 72 Pulse Rate [ From Monitor] Pulse Rate [ Throughout] Respiratory 13 16 14 Rate Respiratory Rate [ Throughout] Blood Pressure 111/55 112/55 105/57 O2 Sat by Pulse 92 88 92 Oximetry 08/22/18 08/22/18 08/22/18 03:33 04:00 04:13 Temperature 100.4 F H Pulse Rate 75 73 Pulse Rate [ 93 H From Monitor] Pulse Rate [ Throughout] Respiratory 12 Rate Respiratory Rate [ Throughout] Blood Pressure 109/53 109/53 O2 Sat by Pulse 89 92 Oximetry 08/22/18 08/22/18 08/22/18 04:30 05:00 05:30 Temperature Pulse Rate 75 75 75 Pulse Rate [ From Monitor] Pulse Rate [ Throughout] Respiratory 14 18 15 Rate Respiratory Rate [ Throughout] Blood Pressure 111/56 108/58 111/61 O2 Sat by Pulse 95 96 94 Oximetry 08/22/18 08/22/18 08/22/18 06:00 06:31 07:00 Temperature Pulse Rate 76 113 H 83 Pulse Rate [ From Monitor] Pulse Rate [ Throughout] Respiratory 10 L 14 10 L Rate Respiratory Rate [ Throughout] Blood Pressure 116/60 116/60 119/61 O2 Sat by Pulse 95 89 94 Oximetry 08/22/18 08/22/18 08/22/18 07:30 08:00 08:17 Temperature 99.4 F Pulse Rate 75 84 Pulse Rate [ 85 From Monitor] Pulse Rate [ 76 Throughout] Respiratory 20 20 Rate Respiratory 23 Rate [ Throughout] Blood Pressure 117/59 117/62 O2 Sat by Pulse 90 91 Oximetry 08/22/18 08:25 Temperature Pulse Rate 72 Pulse Rate [ From Monitor] Pulse Rate [ Throughout] Respiratory Rate Respiratory Rate [ Throughout] Blood Pressure 119/65 O2 Sat by Pulse 94 Oximetry Constitutional: no acute distress, other (middle aged CM, normocephalic on MVS and riding set rate of 30/min) Eyes: non-icteric ENT: oropharynx moist, other (ETT 23 cm VENTURA) Neck: supple, no lymphadenopathy, other (no thyromegaly) Effort: mildly labored Ascultation: Bilateral: rales Percussion: Bilateral: not dull Cardiovascular: regular rate and rhythm, other (No R/M) Gastrointestinal: normoactive bowel sounds, soft, non-tender, non-distended Integumentary: normal Extremities: no cyanosis, no edema, pink and warm, pulses normal, no ischemia or petechiae Neurologic: non-focal exam (grossly), pupils equal and round, motor strength normal and, unable to assess, other (sedated) Psychiatric: other (sedated) CBC and BMP: 08/21/18 04:43 08/22/18 05:46 ABG, PT/INR, D-dimer: ABG POC ABG pH 7.435 (7.35-7.45) 08/22/18 04:20 POC ABG pCO2 49.4 (35-45) H 08/22/18 04:20 POC ABG pO2 53 (80-105) L 08/22/18 04:20 POC ABG HCO3 33.2 (22-26 mml/L) 08/22/18 04:20 POC ABG Total CO2 35 (23-27mmol/L) 08/22/18 04:20 POC ABG O2 Sat 88 08/22/18 04:20 PT/INR, D-dimer PT 15.1 Sec. (12.2-14.9) H 08/14/18 16:43 INR 1.22 (0.87-1.13) H 08/14/18 16:43 Abnormal lab findings: Abnormal Labs 08/14/18 08/14/18 08/14/18 16:33 16:33 16:43 WBC RBC 3.38 L Hgb 9.9 L Hct 29.2 L RDW 17.3 H Lymph % (Auto) [place] % (Auto) Lymph # Seg Neutrophils % Seg Neuts % (Manual) 87.0 H Lymphocytes % (Manual) 6.0 L Seg Neutrophils # Man Lymphocytes # (Manual) 0.5 L PT INR POC ABG pH POC ABG pCO2 POC ABG pO2 Sodium Potassium 3.5 L Chloride Carbon Dioxide BUN Glucose Lactic Acid AST Alkaline Phosphatase Total Creatine Kinase 204 H C-Reactive Protein Total Protein Albumin Vancomycin Trough 08/14/18 08/14/18 08/17/18 16:43 17:01 09:09 WBC RBC 3.12 L Hgb 9.0 L Hct 27.0 L RDW 17.0 H Lymph % (Auto) 7.1 L [place] % (Auto) 9.2 H Lymph # 0.5 L Seg Neutrophils % 82.7 H Seg Neuts % (Manual) Lymphocytes % (Manual) Seg Neutrophils # Man Lymphocytes # (Manual) PT 15.1 H INR 1.22 H POC ABG pH 7.468 H POC ABG pCO2 POC ABG pO2 57 L Sodium Potassium Chloride Carbon Dioxide BUN Glucose Lactic Acid AST Alkaline Phosphatase Total Creatine Kinase C-Reactive Protein Total Protein Albumin Vancomycin Trough 08/17/18 08/17/18 08/17/18 09:09 11:30 23:21 WBC RBC Hgb Hct RDW Lymph % (Auto) [place] % (Auto) Lymph # Seg Neutrophils % Seg Neuts % (Manual) Lymphocytes % (Manual) Seg Neutrophils # Man Lymphocytes # (Manual) PT INR POC ABG pH 7.225 L POC ABG pCO2 54.6 H POC ABG pO2 50 L 110 H Sodium Potassium 3.5 L Chloride Carbon Dioxide 20 L BUN 7 L Glucose 125 H Lactic Acid AST Alkaline Phosphatase Total Creatine Kinase C-Reactive Protein Total Protein 6.2 L Albumin 3.2 L Vancomycin Trough 08/18/18 08/18/18 08/18/18 04:49 13:06 13:50 WBC RBC Hgb Hct RDW Lymph % (Auto) [place] % (Auto) Lymph # Seg Neutrophils % Seg Neuts % (Manual) Lymphocytes % (Manual) Seg Neutrophils # Man Lymphocytes # (Manual) PT INR POC ABG pH POC ABG pCO2 POC ABG pO2 58 L Sodium Potassium Chloride Carbon Dioxide BUN Glucose Lactic Acid AST Alkaline Phosphatase Total Creatine Kinase C-Reactive Protein 31.10 H Total Protein Albumin Vancomycin Trough 4.7 L 08/18/18 08/19/18 08/19/18 13:50 07:25 07:25 WBC 14.8 H 12.7 H RBC 3.46 L 3.32 L Hgb 10.1 L 9.5 L Hct 30.2 L 28.9 L RDW 17.6 H 17.7 H Lymph % (Auto) [place] % (Auto) Lymph # Seg Neutrophils % Seg Neuts % (Manual) 95.0 H 95.0 H Lymphocytes % (Manual) 3.0 L 5.0 L Seg Neutrophils # Man 14.1 H 12.1 H Lymphocytes # (Manual) 0.4 L 0.6 L PT INR POC ABG pH POC ABG pCO2 POC ABG pO2 Sodium Potassium Chloride Carbon Dioxide BUN 23 H Glucose 139 H Lactic Acid AST 41 H Alkaline Phosphatase 149 H Total Creatine Kinase C-Reactive Protein Total Protein Albumin 3.0 L Vancomycin Trough 08/19/18 08/20/18 08/21/18 15:10 04:03 04:18 WBC RBC Hgb Hct RDW Lymph % (Auto) [place] % (Auto) Lymph # Seg Neutrophils % Seg Neuts % (Manual) Lymphocytes % (Manual) Seg Neutrophils # Man Lymphocytes # (Manual) PT INR POC ABG pH 7.346 L POC ABG pCO2 49.0 H 50.2 H 51.0 H POC ABG pO2 71 L 180 H 78 L Sodium Potassium Chloride Carbon Dioxide BUN Glucose Lactic Acid AST Alkaline Phosphatase Total Creatine Kinase C-Reactive Protein Total Protein Albumin Vancomycin Trough 08/21/18 08/21/18 08/21/18 04:43 04:43 15:54 WBC 14.1 H RBC 3.02 L Hgb 8.5 L Hct 26.3 L RDW 17.9 H Lymph % (Auto) [place] % (Auto) Lymph # Seg Neutrophils % Seg Neuts % (Manual) 95.0 H Lymphocytes % (Manual) 3.0 L Seg Neutrophils # Man 13.4 H Lymphocytes # (Manual) 0.4 L PT INR POC ABG pH POC ABG pCO2 POC ABG pO2 Sodium 149 H Potassium Chloride 111.2 H Carbon Dioxide BUN 27 H Glucose 164 H Lactic Acid AST Alkaline Phosphatase Total Creatine Kinase C-Reactive Protein 3.60 H Total Protein Albumin Vancomycin Trough 08/21/18 08/21/18 08/21/18 19:15 20:10 21:33 WBC RBC Hgb Hct RDW Lymph % (Auto) [place] % (Auto) Lymph # Seg Neutrophils % Seg Neuts % (Manual) Lymphocytes % (Manual) Seg Neutrophils # Man Lymphocytes # (Manual) PT INR POC ABG pH POC ABG pCO2 51.6 H POC ABG pO2 63 L Sodium Potassium Chloride Carbon Dioxide BUN Glucose Lactic Acid 2.80 H* 2.20 H* AST Alkaline Phosphatase Total Creatine Kinase C-Reactive Protein Total Protein Albumin Vancomycin Trough 08/21/18 08/22/18 08/22/18 23:08 04:20 05:46 WBC RBC Hgb Hct RDW Lymph % (Auto) [place] % (Auto) Lymph # Seg Neutrophils % Seg Neuts % (Manual) Lymphocytes % (Manual) Seg Neutrophils # Man Lymphocytes # (Manual) PT INR POC ABG pH POC ABG pCO2 49.4 H POC ABG pO2 53 L Sodium Potassium Chloride Carbon Dioxide BUN Glucose Lactic Acid 2.20 H* 2.10 H* AST Alkaline Phosphatase Total Creatine Kinase C-Reactive Protein Total Protein Albumin Vancomycin Trough 08/22/18 08/22/18 05:46 09:08 WBC RBC Hgb Hct RDW Lymph % (Auto) [place] % (Auto) Lymph # Seg Neutrophils % Seg Neuts % (Manual) Lymphocytes % (Manual) Seg Neutrophils # Man Lymphocytes # (Manual) PT INR POC ABG pH POC ABG pCO2 POC ABG pO2 Sodium 148 H Potassium Chloride Carbon Dioxide BUN 28 H Glucose 155 H Lactic Acid 2.20 H* AST Alkaline Phosphatase Total Creatine Kinase C-Reactive Protein Total Protein Albumin Vancomycin Trough Chest x-ray: image reviewed Allied health notes reviewed: nursing
[2018-08-22] MEDS: PROzac PO SCH (12:47)
--- NOTE | 2018-08-22 13:08 | Progress Note ---
Assessment and Plan Cultures: 08/14/2018 Blood culture: No growth 08/18/2018 resp culture: normal resp aminata. A/P: 52-year-old male with history of developmental delay, schizophrenia, recently discharged from a psychiatric facility for suicidal ideation now with: 1) Acute respiratory failure secondary to bilateral pneumonia: Cover for HCAP given recent hospitalization to psych facility. Cultures growing normal resp aminata, so abx de-escalated to Ceftriaxone and Doxycycline. Intubated, sedated. 2) Schizophrenia, Depression: Patient is on risperidone, olanzapine, Haldol. Also on Wellbutrin and fluoxetine. At risk of QT prolongation especially with levofloxacin. 3) PCN allergy: unknown, at least >10 years history per his caregiver at the bedside. Low risk of cross reactivity with Cephalosporins. Tolerating Cefepime and Ceftriaxone well. Recs: continue IV Ceftriaxone 2 gm q24 hrs continue Doxycycline for atypical coverage (avoiding Azithromycin and Levofloxacin due to risk of QT prolongation) f/u Pneumococcal and Legionella Ur Ag repeat CBCd and BMP ordered MD [facility] C: [phone] O: [phone] F: [phone] Subjective Date of service: 08/22/18 Principal diagnosis: Ac. hypoxemic resp failure; Multifocal Pneumonia (HAP); AR DS; Anemia Interval history: Low grade fever. Remains sedated, on the vent. On tube feeds at 55 cc/hr. Objective - Exam Narrative Exam: Physical Exam: Constitutional: sedated, intubated Head, Ears, Nose: Normocephalic, atraumatic. External ears, nose normal Eyes: Conjunctivae/corneas clear. No icterus. No ptosis. Neck: Supple, no meningeal signs Oral: intubated Cardiovascular: S1, S2 normal, no murmur heard Respiratory: Good air entry, clear to auscultation bilaterally GI: Soft, non-tender; bowel sounds normal. No peritoneal signs Musculoskeletal: No pedal edema, no cyanosis. Skin: No rash or abscess Hem/Lymphatic: No palpable cervical or supraclavicular nodes. No lymphangitis Psych: no agitation Neurological: sedated, intubated, on vent - Constitutional Vitals: Vital Signs Temp Pulse Resp BP Pulse Ox 99.0 F 80 20 115/62 95 08/22/18 12:00 08/22/18 12:04 08/22/18 12:04 08/22/18 12:00 08/22/18 12:00 Temperature -Last 24 Hours Temperature 99.0 F Temperature 99 F Temperature 99.4 F Temperature 100.4 F Temperature 100.5 F Temperature 97.9 F Temperature 98.8 F - Labs CBC & Chem 7: 08/21/18 04:43 08/22/18 05:46 Labs: Abnormal lab results 08/21/18 08/21/18 08/21/18 Range/Units 15:54 19:15 20:10 POC ABG pCO2 51.6 H (35-45) POC ABG pO2 63 L (80-105) Sodium (137-145) mmol/L BUN (9-20) mg/dL Glucose (75-100) mg/dL Lactic Acid 2.80 H* (0.7-2.0) mmol/L C-Reactive Protein 3.60 H (0.00-1.30) mg/dL 08/21/18 08/21/18 08/22/18 Range/Units 21:33 23:08 04:20 POC ABG pCO2 49.4 H (35-45) POC ABG pO2 53 L (80-105) Sodium (137-145) mmol/L BUN (9-20) mg/dL Glucose (75-100) mg/dL Lactic Acid 2.20 H* 2.20 H* (0.7-2.0) mmol/L C-Reactive Protein (0.00-1.30) mg/dL 08/22/18 08/22/18 08/22/18 Range/Units 05:46 05:46 09:08 POC ABG pCO2 (35-45) POC ABG pO2 (80-105) Sodium 148 H (137-145) mmol/L BUN 28 H (9-20) mg/dL Glucose 155 H (75-100) mg/dL Lactic Acid 2.10 H* 2.20 H* (0.7-2.0) mmol/L C-Reactive Protein (0.00-1.30) mg/dL
[2018-08-22] MEDS: BENADRYL PO SCH (21:46)
[2018-08-22] MEDS: PRAVACHOL PO SCH (21:47)
[2018-08-22] MEDS: ATIVAN PO SCH (22:41)
--- NOTE | 2018-08-23 04:15 | XRay Report ---
CHEST 1 VIEW INDICATION / CLINICAL INFORMATION: follow up respiratory failure. COMPARISON: 08/22/2018 FINDINGS: SUPPORT DEVICES: ET tube and feeding tube remain in stable and satisfactory position. HEART / MEDIASTINUM: No significant abnormality. LUNGS / PLEURA: Previously noted bilateral airspace disease persists but does appear to be slightly i mproved within the right lung. No significant large pleural effusion noted. No pneumothorax. ADDITIONAL FINDINGS: No significant additional findings. IMPRESSION: 1. Improving parenchymal disease within the right lung. Stable airspace disease noted throughout the left lung. Signer Name: Altagracia Bergeron MD Signed: 08/23/2018 4:10 AM Workstation Name: [id number]
[2018-08-23] MEDS: SOLU-Medrol IV SCH ×3 (06:00→22:13)
[2018-08-23] MEDS: DIPRIVAN 10 MG/ML 1,000 MG/100 ML BOTTLE IV SCH ×2 (06:00→20:15)
[2018-08-23] MEDS: DOXYCYCLINE HYCLATE 100 MG in NACL 0.9% 250ML 250 ML IV SCH ×2 (06:02→16:38)
--- NOTE | 2018-08-23 06:07 | Progress Note ---
Assessment and Plan Acute hypoxemic respiratory failure. Acute respiratory distress syndrome. Possible aspiration pneumonia (HAP) History of depression. History of schizophrenia. Anemia that is normocytic. Mild metabolic acidosis. Hypokalemia. Developmental delay - swith to ARDS ventilation - increased peep to 14 (monitor plateau pressures with optimal target < 30 cm H2O) - reduced TV to 400 mls and increased rate to 25/min - get ABG after 1-2 hours and address - continue to advance enteral nutrition to goal rate - continue free water flushes to 300 mls q4h re: hypernatremia - continue Flomax (Urinary retention reported with 1.5 liters drained post hernandez catheter) - continue albuterol nebs with pulmonary hygiene per RT - continue lung protective strategies - daily CXR and ABG in short term - VAP bundle addressed - continue supplemental oxygen to keep O2 sats 88-90% - continue bronchodilators with pulmonary hygiene per RT - continus systemic steroids with quick taper - continue accuchecks with glycemic control per SSI for target blood glucose <180mg/dL - Agitation management - Titrate sedation to RASS 0 to -1 - Prevention of delirium, maintenance of sleep-wake cycle - Empiric antibiotic therapy for HAP/aspiration pneumonia (ID consult placed) - Will de-escalate therapy based on microbiology/SD/Cultures - Avoid nephrotoxic agents, adjust all antibiotics and medications for CrCL and GFR - VTE and Stress ulcer prophylaxis CONDITION: CRITICAL PROGNOSIS: GUARDED CODE STATUS: FULL CODE The high probability of a clinically significant, sudden or life-threatening deterioration of the [respiratory] system(s) required my full and direct attention, intervention and personal management. The aggregate critical care time was [34] minutes without overlap. Time includes spent on; [x] Data Review and interpretation [x] Patient assessment and monitoring of vital signs [x] Documentation [x] Medication orders and management Subjective Date of service: 08/23/18 Principal diagnosis: Ac. hypoxemic resp failure; Multifocal Pneumonia (HAP); ARDS; Anemia Interval history: Patient is seen today for: Acute hypoxemic respiratory failure; multifocal pneumonia (HAP); ARDS; depression; schizophrenia; Anemia; Developmental delay Seen and examined at bedside; 24hour events reviewed; nursing and respiratory care staff consulted; no adverse overnight events reported to me; remains on MVS; oxygenation worsening; no emesis or overt aspiration;' no gross bleeding; no seizure activity; AMS is persistent Objective Vital Signs - 12hr 08/22/18 08/22/18 08/22/18 18:30 19:00 19:19 Temperature Pulse Rate 72 71 76 Pulse Rate [ From Monitor] Pulse Rate [ Left Lower Lobe ] Respiratory 9 L 13 Rate Respiratory Rate [Left Lower Lobe] Blood Pressure 126/63 130/66 126/65 O2 Sat by Pulse 95 97 95 Oximetry 08/22/18 08/22/18 08/22/18 19:30 19:35 20:00 Temperature 99.1 F Pulse Rate 71 79 Pulse Rate [ 71 From Monitor] Pulse Rate [ 74 90 Left Lower Lobe ] Respiratory 13 28 H Rate Respiratory 12 14 Rate [Left Lower Lobe] Blood Pressure 128/69 130/72 O2 Sat by Pulse 98 95 Oximetry 08/22/18 08/22/18 08/22/18 20:30 21:00 21:30 Temperature Pulse Rate 76 81 73 Pulse Rate [ From Monitor] Pulse Rate [ Left Lower Lobe ] Respiratory 9 L 18 17 Rate Respiratory Rate [Left Lower Lobe] Blood Pressure 128/66 135/68 121/65 O2 Sat by Pulse 95 94 94 Oximetry 08/22/18 08/22/18 08/22/18 22:00 22:30 23:00 Temperature Pulse Rate 73 71 71 Pulse Rate [ From Monitor] Pulse Rate [ Left Lower Lobe ] Respiratory 11 L 17 16 Rate Respiratory Rate [Left Lower Lobe] Blood Pressure 126/72 131/65 128/67 O2 Sat by Pulse 95 96 96 Oximetry 08/22/18 08/22/18 08/23/18 23:14 23:30 00:00 Temperature 99.9 F H Pulse Rate 72 70 70 Pulse Rate [ 71 From Monitor] Pulse Rate [ Left Lower Lobe ] Respiratory 17 16 17 Rate Respiratory Rate [Left Lower Lobe] Blood Pressure 131/65 124/62 131/70 O2 Sat by Pulse 97 97 98 Oximetry 08/23/18 08/23/18 08/23/18 00:26 00:30 01:00 Temperature Pulse Rate 71 70 70 Pulse Rate [ From Monitor] Pulse Rate [ Left Lower Lobe ] Respiratory 18 16 Rate Respiratory Rate [Left Lower Lobe] Blood Pressure 130/64 125/64 130/66 O2 Sat by Pulse 96 96 98 Oximetry 08/23/18 08/23/18 08/23/18 01:30 02:00 02:30 Temperature Pulse Rate 70 69 71 Pulse Rate [ From Monitor] Pulse Rate [ Left Lower Lobe ] Respiratory 16 18 8 L Rate Respiratory Rate [Left Lower Lobe] Blood Pressure 130/61 129/66 128/59 O2 Sat by Pulse 97 95 95 Oximetry 08/23/18 08/23/18 08/23/18 03:00 03:30 03:46 Temperature Pulse Rate 69 70 97 H Pulse Rate [ From Monitor] Pulse Rate [ Left Lower Lobe ] Respiratory 10 L 10 L Rate Respiratory Rate [Left Lower Lobe] Blood Pressure 124/65 130/57 124/56 O2 Sat by Pulse 93 95 97 Oximetry 08/23/18 08/23/18 08/23/18 04:00 04:30 05:00 Temperature 98.6 F Pulse Rate 73 76 77 Pulse Rate [ 71 From Monitor] Pulse Rate [ Left Lower Lobe ] Respiratory 28 H 10 L 10 L Rate Respiratory Rate [Left Lower Lobe] Blood Pressure 125/69 126/65 127/60 O2 Sat by Pulse 84 98 96 Oximetry Constitutional: no acute distress, other (middle aged CM, normocephalic on MVS and riding set rate of 30/min) Eyes: non-icteric ENT: oropharynx moist, other (ETT 23 cm VENTURA) Neck: supple, no lymphadenopathy, other (no thyromegaly) Effort: mildly labored Ascultation: Bilateral: rales Percussion: Bilateral: not dull Cardiovascular: regular rate and rhythm, other (No R/M) Gastrointestinal: normoactive bowel sounds, soft, non-tender, non-distended Integumentary: normal Extremities: no cyanosis, no edema, pink and warm, pulses normal, no ischemia or petechiae Neurologic: non-focal exam (grossly), pupils equal and round, motor strength normal and, unable to assess, other (sedated) Psychiatric: other (sedated) CBC and BMP: 08/26/18 05:05 08/26/18 05:05 ABG, PT/INR, D-dimer: ABG POC ABG pH 7.432 (7.35-7.45) 08/23/18 05:14 POC ABG pCO2 52.8 (35-45) H 08/23/18 05:14 POC ABG pO2 65 (80-105) L 08/23/18 05:14 POC ABG HCO3 35.2 (22-26 mml/L) 08/23/18 05:14 POC ABG Total CO2 37 (23-27mmol/L) 08/23/18 05:14 POC ABG O2 Sat 92 08/23/18 05:14 PT/INR, D-dimer PT 15.1 Sec. (12.2-14.9) H 08/14/18 16:43 INR 1.22 (0.87-1.13) H 08/14/18 16:43 Abnormal lab findings: Abnormal Labs 08/14/18 08/14/18 08/14/18 16:33 16:33 16:43 WBC RBC 3.38 L Hgb 9.9 L Hct 29.2 L RDW 17.3 H Lymph % (Auto) [place] % (Auto) Lymph # Seg Neutrophils % Seg Neuts % (Manual) 87.0 H Lymphocytes % (Manual) 6.0 L Seg Neutrophils # Man Lymphocytes # (Manual) 0.5 L PT INR POC ABG pH POC ABG pCO2 POC ABG pO2 Sodium Potassium 3.5 L Chloride Carbon Dioxide BUN Glucose POC Glucose Lactic Acid AST Alkaline Phosphatase Total Creatine Kinase 204 H C-Reactive Protein Total Protein Albumin Vancomycin Trough 08/14/18 08/14/18 08/17/18 16:43 17:01 09:09 WBC RBC 3.12 L Hgb 9.0 L Hct 27.0 L RDW 17.0 H Lymph % (Auto) 7.1 L [place] % (Auto) 9.2 H Lymph # 0.5 L Seg Neutrophils % 82.7 H Seg Neuts % (Manual) Lymphocytes % (Manual) Seg Neutrophils # Man Lymphocytes # (Manual) PT 15.1 H INR 1.22 H POC ABG pH 7.468 H POC ABG pCO2 POC ABG pO2 57 L Sodium Potassium Chloride Carbon Dioxide BUN Glucose POC Glucose Lactic Acid AST Alkaline Phosphatase Total Creatine Kinase C-Reactive Protein Total Protein Albumin Vancomycin Trough 08/17/18 08/17/18 08/17/18 09:09 11:30 23:21 WBC RBC Hgb Hct RDW Lymph % (Auto) [place] % (Auto) Lymph # Seg Neutrophils % Seg Neuts % (Manual) Lymphocytes % (Manual) Seg Neutrophils # Man Lymphocytes # (Manual) PT INR POC ABG pH 7.225 L POC ABG pCO2 54.6 H POC ABG pO2 50 L 110 H Sodium Potassium 3.5 L Chloride Carbon Dioxide 20 L BUN 7 L Glucose 125 H POC Glucose Lactic Acid AST Alkaline Phosphatase Total Creatine Kinase C-Reactive Protein Total Protein 6.2 L Albumin 3.2 L Vancomycin Trough 08/18/18 08/18/18 08/18/18 04:49 13:06 13:50 WBC RBC Hgb Hct RDW Lymph % (Auto) [place] % (Auto) Lymph # Seg Neutrophils % Seg Neuts % (Manual) Lymphocytes % (Manual) Seg Neutrophils # Man Lymphocytes # (Manual) PT INR POC ABG pH POC ABG pCO2 POC ABG pO2 58 L Sodium Potassium Chloride Carbon Dioxide BUN Glucose POC Glucose Lactic Acid AST Alkaline Phosphatase Total Creatine Kinase C-Reactive Protein 31.10 H Total Protein Albumin Vancomycin Trough 4.7 L 08/18/18 08/19/18 08/19/18 13:50 07:25 07:25 WBC 14.8 H 12.7 H RBC 3.46 L 3.32 L Hgb 10.1 L 9.5 L Hct 30.2 L 28.9 L RDW 17.6 H 17.7 H Lymph % (Auto) [place] % (Auto) Lymph # Seg Neutrophils % Seg Neuts % (Manual) 95.0 H 95.0 H Lymphocytes % (Manual) 3.0 L 5.0 L Seg Neutrophils # Man 14.1 H 12.1 H Lymphocytes # (Manual) 0.4 L 0.6 L PT INR POC ABG pH POC ABG pCO2 POC ABG pO2 Sodium Potassium Chloride Carbon Dioxide BUN 23 H Glucose 139 H POC Glucose Lactic Acid AST 41 H Alkaline Phosphatase 149 H Total Creatine Kinase C-Reactive Protein Total Protein Albumin 3.0 L Vancomycin Trough 08/19/18 08/20/18 08/21/18 15:10 04:03 04:18 WBC RBC Hgb Hct RDW Lymph % (Auto) [place] % (Auto) Lymph # Seg Neutrophils % Seg Neuts % (Manual) Lymphocytes % (Manual) Seg Neutrophils # Man Lymphocytes # (Manual) PT INR POC ABG pH 7.346 L POC ABG pCO2 49.0 H 50.2 H 51.0 H POC ABG pO2 71 L 180 H 78 L Sodium Potassium Chloride Carbon Dioxide BUN Glucose POC Glucose Lactic Acid AST Alkaline Phosphatase Total Creatine Kinase C-Reactive Protein Total Protein Albumin Vancomycin Trough 08/21/18 08/21/18 08/21/18 04:43 04:43 15:54 WBC 14.1 H RBC 3.02 L Hgb 8.5 L Hct 26.3 L RDW 17.9 H Lymph % (Auto) [place] % (Auto) Lymph # Seg Neutrophils % Seg Neuts % (Manual) 95.0 H Lymphocytes % (Manual) 3.0 L Seg Neutrophils # Man 13.4 H Lymphocytes # (Manual) 0.4 L PT INR POC ABG pH POC ABG pCO2 POC ABG pO2 Sodium 149 H Potassium Chloride 111.2 H Carbon Dioxide BUN 27 H Glucose 164 H POC Glucose Lactic Acid AST Alkaline Phosphatase Total Creatine Kinase C-Reactive Protein 3.60 H Total Protein Albumin Vancomycin Trough 08/21/18 08/21/18 08/21/18 19:15 20:10 21:33 WBC RBC Hgb Hct RDW Lymph % (Auto) [place] % (Auto) Lymph # Seg Neutrophils % Seg Neuts % (Manual) Lymphocytes % (Manual) Seg Neutrophils # Man Lymphocytes # (Manual) PT INR POC ABG pH POC ABG pCO2 51.6 H POC ABG pO2 63 L Sodium Potassium Chloride Carbon Dioxide BUN Glucose POC Glucose Lactic Acid 2.80 H* 2.20 H* AST Alkaline Phosphatase Total Creatine Kinase C-Reactive Protein Total Protein Albumin Vancomycin Trough 08/21/18 08/22/18 08/22/18 23:08 04:20 05:46 WBC RBC Hgb Hct RDW Lymph % (Auto) [place] % (Auto) Lymph # Seg Neutrophils % Seg Neuts % (Manual) Lymphocytes % (Manual) Seg Neutrophils # Man Lymphocytes # (Manual) PT INR POC ABG pH POC ABG pCO2 49.4 H POC ABG pO2 53 L Sodium Potassium Chloride Carbon Dioxide BUN Glucose POC Glucose Lactic Acid 2.20 H* 2.10 H* AST Alkaline Phosphatase Total Creatine Kinase C-Reactive Protein Total Protein Albumin Vancomycin Trough 08/22/18 08/22/18 08/22/18 05:46 09:08 23:20 WBC RBC Hgb Hct RDW Lymph % (Auto) [place] % (Auto) Lymph # Seg Neutrophils % Seg Neuts % (Manual) Lymphocytes % (Manual) Seg Neutrophils # Man Lymphocytes # (Manual) PT INR POC ABG pH POC ABG pCO2 POC ABG pO2 Sodium 148 H Potassium Chloride Carbon Dioxide BUN 28 H Glucose 155 H POC Glucose Lactic Acid 2.20 H* 2.20 H* AST Alkaline Phosphatase Total Creatine Kinase C-Reactive Protein Total Protein Albumin Vancomycin Trough 08/23/18 08/23/18 00:55 05:14 WBC RBC Hgb Hct RDW Lymph % (Auto) [place] % (Auto) Lymph # Seg Neutrophils % Seg Neuts % (Manual) Lymphocytes % (Manual) Seg Neutrophils # Man Lymphocytes # (Manual) PT INR POC ABG pH POC ABG pCO2 52.8 H POC ABG pO2 65 L Sodium Potassium Chloride Carbon Dioxide BUN Glucose POC Glucose 183 H Lactic Acid AST Alkaline Phosphatase Total Creatine Kinase C-Reactive Protein Total Protein Albumin Vancomycin Trough Allied health notes reviewed: nursing
[2018-08-23 06:40] LABS: Hematocrit 26.3 % (35.5-45.6); Hemoglobin 8.5 gm/dl (11.8-15.2); Mean Corpuscular HGB Conc 32 % (32-34); Mean Corpuscular Volume 87 fl (84-94); Platelet Count 215 K/mm3 (140-440); Red Blood Count 3.02 M/mm3 (3.65-5.03); Red Cell Distribution Width 18.2 % (13.2-15.2)
[2018-08-23 07:05] LABS: BUN/Creatinine Ratio 39; Blood Urea Nitrogen 27 mg/dL (9-20); Calcium 8.9 mg/dL (8.4-10.2); Hemolysis Index 6
[2018-08-23] MEDS: DUONEB *Not for PRN Use IH SCH ×4 (07:40→19:28)
[2018-08-23] MEDS: SODIUM CHLORIDE FLUSH SYRINGE 10 ML IV SCH ×3 (08:32→22:15)
--- NOTE | 2018-08-23 09:08 | Progress Note ---
Assessment and Plan Assessment and plan: Patient is 52-year-old male with PMHx of developmental delay, schizophrenia, and depression with recent h/o SI presented to the ER with complaints of shortness of breath and cough 1 day. Patient O2 sat was noted to be 86% and improve after application of oxygen via n/c. Pt denies a history of COPD but admits to history of smoking. In the ER, pt had a chest x-ray that showed multifocal bilateral air space disease suspicious for pneumonia. Following admission Overnight went into resp distress and transferred to ICU for Intesive care On BIPAP. He then eventually intubated on 08/19. Acute Respiratory failure with hypoxia s/p intubated 08/19/18 cont Duonebs IV Solumedrol and IV abx Bilateral pneumonia, Cont Abx, follow cx, ID consulted Cover for HCAP given recent hospitalization to psych facility. Leukocytosis, steroid-induced Anemia Anemia w/u ordered Hypokalemia, Resolved Schizophrenia, on Zyprexa Depression, on antidepressants Gout , Cont Allopurinol HLD (hyperlipidemia), Cont statins DVT prophylaxis: On Lovenox GI Prophylaxis:Pepcid History Interval history: Still intubated, sedated Hospitalist Physical - Physical exam Narrative exam: Gen: Not in acute distress, intubated, sedated HEENT: Normocephalic, atraumatic Neck: supple, no JVD Heart: S1 and S2 reg, no murmurs, rubs or gallop Lungs: Bilateral rhonchi, Abd: soft, non tender, non distended, normal BS Ext: No edema, no clubbing, no cyanosis, Neuro: Sedated, intubated - Constitutional Vitals: Temp Pulse Resp BP Pulse Ox 98.6 F 82 22 117/66 98 08/23/18 04:00 08/23/18 07:41 08/23/18 07:41 08/23/18 07:31 08/23/18 06:00 General appearance: Present: no acute distress Results - Labs CBC & Chem 7: 08/23/18 05:34 08/23/18 05:34 Labs: Laboratory Last Values WBC 19.6 K/mm3 (4.5-11.0) H 08/23/18 05:34 RBC 3.02 M/mm3 (3.65-5.03) L 08/23/18 05:34 Hgb 8.5 gm/dl (11.8-15.2) L 08/23/18 05:34 Hct 26.3 % (35.5-45.6) L 08/23/18 05:34 MCV 87 fl (84-94) 08/23/18 05:34 MCH 28 pg (28-32) 08/23/18 05:34 MCHC 32 % (32-34) 08/23/18 05:34 RDW 18.2 % (13.2-15.2) H 08/23/18 05:34 Plt Count 215 K/mm3 (140-440) 08/23/18 05:34 Lymph % (Auto) Regulatory Submissions Associate 08/18/18 13:50 [place] % (Auto) 9.2 % (0.0-7.3) H 08/17/18 09:09 Eos % (Auto) 0.8 % (0.0-4.3) 08/17/18 09:09 Baso % (Auto) 0.2 % (0.0-1.8) 08/17/18 09:09 Lymph # Regulatory Submissions Associate 08/18/18 13:50 [place] # 0.7 K/mm3 (0.0-0.8) 08/17/18 09:09 Eos # 0.1 K/mm3 (0.0-0.4) 08/17/18 09:09 Baso # 0.0 K/mm3 (0.0-0.1) 08/17/18 09:09 Add Manual Diff Complete 08/21/18 04:43 Total Counted 100 08/21/18 04:43 Seg Neutrophils % Regulatory Submissions Associate 08/21/18 04:43 Seg Neuts % (Manual) 95.0 % (40.0-70.0) H 08/21/18 04:43 0 % 08/21/18 04:43 3.0 % (13.4-35.0) L 08/21/18 04:43 Reactive Lymphs % (Man) 0 % 08/21/18 04:43 2.0 % (0.0-7.3) 08/21/18 04:43 0 % (0.0-4.3) 08/21/18 04:43 0 % (0.0-1.8) 08/21/18 04:43 0 % 08/21/18 04:43 0 % 08/21/18 04:43 0 % 08/21/18 04:43 0 % 08/21/18 04:43 Nucleated RBC % Not Reportable 08/21/18 04:43 Seg Neutrophils # 6.3 K/mm3 (1.8-7.7) 08/17/18 09:09 Seg Neutrophils # Man 13.4 K/mm3 (1.8-7.7) H 08/21/18 04:43 Band Neutrophils # 0.0 K/mm3 08/21/18 04:43 0.4 K/mm3 (1.2-5.4) L 08/21/18 04:43 Abs React Lymphs (Man) 0.0 K/mm3 08/21/18 04:43 0.3 K/mm3 (0.0-0.8) 08/21/18 04:43 0.0 K/mm3 (0.0-0.4) 08/21/18 04:43 0.0 K/mm3 (0.0-0.1) 08/21/18 04:43 0.0 K/mm3 08/21/18 04:43 0.0 K/mm3 08/21/18 04:43 0.0 K/mm3 08/21/18 04:43 Blast Cells # 0.0 K/mm3 08/21/18 04:43 WBC Morphology Not Reportable 08/21/18 04:43 WBC Morphology TNR 08/21/18 04:43 Hypersegmented Neuts Not Reportable 08/21/18 04:43 Hyposegmented Neuts Not Reportable 08/21/18 04:43 Hypogranular Neuts Not Reportable 08/21/18 04:43 Not Reportable 08/21/18 04:43 Not Reportable 08/21/18 04:43 Not Reportable 08/21/18 04:43 Not Reportable 08/21/18 04:43 Not Reportable 08/21/18 04:43 Not Reportable 08/21/18 04:43 Consistent w auto 08/21/18 04:43 Not Reportable 08/21/18 04:43 Plt Clumps, EDTA Not Reportable 08/21/18 04:43 Not Reportable 08/21/18 04:43 Not Reportable 08/21/18 04:43 Not Reportable 08/21/18 04:43 Plt Morphology Comment Not Reportable 08/21/18 04:43 RBC Morphology Not Reportable 08/21/18 04:43 Dimorphic RBCs Not Reportable 08/21/18 04:43 Not Reportable 08/21/18 04:43 Few 08/21/18 04:43 Not Reportable 08/21/18 04:43 Few 08/21/18 04:43 Not Reportable 08/21/18 04:43 Not Reportable 08/21/18 04:43 Not Reportable 08/21/18 04:43 Not Reportable 08/21/18 04:43 Not Reportable 08/21/18 04:43 Not Reportable 08/21/18 04:43 Not Reportable 08/21/18 04:43 Not Reportable 08/21/18 04:43 Few 08/21/18 04:43 Not Reportable 08/21/18 04:43 Not Reportable 08/21/18 04:43 Not Reportable 08/21/18 04:43 Not Reportable 08/21/18 04:43 Not Reportable 08/21/18 04:43 Not Reportable 08/21/18 04:43 Not Reportable 08/21/18 04:43 Acanthocytes (Spur) Not Reportable 08/21/18 04:43 Rouleaux Not Reportable 08/21/18 04:43 Not Reportable 08/21/18 04:43 Not Reportable 08/21/18 04:43 Not Reportable 08/21/18 04:43 Not Reportable 08/21/18 04:43 Hem Pathologist Commnt No 08/21/18 04:43 PT 15.1 Sec. (12.2-14.9) H 08/14/18 16:43 INR 1.22 (0.87-1.13) H 08/14/18 16:43 APTT 31.2 Sec. (24.2-36.6) 08/14/18 16:43 POC ABG pH 7.432 (7.35-7.45) 08/23/18 05:14 POC ABG pCO2 52.8 (35-45) H 08/23/18 05:14 POC ABG pO2 65 (80-105) L 08/23/18 05:14 POC ABG HCO3 35.2 (22-26 mml/L) 08/23/18 05:14 POC ABG Total CO2 37 (23-27mmol/L) 08/23/18 05:14 POC ABG O2 Sat 92 08/23/18 05:14 POC ABG Base Excess 11 ((-2) - (+3)mmol/L) 08/23/18 05:14 75 % 08/23/18 05:14 Sodium 146 mmol/L (137-145) H 08/23/18 05:34 Potassium 4.4 mmol/L (3.6-5.0) 08/23/18 05:34 Chloride 101.8 mmol/L (98-107) 08/23/18 05:34 Carbon Dioxide 33 mmol/L (22-30) H 08/23/18 05:34 16 mmol/L 08/23/18 05:34 BUN 27 mg/dL (9-20) H 08/23/18 05:34 0.7 mg/dL (0.8-1.5) L 08/23/18 05:34 Estimated GFR > 60 ml/min 08/23/18 05:34 39 % 08/23/18 05:34 Glucose 158 mg/dL (75-100) H 08/23/18 05:34 POC Glucose 183 (70-105) H 08/23/18 00:55 Lactic Acid 2.30 mmol/L (0.7-2.0) H* 08/23/18 05:34 Calcium 8.9 mg/dL (8.4-10.2) 08/23/18 05:34 Phosphorus 3.80 mg/dL (2.5-4.5) 08/18/18 13:50 Magnesium 2.00 mg/dL (1.7-2.3) 08/18/18 13:50 0.40 mg/dL (0.1-1.2) 08/19/18 07:25 AST 41 units/L (5-40) H 08/19/18 07:25 ALT 24 units/L (7-56) 08/19/18 07:25 149 units/L (35-129) H 08/19/18 07:25 204 units/L (55-170) H 08/14/18 16:33 CK-MB (CK-2) 1.9 ng/mL (0.0-4.0) 08/14/18 16:33 CK-MB (CK-2) Rel Index 0.9 (0-4) 08/14/18 16:33 < 0.010 ng/mL (0.00-0.029) 08/14/18 16:33 2.00 mg/dL (0.00-1.30) H 08/23/18 05:34 NT-Pro-B Natriuret Pep 199.0 pg/mL (0-900) 08/14/18 16:33 6.7 g/dL (6.3-8.2) 08/19/18 07:25 3.0 g/dL (3.9-5) L 08/19/18 07:25 0.8 % 08/19/18 07:25 Vancomycin Trough 19.3 ug/mL (5.0-20.0) 08/21/18 15:46 Presumptive negative 08/14/18 Unknown Presumptive negative 08/14/18 Unknown Ur Barbiturates Screen Presumptive negative 08/14/18 Unknown Ur Phencyclidine Scrn Presumptive negative 08/14/18 Unknown Ur Amphetamines Screen Presumptive negative 08/14/18 Unknown U Benzodiazepines Scrn Presumptive negative 08/14/18 Unknown Presumptive negative 08/14/18 Unknown U Marijuana (THC) Screen Presumptive negative 08/14/18 Unknown Disclamer 08/14/18 Unknown Active Medications - Current Medications Current Medications: Generic Name Dose Route Start Last Admin Trade Name Freq PRN Reason Stop Dose Admin Acetaminophen 650 mg 08/14/18 22:29 08/15/18 10:06 Tylenol PO 650 mg Q4H PRN Administration Pain MILD(1-3)/Fever >100.5/LOCO Albuterol 2.5 mg 08/19/18 07:17 Proventil IH Q4HRT PRN Shortness Of Breath Albuterol/Ipratropium 1 ampul 08/16/18 16:00 08/23/18 07:40 Duoneb *Not For Prn Use* IH 1 ampul QIDRT DOMINIC Administration Allopurinol 100 mg 08/16/18 13:00 08/22/18 10:10 Zyloprim PO 100 mg QDAY DOMINIC Administration Lipase/Protease/Amylase 1 each 08/19/18 13:43 Pancrerubén Palacios 10,500 Unit FEEDTUBE PRN PRN For Clogged Feeding Tube Bupropion HCl 150 mg 08/17/18 10:00 08/22/18 10:09 Wellbutrin Xl PO 150 mg QAM DOMINIC Administration Diphenhydramine HCl 100 mg 08/16/18 22:00 08/22/18 21:46 Benadryl PO 100 mg QHS DOMINIC Administration Docusate Sodium 100 mg 08/15/18 10:00 08/22/18 21:49 Colace PO 100 mg BID DOMINIC Administration Enoxaparin Sodium 40 mg 08/15/18 10:00 08/22/18 10:09 Lovenox SUB-Q 40 mg QDAY@1000 DOMINIC Administration Famotidine 20 mg 08/15/18 10:00 08/22/18 21:46 Pepcid PO 20 mg BID DOMINIC Administration Fentanyl 50 mcg 08/19/18 12:01 Sublimaze IV Q10MIN PRN ANALGESIA Fluoxetine HCl 20 mg 08/17/18 12:00 08/22/18 12:47 Prozac PO 20 mg DAILY@1200 DOMINIC Administration Hydrocodone Bit/Homatropine Methylb 10 ml 08/18/18 13:09 08/18/18 13:35 Hydromet PO 10 ml Q6H PRN Administration Cough Hydrophilic Ointment 1 applic 08/19/18 12:01 Vaseline Lip Therapy TP Q2HR PRN Dry Lips Sodium Chloride 1,000 mls @ 50 mls/hr 08/15/18 06:00 08/21/18 02:45 Nacl 0.9% 1000 Ml IV 50 mls/hr DIRECT DOMINIC Administration Fentanyl Citrate 2,000 mcg in 100 mls @ 3.935 mls/hr 08/19/18 13:00 08/22/18 20:08 Fentanyl Drip Premix IV 2 mcg/kg/hr TITR DOMINIC 7.87 mls/hr Administration Protocol 1 MCG/KG/HR Propofol 1,000 mg in 100 mls @ 2.361 mls/hr 08/19/18 13:00 08/23/18 07:00 Diprivan 10 Mg/Ml IV 5 mcg/kg/min TITR DOMINIC 2.361 mls/hr Titration Protocol 5 MCG/KG/MIN Doxycycline Hyclate 100 mg/ 250 mls @ 250 mls/hr 08/19/18 16:30 08/23/18 06:02 Sodium Chloride IV 250 mls/hr Q12H DOMINIC Administration Protocol Ceftriaxone Sodium 2 gm in 100 mls @ 200 mls/hr 08/21/18 12:30 08/22/18 10:00 Rocephin/Ns 2 Gm/100 Ml IV 200 mls/hr Q24HR DOMINIC Administration Protocol Lorazepam 2 mg 08/16/18 22:00 08/22/18 22:41 Ativan PO 2 mg QHS DOMINIC Administration Magnesium Hydroxide 30 ml 08/14/18 22:35 Milk Of Magnesia PO Q4H PRN Constipation Methylprednisolone Sodium Succinate 60 mg 08/19/18 14:00 08/23/18 06:00 Solu-Medrol IV 60 mg Q8HR DOMINIC Administration Multi-Ingred Cream/Lotion/Oil/Oint 1 applic 08/19/18 12:01 Artificial Tears Ophth Oint OU Q4HR PRN Dry Eye(s) Olanzapine 20 mg 08/16/18 22:00 08/22/18 21:46 Zyprexa PO 20 mg QHS DOMINIC Administration Ondansetron HCl 4 mg 08/14/18 22:29 Zofran IV Q8H PRN Nausea And Vomiting Pravastatin Sodium 40 mg 08/16/18 22:00 08/22/18 21:47 Pravachol PO 40 mg QHS DOMINIC Administration Risperidone 2 mg 08/17/18 10:00 08/22/18 10:09 Risperdal PO 2 mg QAM DOMINIC Administration Simple Syrup 15 ml 08/19/18 13:43 Simple Syrup FEEDTUBE PRN PRN Hypoglycemia Simple Syrup 30 ml 08/19/18 13:43 Simple Syrup FEEDTUBE PRN PRN Hypoglycemia Sodium Bicarbonate 325 mg 08/19/18 13:43 Sodium Bicarbonate FEEDTUBE PRN PRN For Clogged Feeding Tube Sodium Chloride 10 ml 08/15/18 10:00 08/23/18 08:32 Sodium Chloride Flush Syringe 10 Ml IV Not Given BID DOMINIC Sodium Chloride 10 ml 08/14/18 22:29 Sodium Chloride Flush Syringe 10 Ml IV PRN PRN LINE FLUSH Tamsulosin HCl 0.4 mg 08/21/18 13:00 08/22/18 10:09 Flomax PO 0.4 mg QDAY DOMINIC Administration Nutrition/Malnutrition Assess - Dietary Evaluation Nutrition/Malnutrition Findings: Nutrition Notes Start: 08/19/18 13:37 Freq: Status: Active Protocol: Document 08/21/18 14:05 RM (Rec: 08/21/18 14:13 RM [id number]) Nutrition Notes Initial or Follow up Reassessment Current Diagnosis Respiratory Failure, Hyperlipidemia Other Pertinent Diagnosis LLL pneu, Developmental delay, Hx schizophrenia Current Diet Osmolite 1.5 at 55 ml/hr Labs/Tests Na 149 K 5 Pertinent Medications Lasix, Solumedrol, Propofol at 2.4ml/hr (provides 64 kcal) Height 5 ft 11 in Weight 74 kg [place]ina Body Weight (kg) 78.18 BMI 22.7 Subjective/Other Information Pt remains on vent. Observed Osmolite 1.5 infusing at goal rate. Per nurse pt is tolerating TF and MD ordered water flush increase to 300 ml to address hypernatremia. Percent of energy/protein needs met: 100%/88% Burn Absent Trauma Absent #1 Nutrition Diagnosis Inadequate oral intake Diagnosis Progress(for reassessment Continues documentation) Is patient on ventilator? Yes Is Patient Ambulatory and/or Out of Bed No REE-([facility]-confined to bed) [phone] Calculation Used for Recommendations [facility] Additional Notes Pro needs 1.2-2g/k-157g/ day Fluid needs 1ml/kcal Nutrition Intervention Nutrition Support: Osmolite 1.5 at 55ml/hr 300 ml water flush q4h until hypernatremia resolves. 150ml water flush q4h once hypernatremia resolves. Kcal 1,980 Protein (gm) 83 Carbohydrates (gm) 269 Fat (gm) 65 Fluid (mL) 1,006 Goal #1 TF tolerance Goal #2 TF (at goal rate) to continue to meet at least 80% energy and pro needs Anticipated Discharge Needs: Unable to determine at this time Follow-Up By: 08/24/18 Additional Comments Follow for TF tolerance, Na lab, K lab
[2018-08-23] MEDS: fentaNYL DRIP Premix 2,000 MCG/100 ML BAG IV SCH ×3 (09:32→22:37)
[2018-08-23 09:33] LABS: Basophils % (Manual) 0 % (0.0-1.8); Eosinophils % (Manual) 0 % (0.0-4.3); Total Cells Counted 100
[2018-08-23 09:35] LABS: Anisocytosis Few; Platelet Estimate Consistent w Auto
[2018-08-23] MEDS: PEPCID PO SCH ×2 (09:40→22:15)
[2018-08-23] MEDS: RisperDAL PO SCH (09:40)
[2018-08-23] MEDS: ZYLOPRIM PO SCH (09:41)
[2018-08-23] MEDS: FLOMAX PO SCH (09:41)
[2018-08-23] MEDS: LOVENOX SUB-Q SCH (09:41)
[2018-08-23] MEDS: ROCEPHIN/NS 2 GM/100 ML 2 GM/100 ML BAG IV SCH (09:45)
--- NOTE | 2018-08-23 11:13 | Progress Note ---
Assessment and Plan Cultures: 08/14/2018 Blood culture: No growth 08/18/2018 resp culture: normal resp aminata. A/P: 52-year-old male with history of developmental delay, schizophrenia, recently discharged from a psychiatric facility for suicidal ideation now with: 1) Acute respiratory failure secondary to bilateral pneumonia: Cover for HCAP given recent hospitalization to psych facility. Cultures growing normal resp aminata, so abx de-escalated to Ceftriaxone and Doxycycline. Intubated, sedated. 2) Schizophrenia, Depression: Patient is on risperidone, olanzapine, Haldol. Also on Wellbutrin and fluoxetine. At risk of QT prolongation especially with levofloxacin. 3) PCN allergy: unknown, at least >10 years history per his caregiver at the bedside. Low risk of cross reactivity with Cephalosporins. Tolerating Cefepime and Ceftriaxone well. 4) Persistent lactate elevation: check CMP tomorrow. 5) Leucocytosis: probably from steroids. Recs: continue IV Ceftriaxone 2 gm q24 hrs continue Doxycycline for atypical coverage (avoiding Azithromycin and Levofloxacin due to risk of QT prolongation) f/u Pneumococcal and Legionella Ur Ag CMP ordered for tomorrow elevated WBC probably from steroids Levi Luna MD [facility] C: [phone] O: [phone] F: [phone] Subjective Date of service: 08/23/18 Principal diagnosis: B/L PNA Interval history: Remains intubated, on the vent. On tube feeds. Objective - Exam Narrative Exam: Physical Exam: Constitutional: sedated, intubated Head, Ears, Nose: Normocephalic, atraumatic. External ears, nose normal Eyes: Conjunctivae/corneas clear. No icterus. No ptosis. Neck: Supple, no meningeal signs Oral: intubated Cardiovascular: S1, S2 normal, no murmur heard Respiratory: Good air entry, clear to auscultation bilaterally GI: Soft, non-tender; bowel sounds normal. No peritoneal signs Musculoskeletal: No pedal edema, no cyanosis. Skin: No rash or abscess. Hem/Lymphatic: No palpable cervical or supraclavicular nodes. No lymphangitis Psych: sedated Neurological: sedated, intubated, on vent - Constitutional Vitals: Vital Signs Temp Pulse Resp BP Pulse Ox 98.6 F 82 22 117/66 98 08/23/18 04:00 08/23/18 07:41 08/23/18 07:41 08/23/18 07:31 08/23/18 06:00 Temperature -Last 24 Hours Temperature 98.6 F Temperature 99.9 F Temperature 99.1 F Temperature 100.0 F Temperature 99.0 F Temperature 99 F - Labs CBC & Chem 7: 08/23/18 05:34 08/23/18 05:34 Labs: Abnormal lab results 08/22/18 08/23/18 08/23/18 Range/Units 23:20 00:55 05:14 WBC (4.5-11.0) K/mm3 RBC (3.65-5.03) M/mm3 Hgb (11.8-15.2) gm/dl Hct (35.5-45.6) % RDW (13.2-15.2) % Seg Neuts % (Manual) (40.0-70.0) % Lymphocytes % (Manual) (13.4-35.0) % Seg Neutrophils # Man (1.8-7.7) K/mm3 Lymphocytes # (Manual) (1.2-5.4) K/mm3 POC ABG pCO2 52.8 H (35-45) POC ABG pO2 65 L (80-105) Sodium (137-145) mmol/L Carbon Dioxide (22-30) mmol/L BUN (9-20) mg/dL Creatinine (0.8-1.5) mg/dL Glucose (75-100) mg/dL POC Glucose 183 H (70-105) Lactic Acid 2.20 H* (0.7-2.0) mmol/L C-Reactive Protein (0.00-1.30) mg/dL 08/23/18 08/23/18 08/23/18 Range/Units 05:34 05:34 05:34 WBC 19.6 H (4.5-11.0) K/mm3 RBC 3.02 L (3.65-5.03) M/mm3 Hgb 8.5 L (11.8-15.2) gm/dl Hct 26.3 L (35.5-45.6) % RDW 18.2 H (13.2-15.2) % Seg Neuts % (Manual) 92.0 H (40.0-70.0) % Lymphocytes % (Manual) 1.0 L (13.4-35.0) % Seg Neutrophils # Man 18.0 H (1.8-7.7) K/mm3 Lymphocytes # (Manual) 0.2 L (1.2-5.4) K/mm3 POC ABG pCO2 (35-45) POC ABG pO2 (80-105) Sodium 146 H (137-145) mmol/L Carbon Dioxide 33 H (22-30) mmol/L BUN 27 H (9-20) mg/dL Creatinine 0.7 L (0.8-1.5) mg/dL Glucose 158 H (75-100) mg/dL POC Glucose (70-105) Lactic Acid 2.30 H* (0.7-2.0) mmol/L C-Reactive Protein 2.00 H (0.00-1.30) mg/dL - Imaging and cardiology Chest x-ray: report reviewed, image reviewed (b/l PNA, left > right.)
[2018-08-23] MEDS: WELLBUTRIN XL PO SCH (11:14)
[2018-08-23] MEDS: PROzac PO SCH (12:44)
[2018-08-23] MEDS: COLACE FEEDTUBE SCH ×2 (12:52→22:14)
--- NOTE | 2018-08-23 13:59 | Vascular Lab Report ---
DUPLEX DOPPLER LOWER EXTREMITY VEINS, BILATERAL INDICATION: hypoxemia, leg swelling. TECHNIQUE: Duplex doppler imaging was performed through the veins of both lower extremities using venous artemio pablo and other maneuvers. COMPARISON: No relevant prior imaging study available. FINDINGS: Right Common femoral vein: Negative. Right Superficial femoral vein: Negative. Right Popliteal vein: Negative. Right Calf veins: Negative. Left Common femoral vein: Negative. Left Superficial femoral vein: Negative. Left Popliteal vein: Negative. Left Calf veins: Negative. Additional findings: None.. IMPRESSION: 1. No sonographic evidence for DVT in either lower extremity. Signer Name: Nelson Pugh Jr, MD Signed: 08/23/2018 1:55 PM Workstation Name: [id number]
[2018-08-23] MEDS ORDERED: KEPPRA 1,000 MG in D5W 100 ML IV SCH (22:00)
[2018-08-23] MEDS: ATIVAN PO SCH (22:13)
[2018-08-23] MEDS: BENADRYL PO SCH (22:14)
[2018-08-23] MEDS: PRAVACHOL PO SCH (22:14)
[2018-08-24] MEDS: DUONEB *Not for PRN Use IH SCH ×5 (01:39→21:04)
--- NOTE | 2018-08-24 03:24 | XRay Report ---
CHEST 1 VIEW INDICATION / CLINICAL INFORMATION: follow up respiratory failure. COMPARISON: 08/23/2018 FINDINGS: SUPPORT DEVICES: ET tube and enteric feeding tube are stable in position. HEART / MEDIASTINUM: No significant abnormality. LUNGS / PLEURA: Diffuse severe bilateral airspace disease is present and appears slightly worse. Air bronchograms are noted bilaterally. No pneumothorax. ADDITIONAL FINDINGS: No significant additional findings. IMPRESSION: 1. Worsening of bilateral airspace disease. Signer Name: Altagracia Bergeron MD Signed: 08/24/2018 3:19 AM Workstation Name: [email or web address]
[2018-08-24] MEDS: SOLU-Medrol IV SCH (05:23)
[2018-08-24] MEDS: DOXYCYCLINE HYCLATE 100 MG in NACL 0.9% 250ML 250 ML IV SCH ×2 (05:23→16:23)
[2018-08-24] MEDS: fentaNYL DRIP Premix 2,000 MCG/100 ML BAG IV SCH ×3 (05:25→18:13)
[2018-08-24 05:51] LABS: Hematocrit 26.6 % (35.5-45.6); Hemoglobin 8.6 gm/dl (11.8-15.2); Mean Corpuscular HGB Conc 32 % (32-34); Mean Corpuscular Volume 88 fl (84-94); Platelet Count 206 K/mm3 (140-440); Red Blood Count 3.03 M/mm3 (3.65-5.03); Red Cell Distribution Width 18.4 % (13.2-15.2)
[2018-08-24 06:20] LABS: Alanine Aminotransferase 49 units/L (7-56); Albumin 3.2 g/dL (3.9-5); BUN/Creatinine Ratio 34; Blood Urea Nitrogen 27 mg/dL (9-20); Calcium 8.9 mg/dL (8.4-10.2); Hemolysis Index 2
--- NOTE | 2018-08-24 07:56 | Progress Note ---
Assessment and Plan Assessment and plan: Patient is 52-year-old male with PMHx of developmental delay, schizophrenia, and depression with recent h/o SI presented to the ER with complaints of shortness of breath and cough 1 day. Patient O2 sat was noted to be 86% and improve after application of oxygen via n/c. Pt denies a history of COPD but admits to history of smoking. In the ER, pt had a chest x-ray that showed multifocal bilateral air space disease suspicious for pneumonia. Following admission Overnight went into resp distress and transferred to ICU for Intesive care On BIPAP. He then eventually intubated on 08/19. and is still intubated Acute Respiratory failure with hypoxia s/p intubated 08/19/18 cont Duonebs IV Solumedrol and IV abx Bilateral pneumonia, Cont Abx, follow cx, ID consulted Cover for HCAP given recent hospitalization to psych facility. Leukocytosis, Monitor Anemia Anemia w/u ordered Hypokalemia, Resolved Schizophrenia, on Zyprexa Depression, on antidepressants Gout , Cont Allopurinol HLD (hyperlipidemia), Cont statins DVT prophylaxis: On Lovenox GI Prophylaxis:Pepcid History Interval history: Still intubated, sedated Hospitalist Physical - Physical exam Narrative exam: Gen: Not in acute distress, intubated, sedated HEENT: Normocephalic, atraumatic Neck: supple, no JVD Heart: S1 and S2 reg, no murmurs, rubs or gallop Lungs: Bilateral rhonchi, Abd: soft, non tender, non distended, normal BS Ext: No edema, no clubbing, no cyanosis, Neuro: Sedated, intubated - Constitutional Vitals: Temp Pulse Resp BP Pulse Ox 99.5 F 85 17 109/62 88 08/24/18 04:00 08/24/18 06:00 08/24/18 06:00 08/24/18 06:00 08/24/18 06:00 General appearance: Present: no acute distress Results - Labs CBC & Chem 7: 08/24/18 05:13 08/24/18 05:13 Labs: Laboratory Last Values WBC 26.2 K/mm3 (4.5-11.0) H 08/24/18 05:13 RBC 3.03 M/mm3 (3.65-5.03) L 08/24/18 05:13 Hgb 8.6 gm/dl (11.8-15.2) L 08/24/18 05:13 Hct 26.6 % (35.5-45.6) L 08/24/18 05:13 MCV 88 fl (84-94) 08/24/18 05:13 MCH 28 pg (28-32) 08/24/18 05:13 MCHC 32 % (32-34) 08/24/18 05:13 RDW 18.4 % (13.2-15.2) H 08/24/18 05:13 Plt Count 206 K/mm3 (140-440) 08/24/18 05:13 Lymph % (Auto) [employer] Worker 08/18/18 13:50 [place] % (Auto) 9.2 % (0.0-7.3) H 08/17/18 09:09 Eos % (Auto) 0.8 % (0.0-4.3) 08/17/18 09:09 Baso % (Auto) 0.2 % (0.0-1.8) 08/17/18 09:09 Lymph # [employer] Worker 08/18/18 13:50 [place] # 0.7 K/mm3 (0.0-0.8) 08/17/18 09:09 Eos # 0.1 K/mm3 (0.0-0.4) 08/17/18 09:09 Baso # 0.0 K/mm3 (0.0-0.1) 08/17/18 09:09 Add Manual Diff Complete 08/23/18 05:34 Total Counted 100 08/23/18 05:34 Seg Neutrophils % [employer] 08/21/18 04:43 Seg Neuts % (Manual) 92.0 % (40.0-70.0) H 08/23/18 05:34 0 % 08/23/18 05:34 1.0 % (13.4-35.0) L 08/23/18 05:34 Reactive Lymphs % (Man) 0 % 08/23/18 05:34 3.0 % (0.0-7.3) 08/23/18 05:34 0 % (0.0-4.3) 08/23/18 05:34 0 % (0.0-1.8) 08/23/18 05:34 4.0 % 08/23/18 05:34 0 % 08/23/18 05:34 0 % 08/23/18 05:34 0 % 08/23/18 05:34 Nucleated RBC % Not Reportable 08/23/18 05:34 Seg Neutrophils # 6.3 K/mm3 (1.8-7.7) 08/17/18 09:09 Seg Neutrophils # Man 18.0 K/mm3 (1.8-7.7) H 08/23/18 05:34 Band Neutrophils # 0.0 K/mm3 08/23/18 05:34 0.2 K/mm3 (1.2-5.4) L 08/23/18 05:34 Abs React Lymphs (Man) 0.0 K/mm3 08/23/18 05:34 0.6 K/mm3 (0.0-0.8) 08/23/18 05:34 0.0 K/mm3 (0.0-0.4) 08/23/18 05:34 0.0 K/mm3 (0.0-0.1) 08/23/18 05:34 0.8 K/mm3 08/23/18 05:34 0.0 K/mm3 08/23/18 05:34 0.0 K/mm3 08/23/18 05:34 Blast Cells # 0.0 K/mm3 08/23/18 05:34 WBC Morphology Not Reportable 08/23/18 05:34 Hypersegmented Neuts Not Reportable 08/23/18 05:34 Hyposegmented Neuts Not Reportable 08/23/18 05:34 Hypogranular Neuts Not Reportable 08/23/18 05:34 Not Reportable 08/23/18 05:34 Not Reportable 08/23/18 05:34 Not Reportable 08/23/18 05:34 Not Reportable 08/23/18 05:34 Not Reportable 08/23/18 05:34 Not Reportable 08/23/18 05:34 Consistent w auto 08/23/18 05:34 Not Reportable 08/23/18 05:34 Plt Clumps, EDTA Not Reportable 08/23/18 05:34 Not Reportable 08/23/18 05:34 Not Reportable 08/23/18 05:34 Not Reportable 08/23/18 05:34 Plt Morphology Comment Not Reportable 08/23/18 05:34 RBC Morphology Not Reportable 08/23/18 05:34 Dimorphic RBCs Not Reportable 08/23/18 05:34 Not Reportable 08/23/18 05:34 Not Reportable 08/23/18 05:34 Not Reportable 08/23/18 05:34 Few 08/23/18 05:34 Not Reportable 08/23/18 05:34 Not Reportable 08/23/18 05:34 Not Reportable 08/23/18 05:34 Not Reportable 08/23/18 05:34 Not Reportable 08/23/18 05:34 Not Reportable 08/23/18 05:34 Not Reportable 08/23/18 05:34 Not Reportable 08/23/18 05:34 Few 08/21/18 04:43 Not Reportable 08/23/18 05:34 Not Reportable 08/23/18 05:34 Not Reportable 08/23/18 05:34 Not Reportable 08/23/18 05:34 Not Reportable 08/23/18 05:34 Not Reportable 08/23/18 05:34 Not Reportable 08/23/18 05:34 Acanthocytes (Spur) Not Reportable 08/23/18 05:34 Rouleaux Not Reportable 08/23/18 05:34 Not Reportable 08/23/18 05:34 Not Reportable 08/23/18 05:34 Not Reportable 08/23/18 05:34 Not Reportable 08/23/18 05:34 Hem Pathologist Commnt No 08/23/18 05:34 PT 15.1 Sec. (12.2-14.9) H 08/14/18 16:43 INR 1.22 (0.87-1.13) H 08/14/18 16:43 APTT 31.2 Sec. (24.2-36.6) 08/14/18 16:43 POC ABG pH 7.376 (7.35-7.45) 08/24/18 04:03 POC ABG pCO2 59.1 (35-45) H 08/24/18 04:03 POC ABG pO2 55 (80-105) L 08/24/18 04:03 POC ABG HCO3 34.7 (22-26 mml/L) 08/24/18 04:03 POC ABG Total CO2 36 (23-27mmol/L) 08/24/18 04:03 POC ABG O2 Sat 86 08/24/18 04:03 POC ABG Base Excess 9 ((-2) - (+3)mmol/L) 08/24/18 04:03 75 % 08/24/18 04:03 Sodium 144 mmol/L (137-145) 08/24/18 05:13 Potassium 5.0 mmol/L (3.6-5.0) 08/24/18 05:13 Chloride 100.9 mmol/L (98-107) 08/24/18 05:13 Carbon Dioxide 34 mmol/L (22-30) H 08/24/18 05:13 14 mmol/L 08/24/18 05:13 BUN 27 mg/dL (9-20) H 08/24/18 05:13 0.8 mg/dL (0.8-1.5) 08/24/18 05:13 Estimated GFR > 60 ml/min 08/24/18 05:13 34 % 08/24/18 05:13 Glucose 176 mg/dL (75-100) H 08/24/18 05:13 POC Glucose 183 (70-105) H 08/23/18 00:55 Lactic Acid 2.40 mmol/L (0.7-2.0) H* 08/24/18 05:13 Calcium 8.9 mg/dL (8.4-10.2) 08/24/18 05:13 Phosphorus 3.80 mg/dL (2.5-4.5) 08/18/18 13:50 Magnesium 2.00 mg/dL (1.7-2.3) 08/18/18 13:50 0.20 mg/dL (0.1-1.2) 08/24/18 05:13 AST 67 units/L (5-40) H 08/24/18 05:13 ALT 49 units/L (7-56) 08/24/18 05:13 143 units/L (35-129) H 08/24/18 05:13 204 units/L (55-170) H 08/14/18 16:33 CK-MB (CK-2) 1.9 ng/mL (0.0-4.0) 08/14/18 16:33 CK-MB (CK-2) Rel Index 0.9 (0-4) 08/14/18 16:33 < 0.010 ng/mL (0.00-0.029) 08/14/18 16:33 2.00 mg/dL (0.00-1.30) H 08/23/18 05:34 NT-Pro-B Natriuret Pep 199.0 pg/mL (0-900) 08/14/18 16:33 5.7 g/dL (6.3-8.2) L 08/24/18 05:13 3.2 g/dL (3.9-5) L 08/24/18 05:13 1.3 % 08/24/18 05:13 Vancomycin Trough 19.3 ug/mL (5.0-20.0) 08/21/18 15:46 Presumptive negative 08/14/18 Unknown Presumptive negative 08/14/18 Unknown Ur Barbiturates Screen Presumptive negative 08/14/18 Unknown Ur Phencyclidine Scrn Presumptive negative 08/14/18 Unknown Ur Amphetamines Screen Presumptive negative 08/14/18 Unknown U Benzodiazepines Scrn Presumptive negative 08/14/18 Unknown Presumptive negative 08/14/18 Unknown U Marijuana (THC) Screen Presumptive negative 08/14/18 Unknown Disclamer 08/14/18 Unknown Urine Legionella Ag Not detected (Not Detected) 08/20/18 Unknown Active Medications - Current Medications Current Medications: Generic Name Dose Route Start Last Admin Trade Name Freq PRN Reason Stop Dose Admin Acetaminophen 650 mg 08/14/18 22:29 08/15/18 10:06 Tylenol PO 650 mg Q4H PRN Administration Pain MILD(1-3)/Fever >100.5/LOCO Albuterol 2.5 mg 08/19/18 07:17 Proventil IH Q4HRT PRN Shortness Of Breath Albuterol/Ipratropium 1 ampul 08/16/18 16:00 08/24/18 01:39 Duoneb *Not For Prn Use* IH 1 ampul QIDRT DOMINIC Administration Allopurinol 100 mg 08/16/18 13:00 08/23/18 09:41 Zyloprim PO 100 mg QDAY DOMINIC Administration Lipase/Protease/Amylase 1 each 08/19/18 13:43 Pancreaze 10,500 Unit FEEDTUBE PRN PRN For Clogged Feeding Tube Bupropion HCl 150 mg 08/17/18 10:00 08/23/18 11:14 Wellbutrin Xl PO Not Given QAM DOMINIC Diphenhydramine HCl 100 mg 08/16/18 22:00 08/23/18 22:14 Benadryl PO 100 mg QHS DOMINIC Administration Docusate Sodium 100 mg 08/23/18 12:00 08/23/18 22:14 Colace FEEDTUBE 100 mg BID DOMINIC Administration Enoxaparin Sodium 40 mg 08/15/18 10:00 08/23/18 09:41 Lovenox SUB-Q 40 mg QDAY@1000 DOMINIC Administration Famotidine 20 mg 08/15/18 10:00 08/23/18 22:15 Pepcid PO 20 mg BID DOMINIC Administration Fentanyl 50 mcg 08/19/18 12:01 Sublimaze IV Q10MIN PRN ANALGESIA Fluoxetine HCl 20 mg 08/17/18 12:00 08/23/18 12:44 Prozac PO 20 mg DAILY@1200 DOMINIC Administration Hydrocodone Bit/Homatropine Methylb 10 ml 08/18/18 13:09 08/18/18 13:35 Hydromet PO 10 ml Q6H PRN Administration Cough Hydrophilic Ointment 1 applic 08/19/18 12:01 Vaseline Lip Therapy TP Q2HR PRN Dry Lips Sodium Chloride 1,000 mls @ 50 mls/hr 08/15/18 06:00 08/21/18 02:45 Nacl 0.9% 1000 Ml IV 50 mls/hr DIRECT DOMINIC Administration Fentanyl Citrate 2,000 mcg in 100 mls @ 3.935 mls/hr 08/19/18 13:00 08/24/18 05:25 Fentanyl Drip Premix IV 4 mcg/kg/hr TITR DOMINIC 15.74 mls/hr Titration Protocol 1 MCG/KG/HR Propofol 1,000 mg in 100 mls @ 2.361 mls/hr 08/19/18 13:00 08/23/18 20:15 Diprivan 10 Mg/Ml IV 20 mcg/kg/min TITR DOMINIC 9.444 mls/hr Administration Protocol 5 MCG/KG/MIN Doxycycline Hyclate 100 mg/ 250 mls @ 250 mls/hr 08/19/18 16:30 08/24/18 05:23 Sodium Chloride IV 250 mls/hr Q12H DOMINIC Administration Protocol Ceftriaxone Sodium 2 gm in 100 mls @ 200 mls/hr 08/21/18 12:30 08/23/18 09:45 Rocephin/Ns 2 Gm/100 Ml IV 200 mls/hr Q24HR DOMINIC Administration Protocol Lorazepam 2 mg 08/16/18 22:00 08/23/18 22:13 Ativan PO 2 mg QHS DOMINIC Administration Magnesium Hydroxide 30 ml 08/14/18 22:35 Milk Of Magnesia PO Q4H PRN Constipation Methylprednisolone Sodium Succinate 60 mg 08/19/18 14:00 08/24/18 05:23 Solu-Medrol IV 60 mg Q8HR DOMINIC Administration Multi-Ingred Cream/Lotion/Oil/Oint 1 applic 08/19/18 12:01 Artificial Tears Ophth Oint OU Q4HR PRN Dry Eye(s) Olanzapine 20 mg 08/16/18 22:00 08/23/18 22:14 Zyprexa PO 20 mg QHS DOMINIC Administration Ondansetron HCl 4 mg 08/14/18 22:29 Zofran IV Q8H PRN Nausea And Vomiting Pravastatin Sodium 40 mg 08/16/18 22:00 08/23/18 22:14 Pravachol PO 40 mg QHS DOMINIC Administration Risperidone 2 mg 08/17/18 10:00 08/23/18 09:40 Risperdal PO 2 mg QAM DOMINIC Administration Simple Syrup 15 ml 08/19/18 13:43 Simple Syrup FEEDTUBE PRN PRN Hypoglycemia Simple Syrup 30 ml 08/19/18 13:43 Simple Syrup FEEDTUBE PRN PRN Hypoglycemia Sodium Bicarbonate 325 mg 08/19/18 13:43 Sodium Bicarbonate FEEDTUBE PRN PRN For Clogged Feeding Tube Sodium Chloride 10 ml 08/15/18 10:00 08/23/18 22:15 Sodium Chloride Flush Syringe 10 Ml IV 10 ml BID DOMINIC Administration Sodium Chloride 10 ml 08/14/18 22:29 Sodium Chloride Flush Syringe 10 Ml IV PRN PRN LINE FLUSH Tamsulosin HCl 0.4 mg 08/21/18 13:00 08/23/18 09:41 Flomax PO 0.4 mg QDAY DOMINIC Administration Nutrition/Malnutrition Assess - Dietary Evaluation Nutrition/Malnutrition Findings: Nutrition Notes Start: 08/19/18 13:37 Freq: Status: Active Protocol: Document 08/21/18 14:05 RM (Rec: 08/21/18 14:13 RM [id number]) Nutrition Notes Initial or Follow up Reassessment Current Diagnosis Respiratory Failure, Hyperlipidemia Other Pertinent Diagnosis LLL pneu, Developmental delay, Hx schizophrenia Current Diet Osmolite 1.5 at 55 ml/hr Labs/Tests Na 149 K 5 Pertinent Medications Lasix, Solumedrol, Propofol at 2.4ml/hr (provides 64 kcal) Height 5 ft 11 in Weight 74 kg [place] Body Weight (kg) 78.18 BMI 22.7 Subjective/Other Information Pt remains on vent. Observed Osmolite 1.5 infusing at goal rate. Per nurse pt is tolerating TF and MD ordered water flush increase to 300 ml to address hypernatremia. Percent of energy/protein needs met: 100%/88% Burn Absent Trauma Absent #1 Nutrition Diagnosis Inadequate oral intake Diagnosis Progress(for reassessment Continues documentation) Is patient on ventilator? Yes Is Patient Ambulatory and/or Out of Bed No REE-([facility]-confined to bed) [phone] Calculation Used for Recommendations [facility] Additional Notes Pro needs 1.2-2g/k-157g/ day Fluid needs 1ml/kcal Nutrition Intervention Nutrition Support: Osmolite 1.5 at 55ml/hr 300 ml water flush q4h until hypernatremia resolves. 150ml water flush q4h once hypernatremia resolves. Kcal 1,980 Protein (gm) 83 Carbohydrates (gm) 269 Fat (gm) 65 Fluid (mL) 1,006 Goal #1 TF tolerance Goal #2 TF (at goal rate) to continue to meet at least 80% energy and pro needs Anticipated Discharge Needs: Unable to determine at this time Follow-Up By: 08/24/18 Additional Comments Follow for TF tolerance, Na lab, K lab
[2018-08-24] MEDS ORDERED: LASIX IV ONE (08:00)
--- NOTE | 2018-08-24 08:03 | Progress Note ---
Assessment and Plan Acute respiratory failure secondary to bilateral pneumonia, now on MVS HAP present on admission Schizophrenia, Depression Developmental delay Leukocytosis -Lung protective strategies -Wean FIO2 , once at 50 % with acceptable PaO2, start weaning PEEP -CXR and ABG in am -VAP bundle addressed -Supplemental oxygen to keep O2 sats 88-90% -Bronchodilators -Short course of steroids -Diuresis, while monitoring hemodynamics, renal function and electrolyte profile -Accuchecks with glycemic control -Target blood glucose <180mg/dL -Enteral nutrition with aspiration precautions -Agitation management -Titrate sedation to RAAS 0 to -1 -Prevention of delirium, maintenance of sleep-wake cycle -Empiric antibiotic therapy for HAP/aspiration pneumonia -Will de-escalate therapy based on microbiology/SD/Cultures -Avoid nephrotoxic agents, adjust all antibiotics and medications for CrCL and GFR -VTE and Stress ulcer prophylaxis -Place a hernandez catheter, clinically appears to have a distended bladder. Bladder scan ordered Will daily assess the need for ongoing need for hernandez catheter -Follow up 2D echo results/report ID consult notes reviewed, appreciate input Discussed care with hospitalist service Dicussed with RT/RN CONDITION: CRITICAL PROGNOSIS: GUARDED CODE STATUS: FULL CODE The high probability of a clinically significant, sudden or life-threatening deterioration of the [respiratory] system(s) required my full and direct attention, intervention and personal management. The aggregate critical care time was [35] minutes without overlap. Time includes spent on; [x] Data Review and interpretation [x] Patient assessment and monitoring of vital signs [x] Documentation [x] Medication orders and management Subjective Date of service: 08/24/18 Principal diagnosis: B/L PNA Interval history: Patient is seen today for: Acute hypoxemic respiratory failure, multifocal pneumonia, sepsis Seen and examined at bedside; 24hour events reviewed; nursing and respiratory care staff consulted; no adverse overnight events reported to me; on going low grade fevers,Vitals, labs, medications, chart and imaging reviewed. Remains on mechanical ventilatory support, on PEEP 10 and FIO2 of 100% PaO2 of 90 No vasopressor support Objective Vital Signs - 12hr 08/23/18 08/23/18 08/23/18 20:30 21:00 21:15 Temperature Pulse Rate 86 81 Pulse Rate [ From Monitor] Pulse Rate [ Left Dorsalis Pedis] Pulse Rate [ Left Lower Lobe ] Pulse Rate [ Right Dorsalis Pedis] Pulse Rate [ Right Radial] Respiratory 9 L 9 L 0 L Rate Respiratory Rate [Left Lower Lobe] Blood Pressure 106/71 103/67 O2 Sat by Pulse 90 87 Oximetry 08/23/18 08/23/18 08/23/18 21:30 22:00 22:30 Temperature Pulse Rate 79 85 81 Pulse Rate [ From Monitor] Pulse Rate [ Left Dorsalis Pedis] Pulse Rate [ Left Lower Lobe ] Pulse Rate [ Right Dorsalis Pedis] Pulse Rate [ Right Radial] Respiratory 9 L 11 L 9 L Rate Respiratory Rate [Left Lower Lobe] Blood Pressure 107/65 100/59 89/50 O2 Sat by Pulse 88 94 89 Oximetry 08/23/18 08/23/18 08/23/18 23:00 23:16 23:30 Temperature Pulse Rate 82 86 80 Pulse Rate [ From Monitor] Pulse Rate [ Left Dorsalis Pedis] Pulse Rate [ Left Lower Lobe ] Pulse Rate [ Right Dorsalis Pedis] Pulse Rate [ Right Radial] Respiratory 10 L 8 L Rate Respiratory Rate [Left Lower Lobe] Blood Pressure 98/57 94/47 99/51 O2 Sat by Pulse 90 91 85 Oximetry 08/23/18 08/24/18 08/24/18 23:59 00:00 00:03 Temperature 99.6 F Pulse Rate 89 78 79 Pulse Rate [ 81 From Monitor] Pulse Rate [ 81 Left Dorsalis Pedis] Pulse Rate [ Left Lower Lobe ] Pulse Rate [ 81 Right Dorsalis Pedis] Pulse Rate [ 81 Right Radial] Respiratory 32 H 9 L 8 L Rate Respiratory Rate [Left Lower Lobe] Blood Pressure 93/55 93/55 O2 Sat by Pulse 92 87 86 Oximetry 08/24/18 08/24/18 08/24/18 00:30 01:00 01:30 Temperature Pulse Rate 79 76 80 Pulse Rate [ From Monitor] Pulse Rate [ Left Dorsalis Pedis] Pulse Rate [ 82 Left Lower Lobe ] Pulse Rate [ Right Dorsalis Pedis] Pulse Rate [ Right Radial] Respiratory 9 L 15 12 Rate Respiratory 25 H Rate [Left Lower Lobe] Blood Pressure 102/63 109/65 108/62 O2 Sat by Pulse 89 90 88 Oximetry 08/24/18 08/24/18 08/24/18 01:48 02:00 02:30 Temperature Pulse Rate 79 80 Pulse Rate [ From Monitor] Pulse Rate [ Left Dorsalis Pedis] Pulse Rate [ 94 H Left Lower Lobe ] Pulse Rate [ Right Dorsalis Pedis] Pulse Rate [ Right Radial] Respiratory 19 21 Rate Respiratory 26 H Rate [Left Lower Lobe] Blood Pressure 112/61 113/68 O2 Sat by Pulse 95 89 Oximetry 08/24/18 08/24/18 08/24/18 03:00 03:30 03:49 Temperature Pulse Rate 90 81 81 Pulse Rate [ From Monitor] Pulse Rate [ Left Dorsalis Pedis] Pulse Rate [ Left Lower Lobe ] Pulse Rate [ Right Dorsalis Pedis] Pulse Rate [ Right Radial] Respiratory 15 12 Rate Respiratory Rate [Left Lower Lobe] Blood Pressure 110/54 114/63 98/68 O2 Sat by Pulse 83 L 87 90 Oximetry 08/24/18 08/24/18 08/24/18 04:00 04:30 05:00 Temperature 99.5 F Pulse Rate 80 88 88 Pulse Rate [ 89 From Monitor] Pulse Rate [ 89 Left Dorsalis Pedis] Pulse Rate [ Left Lower Lobe ] Pulse Rate [ 89 Right Dorsalis Pedis] Pulse Rate [ 89 Right Radial] Respiratory 15 12 12 Rate Respiratory Rate [Left Lower Lobe] Blood Pressure 106/61 109/68 105/64 O2 Sat by Pulse 99 90 89 Oximetry 08/24/18 08/24/18 08/24/18 05:30 06:00 07:55 Temperature 100.4 F H Pulse Rate 84 85 Pulse Rate [ From Monitor] Pulse Rate [ Left Dorsalis Pedis] Pulse Rate [ Left Lower Lobe ] Pulse Rate [ Right Dorsalis Pedis] Pulse Rate [ Right Radial] Respiratory 12 17 Rate Respiratory Rate [Left Lower Lobe] Blood Pressure 107/64 109/62 O2 Sat by Pulse 89 88 Oximetry Constitutional: no acute distress, other (middle aged CM, normocephalic on MVS ) Eyes: non-icteric ENT: oropharynx moist, other (ETT 23 cm VENTURA) Neck: supple, no lymphadenopathy, other (no thyromegaly) Effort: mildly labored Ascultation: Bilateral: rales Percussion: Bilateral: not dull Cardiovascular: regular rate and rhythm, other (No R/M) Gastrointestinal: normoactive bowel sounds, soft, non-tender, non-distended Integumentary: normal Extremities: no cyanosis, no edema, pink and warm, pulses normal, no ischemia or petechiae Neurologic: pupils equal and round, unable to assess, other (sedated) Psychiatric: other (sedated) CBC and BMP: 08/24/18 05:13 08/24/18 05:13 ABG, PT/INR, D-dimer: ABG POC ABG pH 7.376 (7.35-7.45) 08/24/18 04:03 POC ABG pCO2 59.1 (35-45) H 08/24/18 04:03 POC ABG pO2 55 (80-105) L 08/24/18 04:03 POC ABG HCO3 34.7 (22-26 mml/L) 08/24/18 04:03 POC ABG Total CO2 36 (23-27mmol/L) 08/24/18 04:03 POC ABG O2 Sat 86 08/24/18 04:03 PT/INR, D-dimer PT 15.1 Sec. (12.2-14.9) H 08/14/18 16:43 INR 1.22 (0.87-1.13) H 08/14/18 16:43 Abnormal lab findings: Abnormal Labs 08/14/18 08/14/18 08/14/18 16:33 16:33 16:43 WBC RBC 3.38 L Hgb 9.9 L Hct 29.2 L RDW 17.3 H Lymph % (Auto) [place] % (Auto) Lymph # Seg Neutrophils % Seg Neuts % (Manual) 87.0 H Lymphocytes % (Manual) 6.0 L Seg Neutrophils # Man Lymphocytes # (Manual) 0.5 L PT INR POC ABG pH POC ABG pCO2 POC ABG pO2 Sodium Potassium 3.5 L Chloride Carbon Dioxide BUN Creatinine Glucose POC Glucose Lactic Acid AST Alkaline Phosphatase Total Creatine Kinase 204 H C-Reactive Protein Total Protein Albumin Vancomycin Trough 08/14/18 08/14/18 08/17/18 16:43 17:01 09:09 WBC RBC 3.12 L Hgb 9.0 L Hct 27.0 L RDW 17.0 H Lymph % (Auto) 7.1 L [place] % (Auto) 9.2 H Lymph # 0.5 L Seg Neutrophils % 82.7 H Seg Neuts % (Manual) Lymphocytes % (Manual) Seg Neutrophils # Man Lymphocytes # (Manual) PT 15.1 H INR 1.22 H POC ABG pH 7.468 H POC ABG pCO2 POC ABG pO2 57 L Sodium Potassium Chloride Carbon Dioxide BUN Creatinine Glucose POC Glucose Lactic Acid AST Alkaline Phosphatase Total Creatine Kinase C-Reactive Protein Total Protein Albumin Vancomycin Trough 08/17/18 08/17/18 08/17/18 09:09 11:30 23:21 WBC RBC Hgb Hct RDW Lymph % (Auto) [place] % (Auto) Lymph # Seg Neutrophils % Seg Neuts % (Manual) Lymphocytes % (Manual) Seg Neutrophils # Man Lymphocytes # (Manual) PT INR POC ABG pH 7.225 L POC ABG pCO2 54.6 H POC ABG pO2 50 L 110 H Sodium Potassium 3.5 L Chloride Carbon Dioxide 20 L BUN 7 L Creatinine Glucose 125 H POC Glucose Lactic Acid AST Alkaline Phosphatase Total Creatine Kinase C-Reactive Protein Total Protein 6.2 L Albumin 3.2 L Vancomycin Trough 08/18/18 08/18/18 08/18/18 04:49 13:06 13:50 WBC RBC Hgb Hct RDW Lymph % (Auto) [place] % (Auto) Lymph # Seg Neutrophils % Seg Neuts % (Manual) Lymphocytes % (Manual) Seg Neutrophils # Man Lymphocytes # (Manual) PT INR POC ABG pH POC ABG pCO2 POC ABG pO2 58 L Sodium Potassium Chloride Carbon Dioxide BUN Creatinine Glucose POC Glucose Lactic Acid AST Alkaline Phosphatase Total Creatine Kinase C-Reactive Protein 31.10 H Total Protein Albumin Vancomycin Trough 4.7 L 08/18/18 08/19/18 08/19/18 13:50 07:25 07:25 WBC 14.8 H 12.7 H RBC 3.46 L 3.32 L Hgb 10.1 L 9.5 L Hct 30.2 L 28.9 L RDW 17.6 H 17.7 H Lymph % (Auto) [place] % (Auto) Lymph # Seg Neutrophils % Seg Neuts % (Manual) 95.0 H 95.0 H Lymphocytes % (Manual) 3.0 L 5.0 L Seg Neutrophils # Man 14.1 H 12.1 H Lymphocytes # (Manual) 0.4 L 0.6 L PT INR POC ABG pH POC ABG pCO2 POC ABG pO2 Sodium Potassium Chloride Carbon Dioxide BUN 23 H Creatinine Glucose 139 H POC Glucose Lactic Acid AST 41 H Alkaline Phosphatase 149 H Total Creatine Kinase C-Reactive Protein Total Protein Albumin 3.0 L Vancomycin Trough 08/19/18 08/20/18 08/21/18 15:10 04:03 04:18 WBC RBC Hgb Hct RDW Lymph % (Auto) [place] % (Auto) Lymph # Seg Neutrophils % Seg Neuts % (Manual) Lymphocytes % (Manual) Seg Neutrophils # Man Lymphocytes # (Manual) PT INR POC ABG pH 7.346 L POC ABG pCO2 49.0 H 50.2 H 51.0 H POC ABG pO2 71 L 180 H 78 L Sodium Potassium Chloride Carbon Dioxide BUN Creatinine Glucose POC Glucose Lactic Acid AST Alkaline Phosphatase Total Creatine Kinase C-Reactive Protein Total Protein Albumin Vancomycin Trough 08/21/18 08/21/18 08/21/18 04:43 04:43 15:54 WBC 14.1 H RBC 3.02 L Hgb 8.5 L Hct 26.3 L RDW 17.9 H Lymph % (Auto) [place] % (Auto) Lymph # Seg Neutrophils % Seg Neuts % (Manual) 95.0 H Lymphocytes % (Manual) 3.0 L Seg Neutrophils # Man 13.4 H Lymphocytes # (Manual) 0.4 L PT INR POC ABG pH POC ABG pCO2 POC ABG pO2 Sodium 149 H Potassium Chloride 111.2 H Carbon Dioxide BUN 27 H Creatinine Glucose 164 H POC Glucose Lactic Acid AST Alkaline Phosphatase Total Creatine Kinase C-Reactive Protein 3.60 H Total Protein Albumin Vancomycin Trough 08/21/18 08/21/18 08/21/18 19:15 20:10 21:33 WBC RBC Hgb Hct RDW Lymph % (Auto) [place] % (Auto) Lymph # Seg Neutrophils % Seg Neuts % (Manual) Lymphocytes % (Manual) Seg Neutrophils # Man Lymphocytes # (Manual) PT INR POC ABG pH POC ABG pCO2 51.6 H POC ABG pO2 63 L Sodium Potassium Chloride Carbon Dioxide BUN Creatinine Glucose POC Glucose Lactic Acid 2.80 H* 2.20 H* AST Alkaline Phosphatase Total Creatine Kinase C-Reactive Protein Total Protein Albumin Vancomycin Trough 08/21/18 08/22/18 08/22/18 23:08 04:20 05:46 WBC RBC Hgb Hct RDW Lymph % (Auto) [place] % (Auto) Lymph # Seg Neutrophils % Seg Neuts % (Manual) Lymphocytes % (Manual) Seg Neutrophils # Man Lymphocytes # (Manual) PT INR POC ABG pH POC ABG pCO2 49.4 H POC ABG pO2 53 L Sodium Potassium Chloride Carbon Dioxide BUN Creatinine Glucose POC Glucose Lactic Acid 2.20 H* 2.10 H* AST Alkaline Phosphatase Total Creatine Kinase C-Reactive Protein Total Protein Albumin Vancomycin Trough 08/22/18 08/22/18 08/22/18 05:46 09:08 23:20 WBC RBC Hgb Hct RDW Lymph % (Auto) [place] % (Auto) Lymph # Seg Neutrophils % Seg Neuts % (Manual) Lymphocytes % (Manual) Seg Neutrophils # Man Lymphocytes # (Manual) PT INR POC ABG pH POC ABG pCO2 POC ABG pO2 Sodium 148 H Potassium Chloride Carbon Dioxide BUN 28 H Creatinine Glucose 155 H POC Glucose Lactic Acid 2.20 H* 2.20 H* AST Alkaline Phosphatase Total Creatine Kinase C-Reactive Protein Total Protein Albumin Vancomycin Trough 08/23/18 08/23/18 08/23/18 00:55 05:14 05:34 WBC 19.6 H RBC 3.02 L Hgb 8.5 L Hct 26.3 L RDW 18.2 H Lymph % (Auto) [place] % (Auto) Lymph # Seg Neutrophils % Seg Neuts % (Manual) 92.0 H Lymphocytes % (Manual) 1.0 L Seg Neutrophils # Man 18.0 H Lymphocytes # (Manual) 0.2 L PT INR POC ABG pH POC ABG pCO2 52.8 H POC ABG pO2 65 L Sodium Potassium Chloride Carbon Dioxide BUN Creatinine Glucose POC Glucose 183 H Lactic Acid AST Alkaline Phosphatase Total Creatine Kinase C-Reactive Protein Total Protein Albumin Vancomycin Trough 08/23/18 08/23/18 08/23/18 05:34 05:34 13:06 WBC RBC Hgb Hct RDW Lymph % (Auto) [place] % (Auto) Lymph # Seg Neutrophils % Seg Neuts % (Manual) Lymphocytes % (Manual) Seg Neutrophils # Man Lymphocytes # (Manual) PT INR POC ABG pH POC ABG pCO2 POC ABG pO2 Sodium 146 H Potassium Chloride Carbon Dioxide 33 H BUN 27 H Creatinine 0.7 L Glucose 158 H POC Glucose Lactic Acid 2.30 H* 2.70 H* AST Alkaline Phosphatase Total Creatine Kinase C-Reactive Protein 2.00 H Total Protein Albumin Vancomycin Trough 08/23/18 08/23/18 08/24/18 22:04 23:48 04:03 WBC RBC Hgb Hct RDW Lymph % (Auto) [place] % (Auto) Lymph # Seg Neutrophils % Seg Neuts % (Manual) Lymphocytes % (Manual) Seg Neutrophils # Man Lymphocytes # (Manual) PT INR POC ABG pH POC ABG pCO2 59.1 H POC ABG pO2 55 L Sodium Potassium Chloride Carbon Dioxide BUN Creatinine Glucose POC Glucose Lactic Acid 2.50 H* 2.20 H* AST Alkaline Phosphatase Total Creatine Kinase C-Reactive Protein Total Protein Albumin Vancomycin Trough 08/24/18 08/24/18 08/24/18 05:13 05:13 05:13 WBC 26.2 H RBC 3.03 L Hgb 8.6 L Hct 26.6 L RDW 18.4 H Lymph % (Auto) [place] % (Auto) Lymph # Seg Neutrophils % Seg Neuts % (Manual) Lymphocytes % (Manual) Seg Neutrophils # Man Lymphocytes # (Manual) PT INR POC ABG pH POC ABG pCO2 POC ABG pO2 Sodium Potassium Chloride Carbon Dioxide 34 H BUN 27 H Creatinine Glucose 176 H POC Glucose Lactic Acid 2.40 H* AST 67 H Alkaline Phosphatase 143 H Total Creatine Kinase C-Reactive Protein Total Protein 5.7 L Albumin 3.2 L Vancomycin Trough Chest x-ray: image reviewed (Bilateral alveolar infiltrates with pleural effusions) Allied health notes reviewed: RT (adjust FIO2 for worsening hypoxemia)
[2018-08-24] MEDS: PEPCID PO SCH ×2 (10:17→22:29)
[2018-08-24] MEDS: ZYLOPRIM PO SCH (10:17)
[2018-08-24] MEDS: RisperDAL PO SCH (10:17)
[2018-08-24] MEDS: LOVENOX SUB-Q SCH (10:17)
[2018-08-24] MEDS: SODIUM CHLORIDE FLUSH SYRINGE 10 ML IV SCH (10:18)
[2018-08-24] MEDS: FLOMAX PO SCH (10:18)
[2018-08-24] MEDS: WELLBUTRIN XL PO SCH (10:18)
[2018-08-24] MEDS: ROCEPHIN/NS 2 GM/100 ML 2 GM/100 ML BAG IV SCH (10:20)
--- NOTE | 2018-08-24 10:50 | Progress Note ---
Assessment and Plan Cultures: 08/14/2018 Blood culture: No growth 08/18/2018 resp culture: normal resp aminata. A/P: 52-year-old male with history of developmental delay, schizophrenia, recently discharged from a psychiatric facility for suicidal ideation now with: 1) Acute respiratory failure secondary to bilateral pneumonia: Cover for HCAP given recent hospitalization to psych facility. Cultures growing normal resp f clay, so abx de-escalated to Ceftriaxone and Doxycycline. Intubated, sedated. High O2 requirements, ?ARDS. 2) Schizophrenia, Depression: Patient is on risperidone, olanzapine, Haldol. Also on Wellbutrin and fluoxetine. At risk of QT prolongation especially with levofloxacin. 3) PCN allergy: unknown, at least >10 years history per his caregiver at the bedside. Low risk of cross reactivity with Cephalosporins. Tolerating Cefepime and Ceftriaxone well. 4) Persistent lactate elevation: check CMP tomorrow. 5) Leucocytosis: worsening, unexplained by steroids. agree with CT chest. Would also obtain RUQ US to evaluate elevated LFTs. Recs: Leucocytosis worsening, persistent lactate elevation. Agree with CT chest. Would also obtain RUQ US to evaluate elevated LFTs (order placed) continue IV Ceftriaxone 2 gm q24 hrs continue Doxycycline for atypical coverage (avoiding Azithromycin and Levofloxacin due to risk of QT prolongation) f/u Pneumococcal and Legionella Ur Ag Will follow along. Please call with questions. Levi Luna MD, FACP [facility] C: [phone] O: [phone] F: [phone] Subjective Date of service: 08/24/18 Principal diagnosis: B/L PNA Interval history: Remains on the vent. Low grade fevers. Tolerating tube feeds. Planned for CT chest per RN. Continues with high O2 requirements. Objective - Exam Narrative Exam: Physical Exam: Constitutional: sedated, intubated Head, Ears, Nose: Normocephalic, atraumatic. External ears, nose normal Eyes: Conjunctivae/corneas clear. No icterus. No ptosis. Neck: Supple, no meningeal signs Oral: intubated Cardiovascular: S1, S2 normal, no murmur heard Respiratory: Good air entry, clear to auscultation bilaterally GI: Soft, non-tender; bowel sounds normal. No peritoneal signs Musculoskeletal: trace pedal edema, no cyanosis. Skin: No rash or abscess. Hem/Lymphatic: No palpable cervical or supraclavicular nodes. No lymphangitis Psych: sedated Neurological: sedated, intubated, on vent - Constitutional Vitals: Vital Signs Temp Pulse Resp BP Pulse Ox 100.4 F H 92 H 35 H 103/65 93 08/24/18 07:55 08/24/18 08:38 08/24/18 08:38 08/24/18 08:22 08/24/18 08:22 Temperature -Last 24 Hours Temperature 100.4 F Temperature 99.5 F Temperature 99.6 F Temperature 99.4 F Temperature 99.7 F Temperature 99.3 F - Labs CBC & Chem 7: 08/24/18 05:13 08/24/18 05:13 Labs: Abnormal lab results 08/23/18 08/23/18 08/23/18 Range/Units 13:06 22:04 23:48 WBC (4.5-11.0) K/mm3 RBC (3.65-5.03) M/mm3 Hgb (11.8-15.2) gm/dl Hct (35.5-45.6) % RDW (13.2-15.2) % POC ABG pCO2 (35-45) POC ABG pO2 (80-105) Carbon Dioxide (22-30) mmol/L BUN (9-20) mg/dL Glucose (75-100) mg/dL Lactic Acid 2.70 H* 2.50 H* 2.20 H* (0.7-2.0) mmol/L AST (5-40) units/L Alkaline Phosphatase (35-129) units/L Total Protein (6.3-8.2) g/dL Albumin (3.9-5) g/dL 08/24/18 08/24/18 08/24/18 Range/Units 04:03 05:13 05:13 WBC 26.2 H (4.5-11.0) K/mm3 RBC 3.03 L (3.65-5.03) M/mm3 Hgb 8.6 L (11.8-15.2) gm/dl Hct 26.6 L (35.5-45.6) % RDW 18.4 H (13.2-15.2) % POC ABG pCO2 59.1 H (35-45) POC ABG pO2 55 L (80-105) Carbon Dioxide 34 H (22-30) mmol/L BUN 27 H (9-20) mg/dL Glucose 176 H (75-100) mg/dL Lactic Acid (0.7-2.0) mmol/L AST 67 H (5-40) units/L Alkaline Phosphatase 143 H (35-129) units/L Total Protein 5.7 L (6.3-8.2) g/dL Albumin 3.2 L (3.9-5) g/dL 08/24/18 Range/Units 05:13 WBC (4.5-11.0) K/mm3 RBC (3.65-5.03) M/mm3 Hgb (11.8-15.2) gm/dl Hct (35.5-45.6) % RDW (13.2-15.2) % POC ABG pCO2 (35-45) POC ABG pO2 (80-105) Carbon Dioxide (22-30) mmol/L BUN (9-20) mg/dL Glucose (75-100) mg/dL Lactic Acid 2.40 H* (0.7-2.0) mmol/L AST (5-40) units/L Alkaline Phosphatase (35-129) units/L Total Protein (6.3-8.2) g/dL Albumin (3.9-5) g/dL - Imaging and cardiology Chest x-ray: report reviewed, image reviewed (worsening bilateral infiltrates)
[2018-08-24] MEDS: PROzac PO SCH (11:54)
[2018-08-24] MEDS: COLACE FEEDTUBE SCH ×2 (11:55→22:30)
[2018-08-24] MEDS: DIPRIVAN 10 MG/ML 1,000 MG/100 ML BOTTLE IV SCH (13:03)
--- NOTE | 2018-08-24 14:36 | Cat Scan Report ---
. CT chest wo con INDICATION: Worsening hypoxia, effusions. TECHNIQUE: All CT scans at this location are performed using the following dose modulation technique: Automated exposure control. Helical slices were obtained through the chest. No contrast is administered. COMPARISON: Chest radiograph performed earlier today FINDINGS: Chest: There is airspace consolidation with diffuse groundglass parenchymal opacities throughout both lungs. This likely represents diffuse edema. I cannot exclude the possibility of pneumonia with supe rimposed edema. There is mediastinal adenopathy enlarged subcarinal paratracheal nodes bilaterally. The heart is enla rged. Tracheal tube appears in satisfactory impression radiographically. The aorta is normal. On review of bone windows, no acute osseous abnormalities are seen. IMPRESSION: 1. There is airspace consolidation in the mid and lower lung zones with diffuse groundglass parenchym al opacities bilaterally. This likely represents diffuse severe pulmonary edema. The possibility of p neumonia with superimposed edema is considered. There is mediastinal adenopathy. The heart is mildly enlarged. Signer Name: Zachary Cortes MD Signed: 08/24/2018 2:32 PM Workstation Name: [id number]
--- NOTE | 2018-08-24 19:50 | Ultrasound Report ---
ULTRASOUND ABDOMEN, LIMITED (RIGHT UPPER QUADRANT) INDICATION: Sepsis, Elevated LFTs, hepatobiliary source. COMPARISON: None available. FINDINGS: Pancreas: Visualized portion shows no significant abnormality. Liver: Normal. Gallbladder: Normal. Bile ducts: Normal. Common Bile Duct measures 3.3 mm. Free fluid: None. Additional Findings: None. IMPRESSION: 1. No sonographic abnormality of the right upper quadrant. Signer Name: Zachary Cortes MD Signed: 08/24/2018 7:45 PM Workstation Name: [id number]
[2018-08-24] MEDS: ATIVAN PO SCH (22:30)
[2018-08-24] MEDS: PRAVACHOL PO SCH (22:30)
[2018-08-24] MEDS: BENADRYL PO SCH (22:36)
--- NOTE | 2018-08-25 03:14 | XRay Report ---
CHEST 1 VIEW INDICATION / CLINICAL INFORMATION: follow up respiratory failure. COMPARISON: 08/24/2018 FINDINGS: SUPPORT DEVICES: Tubes and lines remain in stable and satisfactory position. PICC line has been place d in the interim with tip projecting within the lower right atrium. HEART / MEDIASTINUM: Mildly enlarged, stable. LUNGS / PLEURA: Diffuse bilateral parenchymal disease is again noted without significant interval mikael nge. No pneumothorax. ADDITIONAL FINDINGS: No significant additional findings. IMPRESSION: 1. Stable appearance of diffuse bilateral parenchymal disease. 2. Tip of the PICC line is projecting within the right atrium. Signer Name: Altagracia Bergeron MD Signed: 08/25/2018 3:09 AM Workstation Name: [email or web address]
[2018-08-25] MEDS: fentaNYL DRIP Premix 2,000 MCG/100 ML BAG IV SCH ×3 (04:50→16:57)
[2018-08-25] MEDS: DOXYCYCLINE HYCLATE 100 MG in NACL 0.9% 250ML 250 ML IV SCH (05:11)
[2018-08-25 07:08] LABS: Hematocrit 26.3 % (35.5-45.6); Hemoglobin 8.4 gm/dl (11.8-15.2); Mean Corpuscular HGB Conc 32 % (32-34); Mean Corpuscular Volume 89 fl (84-94); Platelet Count 190 K/mm3 (140-440); Red Blood Count 2.98 M/mm3 (3.65-5.03); Red Cell Distribution Width 18.7 % (13.2-15.2)
[2018-08-25 07:14] LABS: BUN/Creatinine Ratio 40; Blood Urea Nitrogen 32 mg/dL (9-20); Calcium 8.6 mg/dL (8.4-10.2); Hemolysis Index 0
[2018-08-25] MEDS: DUONEB *Not for PRN Use IH SCH ×4 (08:19→19:47)
--- NOTE | 2018-08-25 08:48 | Progress Note ---
Assessment and Plan Assessment and plan: Patient is 52-year-old male with PMHx of developmental delay, schizophrenia, and depression with recent h/o SI presented to the ER with complaints of shortness of breath and cough 1 day. Patient O2 sat was noted to be 86% and improve after application of oxygen via n/c. Pt denies a history of COPD but admits to history of smoking. In the ER, pt had a chest x-ray that showed multifocal bilateral air space disease suspicious for pneumonia. Following admission Overnight went into resp distress and transferred to ICU for Intesive care On BIPAP. He then eventually intubated on 08/19. and is still intubated Acute Respiratory failure with hypoxia s/p intubated 08/19/18 cont Duonebs IV Solumedrol and IV abx Bilateral pneumonia, Cont Abx, follow cx, ID consulted,following On Ceftriaxone and Doxycycline Cover for HCAP given recent hospitalization to psych facility. Leukocytosis, Monitor Anemia Anemia w/u ordered Hypokalemia, Resolved Schizophrenia, on Zyprexa Depression, on antidepressants Gout , Cont Allopurinol HLD (hyperlipidemia), Cont statins DVT prophylaxis: On Lovenox GI Prophylaxis:Pepcid History Interval history: Still intubated, sedated Fever Hospitalist Physical - Physical exam Narrative exam: Gen: Not in acute distress, intubated, sedated HEENT: Normocephalic, atraumatic Neck: supple, no JVD Heart: S1 and S2 reg, no murmurs, rubs or gallop Lungs: Bilateral rhonchi, Abd: soft, non tender, non distended, normal BS Ext: No edema, no clubbing, no cyanosis, Neuro: Sedated, intubated - Constitutional Vitals: Temp Pulse Resp BP Pulse Ox 100.8 F H 106 H 30 H 103/56 91 08/25/18 04:24 08/25/18 08:29 08/25/18 08:29 08/25/18 08:03 08/25/18 08:03 General appearance: Present: no acute distress Results - Labs CBC & Chem 7: 08/25/18 05:00 08/25/18 05:00 Labs: Laboratory Last Values WBC 28.4 K/mm3 (4.5-11.0) H 08/25/18 05:00 RBC 2.98 M/mm3 (3.65-5.03) L 08/25/18 05:00 Hgb 8.4 gm/dl (11.8-15.2) L 08/25/18 05:00 Hct 26.3 % (35.5-45.6) L 08/25/18 05:00 MCV 89 fl (84-94) 08/25/18 05:00 MCH 28 pg (28-32) 08/25/18 05:00 MCHC 32 % (32-34) 08/25/18 05:00 RDW 18.7 % (13.2-15.2) H 08/25/18 05:00 Plt Count 190 K/mm3 (140-440) 08/25/18 05:00 Lymph % (Auto) Train System Operator 08/18/18 13:50 [place] % (Auto) 9.2 % (0.0-7.3) H 08/17/18 09:09 Eos % (Auto) 0.8 % (0.0-4.3) 08/17/18 09:09 Baso % (Auto) 0.2 % (0.0-1.8) 08/17/18 09:09 Lymph # Train System Operator 08/18/18 13:50 [place] # 0.7 K/mm3 (0.0-0.8) 08/17/18 09:09 Eos # 0.1 K/mm3 (0.0-0.4) 08/17/18 09:09 Baso # 0.0 K/mm3 (0.0-0.1) 08/17/18 09:09 Add Manual Diff Complete 08/23/18 05:34 Total Counted 100 08/23/18 05:34 Seg Neutrophils % Train System Operator 08/21/18 04:43 Seg Neuts % (Manual) 92.0 % (40.0-70.0) H 08/23/18 05:34 0 % 08/23/18 05:34 1.0 % (13.4-35.0) L 08/23/18 05:34 Reactive Lymphs % (Man) 0 % 08/23/18 05:34 3.0 % (0.0-7.3) 08/23/18 05:34 0 % (0.0-4.3) 08/23/18 05:34 0 % (0.0-1.8) 08/23/18 05:34 4.0 % 08/23/18 05:34 0 % 08/23/18 05:34 0 % 08/23/18 05:34 0 % 08/23/18 05:34 Nucleated RBC % Not Reportable 08/23/18 05:34 Seg Neutrophils # 6.3 K/mm3 (1.8-7.7) 08/17/18 09:09 Seg Neutrophils # Man 18.0 K/mm3 (1.8-7.7) H 08/23/18 05:34 Band Neutrophils # 0.0 K/mm3 08/23/18 05:34 0.2 K/mm3 (1.2-5.4) L 08/23/18 05:34 Abs React Lymphs (Man) 0.0 K/mm3 08/23/18 05:34 0.6 K/mm3 (0.0-0.8) 08/23/18 05:34 0.0 K/mm3 (0.0-0.4) 08/23/18 05:34 0.0 K/mm3 (0.0-0.1) 08/23/18 05:34 0.8 K/mm3 08/23/18 05:34 0.0 K/mm3 08/23/18 05:34 0.0 K/mm3 08/23/18 05:34 Blast Cells # 0.0 K/mm3 08/23/18 05:34 WBC Morphology Not Reportable 08/23/18 05:34 Hypersegmented Neuts Not Reportable 08/23/18 05:34 Hyposegmented Neuts Not Reportable 08/23/18 05:34 Hypogranular Neuts Not Reportable 08/23/18 05:34 Not Reportable 08/23/18 05:34 Not Reportable 08/23/18 05:34 Not Reportable 08/23/18 05:34 Not Reportable 08/23/18 05:34 Not Reportable 08/23/18 05:34 Not Reportable 08/23/18 05:34 Consistent w auto 08/23/18 05:34 Not Reportable 08/23/18 05:34 Plt Clumps, EDTA Not Reportable 08/23/18 05:34 Not Reportable 08/23/18 05:34 Not Reportable 08/23/18 05:34 Not Reportable 08/23/18 05:34 Plt Morphology Comment Not Reportable 08/23/18 05:34 RBC Morphology Not Reportable 08/23/18 05:34 Dimorphic RBCs Not Reportable 08/23/18 05:34 Not Reportable 08/23/18 05:34 Not Reportable 08/23/18 05:34 Not Reportable 08/23/18 05:34 Few 08/23/18 05:34 Not Reportable 08/23/18 05:34 Not Reportable 08/23/18 05:34 Not Reportable 08/23/18 05:34 Not Reportable 08/23/18 05:34 Not Reportable 08/23/18 05:34 Not Reportable 08/23/18 05:34 Not Reportable 08/23/18 05:34 Not Reportable 08/23/18 05:34 Few 08/21/18 04:43 Not Reportable 08/23/18 05:34 Not Reportable 08/23/18 05:34 Not Reportable 08/23/18 05:34 Not Reportable 08/23/18 05:34 Not Reportable 08/23/18 05:34 Not Reportable 08/23/18 05:34 Not Reportable 08/23/18 05:34 Acanthocytes (Spur) Not Reportable 08/23/18 05:34 Rouleaux Not Reportable 08/23/18 05:34 Not Reportable 08/23/18 05:34 Not Reportable 08/23/18 05:34 Not Reportable 08/23/18 05:34 Not Reportable 08/23/18 05:34 Hem Pathologist Commnt No 08/23/18 05:34 PT 15.1 Sec. (12.2-14.9) H 08/14/18 16:43 INR 1.22 (0.87-1.13) H 08/14/18 16:43 APTT 31.2 Sec. (24.2-36.6) 08/14/18 16:43 POC ABG pH 7.412 (7.35-7.45) 08/25/18 04:20 POC ABG pCO2 59.9 (35-45) H 08/25/18 04:20 POC ABG pO2 62 (80-105) L 08/25/18 04:20 POC ABG HCO3 38.1 (22-26 mml/L) 08/25/18 04:20 POC ABG Total CO2 40 (23-27mmol/L) 08/25/18 04:20 POC ABG O2 Sat 91 08/25/18 04:20 POC ABG Base Excess 14 ((-2) - (+3)mmol/L) 08/25/18 04:20 90 % 08/25/18 04:20 Sodium 145 mmol/L (137-145) 08/25/18 05:00 Potassium 4.2 mmol/L (3.6-5.0) 08/25/18 05:00 Chloride 98.6 mmol/L (98-107) 08/25/18 05:00 Carbon Dioxide 37 mmol/L (22-30) H 08/25/18 05:00 14 mmol/L 08/25/18 05:00 BUN 32 mg/dL (9-20) H 08/25/18 05:00 0.8 mg/dL (0.8-1.5) 08/25/18 05:00 Estimated GFR > 60 ml/min 08/25/18 05:00 40 % 08/25/18 05:00 Glucose 147 mg/dL (75-100) H 08/25/18 05:00 POC Glucose 183 (70-105) H 08/23/18 00:55 Lactic Acid 1.70 mmol/L (0.7-2.0) 08/24/18 17:33 Calcium 8.6 mg/dL (8.4-10.2) 08/25/18 05:00 Phosphorus 3.80 mg/dL (2.5-4.5) 08/18/18 13:50 Magnesium 2.00 mg/dL (1.7-2.3) 08/18/18 13:50 0.20 mg/dL (0.1-1.2) 08/24/18 05:13 AST 67 units/L (5-40) H 08/24/18 05:13 ALT 49 units/L (7-56) 08/24/18 05:13 143 units/L (35-129) H 08/24/18 05:13 204 units/L (55-170) H 08/14/18 16:33 CK-MB (CK-2) 1.9 ng/mL (0.0-4.0) 08/14/18 16:33 CK-MB (CK-2) Rel Index 0.9 (0-4) 08/14/18 16:33 < 0.010 ng/mL (0.00-0.029) 08/14/18 16:33 2.00 mg/dL (0.00-1.30) H 08/23/18 05:34 NT-Pro-B Natriuret Pep 199.0 pg/mL (0-900) 08/14/18 16:33 5.7 g/dL (6.3-8.2) L 08/24/18 05:13 3.2 g/dL (3.9-5) L 08/24/18 05:13 1.3 % 08/24/18 05:13 Vancomycin Trough 19.3 ug/mL (5.0-20.0) 08/21/18 15:46 Presumptive negative 08/14/18 Unknown Presumptive negative 08/14/18 Unknown Ur Barbiturates Screen Presumptive negative 08/14/18 Unknown Ur Phencyclidine Scrn Presumptive negative 08/14/18 Unknown Ur Amphetamines Screen Presumptive negative 08/14/18 Unknown U Benzodiazepines Scrn Presumptive negative 08/14/18 Unknown Presumptive negative 08/14/18 Unknown U Marijuana (THC) Screen Presumptive negative 08/14/18 Unknown Disclamer 08/14/18 Unknown Urine Legionella Ag Not detected (Not Detected) 08/20/18 Unknown Active Medications - Current Medications Current Medications: Generic Name Dose Route Start Last Admin Trade Name Freq PRN Reason Stop Dose Admin Acetaminophen 650 mg 08/14/18 22:29 08/15/18 10:06 Tylenol PO 650 mg Q4H PRN Administration Pain MILD(1-3)/Fever >100.5/LOCO Albuterol 2.5 mg 08/19/18 07:17 Proventil IH Q4HRT PRN Shortness Of Breath Albuterol/Ipratropium 1 ampul 08/16/18 16:00 08/25/18 08:19 Duoneb *Not For Prn Use* IH 1 ampul QIDRT DOMINIC Administration Allopurinol 100 mg 08/16/18 13:00 08/24/18 10:17 Zyloprim PO 100 mg QDAY DOMINIC Administration Lipase/Protease/Amylase 1 each 08/19/18 13:[address] 10,500 Unit FEEDTUBE PRN PRN For Clogged Feeding Tube Bupropion HCl 150 mg 08/17/18 10:00 08/24/18 10:18 Wellbutrin Xl PO 150 mg QAM DOMINIC Administration Diphenhydramine HCl 100 mg 08/16/18 22:00 08/24/18 22:36 Benadryl PO 100 mg QHS DOMINIC Administration Docusate Sodium 100 mg 08/23/18 12:00 08/24/18 22:30 Colace FEEDTUBE 100 mg BID DOMINIC Administration Enoxaparin Sodium 40 mg 08/15/18 10:00 08/24/18 10:17 Lovenox SUB-Q 40 mg QDAY@1000 DOMINIC Administration Famotidine 20 mg 08/15/18 10:00 08/24/18 22:29 Pepcid PO 20 mg BID DOMINIC Administration Fentanyl 50 mcg 08/19/18 12:01 Sublimaze IV Q10MIN PRN ANALGESIA Fluoxetine HCl 20 mg 08/17/18 12:00 08/24/18 11:54 Prozac PO 20 mg DAILY@1200 DOMINIC Administration Hydrocodone Bit/Homatropine Methylb 10 ml 08/18/18 13:09 08/18/18 13:35 Hydromet PO 10 ml Q6H PRN Administration Cough Hydrophilic Ointment 1 applic 08/19/18 12:01 Vaseline Lip Therapy TP Q2HR PRN Dry Lips Sodium Chloride 1,000 mls @ 50 mls/hr 08/15/18 06:00 08/21/18 02:45 Nacl 0.9% 1000 Ml IV 50 mls/hr DIRECT DOMINIC Administration Fentanyl Citrate 2,000 mcg in 100 mls @ 3.935 mls/hr 08/19/18 13:00 08/25/18 04:50 Fentanyl Drip Premix IV 2 mcg/kg/hr TITR DOMINIC 7.87 mls/hr Administration Protocol 1 MCG/KG/HR Propofol 1,000 mg in 100 mls @ 2.361 mls/hr 08/19/18 13:00 08/24/18 15:30 Diprivan 10 Mg/Ml IV 0 mcg/kg/min TITR DOMINIC 0 mls/hr Titration Protocol 5 MCG/KG/MIN Doxycycline Hyclate 100 mg/ 250 mls @ 250 mls/hr 08/19/18 16:30 08/25/18 05:11 Sodium Chloride IV 250 mls/hr Q12H DOMINIC Administration Protocol Ceftriaxone Sodium 2 gm in 100 mls @ 200 mls/hr 08/21/18 12:30 08/24/18 10:20 Rocephin/Ns 2 Gm/100 Ml IV 200 mls/hr Q24HR DOMINIC Administration Protocol Lorazepam 2 mg 08/16/18 22:00 08/24/18 22:30 Ativan PO 2 mg QHS DOMINIC Administration Magnesium Hydroxide 30 ml 08/14/18 22:35 Milk Of Magnesia PO Q4H PRN Constipation Multi-Ingred Cream/Lotion/Oil/Oint 1 applic 08/19/18 12:01 Artificial Tears Ophth Oint OU Q4HR PRN Dry Eye(s) Olanzapine 20 mg 08/16/18 22:00 08/24/18 22:30 Zyprexa PO 20 mg QHS DOMINIC Administration Ondansetron HCl 4 mg 08/14/18 22:29 Zofran IV Q8H PRN Nausea And Vomiting Pravastatin Sodium 40 mg 08/16/18 22:00 08/24/18 22:30 Pravachol PO 40 mg QHS DOMINIC Administration Risperidone 2 mg 08/17/18 10:00 08/24/18 10:17 Risperdal PO 2 mg QAM DOMINIC Administration Simple Syrup 15 ml 08/19/18 13:43 Simple Syrup FEEDTUBE PRN PRN Hypoglycemia Simple Syrup 30 ml 08/19/18 13:43 Simple Syrup FEEDTUBE PRN PRN Hypoglycemia Sodium Bicarbonate 325 mg 08/19/18 13:43 Sodium Bicarbonate FEEDTUBE PRN PRN For Clogged Feeding Tube Sodium Chloride 10 ml 08/15/18 10:00 08/24/18 10:18 Sodium Chloride Flush Syringe 10 Ml IV 10 ml BID DOMINIC Administration Sodium Chloride 10 ml 08/14/18 22:29 Sodium Chloride Flush Syringe 10 Ml IV PRN PRN LINE FLUSH Tamsulosin HCl 0.4 mg 08/21/18 13:00 08/24/18 10:18 Flomax PO 0.4 mg QDAY DOMINIC Administration Nutrition/Malnutrition Assess - Dietary Evaluation Nutrition/Malnutrition Findings: Nutrition Notes Start: 08/19/18 13:37 Freq: Status: Active Protocol: Document 08/24/18 15:31 RM (Rec: 08/24/18 15:38 RM [id number]) Nutrition Notes Initial or Follow up Reassessment Current Diagnosis Respiratory Failure, Hyperlipidemia Other Pertinent Diagnosis LLL pneu, Developmental delay, Hx schizophrenia Current Diet Osmolite 1.5 at 55 ml/hr Labs/Tests K 5 Na 144 Pertinent Medications Lasix, Propofol at 9.4ml/hr ( provides 248 kcal) Height 5 ft 11 in Weight 78.2 kg [place] Body Weight (kg) 78.18 BMI 24.0 Subjective/Other Information Observed Osmolite hanging w/ pump off. Per nurse TF was turned off for ultra sound. Per nurse note pt was tolerating TF prior to being turned off. Percent of energy/protein needs met: 100%/88% Burn Absent Trauma Absent #1 Nutrition Diagnosis Inadequate oral intake Diagnosis Progress(for reassessment Continues documentation) Is patient on ventilator? Yes Is Patient Ambulatory and/or Out of Bed No REE-([facility]-confined to bed) 1977.192 Calculation Used for Recommendations [facility] Additional Notes Pro needs 1.2-2g/k-157g/ day Fluid needs 1ml/kcal Nutrition Intervention Nutrition Support: Osmolite 1.5 at 55ml/hr 150ml water flush q4h. Kcal 1,980 Protein (gm) 83 Carbohydrates (gm) 269 Fat (gm) 65 Fluid (mL) 1,006 Goal #1 TF tolerance Goal #2 TF (at goal rate) to continue to meet at least 80% energy and pro needs Anticipated Discharge Needs: Unable to determine at this time Follow-Up By: 08/27/18 Additional Comments Follow for TF tolerance, K lab
[2018-08-25] MEDS: SODIUM CHLORIDE FLUSH SYRINGE 10 ML IV SCH ×3 (10:31→21:51)
[2018-08-25] MEDS: PEPCID PO SCH ×2 (10:32→21:49)
[2018-08-25] MEDS: RisperDAL PO SCH (10:32)
[2018-08-25] MEDS: COLACE FEEDTUBE SCH ×2 (10:32→21:48)
[2018-08-25] MEDS: WELLBUTRIN XL PO SCH (10:32)
[2018-08-25] MEDS: ZYLOPRIM PO SCH (10:32)
[2018-08-25] MEDS: FLOMAX PO SCH (10:32)
[2018-08-25] MEDS: LOVENOX SUB-Q SCH (10:32)
[2018-08-25] MEDS: ROCEPHIN/NS 2 GM/100 ML 2 GM/100 ML BAG IV SCH (10:32)
[2018-08-25] MEDS ORDERED: LEVOPHED DRIP 4 MG/NS 250 ML 4 MG/250 ML BAG IV ONE (11:22)
--- NOTE | 2018-08-25 11:27 | Progress Note ---
Assessment and Plan Cultures: 08/14/2018 Blood culture: No growth 08/18/2018 resp culture: normal resp aminata Legionella Ag: negative A/P: 52-year-old male with history of developmental delay, schizophrenia, recently discharged from a psychiatric facility for suicidal ideation now with: 1) Acute respiratory failure secondary to bilateral pneumonia: worsening. Cultures growing normal resp aminata. Intubated, sedated. High O2 requirements, ?ARDS. 2) Schizophrenia, Depression: Patient is on risperidone, olanzapine, Haldol. Also on Wellbutrin and fluoxetine. At risk of QT prolongation especially with levofloxacin. 3) PCN allergy: unknown, at least >10 years history per his caregiver at the bedside. Low risk of cross reactivity with Cephalosporins. Tolerating Cefepime and Ceftriaxone well. 4) Leucocytosis: worsening, unexplained by steroids. RUQ US negative for hepatobiliary source. CT chest with worsening pneumonia. Recs: Leucocytosis worsening, will switch to IV Cefepime, Flagyl and Vancomycin Consider bronchoscopy with BAL, d/w Dr. Teran. BAL for routine cultures, AFB and fungal Will also order HIV test Levi Luna MD, FACP [facility] C: [phone] O: [phone] F: [phone] Subjective Date of service: 08/25/18 Principal diagnosis: B/L PNA Interval history: Low grade fevers continue. WBC increasing. Continues with high vent requirements. Objective - Exam Narrative Exam: Physical Exam: Constitutional: sedated, intubated Head, Ears, Nose: Normocephalic, atraumatic. External ears, nose normal Eyes: Conjunctivae/corneas clear. No icterus. No ptosis. Neck: Supple, no meningeal signs Oral: intubated Cardiovascular: S1, S2 normal, no murmur heard Respiratory: coarse sounds bilaterally GI: Soft, non-tender; bowel sounds normal. No peritoneal signs Musculoskeletal: trace pedal edema, no cyanosis. Skin: No rash or abscess. Hem/Lymphatic: No palpable cervical or supraclavicular nodes. No lymphangitis Psych: sedated Neurological: sedated, intubated, on vent - Constitutional Vitals: Vital Signs Temp Pulse Resp BP Pulse Ox 99.6 F 102 H 16 101/61 92 08/25/18 08:00 08/25/18 09:04 08/25/18 09:00 08/25/18 09:04 08/25/18 09:04 Temperature -Last 24 Hours Temperature 99.6 F Temperature 100.8 F Temperature 100.9 F Temperature 98.3 F Temperature 98.3 F Temperature 99.7 F Temperature 99.7 F Temperature 99.5 F Temperature 98.6 F - Labs CBC & Chem 7: 08/25/18 05:00 08/25/18 05:00 Labs: Abnormal lab results 08/24/18 08/25/18 08/25/18 Range/Units 11:05 04:20 05:00 WBC 28.4 H (4.5-11.0) K/mm3 RBC 2.98 L (3.65-5.03) M/mm3 Hgb 8.4 L (11.8-15.2) gm/dl Hct 26.3 L (35.5-45.6) % RDW 18.7 H (13.2-15.2) % POC ABG pCO2 59.9 H (35-45) POC ABG pO2 62 L (80-105) Carbon Dioxide (22-30) mmol/L BUN (9-20) mg/dL Glucose (75-100) mg/dL Lactic Acid 2.10 H* (0.7-2.0) mmol/L 08/25/18 Range/Units 05:00 WBC (4.5-11.0) K/mm3 RBC (3.65-5.03) M/mm3 Hgb (11.8-15.2) gm/dl Hct (35.5-45.6) % RDW (13.2-15.2) % POC ABG pCO2 (35-45) POC ABG pO2 (80-105) Carbon Dioxide 37 H (22-30) mmol/L BUN 32 H (9-20) mg/dL Glucose 147 H (75-100) mg/dL Lactic Acid (0.7-2.0) mmol/L - Imaging and cardiology Chest x-ray: report reviewed, image reviewed (b/l pneumonia / ARDS picture) CT scan - chest: report reviewed, image reviewed (severe b/l air space opacities with worsening pneumonia) US - abdomen: report reviewed, image reviewed (no significant hepatobiliary abnormalities)
[2018-08-25] MEDS ORDERED: VANCOMYCIN 1,500 MG in NACL 0.9% 500 ML 500 ML IV ONE (11:28)
[2018-08-25] MEDS ORDERED: XYLOCAINE 2% INFILTRATI ONE (11:32)
[2018-08-25] MEDS ORDERED: NACL 0.9% IR ONE (11:34)
[2018-08-25] MEDS: LEVOPHED DRIP 4 MG/NS 250 ML 4 MG/250 ML BAG IV SCH (11:42)
[2018-08-25] MEDS ORDERED: VANCOMYCIN PHARMACY TO DOSE IV SCH (12:00)
--- NOTE | 2018-08-25 12:21 | Procedure Note ---
Date of procedure: 08/25/18 Pre-op diagnosis: Worsening respiratory status, bilateral alveolar infiltrates, Sepsis Post-op diagnosis: same Procedure: Fiberoptic bronchoscopy with bronchial washings. Patient is orally intubated. Midazolam and fentanyl used for anesthesia. [place] precautions addressed, informed consent obtained and filed as part of the medical records. Fiberoptic bronchoscope inserted through ETT tube. Airway mucosal edema with severe tracheobronchitis. The RUL, RML and RLL inspected, no endobronchial lesions. The MARTHA, lingula and LLL were inspected, no endobronchial lesions noted. Bronchial washings obtained. Patient tolerated the procedure well. No immediate complications Surgeon: RAQUEL ARTEAGA Estimated blood loss: none Condition: critical Disposition: ICU
--- NOTE | 2018-08-25 12:21 | Progress Note ---
Assessment and Plan Acute respiratory failure secondary to bilateral pneumonia, now on MVS HAP present on admission Schizophrenia, Depression Developmental delay Leukocytosis With ongoing fevers, leukocytosis and worsening oxygenation/radiographic findings will get diagnostic bronchoscopy -Lung protective strategies -Wean FIO2 , once at 50 % with acceptable PaO2, start weaning PEEP -CXR and ABG in am -VAP bundle addressed -Supplemental oxygen to keep O2 sats 88-90% -Bronchodilators -Short course of steroids -Diuresis, while monitoring hemodynamics, renal function and electrolyte profile -Accuchecks with glycemic control -Target blood glucose <180mg/dL -Enteral nutrition with aspiration precautions -Agitation management -Titrate sedation to RAAS 0 to -1 -Prevention of delirium, maintenance of sleep-wake cycle -Empiric antibiotic therapy for HAP/aspiration pneumonia -Will de-escalate therapy based on microbiology/SD/Cultures -Avoid nephrotoxic agents, adjust all antibiotics and medications for CrCL and GFR -VTE and Stress ulcer prophylaxis -Ruvalcaba catheter fro urinary retention ID consult notes reviewed, appreciate input Discussed care with hospitalist service Dicussed with RT/RN CONDITION: CRITICAL PROGNOSIS: GUARDED CODE STATUS: FULL CODE The high probability of a clinically significant, sudden or life-threatening deterioration of the [respiratory] system(s) required my full and direct attention, intervention and personal management. The aggregate critical care time was [35] minutes without overlap. Time includes spent on; [x] Data Review and interpretation [x] Patient assessment and monitoring of vital signs [x] Documentation [x] Medication orders and management Subjective Date of service: 08/25/18 Principal diagnosis: B/L PNA Interval history: Patient is seen today for: Acute hypoxemic respiratory failure, multifocal pneumonia, sepsis Seen and examined at bedside; 24hour events reviewed; nursing and respiratory care staff consulted; no adverse overnight events reported to me; on going low grade fevers,Vitals, labs, medications, chart and imaging reviewed. Remains on mechanical ventilatory support,with worsening oxygenation and radiographic findings No vasopressor support Objective Vital Signs - 12hr 08/25/18 08/25/18 08/25/18 00:30 00:36 01:00 Temperature 98.3 F Pulse Rate 93 H 97 H Pulse Rate [ Bilateral] Pulse Rate [ From Monitor] Pulse Rate [ Throughout] Respiratory 12 17 Rate Respiratory Rate [Bilateral ] Respiratory Rate [ Throughout] Blood Pressure 99/56 100/58 O2 Sat by Pulse 92 91 Oximetry 08/25/18 08/25/18 08/25/18 01:30 02:00 02:30 Temperature Pulse Rate 96 H 102 H 118 H Pulse Rate [ Bilateral] Pulse Rate [ From Monitor] Pulse Rate [ Throughout] Respiratory 16 18 19 Rate Respiratory Rate [Bilateral ] Respiratory Rate [ Throughout] Blood Pressure 99/60 102/69 105/56 O2 Sat by Pulse 90 87 90 Oximetry 08/25/18 08/25/18 08/25/18 03:00 03:30 04:00 Temperature 100.9 F H Pulse Rate 115 H 105 H 101 H Pulse Rate [ Bilateral] Pulse Rate [ 105 H From Monitor] Pulse Rate [ Throughout] Respiratory 16 15 14 Rate Respiratory Rate [Bilateral ] Respiratory Rate [ Throughout] Blood Pressure 103/50 97/49 91/56 O2 Sat by Pulse 86 90 88 Oximetry 08/25/18 08/25/18 08/25/18 04:20 04:24 04:30 Temperature 100.8 F H Pulse Rate 101 H 101 H Pulse Rate [ Bilateral] Pulse Rate [ From Monitor] Pulse Rate [ Throughout] Respiratory 19 Rate Respiratory Rate [Bilateral ] Respiratory Rate [ Throughout] Blood Pressure 91/56 99/52 O2 Sat by Pulse 89 88 Oximetry 08/25/18 08/25/18 08/25/18 05:00 05:30 06:00 Temperature Pulse Rate 102 H 105 H 105 H Pulse Rate [ Bilateral] Pulse Rate [ From Monitor] Pulse Rate [ Throughout] Respiratory 19 21 18 Rate Respiratory Rate [Bilateral ] Respiratory Rate [ Throughout] Blood Pressure 105/53 105/53 94/59 O2 Sat by Pulse 88 83 L 89 Oximetry 08/25/18 08/25/18 08/25/18 06:30 07:00 07:30 Temperature Pulse Rate 102 H 99 H 101 H Pulse Rate [ Bilateral] Pulse Rate [ From Monitor] Pulse Rate [ Throughout] Respiratory 16 18 17 Rate Respiratory Rate [Bilateral ] Respiratory Rate [ Throughout] Blood Pressure 101/61 101/60 106/64 O2 Sat by Pulse 88 89 87 Oximetry 08/25/18 08/25/18 08/25/18 08:00 08:03 08:19 Temperature 99.6 F Pulse Rate 101 H 105 H Pulse Rate [ Bilateral] Pulse Rate [ 101 H From Monitor] Pulse Rate [ 99 H Throughout] Respiratory 16 Rate Respiratory Rate [Bilateral ] Respiratory 30 H Rate [ Throughout] Blood Pressure 103/56 103/56 O2 Sat by Pulse 87 91 Oximetry 08/25/18 08/25/18 08/25/18 08:29 08:30 09:00 Temperature Pulse Rate 104 H 102 H Pulse Rate [ Bilateral] Pulse Rate [ From Monitor] Pulse Rate [ 106 H Throughout] Respiratory 17 16 Rate Respiratory Rate [Bilateral ] Respiratory 30 H Rate [ Throughout] Blood Pressure 102/61 101/61 O2 Sat by Pulse 85 94 Oximetry 08/25/18 08/25/18 08/25/18 09:04 11:28 12:14 Temperature Pulse Rate 102 H 103 H Pulse Rate [ Bilateral] Pulse Rate [ From Monitor] Pulse Rate [ Throughout] Respiratory Rate Respiratory Rate [Bilateral ] Respiratory Rate [ Throughout] Blood Pressure 101/61 108/64 O2 Sat by Pulse 92 95 92 Oximetry 08/25/18 12:19 Temperature Pulse Rate Pulse Rate [ 114 H Bilateral] Pulse Rate [ From Monitor] Pulse Rate [ Throughout] Respiratory Rate Respiratory 29 H Rate [Bilateral ] Respiratory Rate [ Throughout] Blood Pressure O2 Sat by Pulse Oximetry Constitutional: no acute distress, other (middle aged CM, normocephalic on MVS ) Eyes: non-icteric ENT: oropharynx moist, other (ETT 23 cm VENTURA) Neck: supple, no lymphadenopathy, other (no thyromegaly) Effort: mildly labored Ascultation: Bilateral: rales Percussion: Bilateral: not dull Cardiovascular: regular rate and rhythm, other (No R/M) Gastrointestinal: normoactive bowel sounds, soft, non-tender, non-distended Integumentary: normal Extremities: no cyanosis, no edema, pink and warm, pulses normal, no ischemia or petechiae Neurologic: pupils equal and round, unable to assess, other (sedated) Psychiatric: other (sedated) CBC and BMP: 08/29/18 04:20 08/30/18 04:10 ABG, PT/INR, D-dimer: ABG POC ABG pH 7.412 (7.35-7.45) 08/25/18 04:20 POC ABG pCO2 59.9 (35-45) H 08/25/18 04:20 POC ABG pO2 62 (80-105) L 08/25/18 04:20 POC ABG HCO3 38.1 (22-26 mml/L) 08/25/18 04:20 POC ABG Total CO2 40 (23-27mmol/L) 08/25/18 04:20 POC ABG O2 Sat 91 08/25/18 04:20 PT/INR, D-dimer PT 15.1 Sec. (12.2-14.9) H 08/14/18 16:43 INR 1.22 (0.87-1.13) H 08/14/18 16:43 Abnormal lab findings: Abnormal Labs 08/14/18 08/14/18 08/14/18 16:33 16:33 16:43 WBC RBC 3.38 L Hgb 9.9 L Hct 29.2 L RDW 17.3 H Lymph % (Auto) [place] % (Auto) Lymph # Seg Neutrophils % Seg Neuts % (Manual) 87.0 H Lymphocytes % (Manual) 6.0 L Seg Neutrophils # Man Lymphocytes # (Manual) 0.5 L PT INR POC ABG pH POC ABG pCO2 POC ABG pO2 Sodium Potassium 3.5 L Chloride Carbon Dioxide BUN Creatinine Glucose POC Glucose Lactic Acid AST Alkaline Phosphatase Total Creatine Kinase 204 H C-Reactive Protein Total Protein Albumin Vancomycin Trough 08/14/18 08/14/18 08/17/18 16:43 17:01 09:09 WBC RBC 3.12 L Hgb 9.0 L Hct 27.0 L RDW 17.0 H Lymph % (Auto) 7.1 L [place] % (Auto) 9.2 H Lymph # 0.5 L Seg Neutrophils % 82.7 H Seg Neuts % (Manual) Lymphocytes % (Manual) Seg Neutrophils # Man Lymphocytes # (Manual) PT 15.1 H INR 1.22 H POC ABG pH 7.468 H POC ABG pCO2 POC ABG pO2 57 L Sodium Potassium Chloride Carbon Dioxide BUN Creatinine Glucose POC Glucose Lactic Acid AST Alkaline Phosphatase Total Creatine Kinase C-Reactive Protein Total Protein Albumin Vancomycin Trough 08/17/18 08/17/18 08/17/18 09:09 11:30 23:21 WBC RBC Hgb Hct RDW Lymph % (Auto) [place] % (Auto) Lymph # Seg Neutrophils % Seg Neuts % (Manual) Lymphocytes % (Manual) Seg Neutrophils # Man Lymphocytes # (Manual) PT INR POC ABG pH 7.225 L POC ABG pCO2 54.6 H POC ABG pO2 50 L 110 H Sodium Potassium 3.5 L Chloride Carbon Dioxide 20 L BUN 7 L Creatinine Glucose 125 H POC Glucose Lactic Acid AST Alkaline Phosphatase Total Creatine Kinase C-Reactive Protein Total Protein 6.2 L Albumin 3.2 L Vancomycin Trough 08/18/18 08/18/18 08/18/18 04:49 13:06 13:50 WBC RBC Hgb Hct RDW Lymph % (Auto) [place] % (Auto) Lymph # Seg Neutrophils % Seg Neuts % (Manual) Lymphocytes % (Manual) Seg Neutrophils # Man Lymphocytes # (Manual) PT INR POC ABG pH POC ABG pCO2 POC ABG pO2 58 L Sodium Potassium Chloride Carbon Dioxide BUN Creatinine Glucose POC Glucose Lactic Acid AST Alkaline Phosphatase Total Creatine Kinase C-Reactive Protein 31.10 H Total Protein Albumin Vancomycin Trough 4.7 L 08/18/18 08/19/18 08/19/18 13:50 07:25 07:25 WBC 14.8 H 12.7 H RBC 3.46 L 3.32 L Hgb 10.1 L 9.5 L Hct 30.2 L 28.9 L RDW 17.6 H 17.7 H Lymph % (Auto) [place] % (Auto) Lymph # Seg Neutrophils % Seg Neuts % (Manual) 95.0 H 95.0 H Lymphocytes % (Manual) 3.0 L 5.0 L Seg Neutrophils # Man 14.1 H 12.1 H Lymphocytes # (Manual) 0.4 L 0.6 L PT INR POC ABG pH POC ABG pCO2 POC ABG pO2 Sodium Potassium Chloride Carbon Dioxide BUN 23 H Creatinine Glucose 139 H POC Glucose Lactic Acid AST 41 H Alkaline Phosphatase 149 H Total Creatine Kinase C-Reactive Protein Total Protein Albumin 3.0 L Vancomycin Trough 08/19/18 08/20/18 08/21/18 15:10 04:03 04:18 WBC RBC Hgb Hct RDW Lymph % (Auto) [place] % (Auto) Lymph # Seg Neutrophils % Seg Neuts % (Manual) Lymphocytes % (Manual) Seg Neutrophils # Man Lymphocytes # (Manual) PT INR POC ABG pH 7.346 L POC ABG pCO2 49.0 H 50.2 H 51.0 H POC ABG pO2 71 L 180 H 78 L Sodium Potassium Chloride Carbon Dioxide BUN Creatinine Glucose POC Glucose Lactic Acid AST Alkaline Phosphatase Total Creatine Kinase C-Reactive Protein Total Protein Albumin Vancomycin Trough 08/21/18 08/21/18 08/21/18 04:43 04:43 15:54 WBC 14.1 H RBC 3.02 L Hgb 8.5 L Hct 26.3 L RDW 17.9 H Lymph % (Auto) [place] % (Auto) Lymph # Seg Neutrophils % Seg Neuts % (Manual) 95.0 H Lymphocytes % (Manual) 3.0 L Seg Neutrophils # Man 13.4 H Lymphocytes # (Manual) 0.4 L PT INR POC ABG pH POC ABG pCO2 POC ABG pO2 Sodium 149 H Potassium Chloride 111.2 H Carbon Dioxide BUN 27 H Creatinine Glucose 164 H POC Glucose Lactic Acid AST Alkaline Phosphatase Total Creatine Kinase C-Reactive Protein 3.60 H Total Protein Albumin Vancomycin Trough 08/21/18 08/21/18 08/21/18 19:15 20:10 21:33 WBC RBC Hgb Hct RDW Lymph % (Auto) [place] % (Auto) Lymph # Seg Neutrophils % Seg Neuts % (Manual) Lymphocytes % (Manual) Seg Neutrophils # Man Lymphocytes # (Manual) PT INR POC ABG pH POC ABG pCO2 51.6 H POC ABG pO2 63 L Sodium Potassium Chloride Carbon Dioxide BUN Creatinine Glucose POC Glucose Lactic Acid 2.80 H* 2.20 H* AST Alkaline Phosphatase Total Creatine Kinase C-Reactive Protein Total Protein Albumin Vancomycin Trough 08/21/18 08/22/18 08/22/18 23:08 04:20 05:46 WBC RBC Hgb Hct RDW Lymph % (Auto) [place] % (Auto) Lymph # Seg Neutrophils % Seg Neuts % (Manual) Lymphocytes % (Manual) Seg Neutrophils # Man Lymphocytes # (Manual) PT INR POC ABG pH POC ABG pCO2 49.4 H POC ABG pO2 53 L Sodium Potassium Chloride Carbon Dioxide BUN Creatinine Glucose POC Glucose Lactic Acid 2.20 H* 2.10 H* AST Alkaline Phosphatase Total Creatine Kinase C-Reactive Protein Total Protein Albumin Vancomycin Trough 08/22/18 08/22/18 08/22/18 05:46 09:08 23:20 WBC RBC Hgb Hct RDW Lymph % (Auto) [place] % (Auto) Lymph # Seg Neutrophils % Seg Neuts % (Manual) Lymphocytes % (Manual) Seg Neutrophils # Man Lymphocytes # (Manual) PT INR POC ABG pH POC ABG pCO2 POC ABG pO2 Sodium 148 H Potassium Chloride Carbon Dioxide BUN 28 H Creatinine Glucose 155 H POC Glucose Lactic Acid 2.20 H* 2.20 H* AST Alkaline Phosphatase Total Creatine Kinase C-Reactive Protein Total Protein Albumin Vancomycin Trough 08/23/18 08/23/18 08/23/18 00:55 05:14 05:34 WBC 19.6 H RBC 3.02 L Hgb 8.5 L Hct 26.3 L RDW 18.2 H Lymph % (Auto) [place] % (Auto) Lymph # Seg Neutrophils % Seg Neuts % (Manual) 92.0 H Lymphocytes % (Manual) 1.0 L Seg Neutrophils # Man 18.0 H Lymphocytes # (Manual) 0.2 L PT INR POC ABG pH POC ABG pCO2 52.8 H POC ABG pO2 65 L Sodium Potassium Chloride Carbon Dioxide BUN Creatinine Glucose POC Glucose 183 H Lactic Acid AST Alkaline Phosphatase Total Creatine Kinase C-Reactive Protein Total Protein Albumin Vancomycin Trough 08/23/18 08/23/18 08/23/18 05:34 05:34 13:06 WBC RBC Hgb Hct RDW Lymph % (Auto) [place] % (Auto) Lymph # Seg Neutrophils % Seg Neuts % (Manual) Lymphocytes % (Manual) Seg Neutrophils # Man Lymphocytes # (Manual) PT INR POC ABG pH POC ABG pCO2 POC ABG pO2 Sodium 146 H Potassium Chloride Carbon Dioxide 33 H BUN 27 H Creatinine 0.7 L Glucose 158 H POC Glucose Lactic Acid 2.30 H* 2.70 H* AST Alkaline Phosphatase Total Creatine Kinase C-Reactive Protein 2.00 H Total Protein Albumin Vancomycin Trough 08/23/18 08/23/18 08/24/18 22:04 23:48 04:03 WBC RBC Hgb Hct RDW Lymph % (Auto) [place] % (Auto) Lymph # Seg Neutrophils % Seg Neuts % (Manual) Lymphocytes % (Manual) Seg Neutrophils # Man Lymphocytes # (Manual) PT INR POC ABG pH POC ABG pCO2 59.1 H POC ABG pO2 55 L Sodium Potassium Chloride Carbon Dioxide BUN Creatinine Glucose POC Glucose Lactic Acid 2.50 H* 2.20 H* AST Alkaline Phosphatase Total Creatine Kinase C-Reactive Protein Total Protein Albumin Vancomycin Trough 08/24/18 08/24/18 08/24/18 05:13 05:13 05:13 WBC 26.2 H RBC 3.03 L Hgb 8.6 L Hct 26.6 L RDW 18.4 H Lymph % (Auto) [place] % (Auto) Lymph # Seg Neutrophils % Seg Neuts % (Manual) Lymphocytes % (Manual) Seg Neutrophils # Man Lymphocytes # (Manual) PT INR POC ABG pH POC ABG pCO2 POC ABG pO2 Sodium Potassium Chloride Carbon Dioxide 34 H BUN 27 H Creatinine Glucose 176 H POC Glucose Lactic Acid 2.40 H* AST 67 H Alkaline Phosphatase 143 H Total Creatine Kinase C-Reactive Protein Total Protein 5.7 L Albumin 3.2 L Vancomycin Trough 08/24/18 08/25/18 08/25/18 11:05 04:20 05:00 WBC 28.4 H RBC 2.98 L Hgb 8.4 L Hct 26.3 L RDW 18.7 H Lymph % (Auto) [place] % (Auto) Lymph # Seg Neutrophils % Seg Neuts % (Manual) Lymphocytes % (Manual) Seg Neutrophils # Man Lymphocytes # (Manual) PT INR POC ABG pH POC ABG pCO2 59.9 H POC ABG pO2 62 L Sodium Potassium Chloride Carbon Dioxide BUN Creatinine Glucose POC Glucose Lactic Acid 2.10 H* AST Alkaline Phosphatase Total Creatine Kinase C-Reactive Protein Total Protein Albumin Vancomycin Trough 08/25/18 05:00 WBC RBC Hgb Hct RDW Lymph % (Auto) [place] % (Auto) Lymph # Seg Neutrophils % Seg Neuts % (Manual) Lymphocytes % (Manual) Seg Neutrophils # Man Lymphocytes # (Manual) PT INR POC ABG pH POC ABG pCO2 POC ABG pO2 Sodium Potassium Chloride Carbon Dioxide 37 H BUN 32 H Creatinine Glucose 147 H POC Glucose Lactic Acid AST Alkaline Phosphatase Total Creatine Kinase C-Reactive Protein Total Protein Albumin Vancomycin Trough Allied health notes reviewed: RT (adjust FIO2 for worsening hypoxemia)
[2018-08-25] MEDS: MAXIPIME/NS 2 GM/100 ML 2 GM/100 ML BAG IV SCH ×2 (12:28→21:50)
[2018-08-25] MEDS: PROzac PO SCH (12:29)
[2018-08-25] MEDS: FLAGYL 500 MG/100 ML 500 MG/100 ML BAG IV SCH ×2 (13:00→21:49)
[2018-08-25] MEDS: DIPRIVAN 10 MG/ML 1,000 MG/100 ML BOTTLE IV SCH (18:27)
--- NOTE | 2018-08-25 18:53 | XRay Report ---
CHEST 1 VIEW 08/25/2018 6:37 PM INDICATION / CLINICAL INFORMATION: rule out pneumothorax. Low O2 sats. COMPARISON: Chest x-ray done earlier on 08/25/2018. FINDINGS: SUPPORT DEVICES: Stable device positioning. HEART / MEDIASTINUM: Stable. LUNGS / PLEURA: Stable diffuse bilateral parenchymal opacification. No pneumothorax. ADDITIONAL FINDINGS: No significant additional findings. IMPRESSION: 1. No significant change from the prior exam. No evidence of pneumothorax, as questioned. Signer Name: Tray Armenta MD Signed: 08/25/2018 6:48 PM Workstation Name: [id number]
[2018-08-25] MEDS: COLACE PO SCH (20:05)
[2018-08-25] MEDS: TYLENOL PO PRN (20:40)
[2018-08-25] MEDS: PRAVACHOL PO SCH (21:49)
[2018-08-25] MEDS: ATIVAN PO SCH (21:49)
[2018-08-25] MEDS: BENADRYL PO SCH (21:51)
[2018-08-26] MEDS: fentaNYL DRIP Premix 2,000 MCG/100 ML BAG IV SCH ×3 (00:17→21:39)
[2018-08-26] MEDS: VANCOMYCIN/NS 1 GM/250 ML 1 GM/250 ML BAG IV SCH ×2 (01:00→12:19)
--- NOTE | 2018-08-26 02:53 | XRay Report ---
CHEST 1 VIEW INDICATION: follow up respiratory failure. COMPARISON: One day prior. FINDINGS: Support devices: Unchanged. Heart: Stable. Lungs/Pleura: Bilateral pulmonary opacities have improved but persist. No pneumothorax. IMPRESSION: 1. Pulmonary opacities have improved. No new findings. Signer Name: Virgilio Montemayor MD Signed: 08/26/2018 2:49 AM Workstation Name: [id number]
[2018-08-26] MEDS: FLAGYL 500 MG/100 ML 500 MG/100 ML BAG IV SCH ×3 (05:13→21:38)
[2018-08-26 05:59] LABS: Hematocrit 26.2 % (35.5-45.6); Hemoglobin 8.3 gm/dl (11.8-15.2); Mean Corpuscular HGB Conc 32 % (32-34); Mean Corpuscular Volume 89 fl (84-94); Platelet Count 148 K/mm3 (140-440); Red Blood Count 2.97 M/mm3 (3.65-5.03)
[2018-08-26 06:22] LABS: BUN/Creatinine Ratio 36; Blood Urea Nitrogen 29 mg/dL (9-20); Calcium 8.4 mg/dL (8.4-10.2); Hemolysis Index 0
[2018-08-26] MEDS: DUONEB *Not for PRN Use IH SCH ×4 (07:55→19:18)
[2018-08-26] MEDS: DIPRIVAN 10 MG/ML 1,000 MG/100 ML BOTTLE IV SCH ×2 (08:13→21:38)
--- NOTE | 2018-08-26 09:13 | Progress Note ---
Assessment and Plan Assessment and plan: Patient is 52-year-old male with PMHx of developmental delay, schizophrenia, and depression with recent h/o SI presented to the ER with complaints of shortness of breath and cough 1 day. Patient O2 sat was noted to be 86% and improve after application of oxygen via n/c. Pt denies a history of COPD but admits to history of smoking. In the ER, pt had a chest x-ray that showed multifocal bilateral air space disease suspicious for pneumonia. After admission went into resp distress and transferred to ICU for Intesive care On BIPAP. He then eventually intubated on 08/19. and is still intubated Acute Respiratory failure with hypoxia s/p intubated 08/19/18 cont Duonebs IV Solumedrol and IV abx Bilateral pneumonia, Cont Abx, follow cx, ID consulted,following Sepsis with septic shock Now on Cefepime, vanco and Flagyl Levophed started 08/25 Leukocytosis, Monitor Fever Anemia Anemia w/u ordered Hypokalemia, Resolved Schizophrenia, on Zyprexa Depression, on antidepressants Gout , Cont Allopurinol HLD (hyperlipidemia), Cont statins DVT prophylaxis: On Lovenox GI Prophylaxis:Pepcid The high probability of a clinically significant, sudden or life threatening deterioration of the [4] system(s) required my full and direct attention, intervention and personal management. The aggregate critical care time was [34] minutes. This time is in addition to time spent performing reported procedures but includes the following: [x] Data Review and interpretation [x] Patient assessment and monitoring of vital signs [x] Documentation [x] Medication orders and management History Interval history: Still intubated, sedated Started on Levophed for hypotension Still having Fever Hospitalist Physical - Physical exam Narrative exam: Gen: Not in acute distress, intubated, sedated HEENT: Normocephalic, atraumatic Neck: supple, no JVD Heart: S1 and S2 reg, no murmurs, rubs or gallop Lungs: Bilateral rhonchi, Abd: soft, non tender, non distended, normal BS Ext: No edema, no clubbing, no cyanosis, Neuro: Sedated, intubated - Constitutional Vitals: Temp Pulse Resp BP Pulse Ox 99.3 F 101 H 27 H 104/62 98 08/26/18 03:18 08/26/18 08:30 08/26/18 08:30 08/26/18 08:30 08/26/18 08:30 General appearance: Present: no acute distress Results - Labs CBC & Chem 7: 08/26/18 05:05 08/26/18 05:05 Labs: Laboratory Last Values WBC 24.3 K/mm3 (4.5-11.0) H 08/26/18 05:05 RBC 2.97 M/mm3 (3.65-5.03) L 08/26/18 05:05 Hgb 8.3 gm/dl (11.8-15.2) L 08/26/18 05:05 Hct 26.2 % (35.5-45.6) L 08/26/18 05:05 MCV 89 fl (84-94) 08/26/18 05:05 MCH 28 pg (28-32) 08/26/18 05:05 MCHC 32 % (32-34) 08/26/18 05:05 RDW 19.0 % (13.2-15.2) H 08/26/18 05:05 Plt Count 148 K/mm3 (140-440) 08/26/18 05:05 Lymph % (Auto) Psychology Department Chair 08/18/18 13:50 [place] % (Auto) 9.2 % (0.0-7.3) H 08/17/18 09:09 Eos % (Auto) 0.8 % (0.0-4.3) 08/17/18 09:09 Baso % (Auto) 0.2 % (0.0-1.8) 08/17/18 09:09 Lymph # Psychology Department Chair 08/18/18 13:50 [place] # 0.7 K/mm3 (0.0-0.8) 08/17/18 09:09 Eos # 0.1 K/mm3 (0.0-0.4) 08/17/18 09:09 Baso # 0.0 K/mm3 (0.0-0.1) 08/17/18 09:09 Add Manual Diff Complete 08/23/18 05:34 Total Counted 100 08/23/18 05:34 Seg Neutrophils % Psychology Department Chair 08/21/18 04:43 Seg Neuts % (Manual) 92.0 % (40.0-70.0) H 08/23/18 05:34 0 % 08/23/18 05:34 1.0 % (13.4-35.0) L 08/23/18 05:34 Reactive Lymphs % (Man) 0 % 08/23/18 05:34 3.0 % (0.0-7.3) 08/23/18 05:34 0 % (0.0-4.3) 08/23/18 05:34 0 % (0.0-1.8) 08/23/18 05:34 4.0 % 08/23/18 05:34 0 % 08/23/18 05:34 0 % 08/23/18 05:34 0 % 08/23/18 05:34 Nucleated RBC % Not Reportable 08/23/18 05:34 Seg Neutrophils # 6.3 K/mm3 (1.8-7.7) 08/17/18 09:09 Seg Neutrophils # Man 18.0 K/mm3 (1.8-7.7) H 08/23/18 05:34 Band Neutrophils # 0.0 K/mm3 08/23/18 05:34 0.2 K/mm3 (1.2-5.4) L 08/23/18 05:34 Abs React Lymphs (Man) 0.0 K/mm3 08/23/18 05:34 0.6 K/mm3 (0.0-0.8) 08/23/18 05:34 0.0 K/mm3 (0.0-0.4) 08/23/18 05:34 0.0 K/mm3 (0.0-0.1) 08/23/18 05:34 0.8 K/mm3 08/23/18 05:34 0.0 K/mm3 08/23/18 05:34 0.0 K/mm3 08/23/18 05:34 Blast Cells # 0.0 K/mm3 08/23/18 05:34 WBC Morphology Not Reportable 08/23/18 05:34 Hypersegmented Neuts Not Reportable 08/23/18 05:34 Hyposegmented Neuts Not Reportable 08/23/18 05:34 Hypogranular Neuts Not Reportable 08/23/18 05:34 Not Reportable 08/23/18 05:34 Not Reportable 08/23/18 05:34 Not Reportable 08/23/18 05:34 Not Reportable 08/23/18 05:34 Not Reportable 08/23/18 05:34 Not Reportable 08/23/18 05:34 Consistent w auto 08/23/18 05:34 Not Reportable 08/23/18 05:34 Plt Clumps, EDTA Not Reportable 08/23/18 05:34 Not Reportable 08/23/18 05:34 Not Reportable 08/23/18 05:34 Not Reportable 08/23/18 05:34 Plt Morphology Comment Not Reportable 08/23/18 05:34 RBC Morphology Not Reportable 08/23/18 05:34 Dimorphic RBCs Not Reportable 08/23/18 05:34 Not Reportable 08/23/18 05:34 Not Reportable 08/23/18 05:34 Not Reportable 08/23/18 05:34 Few 08/23/18 05:34 Not Reportable 08/23/18 05:34 Not Reportable 08/23/18 05:34 Not Reportable 08/23/18 05:34 Not Reportable 08/23/18 05:34 Not Reportable 08/23/18 05:34 Not Reportable 08/23/18 05:34 Not Reportable 08/23/18 05:34 Not Reportable 08/23/18 05:34 Few 08/21/18 04:43 Not Reportable 08/23/18 05:34 Not Reportable 08/23/18 05:34 Not Reportable 08/23/18 05:34 Not Reportable 08/23/18 05:34 Not Reportable 08/23/18 05:34 Not Reportable 08/23/18 05:34 Not Reportable 08/23/18 05:34 Acanthocytes (Spur) Not Reportable 08/23/18 05:34 Rouleaux Not Reportable 08/23/18 05:34 Not Reportable 08/23/18 05:34 Not Reportable 08/23/18 05:34 Not Reportable 08/23/18 05:34 Not Reportable 08/23/18 05:34 Hem Pathologist Commnt No 08/23/18 05:34 PT 15.1 Sec. (12.2-14.9) H 08/14/18 16:43 INR 1.22 (0.87-1.13) H 08/14/18 16:43 APTT 31.2 Sec. (24.2-36.6) 08/14/18 16:43 POC ABG pH 7.315 (7.35-7.45) L 08/26/18 04:54 POC ABG pCO2 59.9 (35-45) H 08/25/18 04:20 POC ABG pO2 98 (80-105) 08/26/18 04:54 POC ABG HCO3 39.6 (22-26 mml/L) 08/26/18 04:54 POC ABG Total CO2 42 (23-27mmol/L) 08/26/18 04:54 POC ABG O2 Sat 96 08/26/18 04:54 POC ABG Base Excess 13 ((-2) - (+3)mmol/L) 08/26/18 04:54 80 % 08/26/18 04:54 Sodium 142 mmol/L (137-145) 08/26/18 05:05 Potassium 4.8 mmol/L (3.6-5.0) 08/26/18 05:05 Chloride 98.5 mmol/L (98-107) 08/26/18 05:05 Carbon Dioxide 37 mmol/L (22-30) H 08/26/18 05:05 11 mmol/L 08/26/18 05:05 BUN 29 mg/dL (9-20) H 08/26/18 05:05 0.8 mg/dL (0.8-1.5) 08/26/18 05:05 Estimated GFR > 60 ml/min 08/26/18 05:05 36 % 08/26/18 05:05 Glucose 184 mg/dL (75-100) H 08/26/18 05:05 POC Glucose 183 (70-105) H 08/23/18 00:55 Lactic Acid 1.70 mmol/L (0.7-2.0) 08/24/18 17:33 Calcium 8.4 mg/dL (8.4-10.2) 08/26/18 05:05 Phosphorus 3.80 mg/dL (2.5-4.5) 08/18/18 13:50 Magnesium 2.00 mg/dL (1.7-2.3) 08/18/18 13:50 0.20 mg/dL (0.1-1.2) 08/24/18 05:13 AST 67 units/L (5-40) H 08/24/18 05:13 ALT 49 units/L (7-56) 08/24/18 05:13 143 units/L (35-129) H 08/24/18 05:13 204 units/L (55-170) H 08/14/18 16:33 CK-MB (CK-2) 1.9 ng/mL (0.0-4.0) 08/14/18 16:33 CK-MB (CK-2) Rel Index 0.9 (0-4) 08/14/18 16:33 < 0.010 ng/mL (0.00-0.029) 08/14/18 16:33 2.00 mg/dL (0.00-1.30) H 08/23/18 05:34 NT-Pro-B Natriuret Pep 199.0 pg/mL (0-900) 08/14/18 16:33 5.7 g/dL (6.3-8.2) L 08/24/18 05:13 3.2 g/dL (3.9-5) L 08/24/18 05:13 1.3 % 08/24/18 05:13 Vancomycin Trough 19.3 ug/mL (5.0-20.0) 08/21/18 15:46 Presumptive negative 08/14/18 Unknown Presumptive negative 08/14/18 Unknown Ur Barbiturates Screen Presumptive negative 08/14/18 Unknown Ur Phencyclidine Scrn Presumptive negative 08/14/18 Unknown Ur Amphetamines Screen Presumptive negative 08/14/18 Unknown U Benzodiazepines Scrn Presumptive negative 08/14/18 Unknown Presumptive negative 08/14/18 Unknown U Marijuana (THC) Screen Presumptive negative 08/14/18 Unknown Disclamer 08/14/18 Unknown Urine Legionella Ag Not detected (Not Detected) 08/20/18 Unknown Active Medications - Current Medications Current Medications: Generic Name Dose Route Start Last Admin Trade Name Freq PRN Reason Stop Dose Admin Acetaminophen 650 mg 08/14/18 22:29 08/25/18 20:40 Tylenol PO 650 mg Q4H PRN Administration Pain MILD(1-3)/Fever >100.5/LOCO Albuterol 2.5 mg 08/19/18 07:17 Proventil IH Q4HRT PRN Shortness Of Breath Albuterol/Ipratropium 1 ampul 08/16/18 16:00 08/26/18 07:55 Duoneb *Not For Prn Use* IH 1 ampul QIDRT DOMINIC Administration Allopurinol 100 mg 08/16/18 13:00 08/25/18 10:32 Zyloprim PO 100 mg QDAY DOMINIC Administration Lipase/Protease/Amylase 1 each 08/19/18 13:43 Pancreaze 10,500 Unit FEEDTUBE PRN PRN For Clogged Feeding Tube Bupropion HCl 150 mg 08/17/18 10:00 08/25/18 10:32 Wellbutrin Xl PO 150 mg QAM DOMINIC Administration Diphenhydramine HCl 100 mg 08/16/18 22:00 08/25/18 21:51 Benadryl PO 100 mg QHS DOMINIC Administration Docusate Sodium 100 mg 08/23/18 12:00 08/25/18 21:48 Colace FEEDTUBE 100 mg BID DOMINIC Administration Enoxaparin Sodium 40 mg 08/15/18 10:00 08/25/18 10:32 Lovenox SUB-Q 40 mg QDAY@1000 DOMINIC Administration Famotidine 20 mg 08/15/18 10:00 08/25/18 21:49 Pepcid PO 20 mg BID DOMINIC Administration Fentanyl 50 mcg 08/19/18 12:01 Sublimaze IV Q10MIN PRN ANALGESIA Fluoxetine HCl 20 mg 08/17/18 12:00 08/25/18 12:29 Prozac PO 20 mg DAILY@1200 DOMINIC Administration Hydrocodone Bit/Homatropine Methylb 10 ml 08/18/18 13:09 08/18/18 13:35 Hydromet PO 10 ml Q6H PRN Administration Cough Hydrophilic Ointment 1 applic 08/19/18 12:01 Vaseline Lip Therapy TP Q2HR PRN Dry Lips Sodium Chloride 1,000 mls @ 50 mls/hr 08/15/18 06:00 08/21/18 02:45 Nacl 0.9% 1000 Ml IV 50 mls/hr DIRECT DOMINIC Administration Fentanyl Citrate 2,000 mcg in 100 mls @ 3.935 mls/hr 08/19/18 13:00 08/26/18 00:17 Fentanyl Drip Premix IV 3 mcg/kg/hr TITR DOMINIC 11.805 mls/hr Administration Protocol 1 MCG/KG/HR Propofol 1,000 mg in 100 mls @ 2.361 mls/hr 08/19/18 13:00 08/26/18 08:13 Diprivan 10 Mg/Ml IV 15 mcg/kg/min TITR DOMINIC 7.083 mls/hr Administration Protocol 5 MCG/KG/MIN Norepinephrine 4 mg in 250 mls @ 7.5 mls/hr 08/25/18 12:00 08/25/18 22:00 Levophed Drip 4 Mg/Ns 250 Ml IV 4 mcg/min TITR DOMINIC 15 mls/hr Titration Protocol 2 MCG/MIN Cefepime HCl 2 gm in 100 mls @ 200 mls/hr 08/25/18 12:00 08/25/18 23:59 Maxipime/Ns 2 Gm/100 Ml IV Infused Q12HR DOMINIC Infusion Protocol Metronidazole 500 mg in 100 mls @ 100 mls/hr 08/25/18 14:00 08/26/18 06:51 Flagyl 500 Mg/100 Ml IV Infused Q8HR DOMINIC Infusion Protocol Vancomycin HCl 1 gm in 250 mls @ 166.667 mls/hr 08/26/18 01:00 08/26/18 05:13 Vancomycin/Ns 1 Gm/250 Ml IV Infused Q12H DOMINIC Infusion Lorazepam 2 mg 08/16/18 22:00 08/25/18 21:49 Ativan PO 2 mg QHS DOMINIC Administration Magnesium Hydroxide 30 ml 08/14/18 22:35 Milk Of Magnesia PO Q4H PRN Constipation Multi-Ingred Cream/Lotion/Oil/Oint 1 applic 08/19/18 12:01 Artificial Tears Ophth Oint OU Q4HR PRN Dry Eye(s) Olanzapine 20 mg 08/16/18 22:00 08/25/18 21:50 Zyprexa PO 20 mg QHS DOMINIC Administration Ondansetron HCl 4 mg 08/14/18 22:29 Zofran IV Q8H PRN Nausea And Vomiting Pravastatin Sodium 40 mg 08/16/18 22:00 08/25/18 21:49 Pravachol PO 40 mg QHS DOMINIC Administration Risperidone 2 mg 08/17/18 10:00 08/25/18 10:32 Risperdal PO 2 mg QAM DOMINIC Administration Simple Syrup 15 ml 08/19/18 13:43 Simple Syrup FEEDTUBE PRN PRN Hypoglycemia Simple Syrup 30 ml 08/19/18 13:43 Simple Syrup FEEDTUBE PRN PRN Hypoglycemia Sodium Bicarbonate 325 mg 08/19/18 13:43 Sodium Bicarbonate FEEDTUBE PRN PRN For Clogged Feeding Tube Sodium Chloride 10 ml 08/15/18 10:00 08/25/18 21:51 Sodium Chloride Flush Syringe 10 Ml IV 10 ml BID DOMINIC Administration Sodium Chloride 10 ml 08/14/18 22:29 Sodium Chloride Flush Syringe 10 Ml IV PRN PRN LINE FLUSH Tamsulosin HCl 0.4 mg 08/21/18 13:00 08/25/18 10:32 Flomax PO 0.4 mg QDAY DOMINIC Administration Nutrition/Malnutrition Assess - Dietary Evaluation Nutrition/Malnutrition Findings: Nutrition Notes Start: 08/19/18 13:37 Freq: Status: Active Protocol: Document 08/24/18 15:31 RM (Rec: 08/24/18 15:38 RM [id number]) Nutrition Notes Initial or Follow up Reassessment Current Diagnosis Respiratory Failure, Hyperlipidemia Other Pertinent Diagnosis LLL pneu, Developmental delay, Hx schizophrenia Current Diet Osmolite 1.5 at 55 ml/hr Labs/Tests K 5 Na 144 Pertinent Medications Lasix, Propofol at 9.4ml/hr ( provides 248 kcal) Height 5 ft 11 in Weight 78.2 kg [place] Body Weight (kg) 78.18 BMI 24.0 Subjective/Other Information Observed Osmolite hanging w/ pump off. Per nurse TF was turned off for ultra sound. Per nurse note pt was tolerating TF prior to being turned off. Percent of energy/protein needs met: 100%/88% Burn Absent Trauma Absent #1 Nutrition Diagnosis Inadequate oral intake Diagnosis Progress(for reassessment Continues documentation) Is patient on ventilator? Yes Is Patient Ambulatory and/or Out of Bed No REE-([facility]-confined to bed) 1977.192 Calculation Used for Recommendations [facility] Additional Notes Pro needs 1.2-2g/k-157g/ day Fluid needs 1ml/kcal Nutrition Intervention Nutrition Support: Osmolite 1.5 at 55ml/hr 150ml water flush q4h. Kcal 1,980 Protein (gm) 83 Carbohydrates (gm) 269 Fat (gm) 65 Fluid (mL) 1,006 Goal #1 TF tolerance Goal #2 TF (at goal rate) to continue to meet at least 80% energy and pro needs Anticipated Discharge Needs: Unable to determine at this time Follow-Up By: 08/27/18 Additional Comments Follow for TF tolerance, K lab
[2018-08-26] MEDS: FLOMAX PO SCH (10:01)
[2018-08-26] MEDS: COLACE FEEDTUBE SCH ×2 (10:01→21:37)
[2018-08-26] MEDS: RisperDAL PO SCH (10:01)
[2018-08-26] MEDS: ZYLOPRIM PO SCH (10:01)
[2018-08-26] MEDS: PEPCID PO SCH ×2 (10:02→21:37)
[2018-08-26] MEDS: WELLBUTRIN XL PO SCH (10:02)
[2018-08-26] MEDS: MAXIPIME/NS 2 GM/100 ML 2 GM/100 ML BAG IV SCH ×2 (10:02→22:00)
[2018-08-26] MEDS: LOVENOX SUB-Q SCH (10:02)
[2018-08-26] MEDS: SODIUM CHLORIDE FLUSH SYRINGE 10 ML IV SCH ×2 (10:03→21:43)
[2018-08-26] MEDS: PROzac PO SCH (12:19)
[2018-08-26] MEDS: LEVOPHED DRIP 4 MG/NS 250 ML 4 MG/250 ML BAG IV SCH (12:20)
--- NOTE | 2018-08-26 13:44 | Progress Note ---
Assessment and Plan Acute hypoxemic respiratory failure. Acute respiratory distress syndrome. Possible aspiration pneumonia (HAP) History of depression. History of schizophrenia. Anemia that is normocytic. Mild metabolic acidosis. Hypokalemia. Developmental delay - continue ARDS ventilatory strategies (6mls/kg IBW now) - discontinue hernandez catheter and watch for retention - follow bronch studies (NGTD) - consider HIV testing - empiric Antiinfective's per ID rec's - keep peep at 16 for now (monitor plateau pressures with optimal target < 30 cm H2O) - continue to advance enteral nutrition to goal rate - continue free water flushes to 300 mls q4h re: hypernatremia - continue Flomax (Urinary retention reported with 1.5 liters drained post hernandez catheter) - continue albuterol nebs with pulmonary hygiene per RT - continue lung protective strategies - daily CXR and ABG in short term - VAP bundle addressed - continue supplemental oxygen to keep O2 sats 88-90% - continue bronchodilators with pulmonary hygiene per RT - continus systemic steroids with quick taper - continue accuchecks with glycemic control per SSI for target blood glucose <180mg/dL - Agitation management - Titrate sedation to RASS 0 to -1 - Prevention of delirium, maintenance of sleep-wake cycle - Will de-escalate therapy based on microbiology/SD/Cultures - Avoid nephrotoxic agents, adjust all antibiotics and medications for CrCL and GFR - VTE and Stress ulcer prophylaxis CONDITION: CRITICAL PROGNOSIS: GUARDED CODE STATUS: FULL CODE The high probability of a clinically significant, sudden or life-threatening deterioration of the [respiratory] system(s) required my full and direct attention, intervention and personal management. The aggregate critical care time was [35] minutes without overlap. Time includes spent on; [x] Data Review and interpretation [x] Patient assessment and monitoring of vital signs [x] Documentation [x] Medication orders and management Subjective Date of service: 08/26/18 Principal diagnosis: Ac. hypoxemic resp failure; Multifocal Pneumonia (HAP); ARDS; Anemia Interval history: Patient is seen today for: Acute hypoxemic respiratory failure; multifocal pneumonia (HAP); ARDS; depression; schizophrenia; Anemia; Developmental delay Seen and examined at bedside; 24hour events reviewed; nursing and respiratory care staff consulted; no adverse overnight events reported to me; remains on MVS; still with ARDS; not improving well; requiring vasopressors; tolerating tube feeds; Afebrile Objective Vital Signs - 12hr 08/26/18 08/26/18 08/26/18 02:00 02:30 03:00 Temperature Pulse Rate 101 H 105 H 102 H Pulse Rate [ From Monitor] Pulse Rate [ Left Lower Lobe ] Respiratory 27 H 22 25 H Rate Respiratory Rate [Left Lower Lobe] Blood Pressure 105/60 107/53 91/65 O2 Sat by Pulse 96 96 97 Oximetry 08/26/18 08/26/18 08/26/18 03:18 03:30 04:00 Temperature 99.3 F Pulse Rate 100 H 100 H Pulse Rate [ 110 H From Monitor] Pulse Rate [ Left Lower Lobe ] Respiratory 24 24 Rate Respiratory Rate [Left Lower Lobe] Blood Pressure 101/58 93/58 O2 Sat by Pulse 97 96 Oximetry 08/26/18 08/26/18 08/26/18 04:30 04:36 05:00 Temperature Pulse Rate 102 H 100 H 100 H Pulse Rate [ From Monitor] Pulse Rate [ Left Lower Lobe ] Respiratory 24 26 H Rate Respiratory Rate [Left Lower Lobe] Blood Pressure 98/62 98/62 106/57 O2 Sat by Pulse 96 96 96 Oximetry 08/26/18 08/26/18 08/26/18 05:30 06:00 06:30 Temperature Pulse Rate 100 H 99 H 98 H Pulse Rate [ From Monitor] Pulse Rate [ Left Lower Lobe ] Respiratory 16 25 H 23 Rate Respiratory Rate [Left Lower Lobe] Blood Pressure 103/53 117/63 104/62 O2 Sat by Pulse 95 95 96 Oximetry 08/26/18 08/26/18 08/26/18 07:00 07:30 08:00 Temperature 96.8 F L Pulse Rate 101 H 100 H 99 H Pulse Rate [ 99 H From Monitor] Pulse Rate [ 86 Left Lower Lobe ] Respiratory 24 24 28 H Rate Respiratory 26 H Rate [Left Lower Lobe] Blood Pressure 99/59 106/57 98/53 O2 Sat by Pulse 95 95 97 Oximetry 08/26/18 08/26/18 08/26/18 08:30 09:00 09:30 Temperature Pulse Rate 101 H 99 H 102 H Pulse Rate [ From Monitor] Pulse Rate [ Left Lower Lobe ] Respiratory 27 H 24 25 H Rate Respiratory Rate [Left Lower Lobe] Blood Pressure 104/62 100/60 98/59 O2 Sat by Pulse 98 97 96 Oximetry 07/08/0908/26/18 08/26/18 10:00 10:30 11:00 Temperature Pulse Rate 100 H 105 H 107 H Pulse Rate [ From Monitor] Pulse Rate [ Left Lower Lobe ] Respiratory 27 H 21 21 Rate Respiratory Rate [Left Lower Lobe] Blood Pressure 100/59 99/50 100/53 O2 Sat by Pulse 97 96 97 Oximetry 08/26/18 08/26/18 08/26/18 11:30 11:57 12:00 Temperature 100.4 F H Pulse Rate 104 H 104 H 104 H Pulse Rate [ From Monitor] Pulse Rate [ 84 Left Lower Lobe ] Respiratory 23 Rate Respiratory 23 Rate [Left Lower Lobe] Blood Pressure 93/58 84/57 O2 Sat by Pulse 97 92 Oximetry Constitutional: no acute distress, other (middle aged CM, normocephalic on MVS and riding set rate of 28/min) Eyes: non-icteric ENT: oropharynx moist, other (ETT 23 cm VENTURA) Neck: supple, no lymphadenopathy, other (no thyromegaly) Effort: mildly labored Ascultation: Bilateral: rales Percussion: Bilateral: not dull Cardiovascular: regular rate and rhythm, other (No R/M) Gastrointestinal: normoactive bowel sounds, soft, non-tender, non-distended Integumentary: normal Extremities: no cyanosis, no edema, pink and warm, pulses normal, no ischemia or petechiae Neurologic: non-focal exam (grossly), pupils equal and round, motor strength normal and, unable to assess, other (sedated) Psychiatric: other (sedated) CBC and BMP: 08/27/18 05:10 08/27/18 05:10 ABG, PT/INR, D-dimer: ABG POC ABG pH 7.315 (7.35-7.45) L 08/26/18 04:54 POC ABG pO2 98 (80-105) 08/26/18 04:54 POC ABG HCO3 39.6 (22-26 mml/L) 08/26/18 04:54 POC ABG Total CO2 42 (23-27mmol/L) 08/26/18 04:54 POC ABG O2 Sat 96 08/26/18 04:54 PT/INR, D-dimer PT 15.1 Sec. (12.2-14.9) H 08/14/18 16:43 INR 1.22 (0.87-1.13) H 08/14/18 16:43 Abnormal lab findings: Abnormal Labs 08/14/18 08/14/18 08/14/18 16:33 16:33 16:43 WBC RBC 3.38 L Hgb 9.9 L Hct 29.2 L RDW 17.3 H Lymph % (Auto) [place] % (Auto) Lymph # Seg Neutrophils % Seg Neuts % (Manual) 87.0 H Lymphocytes % (Manual) 6.0 L Seg Neutrophils # Man Lymphocytes # (Manual) 0.5 L PT INR POC ABG pH POC ABG pCO2 POC ABG pO2 Sodium Potassium 3.5 L Chloride Carbon Dioxide BUN Creatinine Glucose POC Glucose Lactic Acid AST Alkaline Phosphatase Total Creatine Kinase 204 H C-Reactive Protein Total Protein Albumin Vancomycin Trough 08/14/18 08/14/18 08/17/18 16:43 17:01 09:09 WBC RBC 3.12 L Hgb 9.0 L Hct 27.0 L RDW 17.0 H Lymph % (Auto) 7.1 L [place] % (Auto) 9.2 H Lymph # 0.5 L Seg Neutrophils % 82.7 H Seg Neuts % (Manual) Lymphocytes % (Manual) Seg Neutrophils # Man Lymphocytes # (Manual) PT 15.1 H INR 1.22 H POC ABG pH 7.468 H POC ABG pCO2 POC ABG pO2 57 L Sodium Potassium Chloride Carbon Dioxide BUN Creatinine Glucose POC Glucose Lactic Acid AST Alkaline Phosphatase Total Creatine Kinase C-Reactive Protein Total Protein Albumin Vancomycin Trough 08/17/18 08/17/18 08/17/18 09:09 11:30 23:21 WBC RBC Hgb Hct RDW Lymph % (Auto) [place] % (Auto) Lymph # Seg Neutrophils % Seg Neuts % (Manual) Lymphocytes % (Manual) Seg Neutrophils # Man Lymphocytes # (Manual) PT INR POC ABG pH 7.225 L POC ABG pCO2 54.6 H POC ABG pO2 50 L 110 H Sodium Potassium 3.5 L Chloride Carbon Dioxide 20 L BUN 7 L Creatinine Glucose 125 H POC Glucose Lactic Acid AST Alkaline Phosphatase Total Creatine Kinase C-Reactive Protein Total Protein 6.2 L Albumin 3.2 L Vancomycin Trough 08/18/18 08/18/18 08/18/18 04:49 13:06 13:50 WBC RBC Hgb Hct RDW Lymph % (Auto) [place] % (Auto) Lymph # Seg Neutrophils % Seg Neuts % (Manual) Lymphocytes % (Manual) Seg Neutrophils # Man Lymphocytes # (Manual) PT INR POC ABG pH POC ABG pCO2 POC ABG pO2 58 L Sodium Potassium Chloride Carbon Dioxide BUN Creatinine Glucose POC Glucose Lactic Acid AST Alkaline Phosphatase Total Creatine Kinase C-Reactive Protein 31.10 H Total Protein Albumin Vancomycin Trough 4.7 L 08/18/18 08/19/18 08/19/18 13:50 07:25 07:25 WBC 14.8 H 12.7 H RBC 3.46 L 3.32 L Hgb 10.1 L 9.5 L Hct 30.2 L 28.9 L RDW 17.6 H 17.7 H Lymph % (Auto) [place] % (Auto) Lymph # Seg Neutrophils % Seg Neuts % (Manual) 95.0 H 95.0 H Lymphocytes % (Manual) 3.0 L 5.0 L Seg Neutrophils # Man 14.1 H 12.1 H Lymphocytes # (Manual) 0.4 L 0.6 L PT INR POC ABG pH POC ABG pCO2 POC ABG pO2 Sodium Potassium Chloride Carbon Dioxide BUN 23 H Creatinine Glucose 139 H POC Glucose Lactic Acid AST 41 H Alkaline Phosphatase 149 H Total Creatine Kinase C-Reactive Protein Total Protein Albumin 3.0 L Vancomycin Trough 08/19/18 08/20/18 08/21/18 15:10 04:03 04:18 WBC RBC Hgb Hct RDW Lymph % (Auto) [place] % (Auto) Lymph # Seg Neutrophils % Seg Neuts % (Manual) Lymphocytes % (Manual) Seg Neutrophils # Man Lymphocytes # (Manual) PT INR POC ABG pH 7.346 L POC ABG pCO2 49.0 H 50.2 H 51.0 H POC ABG pO2 71 L 180 H 78 L Sodium Potassium Chloride Carbon Dioxide BUN Creatinine Glucose POC Glucose Lactic Acid AST Alkaline Phosphatase Total Creatine Kinase C-Reactive Protein Total Protein Albumin Vancomycin Trough 08/21/18 08/21/18 08/21/18 04:43 04:43 15:54 WBC 14.1 H RBC 3.02 L Hgb 8.5 L Hct 26.3 L RDW 17.9 H Lymph % (Auto) [place] % (Auto) Lymph # Seg Neutrophils % Seg Neuts % (Manual) 95.0 H Lymphocytes % (Manual) 3.0 L Seg Neutrophils # Man 13.4 H Lymphocytes # (Manual) 0.4 L PT INR POC ABG pH POC ABG pCO2 POC ABG pO2 Sodium 149 H Potassium Chloride 111.2 H Carbon Dioxide BUN 27 H Creatinine Glucose 164 H POC Glucose Lactic Acid AST Alkaline Phosphatase Total Creatine Kinase C-Reactive Protein 3.60 H Total Protein Albumin Vancomycin Trough 08/21/18 08/21/18 08/21/18 19:15 20:10 21:33 WBC RBC Hgb Hct RDW Lymph % (Auto) [place] % (Auto) Lymph # Seg Neutrophils % Seg Neuts % (Manual) Lymphocytes % (Manual) Seg Neutrophils # Man Lymphocytes # (Manual) PT INR POC ABG pH POC ABG pCO2 51.6 H POC ABG pO2 63 L Sodium Potassium Chloride Carbon Dioxide BUN Creatinine Glucose POC Glucose Lactic Acid 2.80 H* 2.20 H* AST Alkaline Phosphatase Total Creatine Kinase C-Reactive Protein Total Protein Albumin Vancomycin Trough 08/21/18 08/22/18 08/22/18 23:08 04:20 05:46 WBC RBC Hgb Hct RDW Lymph % (Auto) [place] % (Auto) Lymph # Seg Neutrophils % Seg Neuts % (Manual) Lymphocytes % (Manual) Seg Neutrophils # Man Lymphocytes # (Manual) PT INR POC ABG pH POC ABG pCO2 49.4 H POC ABG pO2 53 L Sodium Potassium Chloride Carbon Dioxide BUN Creatinine Glucose POC Glucose Lactic Acid 2.20 H* 2.10 H* AST Alkaline Phosphatase Total Creatine Kinase C-Reactive Protein Total Protein Albumin Vancomycin Trough 08/22/18 08/22/18 08/22/18 05:46 09:08 23:20 WBC RBC Hgb Hct RDW Lymph % (Auto) [place] % (Auto) Lymph # Seg Neutrophils % Seg Neuts % (Manual) Lymphocytes % (Manual) Seg Neutrophils # Man Lymphocytes # (Manual) PT INR POC ABG pH POC ABG pCO2 POC ABG pO2 Sodium 148 H Potassium Chloride Carbon Dioxide BUN 28 H Creatinine Glucose 155 H POC Glucose Lactic Acid 2.20 H* 2.20 H* AST Alkaline Phosphatase Total Creatine Kinase C-Reactive Protein Total Protein Albumin Vancomycin Trough 08/23/18 08/23/18 08/23/18 00:55 05:14 05:34 WBC 19.6 H RBC 3.02 L Hgb 8.5 L Hct 26.3 L RDW 18.2 H Lymph % (Auto) [place] % (Auto) Lymph # Seg Neutrophils % Seg Neuts % (Manual) 92.0 H Lymphocytes % (Manual) 1.0 L Seg Neutrophils # Man 18.0 H Lymphocytes # (Manual) 0.2 L PT INR POC ABG pH POC ABG pCO2 52.8 H POC ABG pO2 65 L Sodium Potassium Chloride Carbon Dioxide BUN Creatinine Glucose POC Glucose 183 H Lactic Acid AST Alkaline Phosphatase Total Creatine Kinase C-Reactive Protein Total Protein Albumin Vancomycin Trough 08/23/18 08/23/18 08/23/18 05:34 05:34 13:06 WBC RBC Hgb Hct RDW Lymph % (Auto) [place] % (Auto) Lymph # Seg Neutrophils % Seg Neuts % (Manual) Lymphocytes % (Manual) Seg Neutrophils # Man Lymphocytes # (Manual) PT INR POC ABG pH POC ABG pCO2 POC ABG pO2 Sodium 146 H Potassium Chloride Carbon Dioxide 33 H BUN 27 H Creatinine 0.7 L Glucose 158 H POC Glucose Lactic Acid 2.30 H* 2.70 H* AST Alkaline Phosphatase Total Creatine Kinase C-Reactive Protein 2.00 H Total Protein Albumin Vancomycin Trough 08/23/18 08/23/18 08/24/18 22:04 23:48 04:03 WBC RBC Hgb Hct RDW Lymph % (Auto) [place] % (Auto) Lymph # Seg Neutrophils % Seg Neuts % (Manual) Lymphocytes % (Manual) Seg Neutrophils # Man Lymphocytes # (Manual) PT INR POC ABG pH POC ABG pCO2 59.1 H POC ABG pO2 55 L Sodium Potassium Chloride Carbon Dioxide BUN Creatinine Glucose POC Glucose Lactic Acid 2.50 H* 2.20 H* AST Alkaline Phosphatase Total Creatine Kinase C-Reactive Protein Total Protein Albumin Vancomycin Trough 08/24/18 08/24/18 08/24/18 05:13 05:13 05:13 WBC 26.2 H RBC 3.03 L Hgb 8.6 L Hct 26.6 L RDW 18.4 H Lymph % (Auto) [place] % (Auto) Lymph # Seg Neutrophils % Seg Neuts % (Manual) Lymphocytes % (Manual) Seg Neutrophils # Man Lymphocytes # (Manual) PT INR POC ABG pH POC ABG pCO2 POC ABG pO2 Sodium Potassium Chloride Carbon Dioxide 34 H BUN 27 H Creatinine Glucose 176 H POC Glucose Lactic Acid 2.40 H* AST 67 H Alkaline Phosphatase 143 H Total Creatine Kinase C-Reactive Protein Total Protein 5.7 L Albumin 3.2 L Vancomycin Trough 08/24/18 08/25/18 08/25/18 11:05 04:20 05:00 WBC 28.4 H RBC 2.98 L Hgb 8.4 L Hct 26.3 L RDW 18.7 H Lymph % (Auto) [place] % (Auto) Lymph # Seg Neutrophils % Seg Neuts % (Manual) Lymphocytes % (Manual) Seg Neutrophils # Man Lymphocytes # (Manual) PT INR POC ABG pH POC ABG pCO2 59.9 H POC ABG pO2 62 L Sodium Potassium Chloride Carbon Dioxide BUN Creatinine Glucose POC Glucose Lactic Acid 2.10 H* AST Alkaline Phosphatase Total Creatine Kinase C-Reactive Protein Total Protein Albumin Vancomycin Trough 08/25/18 08/25/18 08/26/18 05:00 20:47 04:54 WBC RBC Hgb Hct RDW Lymph % (Auto) [place] % (Auto) Lymph # Seg Neutrophils % Seg Neuts % (Manual) Lymphocytes % (Manual) Seg Neutrophils # Man Lymphocytes # (Manual) PT INR POC ABG pH 7.340 L 7.315 L POC ABG pCO2 POC ABG pO2 Sodium Potassium Chloride Carbon Dioxide 37 H BUN 32 H Creatinine Glucose 147 H POC Glucose Lactic Acid AST Alkaline Phosphatase Total Creatine Kinase C-Reactive Protein Total Protein Albumin Vancomycin Trough 08/26/18 08/26/18 05:05 05:05 WBC 24.3 H RBC 2.97 L Hgb 8.3 L Hct 26.2 L RDW 19.0 H Lymph % (Auto) [place] % (Auto) Lymph # Seg Neutrophils % Seg Neuts % (Manual) Lymphocytes % (Manual) Seg Neutrophils # Man Lymphocytes # (Manual) PT INR POC ABG pH POC ABG pCO2 POC ABG pO2 Sodium Potassium Chloride Carbon Dioxide 37 H BUN 29 H Creatinine Glucose 184 H POC Glucose Lactic Acid AST Alkaline Phosphatase Total Creatine Kinase C-Reactive Protein Total Protein Albumin Vancomycin Trough Allied health notes reviewed: nursing
[2018-08-26] MEDS: ATIVAN PO SCH (21:36)
[2018-08-26] MEDS: PRAVACHOL PO SCH (21:36)
[2018-08-26] MEDS: BENADRYL PO SCH (21:37)
[2018-08-27] MEDS: VANCOMYCIN/NS 1 GM/250 ML 1 GM/250 ML BAG IV SCH (02:00)
[2018-08-27] MEDS: FLAGYL 500 MG/100 ML 500 MG/100 ML BAG IV SCH ×3 (06:00→21:41)
[2018-08-27 06:36] LABS: Hematocrit 25.6 % (35.5-45.6); Mean Corpuscular HGB Conc 31 % (32-34); Mean Corpuscular Volume 89 fl (84-94); Platelet Count 141 K/mm3 (140-440); Red Blood Count 2.87 M/mm3 (3.65-5.03); Red Cell Distribution Width 19.2 % (13.2-15.2)
[2018-08-27 07:03] LABS: Alanine Aminotransferase 63 units/L (7-56); Albumin 2.5 g/dL (3.9-5); BUN/Creatinine Ratio 36; Blood Urea Nitrogen 29 mg/dL (9-20); Calcium 8.2 mg/dL (8.4-10.2); Hemolysis Index 2
[2018-08-27] MEDS: fentaNYL DRIP Premix 2,000 MCG/100 ML BAG IV SCH ×2 (07:40→18:29)
[2018-08-27] MEDS: DUONEB *Not for PRN Use IH SCH ×4 (08:19→19:41)
--- NOTE | 2018-08-27 09:00 | Progress Note ---
Assessment and Plan Assessment and plan: Patient is 52-year-old male with PMHx of developmental delay, schizophrenia, and depression with recent h/o SI presented to the ER with complaints of shortness of breath and cough 1 day. Patient O2 sat was noted to be 86% and improve after application of oxygen via n/c. Pt denies a history of COPD but admits to history of smoking. In the ER, pt had a chest x-ray that showed multifocal bilateral air space disease suspicious for pneumonia. After admission went into resp distress and transferred to ICU for Intesive care On BIPAP. He then eventually intubated on 08/19. and is still intubated Acute Respiratory failure with hypoxia s/p intubated 08/19/18 cont Duonebs IV Solumedrol and IV abx Bilateral pneumonia, Cont Abx, follow cx, ID consulted,following Sepsis with septic shock Now on Cefepime, vanco and Flagyl Levophed started 08/25 Leukocytosis, Monitor Fever Anemia Anemia w/u ordered Hypokalemia, Resolved Schizophrenia, on Zyprexa Depression, on antidepressants Gout , Cont Allopurinol HLD (hyperlipidemia), Cont statins DVT prophylaxis: On Lovenox GI Prophylaxis:Pepcid Nurse reports minimal Urine output. Get bladder scan, straight cath. he has condom catheter on The high probability of a clinically significant, sudden or life threatening deterioration of the [4] system(s) required my full and direct attention, intervention and personal management. The aggregate critical care time was [33] minutes. This time is in addition to time spent performing reported procedures but includes the following: [x] Data Review and interpretation [x] Patient assessment and monitoring of vital signs [x] Documentation [x] Medication orders and management History Interval history: Still intubated, sedated Started on Levophed for hypotension Still having Fever Hospitalist Physical - Physical exam Narrative exam: Gen: Not in acute distress, intubated, sedated HEENT: Normocephalic, atraumatic Neck: supple, no JVD Heart: S1 and S2 reg, no murmurs, rubs or gallop Lungs: Bilateral rhonchi, Abd: soft, non tender, non distended, normal BS Ext: No edema, no clubbing, no cyanosis, Neuro: Sedated, intubated - Constitutional Vitals: Temp Pulse Resp BP Pulse Ox 99.3 F 104 H 29 H 117/59 99 08/27/18 03:27 08/27/18 08:33 08/27/18 08:33 08/27/18 08:30 08/27/18 08:30 General appearance: Present: no acute distress Results - Labs CBC & Chem 7: 08/27/18 05:10 08/27/18 05:10 Labs: Laboratory Last Values WBC 20.8 K/mm3 (4.5-11.0) H 08/27/18 05:10 RBC 2.87 M/mm3 (3.65-5.03) L 08/27/18 05:10 Hgb 8.0 gm/dl (11.8-15.2) L 08/27/18 05:10 Hct 25.6 % (35.5-45.6) L 08/27/18 05:10 MCV 89 fl (84-94) 08/27/18 05:10 MCH 28 pg (28-32) 08/27/18 05:10 MCHC 31 % (32-34) L 08/27/18 05:10 RDW 19.2 % (13.2-15.2) H 08/27/18 05:10 Plt Count 141 K/mm3 (140-440) 08/27/18 05:10 Lymph % (Auto) Cafeteria Attendant 08/18/18 13:50 [place] % (Auto) 9.2 % (0.0-7.3) H 08/17/18 09:09 Eos % (Auto) 0.8 % (0.0-4.3) 08/17/18 09:09 Baso % (Auto) 0.2 % (0.0-1.8) 08/17/18 09:09 Lymph # Cafeteria Attendant 08/18/18 13:50 [place] # 0.7 K/mm3 (0.0-0.8) 08/17/18 09:09 Eos # 0.1 K/mm3 (0.0-0.4) 08/17/18 09:09 Baso # 0.0 K/mm3 (0.0-0.1) 08/17/18 09:09 Add Manual Diff Complete 08/23/18 05:34 Total Counted 100 08/23/18 05:34 Seg Neutrophils % Cafeteria Attendant 08/21/18 04:43 Seg Neuts % (Manual) 92.0 % (40.0-70.0) H 08/23/18 05:34 0 % 08/23/18 05:34 1.0 % (13.4-35.0) L 08/23/18 05:34 Reactive Lymphs % (Man) 0 % 08/23/18 05:34 3.0 % (0.0-7.3) 08/23/18 05:34 0 % (0.0-4.3) 08/23/18 05:34 0 % (0.0-1.8) 08/23/18 05:34 4.0 % 08/23/18 05:34 0 % 08/23/18 05:34 0 % 08/23/18 05:34 0 % 08/23/18 05:34 Nucleated RBC % Not Reportable 08/23/18 05:34 Seg Neutrophils # 6.3 K/mm3 (1.8-7.7) 08/17/18 09:09 Seg Neutrophils # Man 18.0 K/mm3 (1.8-7.7) H 08/23/18 05:34 Band Neutrophils # 0.0 K/mm3 08/23/18 05:34 0.2 K/mm3 (1.2-5.4) L 08/23/18 05:34 Abs React Lymphs (Man) 0.0 K/mm3 08/23/18 05:34 0.6 K/mm3 (0.0-0.8) 08/23/18 05:34 0.0 K/mm3 (0.0-0.4) 08/23/18 05:34 0.0 K/mm3 (0.0-0.1) 08/23/18 05:34 0.8 K/mm3 08/23/18 05:34 0.0 K/mm3 08/23/18 05:34 0.0 K/mm3 08/23/18 05:34 Blast Cells # 0.0 K/mm3 08/23/18 05:34 WBC Morphology Not Reportable 08/23/18 05:34 Hypersegmented Neuts Not Reportable 08/23/18 05:34 Hyposegmented Neuts Not Reportable 08/23/18 05:34 Hypogranular Neuts Not Reportable 08/23/18 05:34 Not Reportable 08/23/18 05:34 Not Reportable 08/23/18 05:34 Not Reportable 08/23/18 05:34 Not Reportable 08/23/18 05:34 Not Reportable 08/23/18 05:34 Not Reportable 08/23/18 05:34 Consistent w auto 08/23/18 05:34 Not Reportable 08/23/18 05:34 Plt Clumps, EDTA Not Reportable 08/23/18 05:34 Not Reportable 08/23/18 05:34 Not Reportable 08/23/18 05:34 Not Reportable 08/23/18 05:34 Plt Morphology Comment Not Reportable 08/23/18 05:34 RBC Morphology Not Reportable 08/23/18 05:34 Dimorphic RBCs Not Reportable 08/23/18 05:34 Not Reportable 08/23/18 05:34 Not Reportable 08/23/18 05:34 Not Reportable 08/23/18 05:34 Few 08/23/18 05:34 Not Reportable 08/23/18 05:34 Not Reportable 08/23/18 05:34 Not Reportable 08/23/18 05:34 Not Reportable 08/23/18 05:34 Not Reportable 08/23/18 05:34 Not Reportable 08/23/18 05:34 Not Reportable 08/23/18 05:34 Not Reportable 08/23/18 05:34 Few 08/21/18 04:43 Not Reportable 08/23/18 05:34 Not Reportable 08/23/18 05:34 Not Reportable 08/23/18 05:34 Not Reportable 08/23/18 05:34 Not Reportable 08/23/18 05:34 Not Reportable 08/23/18 05:34 Not Reportable 08/23/18 05:34 Acanthocytes (Spur) Not Reportable 08/23/18 05:34 Rouleaux Not Reportable 08/23/18 05:34 Not Reportable 08/23/18 05:34 Not Reportable 08/23/18 05:34 Not Reportable 08/23/18 05:34 Not Reportable 08/23/18 05:34 Hem Pathologist Commnt No 08/23/18 05:34 PT 15.1 Sec. (12.2-14.9) H 08/14/18 16:43 INR 1.22 (0.87-1.13) H 08/14/18 16:43 APTT 31.2 Sec. (24.2-36.6) 08/14/18 16:43 POC ABG pH 7.332 (7.35-7.45) L 08/27/18 04:37 POC ABG pCO2 59.9 (35-45) H 08/25/18 04:20 POC ABG pO2 165 (80-105) H 08/27/18 04:37 POC ABG HCO3 39.9 (22-26 mml/L) 08/27/18 04:37 POC ABG Total CO2 42 (23-27mmol/L) 08/27/18 04:37 POC ABG O2 Sat 99 08/27/18 04:37 POC ABG Base Excess 14 ((-2) - (+3)mmol/L) 08/27/18 04:37 100 % 08/27/18 04:37 Sodium 142 mmol/L (137-145) 08/27/18 05:10 Potassium 4.9 mmol/L (3.6-5.0) 08/27/18 05:10 Chloride 98.7 mmol/L (98-107) 08/27/18 05:10 Carbon Dioxide 36 mmol/L (22-30) H 08/27/18 05:10 12 mmol/L 08/27/18 05:10 BUN 29 mg/dL (9-20) H 08/27/18 05:10 0.8 mg/dL (0.8-1.5) 08/27/18 05:10 Estimated GFR > 60 ml/min 08/27/18 05:10 36 % 08/27/18 05:10 Glucose 149 mg/dL (75-100) H 08/27/18 05:10 POC Glucose 183 (70-105) H 08/23/18 00:55 Lactic Acid 1.70 mmol/L (0.7-2.0) 08/24/18 17:33 Calcium 8.2 mg/dL (8.4-10.2) L 08/27/18 05:10 Phosphorus 3.80 mg/dL (2.5-4.5) 08/18/18 13:50 Magnesium 2.00 mg/dL (1.7-2.3) 08/18/18 13:50 0.30 mg/dL (0.1-1.2) 08/27/18 05:10 AST 63 units/L (5-40) H 08/27/18 05:10 ALT 63 units/L (7-56) H 08/27/18 05:10 110 units/L (35-129) 08/27/18 05:10 204 units/L (55-170) H 08/14/18 16:33 CK-MB (CK-2) 1.9 ng/mL (0.0-4.0) 08/14/18 16:33 CK-MB (CK-2) Rel Index 0.9 (0-4) 08/14/18 16:33 < 0.010 ng/mL (0.00-0.029) 08/14/18 16:33 2.00 mg/dL (0.00-1.30) H 08/23/18 05:34 NT-Pro-B Natriuret Pep 199.0 pg/mL (0-900) 08/14/18 16:33 5.6 g/dL (6.3-8.2) L 08/27/18 05:10 2.5 g/dL (3.9-5) L 08/27/18 05:10 0.8 % 08/27/18 05:10 Vancomycin Trough 19.3 ug/mL (5.0-20.0) 08/21/18 15:46 Presumptive negative 08/14/18 Unknown Presumptive negative 08/14/18 Unknown Ur Barbiturates Screen Presumptive negative 08/14/18 Unknown Ur Phencyclidine Scrn Presumptive negative 08/14/18 Unknown Ur Amphetamines Screen Presumptive negative 08/14/18 Unknown U Benzodiazepines Scrn Presumptive negative 08/14/18 Unknown Presumptive negative 08/14/18 Unknown U Marijuana (THC) Screen Presumptive negative 08/14/18 Unknown Disclamer 08/14/18 Unknown Urine Legionella Ag Not detected (Not Detected) 08/20/18 Unknown Flexitest 1 08/20/18 15:29 Active Medications - Current Medications Current Medications: Generic Name Dose Route Start Last Admin Trade Name Freq PRN Reason Stop Dose Admin Acetaminophen 650 mg 08/14/18 22:29 08/25/18 20:40 Tylenol PO 650 mg Q4H PRN Administration Pain MILD(1-3)/Fever >100.5/LOCO Albuterol 2.5 mg 08/19/18 07:17 Proventil IH Q4HRT PRN Shortness Of Breath Albuterol/Ipratropium 1 ampul 08/16/18 16:00 08/27/18 08:19 Duoneb *Not For Prn Use* IH 1 ampul QIDRT DOMINIC Administration Allopurinol 100 mg 08/16/18 13:00 08/26/18 10:01 Zyloprim PO 100 mg QDAY DOMINIC Administration Lipase/Protease/Amylase 1 each 08/19/18 13:43 Pancrerubén [place] 10,500 Unit FEEDTUBE PRN PRN For Clogged Feeding Tube Bupropion HCl 75 mg 08/27/18 10:00 Wellbutrin PO BID DOMINIC Diphenhydramine HCl 100 mg 08/16/18 22:00 08/26/18 21:37 Benadryl PO 100 mg QHS DOMINIC Administration Docusate Sodium 100 mg 08/23/18 12:00 08/26/18 21:37 Colace FEEDTUBE 100 mg BID DOMINIC Administration Enoxaparin Sodium 40 mg 08/15/18 10:00 08/26/18 10:02 Lovenox SUB-Q 40 mg QDAY@1000 DOMINIC Administration Famotidine 20 mg 08/15/18 10:00 08/26/18 21:37 Pepcid PO 20 mg BID DOMINIC Administration Fentanyl 50 mcg 08/19/18 12:01 Sublimaze IV Q10MIN PRN ANALGESIA Fluoxetine HCl 20 mg 08/17/18 12:00 08/26/18 12:19 Prozac PO 20 mg DAILY@1200 DOMINIC Administration Hydrocodone Bit/Homatropine Methylb 10 ml 08/18/18 13:09 08/18/18 13:35 Hydromet PO 10 ml Q6H PRN Administration Cough Hydrophilic Ointment 1 applic 08/19/18 12:01 Vaseline Lip Therapy TP Q2HR PRN Dry Lips Sodium Chloride 1,000 mls @ 50 mls/hr 08/15/18 06:00 08/21/18 02:45 Nacl 0.9% 1000 Ml IV 50 mls/hr DIRECT DOMINIC Administration Fentanyl Citrate 2,000 mcg in 100 mls @ 3.935 mls/hr 08/19/18 13:00 08/26/18 21:39 Fentanyl Drip Premix IV 3 mcg/kg/hr TITR DOMINIC 11.805 mls/hr Administration Protocol 1 MCG/KG/HR Propofol 1,000 mg in 100 mls @ 2.361 mls/hr 08/19/18 13:00 08/26/18 21:38 Diprivan 10 Mg/Ml IV 15 mcg/kg/min TITR DOMINIC 7.083 mls/hr Administration Protocol 5 MCG/KG/MIN Norepinephrine 4 mg in 250 mls @ 7.5 mls/hr 08/25/18 12:00 08/26/18 12:39 Levophed Drip 4 Mg/Ns 250 Ml IV 4 mcg/min TITR DOMINIC 15 mls/hr Titration Protocol 2 MCG/MIN Cefepime HCl 2 gm in 100 mls @ 200 mls/hr 08/25/18 12:00 08/26/18 22:00 Maxipime/Ns 2 Gm/100 Ml IV 100 mls/hr Q12HR DOMINIC Administration Protocol Metronidazole 500 mg in 100 mls @ 100 mls/hr 08/25/18 14:00 08/27/18 06:00 Flagyl 500 Mg/100 Ml IV 100 mls/hr Q8HR DOMINIC Administration Protocol Vancomycin HCl 1,250 mg/ 275 mls @ 166.667 mls/hr 08/27/18 13:00 Sodium Chloride IV Q12H DOMINIC Lorazepam 2 mg 08/26/18 22:00 08/26/18 21:36 Ativan PO 2 mg QHS DOMINIC Administration Magnesium Hydroxide 30 ml 08/14/18 22:35 Milk Of Magnesia PO Q4H PRN Constipation Multi-Ingred Cream/Lotion/Oil/Oint 1 applic 08/19/18 12:01 Artificial Tears Ophth Oint OU Q4HR PRN Dry Eye(s) Olanzapine 20 mg 08/16/18 22:00 08/26/18 22:00 Zyprexa PO 20 mg QHS DOMINIC Administration Ondansetron HCl 4 mg 08/14/18 22:29 Zofran IV Q8H PRN Nausea And Vomiting Pravastatin Sodium 40 mg 08/16/18 22:00 08/26/18 21:36 Pravachol PO 40 mg QHS DOMINIC Administration Risperidone 2 mg 08/17/18 10:00 08/26/18 10:01 Risperdal PO 2 mg QAM DOMINIC Administration Simple Syrup 15 ml 08/19/18 13:43 Simple Syrup FEEDTUBE PRN PRN Hypoglycemia Simple Syrup 30 ml 08/19/18 13:43 Simple Syrup FEEDTUBE PRN PRN Hypoglycemia Sodium Bicarbonate 325 mg 08/19/18 13:43 Sodium Bicarbonate FEEDTUBE PRN PRN For Clogged Feeding Tube Sodium Chloride 10 ml 08/15/18 10:00 08/26/18 21:43 Sodium Chloride Flush Syringe 10 Ml IV 10 ml BID DOMINIC Administration Sodium Chloride 10 ml 08/14/18 22:29 Sodium Chloride Flush Syringe 10 Ml IV PRN PRN LINE FLUSH Tamsulosin HCl 0.4 mg 08/21/18 13:00 08/26/18 10:01 Flomax PO 0.4 mg QDAY DOMINIC Administration Nutrition/Malnutrition Assess - Dietary Evaluation Nutrition/Malnutrition Findings: Nutrition Notes Start: 08/19/18 13:37 Freq: Status: Active Protocol: Document 08/24/18 15:31 RM (Rec: 08/24/18 15:38 RM [id number]) Nutrition Notes Initial or Follow up Reassessment Current Diagnosis Respiratory Failure, Hyperlipidemia Other Pertinent Diagnosis LLL pneu, Developmental delay, Hx schizophrenia Current Diet Osmolite 1.5 at 55 ml/hr Labs/Tests K 5 Na 144 Pertinent Medications Lasix, Propofol at 9.4ml/hr ( provides 248 kcal) Height 5 ft 11 in Weight 78.2 kg [place] Body Weight (kg) 78.18 BMI 24.0 Subjective/Other Information Observed Osmolite hanging w/ pump off. Per nurse TF was turned off for ultra sound. Per nurse note pt was tolerating TF prior to being turned off. Percent of energy/protein needs met: 100%/88% Burn Absent Trauma Absent #1 Nutrition Diagnosis Inadequate oral intake Diagnosis Progress(for reassessment Continues documentation) Is patient on ventilator? Yes Is Patient Ambulatory and/or Out of Bed No REE-([facility]-confined to bed) 1976.192 Calculation Used for Recommendations [facility] Additional Notes Pro needs 1.2-2g/k-157g/ day Fluid needs 1ml/kcal Nutrition Intervention Nutrition Support: Osmolite 1.5 at 55ml/hr 150ml water flush q4h. Kcal 1,980 Protein (gm) 83 Carbohydrates (gm) 269 Fat (gm) 65 Fluid (mL) 1,006 Goal #1 TF tolerance Goal #2 TF (at goal rate) to continue to meet at least 80% energy and pro needs Anticipated Discharge Needs: Unable to determine at this time Follow-Up By: 08/27/18 Additional Comments Follow for TF tolerance, K lab
[2018-08-27] MEDS: MAXIPIME/NS 2 GM/100 ML 2 GM/100 ML BAG IV SCH ×2 (09:35→21:37)
[2018-08-27] MEDS: RisperDAL PO SCH (09:36)
[2018-08-27] MEDS: PEPCID PO SCH ×2 (09:36→21:41)
[2018-08-27] MEDS: FLOMAX PO SCH (09:36)
[2018-08-27] MEDS: COLACE FEEDTUBE SCH ×2 (09:40→21:42)
[2018-08-27] MEDS: LOVENOX SUB-Q SCH (09:40)
[2018-08-27] MEDS: ZYLOPRIM PO SCH (09:58)
[2018-08-27] MEDS: WELLBUTRIN PO SCH ×2 (10:49→21:41)
--- NOTE | 2018-08-27 12:11 | Progress Note ---
Assessment and Plan Cultures: 08/14/2018 Blood culture: No growth 08/18/2018 resp culture: normal resp aminata 08/19/2018 resp culture: normal resp aminata 08/25/2018 resp culture: normal resp aminata Legionella Ag: negative Strep Ag: negative A/P: 52-year-old male with history of developmental delay, schizophrenia, recently discharged from a psychiatric facility for suicidal ideation now with: 1) Acute respiratory failure secondary to bilateral pneumonia: oxygenation worsening. Unclear etiology ? aspiration pneumonitis ? PJP. CT chest with bilateral ground glass opacities. TTE EF normal. Legionella and Strep antigens negative. Cultures growing normal resp aminata. Intubated, sedated. High O2 r equirements, ?ARDS. 2) Septic shock on levophed, ? source pneumonia 3) Schizophrenia, Depression: Patient is on risperidone, olanzapine, Haldol. Also on Wellbutrin and fluoxetine. At risk of QT prolongation especially with levofloxacin. 4) PCN allergy: unknown, at least >10 years history per his caregiver at the bedside. Low risk of cross reactivity with Cephalosporins. Tolerating Cefepime and Ceftriaxone well. 5) Leucocytosis: slightly better, unexplained by steroids. RUQ US negative for hepatobiliary source. CT chest with worsening pneumonia. Recs: continue IV Cefepime, Flagyl and Vancomycin add bactrim IV until HIV is ruled out consider bronchoscopy with BAL when oxygenation is better BAL for routine cultures, AFB and fungal HIV test - ordered Dr Luna is covering tomorrow Zulay Martins MD Infectious Diseases [employer] [facility] ([facility]) M [phone] O [phone] Subjective Date of service: 08/27/18 Principal diagnosis: Ac. hypoxemic resp failure; Multifocal Pneumonia (HAP); ARDS; Anemia Interval history: Remains on levophed at 4 mcg/min, intubated, sedated. Tmax 100.4. ROS unable to obtain Objective - Exam Narrative Exam: General appearance: sedated intubated FiO2 100%, p6 Eyes: anicteric sclerae, moist conjunctivae; no lid-lag; PERRLA HENT: Atraumatic; oropharynx limited +ETT, +NGT Neck: Trachea midline; supple, no thyromegaly or lymphadenopathy Lungs: judy rhonchi CV: RRR Abdomen: Soft, non-tender; no masses or hepatosplenomegaly Extremities: No peripheral edema or extremity lymphadenopathy Skin: Normal temperature, turgor and texture; no rash, ulcers or subcutaneous nodules Psych: sedated. Neuro: sedated [place] with concentrated urine R PICC line - Constitutional Vitals: Vital Signs Temp Pulse Resp BP Pulse Ox 99.4 F 100 H 19 101/55 80 L 08/27/18 08:00 08/27/18 10:31 08/27/18 10:31 08/27/18 10:31 08/27/18 10:31 Temperature -Last 24 Hours Temperature 99.4 F Temperature 99.3 F Temperature 100.3 F Temperature 99.7 F Temperature 100.4 F - Labs CBC & Chem 7: 08/27/18 05:10 08/27/18 05:10 Labs: Abnormal lab results 08/26/18 08/27/18 08/27/18 Range/Units 23:03 04:37 05:10 WBC 20.8 H (4.5-11.0) K/mm3 RBC 2.87 L (3.65-5.03) M/mm3 Hgb 8.0 L (11.8-15.2) gm/dl Hct 25.6 L (35.5-45.6) % MCHC 31 L (32-34) % RDW 19.2 H (13.2-15.2) % POC ABG pH 7.323 L 7.332 L (7.35-7.45) POC ABG pO2 165 H (80-105) Carbon Dioxide (22-30) mmol/L BUN (9-20) mg/dL Glucose (75-100) mg/dL Calcium (8.4-10.2) mg/dL AST (5-40) units/L ALT (7-56) units/L Total Protein (6.3-8.2) g/dL Albumin (3.9-5) g/dL 08/27/18 Range/Units 05:10 WBC (4.5-11.0) K/mm3 RBC (3.65-5.03) M/mm3 Hgb (11.8-15.2) gm/dl Hct (35.5-45.6) % MCHC (32-34) % RDW (13.2-15.2) % POC ABG pH (7.35-7.45) POC ABG pO2 (80-105) Carbon Dioxide 36 H (22-30) mmol/L BUN 29 H (9-20) mg/dL Glucose 149 H (75-100) mg/dL Calcium 8.2 L (8.4-10.2) mg/dL AST 63 H (5-40) units/L ALT 63 H (7-56) units/L Total Protein 5.6 L (6.3-8.2) g/dL Albumin 2.5 L (3.9-5) g/dL
[2018-08-27] MEDS: DIPRIVAN 10 MG/ML 1,000 MG/100 ML BOTTLE IV SCH ×2 (12:29→23:41)
[2018-08-27] MEDS: PROzac PO SCH (12:47)
[2018-08-27] MEDS: BACTRIM 300 MG in D5W 500 ML IV SCH ×2 (13:41→19:06)
[2018-08-27] MEDS: VANCOMYCIN 1,250 MG in NACL 0.9% 250ML 250 ML IV SCH (13:42)
--- NOTE | 2018-08-27 14:53 | Progress Note ---
Assessment and Plan Acute hypoxemic respiratory failure. Acute respiratory distress syndrome. Possible aspiration pneumonia (HAP) History of depression. History of schizophrenia. Anemia that is normocytic. Mild metabolic acidosis. Hypokalemia. Developmental delay (stil feel significant element of pulmonary edema) - target negative fluid balance with intermittent diuretics as tolerated - wean levophed for target MAP > 65 mmHg - continue ARDS ventilatory strategies (6mls/kg IBW now) - replaced hernandez catheter due to retention; will continue flomax - follow bronch studies (NGTD) - empiric Antiinfective's per ID rec's - keep peep at 16 for now (monitor plateau pressures with optimal target < 30 cm H2O) - continue to advance enteral nutrition to goal rate - continue free water flushes to 300 mls q4h re: hypernatremia - continue Flomax (Urinary retention reported with 1.5 liters drained post hernandez catheter) - continue albuterol nebs with pulmonary hygiene per RT - continue lung protective strategies - daily CXR and ABG in short term - VAP bundle addressed - continue supplemental oxygen to keep O2 sats 88-90% - continue bronchodilators with pulmonary hygiene per RT - continus systemic steroids with quick taper - continue accuchecks with glycemic control per SSI for target blood glucose <180mg/dL - Agitation management - Titrate sedation to RASS 0 to -1 - Prevention of delirium, maintenance of sleep-wake cycle - Will de-escalate therapy based on microbiology/SD/Cultures - Avoid nephrotoxic agents, adjust all antibiotics and medications for CrCL and GFR - VTE and Stress ulcer prophylaxis CONDITION: CRITICAL PROGNOSIS: GUARDED CODE STATUS: FULL CODE The high probability of a clinically significant, sudden or life-threatening deterioration of the [respiratory] system(s) required my full and direct attention, intervention and personal management. The aggregate critical care time was [34] minutes without overlap. Time includes spent on; [x] Data Review and interpretation [x] Patient assessment and monitoring of vital signs [x] Documentation [x] Medication orders and management Subjective Date of service: 08/27/18 Principal diagnosis: Ac. hypoxemic resp failure; Multifocal Pneumonia (HAP); ARDS; Anemia Interval history: Patient is seen today for: Acute hypoxemic respiratory failure; multifocal pneumonia (HAP); ARDS; depression; schizophrenia; Anemia; Developmental delay Seen and examined at bedside; 24hour events reviewed; nursing and respiratory care staff consulted; no adverse overnight events reported to me; remains on MVS; ARDS numbers persistent; agitated during sedation holidays but also baseline mental retardation; no emesis or overt aspiration; bilateral pulmonary infiltrates persist; no high grade fevers Objective Vital Signs - 12hr 08/27/18 08/27/18 08/27/18 03:00 03:01 03:27 Temperature 99.3 F Pulse Rate 102 H 102 H Pulse Rate [ Bilateral] Pulse Rate [ 102 H From Monitor] Respiratory 22 21 Rate Respiratory Rate [Bilateral ] Blood Pressure 98/58 O2 Sat by Pulse 99 97 Oximetry 08/27/18 08/27/18 08/27/18 03:30 04:00 04:19 Temperature Pulse Rate 103 H 105 H 102 H Pulse Rate [ Bilateral] Pulse Rate [ From Monitor] Respiratory 20 25 H Rate Respiratory Rate [Bilateral ] Blood Pressure 104/66 95/60 95/60 O2 Sat by Pulse 98 98 99 Oximetry 08/27/18 08/27/18 08/27/18 04:30 05:00 05:30 Temperature Pulse Rate 102 H 103 H 103 H Pulse Rate [ Bilateral] Pulse Rate [ From Monitor] Respiratory 22 21 22 Rate Respiratory Rate [Bilateral ] Blood Pressure 97/56 116/64 111/60 O2 Sat by Pulse 98 98 99 Oximetry 08/27/18 08/27/18 08/27/18 06:00 06:30 07:00 Temperature Pulse Rate 98 H 97 H 95 H Pulse Rate [ Bilateral] Pulse Rate [ 102 H From Monitor] Respiratory 24 17 25 H Rate Respiratory Rate [Bilateral ] Blood Pressure 102/57 101/53 106/57 O2 Sat by Pulse 99 98 99 Oximetry 08/27/18 08/27/18 08/27/18 07:30 08:00 08:16 Temperature 99.4 F Pulse Rate 96 H 97 H 103 H Pulse Rate [ Bilateral] Pulse Rate [ From Monitor] Respiratory 26 H 27 H Rate Respiratory Rate [Bilateral ] Blood Pressure 100/57 105/56 105/56 O2 Sat by Pulse 99 99 98 Oximetry 08/27/18 08/27/18 08/27/18 08:20 08:30 08:33 Temperature Pulse Rate 104 H Pulse Rate [ 103 H 104 H Bilateral] Pulse Rate [ From Monitor] Respiratory 26 H Rate Respiratory 29 H 29 H Rate [Bilateral ] Blood Pressure 117/59 O2 Sat by Pulse 99 Oximetry 08/27/18 08/27/18 08/27/18 09:00 09:30 10:00 Temperature Pulse Rate 111 H 116 H 111 H Pulse Rate [ Bilateral] Pulse Rate [ From Monitor] Respiratory 21 25 H 25 H Rate Respiratory Rate [Bilateral ] Blood Pressure 125/53 98/58 101/68 O2 Sat by Pulse 96 94 98 Oximetry 08/27/18 08/27/18 08/27/18 10:31 11:00 11:30 Temperature Pulse Rate 100 H 105 H 107 H Pulse Rate [ Bilateral] Pulse Rate [ From Monitor] Respiratory 19 28 H 25 H Rate Respiratory Rate [Bilateral ] Blood Pressure 101/55 110/57 107/60 O2 Sat by Pulse 80 L 90 96 Oximetry 08/27/18 08/27/18 08/27/18 12:00 12:08 12:10 Temperature 99.7 F H Pulse Rate 108 H 108 H Pulse Rate [ 107 H Bilateral] Pulse Rate [ From Monitor] Respiratory 21 Rate Respiratory 32 H Rate [Bilateral ] Blood Pressure 94/56 94/56 O2 Sat by Pulse 94 95 Oximetry 08/27/18 08/27/18 08/27/18 12:28 12:30 13:00 Temperature Pulse Rate 105 H 106 H Pulse Rate [ 105 H Bilateral] Pulse Rate [ From Monitor] Respiratory 20 20 Rate Respiratory 38 H Rate [Bilateral ] Blood Pressure 89/57 105/56 O2 Sat by Pulse 95 96 Oximetry 08/27/18 08/27/18 13:30 14:00 Temperature Pulse Rate 106 H 106 H Pulse Rate [ Bilateral] Pulse Rate [ From Monitor] Respiratory 21 18 Rate Respiratory Rate [Bilateral ] Blood Pressure 110/53 103/55 O2 Sat by Pulse 95 96 Oximetry Constitutional: no acute distress, other (middle aged CM, normocephalic on MVS and riding set rate of 28/min) Eyes: non-icteric ENT: oropharynx moist, other (ETT 23 cm VENTURA) Neck: supple, no lymphadenopathy, other (no thyromegaly) Effort: mildly labored Ascultation: Bilateral: rales Percussion: Bilateral: not dull Cardiovascular: regular rate and rhythm, other (No R/M) Gastrointestinal: normoactive bowel sounds, soft, non-tender, non-distended Integumentary: normal Extremities: no cyanosis, no edema, pink and warm, pulses normal, no ischemia or petechiae Neurologic: non-focal exam (grossly), pupils equal and round, motor strength normal and, unable to assess, other (sedated) Psychiatric: other (sedated) CBC and BMP: 08/29/18 04:20 08/31/18 00:35 ABG, PT/INR, D-dimer: ABG POC ABG pH 7.332 (7.35-7.45) L 08/27/18 04:37 POC ABG pO2 165 (80-105) H 08/27/18 04:37 POC ABG HCO3 39.9 (22-26 mml/L) 08/27/18 04:37 POC ABG Total CO2 42 (23-27mmol/L) 08/27/18 04:37 POC ABG O2 Sat 99 08/27/18 04:37 PT/INR, D-dimer PT 15.1 Sec. (12.2-14.9) H 08/14/18 16:43 INR 1.22 (0.87-1.13) H 08/14/18 16:43 Abnormal lab findings: Abnormal Labs 08/14/18 08/14/18 08/14/18 16:33 16:33 16:43 WBC RBC 3.38 L Hgb 9.9 L Hct 29.2 L MCHC RDW 17.3 H Lymph % (Auto) [place] % (Auto) Lymph # Seg Neutrophils % Seg Neuts % (Manual) 87.0 H Lymphocytes % (Manual) 6.0 L Seg Neutrophils # Man Lymphocytes # (Manual) 0.5 L PT INR POC ABG pH POC ABG pCO2 POC ABG pO2 Sodium Potassium 3.5 L Chloride Carbon Dioxide BUN Creatinine Glucose POC Glucose Lactic Acid Calcium AST ALT Alkaline Phosphatase Total Creatine Kinase 204 H C-Reactive Protein Total Protein Albumin Vancomycin Trough 08/14/18 08/14/18 08/17/18 16:43 17:01 09:09 WBC RBC 3.12 L Hgb 9.0 L Hct 27.0 L MCHC RDW 17.0 H Lymph % (Auto) 7.1 L [place] % (Auto) 9.2 H Lymph # 0.5 L Seg Neutrophils % 82.7 H Seg Neuts % (Manual) Lymphocytes % (Manual) Seg Neutrophils # Man Lymphocytes # (Manual) PT 15.1 H INR 1.22 H POC ABG pH 7.468 H POC ABG pCO2 POC ABG pO2 57 L Sodium Potassium Chloride Carbon Dioxide BUN Creatinine Glucose POC Glucose Lactic Acid Calcium AST ALT Alkaline Phosphatase Total Creatine Kinase C-Reactive Protein Total Protein Albumin Vancomycin Trough 08/17/18 08/17/18 08/17/18 09:09 11:30 23:21 WBC RBC Hgb Hct MCHC RDW Lymph % (Auto) [place] % (Auto) Lymph # Seg Neutrophils % Seg Neuts % (Manual) Lymphocytes % (Manual) Seg Neutrophils # Man Lymphocytes # (Manual) PT INR POC ABG pH 7.225 L POC ABG pCO2 54.6 H POC ABG pO2 50 L 110 H Sodium Potassium 3.5 L Chloride Carbon Dioxide 20 L BUN 7 L Creatinine Glucose 125 H POC Glucose Lactic Acid Calcium AST ALT Alkaline Phosphatase Total Creatine Kinase C-Reactive Protein Total Protein 6.2 L Albumin 3.2 L Vancomycin Trough 08/18/18 08/18/18 08/18/18 04:49 13:06 13:50 WBC RBC Hgb Hct MCHC RDW Lymph % (Auto) [place] % (Auto) Lymph # Seg Neutrophils % Seg Neuts % (Manual) Lymphocytes % (Manual) Seg Neutrophils # Man Lymphocytes # (Manual) PT INR POC ABG pH POC ABG pCO2 POC ABG pO2 58 L Sodium Potassium Chloride Carbon Dioxide BUN Creatinine Glucose POC Glucose Lactic Acid Calcium AST ALT Alkaline Phosphatase Total Creatine Kinase C-Reactive Protein 31.10 H Total Protein Albumin Vancomycin Trough 4.7 L 08/18/18 08/19/18 08/19/18 13:50 07:25 07:25 WBC 14.8 H 12.7 H RBC 3.46 L 3.32 L Hgb 10.1 L 9.5 L Hct 30.2 L 28.9 L MCHC RDW 17.6 H 17.7 H Lymph % (Auto) [place] % (Auto) Lymph # Seg Neutrophils % Seg Neuts % (Manual) 95.0 H 95.0 H Lymphocytes % (Manual) 3.0 L 5.0 L Seg Neutrophils # Man 14.1 H 12.1 H Lymphocytes # (Manual) 0.4 L 0.6 L PT INR POC ABG pH POC ABG pCO2 POC ABG pO2 Sodium Potassium Chloride Carbon Dioxide BUN 23 H Creatinine Glucose 139 H POC Glucose Lactic Acid Calcium AST 41 H ALT Alkaline Phosphatase 149 H Total Creatine Kinase C-Reactive Protein Total Protein Albumin 3.0 L Vancomycin Trough 08/19/18 08/20/18 08/21/18 15:10 04:03 04:18 WBC RBC Hgb Hct MCHC RDW Lymph % (Auto) [place] % (Auto) Lymph # Seg Neutrophils % Seg Neuts % (Manual) Lymphocytes % (Manual) Seg Neutrophils # Man Lymphocytes # (Manual) PT INR POC ABG pH 7.346 L POC ABG pCO2 49.0 H 50.2 H 51.0 H POC ABG pO2 71 L 180 H 78 L Sodium Potassium Chloride Carbon Dioxide BUN Creatinine Glucose POC Glucose Lactic Acid Calcium AST ALT Alkaline Phosphatase Total Creatine Kinase C-Reactive Protein Total Protein Albumin Vancomycin Trough 08/21/18 08/21/18 08/21/18 04:43 04:43 15:54 WBC 14.1 H RBC 3.02 L Hgb 8.5 L Hct 26.3 L MCHC RDW 17.9 H Lymph % (Auto) [place] % (Auto) Lymph # Seg Neutrophils % Seg Neuts % (Manual) 95.0 H Lymphocytes % (Manual) 3.0 L Seg Neutrophils # Man 13.4 H Lymphocytes # (Manual) 0.4 L PT INR POC ABG pH POC ABG pCO2 POC ABG pO2 Sodium 149 H Potassium Chloride 111.2 H Carbon Dioxide BUN 27 H Creatinine Glucose 164 H POC Glucose Lactic Acid Calcium AST ALT Alkaline Phosphatase Total Creatine Kinase C-Reactive Protein 3.60 H Total Protein Albumin Vancomycin Trough 08/21/18 08/21/18 08/21/18 19:15 20:10 21:33 WBC RBC Hgb Hct MCHC RDW Lymph % (Auto) [place] % (Auto) Lymph # Seg Neutrophils % Seg Neuts % (Manual) Lymphocytes % (Manual) Seg Neutrophils # Man Lymphocytes # (Manual) PT INR POC ABG pH POC ABG pCO2 51.6 H POC ABG pO2 63 L Sodium Potassium Chloride Carbon Dioxide BUN Creatinine Glucose POC Glucose Lactic Acid 2.80 H* 2.20 H* Calcium AST ALT Alkaline Phosphatase Total Creatine Kinase C-Reactive Protein Total Protein Albumin Vancomycin Trough 08/21/18 08/22/18 08/22/18 23:08 04:20 05:46 WBC RBC Hgb Hct MCHC RDW Lymph % (Auto) [place] % (Auto) Lymph # Seg Neutrophils % Seg Neuts % (Manual) Lymphocytes % (Manual) Seg Neutrophils # Man Lymphocytes # (Manual) PT INR POC ABG pH POC ABG pCO2 49.4 H POC ABG pO2 53 L Sodium Potassium Chloride Carbon Dioxide BUN Creatinine Glucose POC Glucose Lactic Acid 2.20 H* 2.10 H* Calcium AST ALT Alkaline Phosphatase Total Creatine Kinase C-Reactive Protein Total Protein Albumin Vancomycin Trough 08/22/18 08/22/18 08/22/18 05:46 09:08 23:20 WBC RBC Hgb Hct MCHC RDW Lymph % (Auto) [place] % (Auto) Lymph # Seg Neutrophils % Seg Neuts % (Manual) Lymphocytes % (Manual) Seg Neutrophils # Man Lymphocytes # (Manual) PT INR POC ABG pH POC ABG pCO2 POC ABG pO2 Sodium 148 H Potassium Chloride Carbon Dioxide BUN 28 H Creatinine Glucose 155 H POC Glucose Lactic Acid 2.20 H* 2.20 H* Calcium AST ALT Alkaline Phosphatase Total Creatine Kinase C-Reactive Protein Total Protein Albumin Vancomycin Trough 08/23/18 08/23/18 08/23/18 00:55 05:14 05:34 WBC 19.6 H RBC 3.02 L Hgb 8.5 L Hct 26.3 L MCHC RDW 18.2 H Lymph % (Auto) [place] % (Auto) Lymph # Seg Neutrophils % Seg Neuts % (Manual) 92.0 H Lymphocytes % (Manual) 1.0 L Seg Neutrophils # Man 18.0 H Lymphocytes # (Manual) 0.2 L PT INR POC ABG pH POC ABG pCO2 52.8 H POC ABG pO2 65 L Sodium Potassium Chloride Carbon Dioxide BUN Creatinine Glucose POC Glucose 183 H Lactic Acid Calcium AST ALT Alkaline Phosphatase Total Creatine Kinase C-Reactive Protein Total Protein Albumin Vancomycin Trough 08/23/18 08/23/18 08/23/18 05:34 05:34 13:06 WBC RBC Hgb Hct MCHC RDW Lymph % (Auto) [place] % (Auto) Lymph # Seg Neutrophils % Seg Neuts % (Manual) Lymphocytes % (Manual) Seg Neutrophils # Man Lymphocytes # (Manual) PT INR POC ABG pH POC ABG pCO2 POC ABG pO2 Sodium 146 H Potassium Chloride Carbon Dioxide 33 H BUN 27 H Creatinine 0.7 L Glucose 158 H POC Glucose Lactic Acid 2.30 H* 2.70 H* Calcium AST ALT Alkaline Phosphatase Total Creatine Kinase C-Reactive Protein 2.00 H Total Protein Albumin Vancomycin Trough 08/23/18 08/23/18 08/24/18 22:04 23:48 04:03 WBC RBC Hgb Hct MCHC RDW Lymph % (Auto) [place] % (Auto) Lymph # Seg Neutrophils % Seg Neuts % (Manual) Lymphocytes % (Manual) Seg Neutrophils # Man Lymphocytes # (Manual) PT INR POC ABG pH POC ABG pCO2 59.1 H POC ABG pO2 55 L Sodium Potassium Chloride Carbon Dioxide BUN Creatinine Glucose POC Glucose Lactic Acid 2.50 H* 2.20 H* Calcium AST ALT Alkaline Phosphatase Total Creatine Kinase C-Reactive Protein Total Protein Albumin Vancomycin Trough 08/24/18 08/24/18 08/24/18 05:13 05:13 05:13 WBC 26.2 H RBC 3.03 L Hgb 8.6 L Hct 26.6 L MCHC RDW 18.4 H Lymph % (Auto) [place] % (Auto) Lymph # Seg Neutrophils % Seg Neuts % (Manual) Lymphocytes % (Manual) Seg Neutrophils # Man Lymphocytes # (Manual) PT INR POC ABG pH POC ABG pCO2 POC ABG pO2 Sodium Potassium Chloride Carbon Dioxide 34 H BUN 27 H Creatinine Glucose 176 H POC Glucose Lactic Acid 2.40 H* Calcium AST 67 H ALT Alkaline Phosphatase 143 H Total Creatine Kinase C-Reactive Protein Total Protein 5.7 L Albumin 3.2 L Vancomycin Trough 08/24/18 08/25/18 08/25/18 11:05 04:20 05:00 WBC 28.4 H RBC 2.98 L Hgb 8.4 L Hct 26.3 L MCHC RDW 18.7 H Lymph % (Auto) [place] % (Auto) Lymph # Seg Neutrophils % Seg Neuts % (Manual) Lymphocytes % (Manual) Seg Neutrophils # Man Lymphocytes # (Manual) PT INR POC ABG pH POC ABG pCO2 59.9 H POC ABG pO2 62 L Sodium Potassium Chloride Carbon Dioxide BUN Creatinine Glucose POC Glucose Lactic Acid 2.10 H* Calcium AST ALT Alkaline Phosphatase Total Creatine Kinase C-Reactive Protein Total Protein Albumin Vancomycin Trough 08/25/18 08/25/18 08/26/18 05:00 20:47 04:54 WBC RBC Hgb Hct MCHC RDW Lymph % (Auto) [place] % (Auto) Lymph # Seg Neutrophils % Seg Neuts % (Manual) Lymphocytes % (Manual) Seg Neutrophils # Man Lymphocytes # (Manual) PT INR POC ABG pH 7.340 L 7.315 L POC ABG pCO2 POC ABG pO2 Sodium Potassium Chloride Carbon Dioxide 37 H BUN 32 H Creatinine Glucose 147 H POC Glucose Lactic Acid Calcium AST ALT Alkaline Phosphatase Total Creatine Kinase C-Reactive Protein Total Protein Albumin Vancomycin Trough 08/26/18 08/26/18 08/26/18 05:05 05:05 23:03 WBC 24.3 H RBC 2.97 L Hgb 8.3 L Hct 26.2 L MCHC RDW 19.0 H Lymph % (Auto) [place] % (Auto) Lymph # Seg Neutrophils % Seg Neuts % (Manual) Lymphocytes % (Manual) Seg Neutrophils # Man Lymphocytes # (Manual) PT INR POC ABG pH 7.323 L POC ABG pCO2 POC ABG pO2 Sodium Potassium Chloride Carbon Dioxide 37 H BUN 29 H Creatinine Glucose 184 H POC Glucose Lactic Acid Calcium AST ALT Alkaline Phosphatase Total Creatine Kinase C-Reactive Protein Total Protein Albumin Vancomycin Trough 08/27/18 08/27/18 08/27/18 04:37 05:10 05:10 WBC 20.8 H RBC 2.87 L Hgb 8.0 L Hct 25.6 L MCHC 31 L RDW 19.2 H Lymph % (Auto) [place] % (Auto) Lymph # Seg Neutrophils % Seg Neuts % (Manual) Lymphocytes % (Manual) Seg Neutrophils # Man Lymphocytes # (Manual) PT INR POC ABG pH 7.332 L POC ABG pCO2 POC ABG pO2 165 H Sodium Potassium Chloride Carbon Dioxide 36 H BUN 29 H Creatinine Glucose 149 H POC Glucose Lactic Acid Calcium 8.2 L AST 63 H ALT 63 H Alkaline Phosphatase Total Creatine Kinase C-Reactive Protein Total Protein 5.6 L Albumin 2.5 L Vancomycin Trough Chest x-ray: image reviewed (bilateral infiltrates; patchy; RTT in good position) Allied health notes reviewed: nursing
[2018-08-27] MEDS: LEVOPHED DRIP 4 MG/NS 250 ML 4 MG/250 ML BAG IV SCH (21:40)
[2018-08-27] MEDS: BENADRYL PO SCH (21:41)
[2018-08-27] MEDS: PRAVACHOL PO SCH (21:41)
[2018-08-27] MEDS: ATIVAN PO SCH (21:42)
[2018-08-27] MEDS: SODIUM CHLORIDE FLUSH SYRINGE 10 ML IV SCH ×2 (21:44→21:45)
[2018-08-28] MEDS: VANCOMYCIN 1,250 MG in NACL 0.9% 250ML 250 ML IV SCH ×2 (01:37→13:16)
[2018-08-28] MEDS: BACTRIM 300 MG in D5W 500 ML IV SCH ×2 (01:38→07:37)
[2018-08-28] MEDS: fentaNYL DRIP Premix 2,000 MCG/100 ML BAG IV SCH ×2 (01:47→14:08)
--- NOTE | 2018-08-28 03:20 | XRay Report ---
CHEST 1 VIEW INDICATION: Pneumonia. COMPARISON: 2 days prior FINDINGS: Support devices: Satisfactory position. Heart: Stable. Lungs/Pleura: Diffuse bilateral pulmonary opacities are stable. No pneumothorax. IMPRESSION: 1. No significant change. Signer Name: Virgilio Montemayor MD Signed: 08/28/2018 3:15 AM Workstation Name: [id number]
[2018-08-28 04:08] LABS: Hematocrit 23.4 % (35.5-45.6); Hemoglobin 7.6 gm/dl (11.8-15.2); Mean Corpuscular HGB Conc 32 % (32-34); Mean Corpuscular Volume 89 fl (84-94); Platelet Count 155 K/mm3 (140-440); Red Blood Count 2.65 M/mm3 (3.65-5.03); Red Cell Distribution Width 19.2 % (13.2-15.2)
[2018-08-28 04:28] LABS: Alanine Aminotransferase 46 units/L (7-56); Albumin 2.4 g/dL (3.9-5); BUN/Creatinine Ratio 29; Blood Urea Nitrogen 23 mg/dL (9-20); Calcium 7.8 mg/dL (8.4-10.2); Hemolysis Index 0
[2018-08-28] MEDS: FLAGYL 500 MG/100 ML 500 MG/100 ML BAG IV SCH ×3 (06:38→21:27)
[2018-08-28] MEDS: DUONEB *Not for PRN Use IH SCH ×4 (07:42→19:10)
[2018-08-28] MEDS: TYLENOL PO PRN ×4 (07:47→23:34)
--- NOTE | 2018-08-28 08:11 | Progress Note ---
Assessment and Plan Assessment and plan: Patient is 52-year-old male with PMHx of developmental delay, schizophrenia, and depression with recent h/o SI presented to the ER with complaints of shortness of breath and cough 1 day. Patient O2 sat was noted to be 86% and improve after application of oxygen via n/c. Pt denies a history of COPD but admits to history of smoking. In the ER, pt had a chest x-ray that showed multifocal bilateral air space disease suspicious for pneumonia. After admission went into resp distress and transferred to ICU for Intesive care On BIPAP. He then eventually intubated on 08/19 and is still intubated. became hypotensive and started on levophed 08/25/18. Patient still vent dependent, still on Levophed, critically ill. Acute Respiratory failure with hypoxia s/p intubated 08/19/18 cont Duonebs IV Solumedrol and IV abx Bilateral pneumonia, Cont Abx, follow cx, ID consulted,following Sepsis with septic shock Now on Cefepime, vanco and Flagyl Levophed started 08/25 Leukocytosis, Monitor Fever due to sepsis Anemia Anemia w/u ordered Hypokalemia, Resolved Schizophrenia, on Zyprexa Depression, on antidepressants Gout , Cont Allopurinol HLD (hyperlipidemia), Cont statins DVT prophylaxis: On Lovenox GI Prophylaxis:Pepcid Urinary retention re-catheterized Full code status The high probability of a clinically significant, sudden or life threatening deterioration of the [4] system(s) required my full and direct attention, intervention and personal management. The aggregate critical care time was [35] minutes. This time is in addition to time spent performing reported procedures but includes the following: [x] Data Review and interpretation [x] Patient assessment and monitoring of vital signs [x] Documentation [x] Medication orders and management History Interval history: Still intubated, sedated Started on Levophed for hypotension Still having Fever Hospitalist Physical - Physical exam Narrative exam: Gen: Not in acute distress, intubated, sedated HEENT: Normocephalic, atraumatic Neck: supple, no JVD Heart: S1 and S2 reg, no murmurs, rubs or gallop Lungs: Bilateral rhonchi, Abd: soft, non tender, non distended, normal BS Ext: No edema, no clubbing, no cyanosis, Neuro: Sedated, intubated - Constitutional Vitals: Temp Pulse Resp BP Pulse Ox 100.2 F H 116 H 27 H 115/65 95 08/28/18 03:47 08/28/18 07:52 08/28/18 07:52 08/28/18 07:42 08/28/18 07:42 General appearance: Present: no acute distress Results - Labs CBC & Chem 7: 08/28/18 03:40 08/28/18 03:40 Labs: Laboratory Last Values WBC 18.7 K/mm3 (4.5-11.0) H 08/28/18 03:40 RBC 2.65 M/mm3 (3.65-5.03) L 08/28/18 03:40 Hgb 7.6 gm/dl (11.8-15.2) L 08/28/18 03:40 Hct 23.4 % (35.5-45.6) L 08/28/18 03:40 MCV 89 fl (84-94) 08/28/18 03:40 MCH 29 pg (28-32) 08/28/18 03:40 MCHC 32 % (32-34) 08/28/18 03:40 RDW 19.2 % (13.2-15.2) H 08/28/18 03:40 Plt Count 155 K/mm3 (140-440) 08/28/18 03:40 Lymph % (Auto) Regulatory Consultant 08/18/18 13:50 [place] % (Auto) 9.2 % (0.0-7.3) H 08/17/18 09:09 Eos % (Auto) 0.8 % (0.0-4.3) 08/17/18 09:09 Baso % (Auto) 0.2 % (0.0-1.8) 08/17/18 09:09 Lymph # Regulatory Consultant 08/18/18 13:50 [place] # 0.7 K/mm3 (0.0-0.8) 08/17/18 09:09 Eos # 0.1 K/mm3 (0.0-0.4) 08/17/18 09:09 Baso # 0.0 K/mm3 (0.0-0.1) 08/17/18 09:09 Add Manual Diff Complete 08/23/18 05:34 Total Counted 100 08/23/18 05:34 Seg Neutrophils % Regulatory Consultant 08/21/18 04:43 Seg Neuts % (Manual) 92.0 % (40.0-70.0) H 08/23/18 05:34 0 % 08/23/18 05:34 1.0 % (13.4-35.0) L 08/23/18 05:34 Reactive Lymphs % (Man) 0 % 08/23/18 05:34 3.0 % (0.0-7.3) 08/23/18 05:34 0 % (0.0-4.3) 08/23/18 05:34 0 % (0.0-1.8) 08/23/18 05:34 4.0 % 08/23/18 05:34 0 % 08/23/18 05:34 0 % 08/23/18 05:34 0 % 08/23/18 05:34 Nucleated RBC % Not Reportable 08/23/18 05:34 Seg Neutrophils # 6.3 K/mm3 (1.8-7.7) 08/17/18 09:09 Seg Neutrophils # Man 18.0 K/mm3 (1.8-7.7) H 08/23/18 05:34 Band Neutrophils # 0.0 K/mm3 08/23/18 05:34 0.2 K/mm3 (1.2-5.4) L 08/23/18 05:34 Abs React Lymphs (Man) 0.0 K/mm3 08/23/18 05:34 0.6 K/mm3 (0.0-0.8) 08/23/18 05:34 0.0 K/mm3 (0.0-0.4) 08/23/18 05:34 0.0 K/mm3 (0.0-0.1) 08/23/18 05:34 0.8 K/mm3 08/23/18 05:34 0.0 K/mm3 08/23/18 05:34 0.0 K/mm3 08/23/18 05:34 Blast Cells # 0.0 K/mm3 08/23/18 05:34 WBC Morphology Not Reportable 08/23/18 05:34 Hypersegmented Neuts Not Reportable 08/23/18 05:34 Hyposegmented Neuts Not Reportable 08/23/18 05:34 Hypogranular Neuts Not Reportable 08/23/18 05:34 Not Reportable 08/23/18 05:34 Not Reportable 08/23/18 05:34 Not Reportable 08/23/18 05:34 Not Reportable 08/23/18 05:34 Not Reportable 08/23/18 05:34 Not Reportable 08/23/18 05:34 Consistent w auto 08/23/18 05:34 Not Reportable 08/23/18 05:34 Plt Clumps, EDTA Not Reportable 08/23/18 05:34 Not Reportable 08/23/18 05:34 Not Reportable 08/23/18 05:34 Not Reportable 08/23/18 05:34 Plt Morphology Comment Not Reportable 08/23/18 05:34 RBC Morphology Not Reportable 08/23/18 05:34 Dimorphic RBCs Not Reportable 08/23/18 05:34 Not Reportable 08/23/18 05:34 Not Reportable 08/23/18 05:34 Not Reportable 08/23/18 05:34 Few 08/23/18 05:34 Not Reportable 08/23/18 05:34 Not Reportable 08/23/18 05:34 Not Reportable 08/23/18 05:34 Not Reportable 08/23/18 05:34 Not Reportable 08/23/18 05:34 Not Reportable 08/23/18 05:34 Not Reportable 08/23/18 05:34 Not Reportable 08/23/18 05:34 Few 08/21/18 04:43 Not Reportable 08/23/18 05:34 Not Reportable 08/23/18 05:34 Not Reportable 08/23/18 05:34 Not Reportable 08/23/18 05:34 Not Reportable 08/23/18 05:34 Not Reportable 08/23/18 05:34 Not Reportable 08/23/18 05:34 Acanthocytes (Spur) Not Reportable 08/23/18 05:34 [place]leaux Not Reportable 08/23/18 05:34 Not Reportable 08/23/18 05:34 Not Reportable 08/23/18 05:34 Not Reportable 08/23/18 05:34 Not Reportable 08/23/18 05:34 Hem Pathologist Commnt No 08/23/18 05:34 PT 15.1 Sec. (12.2-14.9) H 08/14/18 16:43 INR 1.22 (0.87-1.13) H 08/14/18 16:43 APTT 31.2 Sec. (24.2-36.6) 08/14/18 16:43 POC ABG pH 7.241 (7.35-7.45) L 08/28/18 04:39 POC ABG pCO2 > 70 (35-45) H 08/26/18 23:03 POC ABG pO2 102 (80-105) 08/28/18 04:39 POC ABG HCO3 38.6 (22-26 mml/L) 08/28/18 04:39 POC ABG Total CO2 41 (23-27mmol/L) 08/28/18 04:39 POC ABG O2 Sat 96 08/28/18 04:39 POC ABG Base Excess 11 ((-2) - (+3)mmol/L) 08/28/18 04:39 95 % 08/28/18 04:39 Sodium 139 mmol/L (137-145) 08/28/18 03:40 Potassium 4.7 mmol/L (3.6-5.0) 08/28/18 03:40 Chloride 97.7 mmol/L (98-107) L 08/28/18 03:40 Carbon Dioxide 37 mmol/L (22-30) H 08/28/18 03:40 9 mmol/L 08/28/18 03:40 BUN 23 mg/dL (9-20) H 08/28/18 03:40 0.8 mg/dL (0.8-1.5) 08/28/18 03:40 Estimated GFR > 60 ml/min 08/28/18 03:40 29 % 08/28/18 03:40 Glucose 155 mg/dL (75-100) H 08/28/18 03:40 POC Glucose 183 (70-105) H 08/23/18 00:55 Lactic Acid 1.70 mmol/L (0.7-2.0) 08/24/18 17:33 Calcium 7.8 mg/dL (8.4-10.2) L 08/28/18 03:40 Phosphorus 3.80 mg/dL (2.5-4.5) 08/18/18 13:50 Magnesium 2.00 mg/dL (1.7-2.3) 08/18/18 13:50 0.20 mg/dL (0.1-1.2) 08/28/18 03:40 AST 44 units/L (5-40) H 08/28/18 03:40 ALT 46 units/L (7-56) 08/28/18 03:40 91 units/L (35-129) 08/28/18 03:40 204 units/L (55-170) H 08/14/18 16:33 CK-MB (CK-2) 1.9 ng/mL (0.0-4.0) 08/14/18 16:33 CK-MB (CK-2) Rel Index 0.9 (0-4) 08/14/18 16:33 < 0.010 ng/mL (0.00-0.029) 08/14/18 16:33 2.00 mg/dL (0.00-1.30) H 08/23/18 05:34 NT-Pro-B Natriuret Pep 199.0 pg/mL (0-900) 08/14/18 16:33 5.3 g/dL (6.3-8.2) L 08/28/18 03:40 2.4 g/dL (3.9-5) L 08/28/18 03:40 0.8 % 08/28/18 03:40 Vancomycin Trough 19.3 ug/mL (5.0-20.0) 08/21/18 15:46 Presumptive negative 08/14/18 Unknown Presumptive negative 08/14/18 Unknown Ur Barbiturates Screen Presumptive negative 08/14/18 Unknown Ur Phencyclidine Scrn Presumptive negative 08/14/18 Unknown Ur Amphetamines Screen Presumptive negative 08/14/18 Unknown U Benzodiazepines Scrn Presumptive negative 08/14/18 Unknown Presumptive negative 08/14/18 Unknown U Marijuana (THC) Screen Presumptive negative 08/14/18 Unknown Disclamer 08/14/18 Unknown HIV 1&2 Antibody Rapid Non react (Non React) 08/27/18 13:50 Non react (Non React) 08/27/18 13:50 Urine Legionella Ag Not detected (Not Detected) 08/20/18 Unknown Flexitest 1 08/20/18 15:29 Active Medications - Current Medications Current Medications: Generic Name Dose Route Start Last Admin Trade Name Freq PRN Reason Stop Dose Admin Acetaminophen 650 mg 08/14/18 22:29 08/28/18 07:47 Tylenol PO 650 mg Q4H PRN Administration Pain MILD(1-3)/Fever >100.5/LOCO Albuterol 2.5 mg 08/19/18 07:17 Proventil IH Q4HRT PRN Shortness Of Breath Albuterol/Ipratropium 1 ampul 08/16/18 16:00 08/28/18 07:42 Duoneb *Not For Prn Use* IH 1 ampul QIDRT DOMINIC Administration Allopurinol 100 mg 08/16/18 13:00 08/27/18 09:58 Zyloprim PO 100 mg QDAY DOMINIC Administration Lipase/Protease/Amylase 1 each 08/19/18 13:43 Pancreaze 10,500 Unit FEEDTUBE PRN PRN For Clogged Feeding Tube Bupropion HCl 75 mg 08/27/18 10:00 08/27/18 21:41 Wellbutrin PO 75 mg BID DOMINIC Administration Diphenhydramine HCl 100 mg 08/16/18 22:00 08/27/18 21:41 Benadryl PO 100 mg QHS DOMINIC Administration Docusate Sodium 100 mg 08/23/18 12:00 08/27/18 21:42 Colace FEEDTUBE 100 mg BID DOMINIC Administration Enoxaparin Sodium 40 mg 08/15/18 10:00 08/27/18 09:40 Lovenox SUB-Q 40 mg QDAY@1000 DOMINIC Administration Famotidine 20 mg 08/15/18 10:00 08/27/18 21:41 Pepcid PO 20 mg BID DOMINIC Administration Fentanyl 50 mcg 08/19/18 12:01 Sublimaze IV Q10MIN PRN ANALGESIA Fluoxetine HCl 20 mg 08/17/18 12:00 08/27/18 12:47 Prozac PO 20 mg DAILY@1200 DOMINIC Administration Hydrocodone Bit/Homatropine Methylb 10 ml 08/18/18 13:09 08/18/18 13:35 Hydromet PO 10 ml Q6H PRN Administration Cough Hydrophilic Ointment 1 applic 08/19/18 12:01 Vaseline Lip Therapy TP Q2HR PRN Dry Lips Sodium Chloride 1,000 mls @ 50 mls/hr 08/15/18 06:00 08/21/18 02:45 Nacl 0.9% 1000 Ml IV 50 mls/hr DIRECT DOMINIC Administration Fentanyl Citrate 2,000 mcg in 100 mls @ 3.935 mls/hr 08/19/18 13:00 08/28/18 07:34 Fentanyl Drip Premix IV 2 mcg/kg/hr TITR DOMINIC 7.87 mls/hr Titration Protocol 1 MCG/KG/HR Propofol 1,000 mg in 100 mls @ 2.361 mls/hr 08/19/18 13:00 08/28/18 07:34 Diprivan 10 Mg/Ml IV 10 mcg/kg/min TITR DOMINIC 4.722 mls/hr Titration Protocol 5 MCG/KG/MIN Norepinephrine 4 mg in 250 mls @ 7.5 mls/hr 08/25/18 12:00 08/28/18 07:31 Levophed Drip 4 Mg/Ns 250 Ml IV 2 mcg/min TITR DOMINIC 7.5 mls/hr Titration Protocol 2 MCG/MIN Cefepime HCl 2 gm in 100 mls @ 200 mls/hr 08/25/18 12:00 08/27/18 21:37 Maxipime/Ns 2 Gm/100 Ml IV 100 mls/hr Q12HR DOMINIC Administration Protocol Metronidazole 500 mg in 100 mls @ 100 mls/hr 08/25/18 14:00 08/28/18 06:38 Flagyl 500 Mg/100 Ml IV 100 mls/hr Q8HR DOMINIC Administration Protocol Vancomycin HCl 1,250 mg/ 275 mls @ 166.667 mls/hr 08/27/18 13:00 08/28/18 01 :37 Sodium Chloride IV 166.667 mls/hr Q12H DOMINIC Administration Trimethoprim/Sulfamethoxazole 518.75 mls @ 350 mls/hr 08/27/18 13:00 08/28/18 07:37 300 mg/ Dextrose IV 350 mls/hr Q6H DOMINIC Administration Protocol Lorazepam 2 mg 08/26/18 22:00 08/27/18 21:42 Ativan PO 2 mg QHS DOMINIC Administration Magnesium Hydroxide 30 ml 08/14/18 22:35 Milk Of Magnesia PO Q4H PRN Constipation Multi-Ingred Cream/Lotion/Oil/Oint 1 applic 08/19/18 12:01 Artificial Tears Ophth Oint OU Q4HR PRN Dry Eye(s) Olanzapine 20 mg 08/16/18 22:00 08/27/18 21:43 Zyprexa PO 20 mg QHS DOMINIC Administration Ondansetron HCl 4 mg 08/14/18 22:29 Zofran IV Q8H PRN Nausea And Vomiting Pravastatin Sodium 40 mg 08/16/18 22:00 08/27/18 21:41 Pravachol PO 40 mg QHS DOMINIC Administration Risperidone 2 mg 08/17/18 10:00 08/27/18 09:36 Risperdal PO 2 mg QAM DOMINIC Administration Simple Syrup 15 ml 08/19/18 13:43 Simple Syrup FEEDTUBE PRN PRN Hypoglycemia Simple Syrup 30 ml 08/19/18 13:43 Simple Syrup FEEDTUBE PRN PRN Hypoglycemia Sodium Bicarbonate 325 mg 08/19/18 13:43 Sodium Bicarbonate FEEDTUBE PRN PRN For Clogged Feeding Tube Sodium Chloride 10 ml 08/15/18 10:00 08/27/18 21:45 Sodium Chloride Flush Syringe 10 Ml IV Not Given BID DOMINIC Sodium Chloride 10 ml 08/14/18 22:29 Sodium Chloride Flush Syringe 10 Ml IV PRN PRN LINE FLUSH Tamsulosin HCl 0.4 mg 08/21/18 13:00 08/27/18 09:36 Flomax PO 0.4 mg QDAY DOMINIC Administration Nutrition/Malnutrition Assess - Dietary Evaluation Nutrition/Malnutrition Findings: Nutrition Notes Start: 08/19/18 13:37 Freq: Status: Active Protocol: Document 08/27/18 12:50 RM (Rec: 08/27/18 12:54 RM [id number]) Nutrition Notes Initial or Follow up Reassessment Current Diagnosis Respiratory Failure, Hyperlipidemia Other Pertinent Diagnosis LLL pneu, Developmental delay, Hx schizophrenia Current Diet Osmolite 1.5 at 55 ml/hr Labs/Tests K 4.9 Pertinent Medications Levophed, Propofol at 2.4 ml/ hr (63 kcal) Height 5 ft 11 in Weight 82.7 kg [place] Body Weight (kg) 78.18 BMI 25.4 Subjective/Other Information Observed Osmolite infusing at goal rate. Per nurse pt is tolerating TF. Percent of energy/protein needs met: 100%/88% Burn Absent Trauma Absent #1 Nutrition Diagnosis Inadequate oral intake Diagnosis Progress(for reassessment Continues documentation) Is patient on ventilator? Yes Is Patient Ambulatory and/or Out of Bed No REE-([facility]-confined to bed) Calculation Used for Recommendations [facility] Additional Notes Pro needs 1.2-2g/k-157g/ day Fluid needs 1ml/kcal Nutrition Intervention Nutrition Support: Osmolite 1.5 at 55ml/hr 150ml water flush q4h. Kcal 1,980 Protein (gm) 83 Carbohydrates (gm) 269 Fat (gm) 65 Fluid (mL) 1,006 Goal #1 TF tolerance Goal #2 TF (at goal rate) to continue to meet at least 80% energy and pro needs Anticipated Discharge Needs: Unable to determine at this time Follow-Up By: 09/04/18 Additional Comments Follow for TF tolerance
[2018-08-28] MEDS: MAXIPIME/NS 2 GM/100 ML 2 GM/100 ML BAG IV SCH ×2 (09:45→21:27)
[2018-08-28] MEDS: RisperDAL PO SCH (09:46)
[2018-08-28] MEDS: WELLBUTRIN PO SCH ×2 (09:46→21:27)
[2018-08-28] MEDS: LOVENOX SUB-Q SCH (09:46)
[2018-08-28] MEDS: PEPCID PO SCH ×2 (09:46→21:27)
[2018-08-28] MEDS: ZYLOPRIM PO SCH (09:46)
[2018-08-28] MEDS: FLOMAX PO SCH (09:47)
[2018-08-28] MEDS: COLACE FEEDTUBE SCH ×2 (09:47→21:27)
[2018-08-28] MEDS: SODIUM CHLORIDE FLUSH SYRINGE 10 ML IV SCH ×2 (09:48→21:28)
[2018-08-28] MEDS ORDERED: NACL 0.9% 500 ML 500 ML IV SCH (10:00)
--- NOTE | 2018-08-28 10:39 | Progress Note ---
Assessment and Plan Cultures: 08/14/2018 Blood culture: No growth 08/18/2018 resp culture: normal resp aminata Legionella Ag: negative Strep pneumoniae Ur Ag: negative 08/25/2018 tracheal aspirate: normal resp aminata HIV negative A/P: 52-year-old male with history of developmental delay, schizophrenia, recently discharged from a psychiatric facility for suicidal ideation now with: 1) Acute respiratory failure secondary to bilateral pneumonia: worsening. Cultures growing normal resp aminata. Intubated, sedated. High O2 requirements, ?ARDS. HIV negative. 2) Schizophrenia, Depression: Patient is on risperidone, olanzapine, Haldol. Also on Wellbutrin and fluoxetine. At risk of QT prolongation especially with levofloxacin. 3) PCN allergy: unknown, at least >10 years history per his caregiver at the bedside. Low risk of cross reactivity with Cephalosporins. Tolerating Cefepime and Ceftriaxone well. 4) Leucocytosis: worsening, unexplained by steroids. RUQ US negative for hepatobiliary source. CT chest with worsening pneumonia. Recs: Continue IV Cefepime, Flagyl and Vancomycin for now HIV negative, will d/c IV Bactrim Levi Luna MD, FACP [facility], [place], [facility] C: [phone] O: [phone] F: [phone] Subjective Date of service: 08/28/18 Principal diagnosis: Ac. hypoxemic resp failure; Multifocal Pneumonia (HAP); ARDS; Anemia Interval history: Fevers +. Remains critically ill, on the vent with high PEEP and O2 requirements. Objective - Exam Narrative Exam: Physical Exam: Constitutional: sedated, intubated Head, Ears, Nose: Normocephalic, atraumatic. External ears, nose normal Eyes: Conjunctivae/corneas clear. No icterus. No ptosis. Neck: Supple, no meningeal signs Oral: intubated Cardiovascular: S1, S2 normal, no murmur heard Respiratory: coarse sounds bilaterally, no wheeze GI: Soft, non-tender; bowel sounds normal. No peritoneal signs Musculoskeletal: trace pedal edema, no cyanosis. Skin: No rash or abscess. Hem/Lymphatic: No palpable cervical or supraclavicular nodes. No lymphangitis Psych: sedated Neurological: sedated, intubated, on vent - Constitutional Vitals: Vital Signs Temp Pulse Resp BP Pulse Ox 102.1 F H 119 H 21 125/62 94 08/28/18 08:00 08/28/18 08:30 08/28/18 08:30 08/28/18 08:30 08/28/18 08:30 Temperature -Last 24 Hours Temperature 102.1 F Temperature 100.2 F Temperature 100.5 F Temperature 100.1 F Temperature 99.4 F Temperature 99.7 F - Labs CBC & Chem 7: 08/28/18 03:40 08/28/18 03:40 Labs: Abnormal lab results 08/25/18 08/26/18 08/26/18 Range/Units 20:47 04:54 23:03 WBC (4.5-11.0) K/mm3 RBC (3.65-5.03) M/mm3 Hgb (11.8-15.2) gm/dl Hct (35.5-45.6) % RDW (13.2-15.2) % POC ABG pH (7.35-7.45) POC ABG pCO2 > 70 H > 70 H > 70 H (35-45) Chloride (98-107) mmol/L Carbon Dioxide (22-30) mmol/L BUN (9-20) mg/dL Glucose (75-100) mg/dL Calcium (8.4-10.2) mg/dL AST (5-40) units/L Total Protein (6.3-8.2) g/dL Albumin (3.9-5) g/dL 08/27/18 08/28/18 08/28/18 Range/Units 04:37 03:40 03:40 WBC 18.7 H (4.5-11.0) K/mm3 RBC 2.65 L (3.65-5.03) M/mm3 Hgb 7.6 L (11.8-15.2) gm/dl Hct 23.4 L (35.5-45.6) % RDW 19.2 H (13.2-15.2) % POC ABG pH (7.35-7.45) POC ABG pCO2 > 70 H (35-45) Chloride 97.7 L (98-107) mmol/L Carbon Dioxide 37 H (22-30) mmol/L BUN 23 H (9-20) mg/dL Glucose 155 H (75-100) mg/dL Calcium 7.8 L (8.4-10.2) mg/dL AST 44 H (5-40) units/L Total Protein 5.3 L (6.3-8.2) g/dL Albumin 2.4 L (3.9-5) g/dL 08/28/18 Range/Units 04:39 WBC (4.5-11.0) K/mm3 RBC (3.65-5.03) M/mm3 Hgb (11.8-15.2) gm/dl Hct (35.5-45.6) % RDW (13.2-15.2) % POC ABG pH 7.241 L (7.35-7.45) POC ABG pCO2 > 70 H (35-45) Chloride (98-107) mmol/L Carbon Dioxide (22-30) mmol/L BUN (9-20) mg/dL Glucose (75-100) mg/dL Calcium (8.4-10.2) mg/dL AST (5-40) units/L Total Protein (6.3-8.2) g/dL Albumin (3.9-5) g/dL - Imaging and cardiology Chest x-ray: report reviewed, image reviewed (diffuse b/l airspace opacities)
--- NOTE | 2018-08-28 11:48 | Progress Note ---
Assessment and Plan Acute respiratory failure secondary to bilateral pneumonia, now on MVS HAP present on admission Schizophrenia, Depression Developmental delay Leukocytosis Gentle diuresis while monitoring renal function, electrolytes and hemodynamics Pas been in positive fluid balance>9Liters since admission -Lung protective strategies -Wean FIO2 , once at 50 % with acceptable PaO2, start weaning PEEP -CXR and ABG in am -VAP bundle addressed -Supplemental oxygen to keep O2 sats 88-90% -Bronchodilators -Short course of steroids -Diuresis, while monitoring hemodynamics, renal function and electrolyte profile -Accuchecks with glycemic control -Target blood glucose <180mg/dL -Enteral nutrition with aspiration precautions -Agitation management -Titrate sedation to RAAS 0 to -1 -Prevention of delirium, maintenance of sleep-wake cycle -Empiric antibiotic therapy for HAP/aspiration pneumonia per ID -Will de-escalate therapy based on microbiology/SD/Cultures -Avoid nephrotoxic agents, adjust all antibiotics and medications for CrCL and GFR -VTE and Stress ulcer prophylaxis -Ruvalcaba catheter for distension -Follow up 2D echo results/report Dicussed with RT/RN and the ICU team on IDT rounds CONDITION: CRITICAL PROGNOSIS: GUARDED CODE STATUS: FULL CODE The high probability of a clinically significant, sudden or life-threatening deterioration of the [respiratory] system(s) required my full and direct attention, intervention and personal management. The aggregate critical care time was [35] minutes without overlap. Time includes spent on; [x] Data Review and interpretation [x] Patient assessment and monitoring of vital signs [x] Documentation [x] Medication orders and management Subjective Date of service: 08/28/18 Principal diagnosis: Ac. hypoxemic resp failure; Multifocal Pneumonia (HAP); ARDS; Anemia Interval history: Patient is seen today for: Acute hypoxemic respiratory failure, multifocal pneumonia, sepsis Seen and examined at bedside; 24hour events reviewed; nursing and respiratory care staff consulted; no adverse overnight events reported to me; on going low grade fevers,Vitals, labs, medications, chart and imaging reviewed. Remains on mechanical ventilatory support, on PEEP 14 and FIO2 of 95% On fentanyl and propofol for sedation/analgesia No vasopressor support Objective Vital Signs - 12hr 08/28/18 08/28/18 08/28/18 00:00 00:30 00:34 Temperature 100.5 F H Pulse Rate 121 H 121 H 119 H Pulse Rate [ From Monitor] Pulse Rate [ Left Lower Lobe ] Pulse Rate [ Throughout] Respiratory 27 H 26 H Rate Respiratory Rate [Left Lower Lobe] Respiratory Rate [ Throughout] Blood Pressure 119/59 104/57 104/57 O2 Sat by Pulse 96 97 97 Oximetry 08/28/18 08/28/18 08/28/18 01:00 01:30 02:00 Temperature Pulse Rate 119 H 118 H 117 H Pulse Rate [ From Monitor] Pulse Rate [ Left Lower Lobe ] Pulse Rate [ Throughout] Respiratory 26 H 24 26 H Rate Respiratory Rate [Left Lower Lobe] Respiratory Rate [ Throughout] Blood Pressure 109/63 118/62 112/60 O2 Sat by Pulse 96 96 97 Oximetry 08/28/18 08/28/18 08/28/18 02:30 03:00 03:30 Temperature Pulse Rate 118 H 117 H 118 H Pulse Rate [ From Monitor] Pulse Rate [ Left Lower Lobe ] Pulse Rate [ Throughout] Respiratory 23 26 H 25 H Rate Respiratory Rate [Left Lower Lobe] Respiratory Rate [ Throughout] Blood Pressure 103/64 100/64 113/65 O2 Sat by Pulse 97 97 95 Oximetry 08/28/18 08/28/18 08/28/18 03:47 04:00 04:22 Temperature 100.2 F H Pulse Rate 117 H 114 H Pulse Rate [ From Monitor] Pulse Rate [ Left Lower Lobe ] Pulse Rate [ Throughout] Respiratory 22 Rate Respiratory Rate [Left Lower Lobe] Respiratory Rate [ Throughout] Blood Pressure 123/66 123/66 O2 Sat by Pulse 97 96 Oximetry 08/28/18 08/28/18 08/28/18 04:30 05:00 05:30 Temperature Pulse Rate 116 H 116 H 115 H Pulse Rate [ From Monitor] Pulse Rate [ Left Lower Lobe ] Pulse Rate [ Throughout] Respiratory 27 H 22 26 H Rate Respiratory Rate [Left Lower Lobe] Respiratory Rate [ Throughout] Blood Pressure 117/67 122/60 123/64 O2 Sat by Pulse 96 96 95 Oximetry 08/28/18 08/28/18 08/28/18 06:00 06:30 07:00 Temperature Pulse Rate 115 H 116 H 117 H Pulse Rate [ From Monitor] Pulse Rate [ Left Lower Lobe ] Pulse Rate [ Throughout] Respiratory 28 H 25 H 30 H Rate Respiratory Rate [Left Lower Lobe] Respiratory Rate [ Throughout] Blood Pressure 117/68 125/66 121/65 O2 Sat by Pulse 95 95 95 Oximetry 08/28/18 08/28/18 08/28/18 07:30 07:42 07:52 Temperature Pulse Rate 116 H 115 H Pulse Rate [ From Monitor] Pulse Rate [ Left Lower Lobe ] Pulse Rate [ 110 H 116 H Throughout] Respiratory 24 Rate Respiratory Rate [Left Lower Lobe] Respiratory 31 H 27 H Rate [ Throughout] Blood Pressure 115/65 115/65 O2 Sat by Pulse 96 95 Oximetry 08/28/18 08/28/18 08/28/18 08:00 08:30 11:35 Temperature 102.1 F H Pulse Rate 116 H 119 H Pulse Rate [ 116 H From Monitor] Pulse Rate [ 121 H Left Lower Lobe ] Pulse Rate [ 120 H Throughout] Respiratory 31 H 21 Rate Respiratory 27 H Rate [Left Lower Lobe] Respiratory 28 H Rate [ Throughout] Blood Pressure 119/63 125/62 O2 Sat by Pulse 98 94 Oximetry 08/28/18 11:40 Temperature Pulse Rate Pulse Rate [ From Monitor] Pulse Rate [ Left Lower Lobe ] Pulse Rate [ 120 H Throughout] Respiratory Rate Respiratory Rate [Left Lower Lobe] Respiratory 28 H Rate [ Throughout] Blood Pressure O2 Sat by Pulse Oximetry Constitutional: no acute distress, other (middle aged CM, normocephalic on MVS, tachypnic, no patient-ventilator dyssynchrony) Eyes: non-icteric ENT: oropharynx moist, other (ETT 23 cm VENTURA) Neck: supple, no lymphadenopathy, other (no thyromegaly) Effort: mildly labored Ascultation: Bilateral: rales Percussion: Bilateral: not dull Cardiovascular: regular rate and rhythm, other (No R/M) Gastrointestinal: normoactive bowel sounds, soft, non-tender, non-distended Integumentary: normal Extremities: no cyanosis, no edema, pink and warm, pulses normal, no ischemia or petechiae Neurologic: non-focal exam (grossly), pupils equal and round, motor strength nor mal and, unable to assess, other (sedated) Psychiatric: other (sedated) CBC and BMP: 08/29/18 04:20 08/30/18 04:10 ABG, PT/INR, D-dimer: ABG POC ABG pH 7.194 (7.35-7.45) L 08/28/18 10:32 POC ABG pO2 80 (80-105) 08/28/18 10:32 POC ABG HCO3 38.5 (22-26 mml/L) 08/28/18 10:32 POC ABG Total CO2 42 (23-27mmol/L) 08/28/18 10:32 POC ABG O2 Sat 91 08/28/18 10:32 PT/INR, D-dimer PT 15.1 Sec. (12.2-14.9) H 08/14/18 16:43 INR 1.22 (0.87-1.13) H 08/14/18 16:43 Abnormal lab findings: Abnormal Labs 08/14/18 08/14/18 08/14/18 16:33 16:33 16:43 WBC RBC 3.38 L Hgb 9.9 L Hct 29.2 L MCHC RDW 17.3 H Lymph % (Auto) Bath % (Auto) Lymph # Seg Neutrophils % Seg Neuts % (Manual) 87.0 H Lymphocytes % (Manual) 6.0 L Seg Neutrophils # Man Lymphocytes # (Manual) 0.5 L PT INR POC ABG pH POC ABG pCO2 POC ABG pO2 Sodium Potassium 3.5 L Chloride Carbon Dioxide BUN Creatinine Glucose POC Glucose Lactic Acid Calcium AST ALT Alkaline Phosphatase Total Creatine Kinase 204 H C-Reactive Protein Total Protein Albumin Vancomycin Trough 08/14/18 08/14/18 08/17/18 16:43 17:01 09:09 WBC RBC 3.12 L Hgb 9.0 L Hct 27.0 L MCHC RDW 17.0 H Lymph % (Auto) 7.1 L Bath % (Auto) 9.2 H Lymph # 0.5 L Seg Neutrophils % 82.7 H Seg Neuts % (Manual) Lymphocytes % (Manual) Seg Neutrophils # Man Lymphocytes # (Manual) PT 15.1 H INR 1.22 H POC ABG pH 7.468 H POC ABG pCO2 POC ABG pO2 57 L Sodium Potassium Chloride Carbon Dioxide BUN Creatinine Glucose POC Glucose Lactic Acid Calcium AST ALT Alkaline Phosphatase Total Creatine Kinase C-Reactive Protein Total Protein Albumin Vancomycin Trough 08/17/18 08/17/18 08/17/18 09:09 11:30 23:21 WBC RBC Hgb Hct MCHC RDW Lymph % (Auto) Bath % (Auto) Lymph # Seg Neutrophils % Seg Neuts % (Manual) Lymphocytes % (Manual) Seg Neutrophils # Man Lymphocytes # (Manual) PT INR POC ABG pH 7.225 L POC ABG pCO2 54.6 H POC ABG pO2 50 L 110 H Sodium Potassium 3.5 L Chloride Carbon Dioxide 20 L BUN 7 L Creatinine Glucose 125 H POC Glucose Lactic Acid Calcium AST ALT Alkaline Phosphatase Total Creatine Kinase C-Reactive Protein Total Protein 6.2 L Albumin 3.2 L Vancomycin Trough 08/18/18 08/18/18 08/18/18 04:49 13:06 13:50 WBC RBC Hgb Hct MCHC RDW Lymph % (Auto) Bath % (Auto) Lymph # Seg Neutrophils % Seg Neuts % (Manual) Lymphocytes % (Manual) Seg Neutrophils # Man Lymphocytes # (Manual) PT INR POC ABG pH POC ABG pCO2 POC ABG pO2 58 L Sodium Potassium Chloride Carbon Dioxide BUN Creatinine Glucose POC Glucose Lactic Acid Calcium AST ALT Alkaline Phosphatase Total Creatine Kinase C-Reactive Protein 31.10 H Total Protein Albumin Vancomycin Trough 4.7 L 08/18/18 08/19/18 08/19/18 13:50 07:25 07:25 WBC 14.8 H 12.7 H RBC 3.46 L 3.32 L Hgb 10.1 L 9.5 L Hct 30.2 L 28.9 L MCHC RDW 17.6 H 17.7 H Lymph % (Auto) Bath % (Auto) Lymph # Seg Neutrophils % Seg Neuts % (Manual) 95.0 H 95.0 H Lymphocytes % (Manual) 3.0 L 5.0 L Seg Neutrophils # Man 14.1 H 12.1 H Lymphocytes # (Manual) 0.4 L 0.6 L PT INR POC ABG pH POC ABG pCO2 POC ABG pO2 Sodium Potassium Chloride Carbon Dioxide BUN 23 H Creatinine Glucose 139 H POC Glucose Lactic Acid Calcium AST 41 H ALT Alkaline Phosphatase 149 H Total Creatine Kinase C-Reactive Protein Total Protein Albumin 3.0 L Vancomycin Trough 08/19/18 08/20/18 08/21/18 15:10 04:03 04:18 WBC RBC Hgb Hct MCHC RDW Lymph % (Auto) Bath % (Auto) Lymph # Seg Neutrophils % Seg Neuts % (Manual) Lymphocytes % (Manual) Seg Neutrophils # Man Lymphocytes # (Manual) PT INR POC ABG pH 7.346 L POC ABG pCO2 49.0 H 50.2 H 51.0 H POC ABG pO2 71 L 180 H 78 L Sodium Potassium Chloride Carbon Dioxide BUN Creatinine Glucose POC Glucose Lactic Acid Calcium AST ALT Alkaline Phosphatase Total Creatine Kinase C-Reactive Protein Total Protein Albumin Vancomycin Trough 08/21/18 08/21/18 08/21/18 04:43 04:43 15:54 WBC 14.1 H RBC 3.02 L Hgb 8.5 L Hct 26.3 L MCHC RDW 17.9 H Lymph % (Auto) Bath % (Auto) Lymph # Seg Neutrophils % Seg Neuts % (Manual) 95.0 H Lymphocytes % (Manual) 3.0 L Seg Neutrophils # Man 13.4 H Lymphocytes # (Manual) 0.4 L PT INR POC ABG pH POC ABG pCO2 POC ABG pO2 Sodium 149 H Potassium Chloride 111.2 H Carbon Dioxide BUN 27 H Creatinine Glucose 164 H POC Glucose Lactic Acid Calcium AST ALT Alkaline Phosphatase Total Creatine Kinase C-Reactive Protein 3.60 H Total Protein Albumin Vancomycin Trough 08/21/18 08/21/18 08/21/18 19:15 20:10 21:33 WBC RBC Hgb Hct MCHC RDW Lymph % (Auto) Bath % (Auto) Lymph # Seg Neutrophils % Seg Neuts % (Manual) Lymphocytes % (Manual) Seg Neutrophils # Man Lymphocytes # (Manual) PT INR POC ABG pH POC ABG pCO2 51.6 H POC ABG pO2 63 L Sodium Potassium Chloride Carbon Dioxide BUN Creatinine Glucose POC Glucose Lactic Acid 2.80 H* 2.20 H* Calcium AST ALT Alkaline Phosphatase Total Creatine Kinase C-Reactive Protein Total Protein Albumin Vancomycin Trough 08/21/18 08/22/18 08/22/18 23:08 04:20 05:46 WBC RBC Hgb Hct MCHC RDW Lymph % (Auto) Bath % (Auto) Lymph # Seg Neutrophils % Seg Neuts % (Manual) Lymphocytes % (Manual) Seg Neutrophils # Man Lymphocytes # (Manual) PT INR POC ABG pH POC ABG pCO2 49.4 H POC ABG pO2 53 L Sodium Potassium Chloride Carbon Dioxide BUN Creatinine Glucose POC Glucose Lactic Acid 2.20 H* 2.10 H* Calcium AST ALT Alkaline Phosphatase Total Creatine Kinase C-Reactive Protein Total Protein Albumin Vancomycin Trough 08/22/18 08/22/18 08/22/18 05:46 09:08 23:20 WBC RBC Hgb Hct MCHC RDW Lymph % (Auto) Bath % (Auto) Lymph # Seg Neutrophils % Seg Neuts % (Manual) Lymphocytes % (Manual) Seg Neutrophils # Man Lymphocytes # (Manual) PT INR POC ABG pH POC ABG pCO2 POC ABG pO2 Sodium 148 H Potassium Chloride Carbon Dioxide BUN 28 H Creatinine Glucose 155 H POC Glucose Lactic Acid 2.20 H* 2.20 H* Calcium AST ALT Alkaline Phosphatase Total Creatine Kinase C-Reactive Protein Total Protein Albumin Vancomycin Trough 08/23/18 08/23/18 08/23/18 00:55 05:14 05:34 WBC 19.6 H RBC 3.02 L Hgb 8.5 L Hct 26.3 L MCHC RDW 18.2 H Lymph % (Auto) Bath % (Auto) Lymph # Seg Neutrophils % Seg Neuts % (Manual) 92.0 H Lymphocytes % (Manual) 1.0 L Seg Neutrophils # Man 18.0 H Lymphocytes # (Manual) 0.2 L PT INR POC ABG pH POC ABG pCO2 52.8 H POC ABG pO2 65 L Sodium Potassium Chloride Carbon Dioxide BUN Creatinine Glucose POC Glucose 183 H Lactic Acid Calcium AST ALT Alkaline Phosphatase Total Creatine Kinase C-Reactive Protein Total Protein Albumin Vancomycin Trough 08/23/18 08/23/18 08/23/18 05:34 05:34 13:06 WBC RBC Hgb Hct MCHC RDW Lymph % (Auto) Bath % (Auto) Lymph # Seg Neutrophils % Seg Neuts % (Manual) Lymphocytes % (Manual) Seg Neutrophils # Man Lymphocytes # (Manual) PT INR POC ABG pH POC ABG pCO2 POC ABG pO2 Sodium 146 H Potassium Chloride Carbon Dioxide 33 H BUN 27 H Creatinine 0.7 L Glucose 158 H POC Glucose Lactic Acid 2.30 H* 2.70 H* Calcium AST ALT Alkaline Phosphatase Total Creatine Kinase C-Reactive Protein 2.00 H Total Protein Albumin Vancomycin Trough 08/23/18 08/23/18 08/24/18 22:04 23:48 04:03 WBC RBC Hgb Hct MCHC RDW Lymph % (Auto) Bath % (Auto) Lymph # Seg Neutrophils % Seg Neuts % (Manual) Lymphocytes % (Manual) Seg Neutrophils # Man Lymphocytes # (Manual) PT INR POC ABG pH POC ABG pCO2 59.1 H POC ABG pO2 55 L Sodium Potassium Chloride Carbon Dioxide BUN Creatinine Glucose POC Glucose Lactic Acid 2.50 H* 2.20 H* Calcium AST ALT Alkaline Phosphatase Total Creatine Kinase C-Reactive Protein Total Protein Albumin Vancomycin Trough 07/04/19 07/04/19 07/04/19 05:13 05:13 05:13 WBC 26.2 H RBC 3.03 L Hgb 8.6 L Hct 26.6 L MCHC RDW 18.4 H Lymph % (Auto) Bath % (Auto) Lymph # Seg Neutrophils % Seg Neuts % (Manual) Lymphocytes % (Manual) Seg Neutrophils # Man Lymphocytes # (Manual) PT INR POC ABG pH POC ABG pCO2 POC ABG pO2 Sodium Potassium Chloride Carbon Dioxide 34 H BUN 27 H Creatinine Glucose 176 H POC Glucose Lactic Acid 2.40 H* Calcium AST 67 H ALT Alkaline Phosphatase 143 H Total Creatine Kinase C-Reactive Protein Total Protein 5.7 L Albumin 3.2 L Vancomycin Trough 08/24/18 08/25/18 08/25/18 11:05 04:20 05:00 WBC 28.4 H RBC 2.98 L Hgb 8.4 L Hct 26.3 L MCHC RDW 18.7 H Lymph % (Auto) Bath % (Auto) Lymph # Seg Neutrophils % Seg Neuts % (Manual) Lymphocytes % (Manual) Seg Neutrophils # Man Lymphocytes # (Manual) PT INR POC ABG pH POC ABG pCO2 59.9 H POC ABG pO2 62 L Sodium Potassium Chloride Carbon Dioxide BUN Creatinine Glucose POC Glucose Lactic Acid 2.10 H* Calcium AST ALT Alkaline Phosphatase Total Creatine Kinase C-Reactive Protein Total Protein Albumin Vancomycin Trough 08/25/18 08/25/18 08/26/18 05:00 20:47 04:54 WBC RBC Hgb Hct MCHC RDW Lymph % (Auto) Bath % (Auto) Lymph # Seg Neutrophils % Seg Neuts % (Manual) Lymphocytes % (Manual) Seg Neutrophils # Man Lymphocytes # (Manual) PT INR POC ABG pH 7.340 L 7.315 L POC ABG pCO2 > 70 H > 70 H POC ABG pO2 Sodium Potassium Chloride Carbon Dioxide 37 H BUN 32 H Creatinine Glucose 147 H POC Glucose Lactic Acid Calcium AST ALT Alkaline Phosphatase Total Creatine Kinase C-Reactive Protein Total Protein Albumin Vancomycin Trough 08/26/18 08/26/18 08/26/18 05:05 05:05 23:03 WBC 24.3 H RBC 2.97 L Hgb 8.3 L Hct 26.2 L MCHC RDW 19.0 H Lymph % (Auto) Bath % (Auto) Lymph # Seg Neutrophils % Seg Neuts % (Manual) Lymphocytes % (Manual) Seg Neutrophils # Man Lymphocytes # (Manual) PT INR POC ABG pH 7.323 L POC ABG pCO2 > 70 H POC ABG pO2 Sodium Potassium Chloride Carbon Dioxide 37 H BUN 29 H Creatinine Glucose 184 H POC Glucose Lactic Acid Calcium AST ALT Alkaline Phosphatase Total Creatine Kinase C-Reactive Protein Total Protein Albumin Vancomycin Trough 08/27/18 08/27/18 08/27/18 04:37 05:10 05:10 WBC 20.8 H RBC 2.87 L Hgb 8.0 L Hct 25.6 L MCHC 31 L RDW 19.2 H Lymph % (Auto) Bath % (Auto) Lymph # Seg Neutrophils % Seg Neuts % (Manual) Lymphocytes % (Manual) Seg Neutrophils # Man Lymphocytes # (Manual) PT INR POC ABG pH 7.332 L POC ABG pCO2 > 70 H POC ABG pO2 165 H Sodium Potassium Chloride Carbon Dioxide 36 H BUN 29 H Creatinine Glucose 149 H POC Glucose Lactic Acid Calcium 8.2 L AST 63 H ALT 63 H Alkaline Phosphatase Total Creatine Kinase C-Reactive Protein Total Protein 5.6 L Albumin 2.5 L Vancomycin Trough 08/28/18 08/28/18 08/28/18 03:40 03:40 04:39 WBC 18.7 H RBC 2.65 L Hgb 7.6 L Hct 23.4 L MCHC RDW 19.2 H Lymph % (Auto) Bath % (Auto) Lymph # Seg Neutrophils % Seg Neuts % (Manual) Lymphocytes % (Manual) Seg Neutrophils # Man Lymphocytes # (Manual) PT INR POC ABG pH 7.241 L POC ABG pCO2 > 70 H POC ABG pO2 Sodium Potassium Chloride 97.7 L Carbon Dioxide 37 H BUN 23 H Creatinine Glucose 155 H POC Glucose Lactic Acid Calcium 7.8 L AST 44 H ALT Alkaline Phosphatase Total Creatine Kinase C-Reactive Protein Total Protein 5.3 L Albumin 2.4 L Vancomycin Trough 08/28/18 10:32 WBC RBC Hgb Hct MCHC RDW Lymph % (Auto) Bath % (Auto) Lymph # Seg Neutrophils % Seg Neuts % (Manual) Lymphocytes % (Manual) Seg Neutrophils # Man Lymphocytes # (Manual) PT INR POC ABG pH 7.194 L POC ABG pCO2 POC ABG pO2 Sodium Potassium Chloride Carbon Dioxide BUN Creatinine Glucose POC Glucose Lactic Acid Calcium AST ALT Alkaline Phosphatase Total Creatine Kinase C-Reactive Protein Total Protein Albumin Vancomycin Trough Chest x-ray: image reviewed (Bilateral alveolar infiltrates with pleural effusions) CT scan - chest: image reviewed Allied health notes reviewed: nursing
[2018-08-28] MEDS: LASIX IV SCH ×3 (13:16→23:34)
[2018-08-28] MEDS: PROzac PO SCH (13:16)
[2018-08-28] MEDS: DIPRIVAN 10 MG/ML 1,000 MG/100 ML BOTTLE IV SCH (19:54)
[2018-08-28] MEDS: PRAVACHOL PO SCH (21:27)
[2018-08-28] MEDS: ATIVAN PO SCH (21:27)
[2018-08-28] MEDS: BENADRYL PO SCH (21:28)
[2018-08-29] MEDS: VANCOMYCIN 1,250 MG in NACL 0.9% 250ML 250 ML IV SCH (01:24)
[2018-08-29] MEDS: fentaNYL DRIP Premix 2,000 MCG/100 ML BAG IV SCH ×3 (01:24→21:46)
[2018-08-29] MEDS: TYLENOL PO PRN ×3 (03:30→20:02)
[2018-08-29 04:36] LABS: Hematocrit 22.4 % (35.5-45.6); Hemoglobin 7.3 gm/dl (11.8-15.2); Mean Corpuscular HGB Conc 33 % (32-34); Mean Corpuscular Volume 87 fl (84-94); Platelet Count 174 K/mm3 (140-440); Red Blood Count 2.57 M/mm3 (3.65-5.03); Red Cell Distribution Width 19.4 % (13.2-15.2)
[2018-08-29 05:03] LABS: Alanine Aminotransferase 39 units/L (7-56); Albumin 2.5 g/dL (3.9-5); BUN/Creatinine Ratio 28; Blood Urea Nitrogen 31 mg/dL (9-20); Calcium 8.1 mg/dL (8.4-10.2); Hemolysis Index 0
[2018-08-29] MEDS: LASIX IV SCH (05:14)
[2018-08-29] MEDS: FLAGYL 500 MG/100 ML 500 MG/100 ML BAG IV SCH ×2 (05:14→22:57)
[2018-08-29] MEDS: DUONEB *Not for PRN Use IH SCH ×4 (08:34→19:22)
--- NOTE | 2018-08-29 09:34 | Progress Note ---
Assessment and Plan Acute respiratory failure secondary to bilateral pneumonia, now on MVS HAP present on admission Schizophrenia, Depression Developmental delay Leukocytosis -Lung protective strategies -Fluid restrictive strategies -Wean FIO2 , once at 50 % with acceptable PaO2, start weaning PEEP -CXR and ABG in am -VAP bundle addressed -Supplemental oxygen to keep O2 sats 88-90% -Bronchodilators -Diuresis, while monitoring hemodynamics, renal function and electrolyte profile -Accuchecks with glycemic control -Target blood glucose <180mg/dL -Enteral nutrition with aspiration precautions -Agitation management -Titrate sedation to RAAS 0 to -1 -Prevention of delirium, maintenance of sleep-wake cycle -Antibiotics per ID service. -Avoid nephrotoxic agents, adjust all antibiotics and medications for CrCL and GFR -VTE and Stress ulcer prophylaxis -Ruvalcaba catheter for recurrent urinary retention ID consult notes reviewed, appreciate input Discussed care with hospitalist service Dicussed with RT/RN CONDITION: CRITICAL PROGNOSIS: GUARDED CODE STATUS: FULL CODE The high probability of a clinically significant, sudden or life-threatening deterioration of the [respiratory] system(s) required my full and direct attention, intervention and personal management. The aggregate critical care time was [35] minutes without overlap. Time includes spent on; [x] Data Review and interpretation [x] Patient assessment and monitoring of vital signs [x] Documentation [x] Medication orders and management Subjective Date of service: 08/29/18 Principal diagnosis: Ac. hypoxemic resp failure; Multifocal Pneumonia (HAP); ARDS; Anemia Interval history: Patient is seen today for: Acute hypoxemic respiratory failure, multifocal pneumonia, sepsis Seen and examined at bedside; 24hour events reviewed; nursing and respiratory care staff consulted; no adverse overnight events reported to me; on going No feversVitals, labs, medications, chart and imaging reviewed. Remains on mechanical ventilatory support, critically ill. No vomiting. Tolerating tube feedings, ongoing tachypnea. Diuresing well Objective Vital Signs - 12hr 08/28/18 08/28/18 08/28/18 22:00 22:30 23:00 Temperature Pulse Rate 125 H 129 H 130 H Pulse Rate [ Bilateral] Pulse Rate [ From Monitor] Pulse Rate [ Left Lower Lobe ] Respiratory 29 H 29 H 29 H Rate Respiratory Rate [Bilateral ] Respiratory Rate [Left Lower Lobe] Blood Pressure 127/71 126/69 123/64 O2 Sat by Pulse 91 91 90 Oximetry 08/28/18 08/28/18 08/28/18 23:12 23:30 23:33 Temperature 101.3 F H Pulse Rate 129 H 129 H Pulse Rate [ Bilateral] Pulse Rate [ From Monitor] Pulse Rate [ Left Lower Lobe ] Respiratory 29 H Rate Respiratory Rate [Bilateral ] Respiratory Rate [Left Lower Lobe] Blood Pressure 120/69 128/67 O2 Sat by Pulse 91 90 Oximetry 08/29/18 08/29/18 08/29/18 00:00 00:30 01:00 Temperature Pulse Rate 129 H 130 H 129 H Pulse Rate [ Bilateral] Pulse Rate [ 129 H From Monitor] Pulse Rate [ Left Lower Lobe ] Respiratory 28 H 29 H 30 H Rate Respiratory Rate [Bilateral ] Respiratory Rate [Left Lower Lobe] Blood Pressure 124/68 123/64 124/64 O2 Sat by Pulse 89 88 88 Oximetry 08/29/18 08/29/18 08/29/18 01:30 02:00 02:30 Temperature Pulse Rate 128 H 129 H 127 H Pulse Rate [ Bilateral] Pulse Rate [ From Monitor] Pulse Rate [ Left Lower Lobe ] Respiratory 25 H 28 H 25 H Rate Respiratory Rate [Bilateral ] Respiratory Rate [Left Lower Lobe] Blood Pressure 123/56 120/59 120/59 O2 Sat by Pulse 91 89 89 Oximetry 08/29/18 08/29/18 08/29/18 03:00 03:30 03:39 Temperature 103 F H Pulse Rate 128 H 125 H Pulse Rate [ Bilateral] Pulse Rate [ From Monitor] Pulse Rate [ Left Lower Lobe ] Respiratory 29 H 28 H Rate Respiratory Rate [Bilateral ] Respiratory Rate [Left Lower Lobe] Blood Pressure 111/61 108/63 O2 Sat by Pulse 91 93 Oximetry 08/29/18 08/29/18 08/29/18 04:00 04:30 04:43 Temperature Pulse Rate 123 H 120 H 119 H Pulse Rate [ Bilateral] Pulse Rate [ 121 H From Monitor] Pulse Rate [ Left Lower Lobe ] Respiratory 25 H 30 H Rate Respiratory Rate [Bilateral ] Respiratory Rate [Left Lower Lobe] Blood Pressure 108/63 104/61 104/61 O2 Sat by Pulse 92 93 92 Oximetry 08/29/18 08/29/18 08/29/18 05:00 05:30 06:00 Temperature Pulse Rate 118 H 118 H 118 H Pulse Rate [ Bilateral] Pulse Rate [ From Monitor] Pulse Rate [ Left Lower Lobe ] Respiratory 28 H 29 H 27 H Rate Respiratory Rate [Bilateral ] Respiratory Rate [Left Lower Lobe] Blood Pressure 110/60 112/63 113/61 O2 Sat by Pulse 92 85 87 Oximetry 08/29/18 08/29/18 08/29/18 06:30 07:00 08:00 Temperature 103.1 F H Pulse Rate 119 H 119 H Pulse Rate [ Bilateral] Pulse Rate [ From Monitor] Pulse Rate [ Left Lower Lobe ] Respiratory 27 H 27 H Rate Respiratory Rate [Bilateral ] Respiratory Rate [Left Lower Lobe] Blood Pressure 112/65 109/64 O2 Sat by Pulse 88 89 Oximetry 08/29/18 08/29/18 08:15 08:46 Temperature Pulse Rate 123 H Pulse Rate [ 120 H Bilateral] Pulse Rate [ From Monitor] Pulse Rate [ 122 H Left Lower Lobe ] Respiratory Rate Respiratory 30 H Rate [Bilateral ] Respiratory 30 H Rate [Left Lower Lobe] Blood Pressure 112/61 O2 Sat by Pulse 90 Oximetry Constitutional: no acute distress, other (sedated) Eyes: non-icteric ENT: oropharynx moist, other (ETT 23 cm VENTURA) Neck: supple, no lymphadenopathy, other (no thyromegaly) Effort: mildly labored Ascultation: Bilateral: rales Percussion: Bilateral: not dull Cardiovascular: regular rate and rhythm, other (No R/M) Gastrointestinal: normoactive bowel sounds, soft, non-tender, non-distended Integumentary: normal Extremities: no cyanosis, no edema, pink and warm, pulses normal, no ischemia or petechiae Neurologic: non-focal exam (grossly), pupils equal and round, motor strength normal and, unable to assess, other (sedated) Psychiatric: other (sedated) CBC and BMP: 08/29/18 04:20 08/30/18 04:10 ABG, PT/INR, D-dimer: ABG POC ABG pH 7.283 (7.35-7.45) L 08/29/18 04:48 POC ABG pO2 71 (80-105) L 08/29/18 04:48 POC ABG HCO3 43.4 (22-26 mml/L) 08/29/18 04:48 POC ABG Total CO2 46 (23-27mmol/L) 08/29/18 04:48 POC ABG O2 Sat 90 08/29/18 04:48 PT/INR, D-dimer PT 15.1 Sec. (12.2-14.9) H 08/14/18 16:43 INR 1.22 (0.87-1.13) H 08/14/18 16:43 Abnormal lab findings: Abnormal Labs 08/14/18 08/14/18 08/14/18 16:33 16:33 16:43 WBC RBC 3.38 L Hgb 9.9 L Hct 29.2 L MCHC RDW 17.3 H Lymph % (Auto) Charles % (Auto) Lymph # Seg Neutrophils % Seg Neuts % (Manual) 87.0 H Lymphocytes % (Manual) 6.0 L Seg Neutrophils # Man Lymphocytes # (Manual) 0.5 L PT INR POC ABG pH POC ABG pCO2 POC ABG pO2 Sodium Potassium 3.5 L Chloride Carbon Dioxide BUN Creatinine Glucose POC Glucose Lactic Acid Calcium AST ALT Alkaline Phosphatase Total Creatine Kinase 204 H C-Reactive Protein Total Protein Albumin Vancomycin Trough 08/14/18 08/14/18 08/17/18 16:43 17:01 09:09 WBC RBC 3.12 L Hgb 9.0 L Hct 27.0 L MCHC RDW 17.0 H Lymph % (Auto) 7.1 L Charles % (Auto) 9.2 H Lymph # 0.5 L Seg Neutrophils % 82.7 H Seg Neuts % (Manual) Lymphocytes % (Manual) Seg Neutrophils # Man Lymphocytes # (Manual) PT 15.1 H INR 1.22 H POC ABG pH 7.468 H POC ABG pCO2 POC ABG pO2 57 L Sodium Potassium Chloride Carbon Dioxide BUN Creatinine Glucose POC Glucose Lactic Acid Calcium AST ALT Alkaline Phosphatase Total Creatine Kinase C-Reactive Protein Total Protein Albumin Vancomycin Trough 08/17/18 08/17/18 08/17/18 09:09 11:30 23:21 WBC RBC Hgb Hct MCHC RDW Lymph % (Auto) Charles % (Auto) Lymph # Seg Neutrophils % Seg Neuts % (Manual) Lymphocytes % (Manual) Seg Neutrophils # Man Lymphocytes # (Manual) PT INR POC ABG pH 7.225 L POC ABG pCO2 54.6 H POC ABG pO2 50 L 110 H Sodium Potassium 3.5 L Chloride Carbon Dioxide 20 L BUN 7 L Creatinine Glucose 125 H POC Glucose Lactic Acid Calcium AST ALT Alkaline Phosphatase Total Creatine Kinase C-Reactive Protein Total Protein 6.2 L Albumin 3.2 L Vancomycin Trough 08/18/18 08/18/18 08/18/18 04:49 13:06 13:50 WBC RBC Hgb Hct MCHC RDW Lymph % (Auto) Charles % (Auto) Lymph # Seg Neutrophils % Seg Neuts % (Manual) Lymphocytes % (Manual) Seg Neutrophils # Man Lymphocytes # (Manual) PT INR POC ABG pH POC ABG pCO2 POC ABG pO2 58 L Sodium Potassium Chloride Carbon Dioxide BUN Creatinine Glucose POC Glucose Lactic Acid Calcium AST ALT Alkaline Phosphatase Total Creatine Kinase C-Reactive Protein 31.10 H Total Protein Albumin Vancomycin Trough 4.7 L 08/18/18 08/19/18 08/19/18 13:50 07:25 07:25 WBC 14.8 H 12.7 H RBC 3.46 L 3.32 L Hgb 10.1 L 9.5 L Hct 30.2 L 28.9 L MCHC RDW 17.6 H 17.7 H Lymph % (Auto) Charles % (Auto) Lymph # Seg Neutrophils % Seg Neuts % (Manual) 95.0 H 95.0 H Lymphocytes % (Manual) 3.0 L 5.0 L Seg Neutrophils # Man 14.1 H 12.1 H Lymphocytes # (Manual) 0.4 L 0.6 L PT INR POC ABG pH POC ABG pCO2 POC ABG pO2 Sodium Potassium Chloride Carbon Dioxide BUN 23 H Creatinine Glucose 139 H POC Glucose Lactic Acid Calcium AST 41 H ALT Alkaline Phosphatase 149 H Total Creatine Kinase C-Reactive Protein Total Protein Albumin 3.0 L Vancomycin Trough 08/19/18 08/20/18 08/21/18 15:10 04:03 04:18 WBC RBC Hgb Hct MCHC RDW Lymph % (Auto) Charles % (Auto) Lymph # Seg Neutrophils % Seg Neuts % (Manual) Lymphocytes % (Manual) Seg Neutrophils # Man Lymphocytes # (Manual) PT INR POC ABG pH 7.346 L POC ABG pCO2 49.0 H 50.2 H 51.0 H POC ABG pO2 71 L 180 H 78 L Sodium Potassium Chloride Carbon Dioxide BUN Creatinine Glucose POC Glucose Lactic Acid Calcium AST ALT Alkaline Phosphatase Total Creatine Kinase C-Reactive Protein Total Protein Albumin Vancomycin Trough 08/21/18 08/21/18 08/21/18 04:43 04:43 15:54 WBC 14.1 H RBC 3.02 L Hgb 8.5 L Hct 26.3 L MCHC RDW 17.9 H Lymph % (Auto) Charles % (Auto) Lymph # Seg Neutrophils % Seg Neuts % (Manual) 95.0 H Lymphocytes % (Manual) 3.0 L Seg Neutrophils # Man 13.4 H Lymphocytes # (Manual) 0.4 L PT INR POC ABG pH POC ABG pCO2 POC ABG pO2 Sodium 149 H Potassium Chloride 111.2 H Carbon Dioxide BUN 27 H Creatinine Glucose 164 H POC Glucose Lactic Acid Calcium AST ALT Alkaline Phosphatase Total Creatine Kinase C-Reactive Protein 3.60 H Total Protein Albumin Vancomycin Trough 08/21/18 08/21/18 08/21/18 19:15 20:10 21:33 WBC RBC Hgb Hct MCHC RDW Lymph % (Auto) Charles % (Auto) Lymph # Seg Neutrophils % Seg Neuts % (Manual) Lymphocytes % (Manual) Seg Neutrophils # Man Lymphocytes # (Manual) PT INR POC ABG pH POC ABG pCO2 51.6 H POC ABG pO2 63 L Sodium Potassium Chloride Carbon Dioxide BUN Creatinine Glucose POC Glucose Lactic Acid 2.80 H* 2.20 H* Calcium AST ALT Alkaline Phosphatase Total Creatine Kinase C-Reactive Protein Total Protein Albumin Vancomycin Trough 08/21/18 08/22/18 08/22/18 23:08 04:20 05:46 WBC RBC Hgb Hct MCHC RDW Lymph % (Auto) Charles % (Auto) Lymph # Seg Neutrophils % Seg Neuts % (Manual) Lymphocytes % (Manual) Seg Neutrophils # Man Lymphocytes # (Manual) PT INR POC ABG pH POC ABG pCO2 49.4 H POC ABG pO2 53 L Sodium Potassium Chloride Carbon Dioxide BUN Creatinine Glucose POC Glucose Lactic Acid 2.20 H* 2.10 H* Calcium AST ALT Alkaline Phosphatase Total Creatine Kinase C-Reactive Protein Total Protein Albumin Vancomycin Trough 08/22/18 08/22/18 08/22/18 05:46 09:08 23:20 WBC RBC Hgb Hct MCHC RDW Lymph % (Auto) Charles % (Auto) Lymph # Seg Neutrophils % Seg Neuts % (Manual) Lymphocytes % (Manual) Seg Neutrophils # Man Lymphocytes # (Manual) PT INR POC ABG pH POC ABG pCO2 POC ABG pO2 Sodium 148 H Potassium Chloride Carbon Dioxide BUN 28 H Creatinine Glucose 155 H POC Glucose Lactic Acid 2.20 H* 2.20 H* Calcium AST ALT Alkaline Phosphatase Total Creatine Kinase C-Reactive Protein Total Protein Albumin Vancomycin Trough 08/23/18 08/23/18 08/23/18 00:55 05:14 05:34 WBC 19.6 H RBC 3.02 L Hgb 8.5 L Hct 26.3 L MCHC RDW 18.2 H Lymph % (Auto) Charles % (Auto) Lymph # Seg Neutrophils % Seg Neuts % (Manual) 92.0 H Lymphocytes % (Manual) 1.0 L Seg Neutrophils # Man 18.0 H Lymphocytes # (Manual) 0.2 L PT INR POC ABG pH POC ABG pCO2 52.8 H POC ABG pO2 65 L Sodium Potassium Chloride Carbon Dioxide BUN Creatinine Glucose POC Glucose 183 H Lactic Acid Calcium AST ALT Alkaline Phosphatase Total Creatine Kinase C-Reactive Protein Total Protein Albumin Vancomycin Trough 08/23/18 08/23/18 08/23/18 05:34 05:34 13:06 WBC RBC Hgb Hct MCHC RDW Lymph % (Auto) Charles % (Auto) Lymph # Seg Neutrophils % Seg Neuts % (Manual) Lymphocytes % (Manual) Seg Neutrophils # Man Lymphocytes # (Manual) PT INR POC ABG pH POC ABG pCO2 POC ABG pO2 Sodium 146 H Potassium Chloride Carbon Dioxide 33 H BUN 27 H Creatinine 0.7 L Glucose 158 H POC Glucose Lactic Acid 2.30 H* 2.70 H* Calcium AST ALT Alkaline Phosphatase Total Creatine Kinase C-Reactive Protein 2.00 H Total Protein Albumin Vancomycin Trough 08/23/18 08/23/18 08/24/18 22:04 23:48 04:03 WBC RBC Hgb Hct MCHC RDW Lymph % (Auto) Charles % (Auto) Lymph # Seg Neutrophils % Seg Neuts % (Manual) Lymphocytes % (Manual) Seg Neutrophils # Man Lymphocytes # (Manual) PT INR POC ABG pH POC ABG pCO2 59.1 H POC ABG pO2 55 L Sodium Potassium Chloride Carbon Dioxide BUN Creatinine Glucose POC Glucose Lactic Acid 2.50 H* 2.20 H* Calcium AST ALT Alkaline Phosphatase Total Creatine Kinase C-Reactive Protein Total Protein Albumin Vancomycin Trough 08/24/18 08/24/18 08/24/18 05:13 05:13 05:13 WBC 26.2 H RBC 3.03 L Hgb 8.6 L Hct 26.6 L MCHC RDW 18.4 H Lymph % (Auto) Charles % (Auto) Lymph # Seg Neutrophils % Seg Neuts % (Manual) Lymphocytes % (Manual) Seg Neutrophils # Man Lymphocytes # (Manual) PT INR POC ABG pH POC ABG pCO2 POC ABG pO2 Sodium Potassium Chloride Carbon Dioxide 34 H BUN 27 H Creatinine Glucose 176 H POC Glucose Lactic Acid 2.40 H* Calcium AST 67 H ALT Alkaline Phosphatase 143 H Total Creatine Kinase C-Reactive Protein Total Protein 5.7 L Albumin 3.2 L Vancomycin Trough 08/24/18 08/25/18 08/25/18 11:05 04:20 05:00 WBC 28.4 H RBC 2.98 L Hgb 8.4 L Hct 26.3 L MCHC RDW 18.7 H Lymph % (Auto) Charles % (Auto) Lymph # Seg Neutrophils % Seg Neuts % (Manual) Lymphocytes % (Manual) Seg Neutrophils # Man Lymphocytes # (Manual) PT INR POC ABG pH POC ABG pCO2 59.9 H POC ABG pO2 62 L Sodium Potassium Chloride Carbon Dioxide BUN Creatinine Glucose POC Glucose Lactic Acid 2.10 H* Calcium AST ALT Alkaline Phosphatase Total Creatine Kinase C-Reactive Protein Total Protein Albumin Vancomycin Trough 08/25/18 08/25/18 08/26/18 05:00 20:47 04:54 WBC RBC Hgb Hct MCHC RDW Lymph % (Auto) Charles % (Auto) Lymph # Seg Neutrophils % Seg Neuts % (Manual) Lymphocytes % (Manual) Seg Neutrophils # Man Lymphocytes # (Manual) PT INR POC ABG pH 7.340 L 7.315 L POC ABG pCO2 > 70 H > 70 H POC ABG pO2 Sodium Potassium Chloride Carbon Dioxide 37 H BUN 32 H Creatinine Glucose 147 H POC Glucose Lactic Acid Calcium AST ALT Alkaline Phosphatase Total Creatine Kinase C-Reactive Protein Total Protein Albumin Vancomycin Trough 08/26/18 08/26/18 08/26/18 05:05 05:05 23:03 WBC 24.3 H RBC 2.97 L Hgb 8.3 L Hct 26.2 L MCHC RDW 19.0 H Lymph % (Auto) Charles % (Auto) Lymph # Seg Neutrophils % Seg Neuts % (Manual) Lymphocytes % (Manual) Seg Neutrophils # Man Lymphocytes # (Manual) PT INR POC ABG pH 7.323 L POC ABG pCO2 > 70 H POC ABG pO2 Sodium Potassium Chloride Carbon Dioxide 37 H BUN 29 H Creatinine Glucose 184 H POC Glucose Lactic Acid Calcium AST ALT Alkaline Phosphatase Total Creatine Kinase C-Reactive Protein Total Protein Albumin Vancomycin Trough 08/27/18 08/27/18 08/27/18 04:37 05:10 05:10 WBC 20.8 H RBC 2.87 L Hgb 8.0 L Hct 25.6 L MCHC 31 L RDW 19.2 H Lymph % (Auto) Charles % (Auto) Lymph # Seg Neutrophils % Seg Neuts % (Manual) Lymphocytes % (Manual) Seg Neutrophils # Man Lymphocytes # (Manual) PT INR POC ABG pH 7.332 L POC ABG pCO2 > 70 H POC ABG pO2 165 H Sodium Potassium Chloride Carbon Dioxide 36 H BUN 29 H Creatinine Glucose 149 H POC Glucose Lactic Acid Calcium 8.2 L AST 63 H ALT 63 H Alkaline Phosphatase Total Creatine Kinase C-Reactive Protein Total Protein 5.6 L Albumin 2.5 L Vancomycin Trough 08/28/18 08/28/18 08/28/18 03:40 03:40 04:39 WBC 18.7 H RBC 2.65 L Hgb 7.6 L Hct 23.4 L MCHC RDW 19.2 H Lymph % (Auto) Charles % (Auto) Lymph # Seg Neutrophils % Seg Neuts % (Manual) Lymphocytes % (Manual) Seg Neutrophils # Man Lymphocytes # (Manual) PT INR POC ABG pH 7.241 L POC ABG pCO2 > 70 H POC ABG pO2 Sodium Potassium Chloride 97.7 L Carbon Dioxide 37 H BUN 23 H Creatinine Glucose 155 H POC Glucose Lactic Acid Calcium 7.8 L AST 44 H ALT Alkaline Phosphatase Total Creatine Kinase C-Reactive Protein Total Protein 5.3 L Albumin 2.4 L Vancomycin Trough 08/28/18 08/29/18 08/29/18 10:32 04:20 04:20 WBC 17.1 H RBC 2.57 L Hgb 7.3 L Hct 22.4 L MCHC RDW 19.4 H Lymph % (Auto) Charles % (Auto) Lymph # Seg Neutrophils % Seg Neuts % (Manual) Lymphocytes % (Manual) Seg Neutrophils # Man Lymphocytes # (Manual) PT INR POC ABG pH 7.194 L POC ABG pCO2 POC ABG pO2 Sodium Potassium 5.3 H Chloride 96.1 L Carbon Dioxide 42 H* BUN 31 H Creatinine Glucose 126 H POC Glucose Lactic Acid Calcium 8.1 L AST 44 H ALT Alkaline Phosphatase Total Creatine Kinase C-Reactive Protein Total Protein 5.5 L Albumin 2.5 L Vancomycin Trough 07/09/19 04:48 WBC RBC Hgb Hct MCHC RDW Lymph % (Auto) Charles % (Auto) Lymph # Seg Neutrophils % Seg Neuts % (Manual) Lymphocytes % (Manual) Seg Neutrophils # Man Lymphocytes # (Manual) PT INR POC ABG pH 7.283 L POC ABG pCO2 POC ABG pO2 71 L Sodium Potassium Chloride Carbon Dioxide BUN Creatinine Glucose POC Glucose Lactic Acid Calcium AST ALT Alkaline Phosphatase Total Creatine Kinase C-Reactive Protein Total Protein Albumin Vancomycin Trough Chest x-ray: image reviewed (Unchanged) Allied health notes reviewed: nursing
[2018-08-29] MEDS ORDERED: VANCOMYCIN 1,500 MG in NACL 0.9% 500 ML 500 ML IV SCH (10:00)
[2018-08-29] MEDS: FLOMAX PO SCH (12:21)
[2018-08-29] MEDS: MAXIPIME/NS 2 GM/100 ML 2 GM/100 ML BAG IV SCH (12:21)
[2018-08-29] MEDS: PEPCID PO SCH ×2 (12:22→21:47)
[2018-08-29] MEDS: RisperDAL PO SCH (12:22)
[2018-08-29] MEDS: COLACE FEEDTUBE SCH ×2 (12:22→21:48)
[2018-08-29] MEDS: LOVENOX SUB-Q SCH (12:22)
[2018-08-29] MEDS: ZYLOPRIM PO SCH (12:23)
[2018-08-29] MEDS: PROzac PO SCH (12:23)
[2018-08-29] MEDS: WELLBUTRIN PO SCH ×2 (12:23→21:48)
[2018-08-29] MEDS: DIPRIVAN 10 MG/ML 1,000 MG/100 ML BOTTLE IV SCH (12:49)
--- NOTE | 2018-08-29 14:28 | Progress Note ---
Assessment and Plan /Acute Respiratory failure with hypoxia s/p intubated 08/19/18 cont Duonebs IV Solumedrol and IV abx /Bilateral pneumonia, Cont Abx, follow cx, ID consulted,following /Sepsis with septic shock Now on Cefepime, vanco and Flagyl Levophed started 08/25 /Leukocytosis, from severe sepsis, Monitor /Fever due to sepsis /Anemia due to sepsis Anemia w/u ordered /Hypokalemia, Resolved Schizophrenia, on Zyprexa Depression, on antidepressants Gout , Cont Allopurinol HLD (hyperlipidemia), Cont statins DVT prophylaxis: On Lovenox GI Prophylaxis:Pepcid Urinary retention, re-catheterized Full code status The high probability of a clinically significant, sudden or life threatening deterioration of the [4] system(s) required my full and direct attention, intervention and personal management. The aggregate critical care time was [35] minutes. This time is in addition to time spent performing reported procedures but includes the following: [x] Data Review and interpretation [x] Patient assessment and monitoring of vital signs [x] Documentation [x] Medication orders and management Brief History: Patient is 52-year-old male with PMHx of developmental delay, schizophrenia, and depression with recent h/o SI presented to the ER with complaints of shortness of breath and cough 1 day. Patient O2 sat was noted to be 86% and improve after application of oxygen via n/c. Pt denies a history of COPD but admits to history of smoking. In the ER, pt had a chest x-ray that showed multifocal bi lateral air space disease suspicious for pneumonia. After admission went into resp distress and transferred to ICU for Intesive care On BIPAP. He then eventually intubated on 08/19 and is still intubated. became hypotensive and started on levophed 08/25/18. Patient still vent dependent, off Levophed today, critically ill. Hospitalist Physical Gen: Not in acute distress, intubated, sedated HEENT: Normocephalic, atraumatic Neck: supple, no JVD Heart: S1 and S2 reg, no murmurs, rubs or gallop Lungs: Bilateral rhonchi, Abd: soft, non tender, non distended, normal BS Ext: No edema, no clubbing, no cyanosis, Neuro: Sedated, intubated Subjective Date of service: 08/29/18 Principal diagnosis: Ac. hypoxemic resp failure; Multifocal Pneumonia (HAP); ARDS; Anemia Interval history: Patient seen and examined. Medical records and medication list reviewed. Patient remained intubated and sedated off levophed this am Discussed with CM Objective - Constitutional Vitals: Vital Signs - 12hr 08/29/18 08/29/18 08/29/18 02:30 03:00 03:30 Temperature Pulse Rate 127 H 128 H 125 H Pulse Rate [ Bilateral] Pulse Rate [ From Monitor] Pulse Rate [ Left Lower Lobe ] Respiratory 25 H 29 H 28 H Rate Respiratory Rate [Bilateral ] Respiratory Rate [Left Lower Lobe] Blood Pressure 120/59 111/61 108/63 O2 Sat by Pulse 89 91 93 Oximetry 08/29/18 08/29/18 08/29/18 03:39 04:00 04:30 Temperature 103 F H Pulse Rate 123 H 120 H Pulse Rate [ Bilateral] Pulse Rate [ 121 H From Monitor] Pulse Rate [ Left Lower Lobe ] Respiratory 25 H 30 H Rate Respiratory Rate [Bilateral ] Respiratory Rate [Left Lower Lobe] Blood Pressure 108/63 104/61 O2 Sat by Pulse 92 93 Oximetry 08/29/18 08/29/18 08/29/18 04:43 05:00 05:30 Temperature Pulse Rate 119 H 118 H 118 H Pulse Rate [ Bilateral] Pulse Rate [ From Monitor] Pulse Rate [ Left Lower Lobe ] Respiratory 28 H 29 H Rate Respiratory Rate [Bilateral ] Respiratory Rate [Left Lower Lobe] Blood Pressure 104/61 110/60 112/63 O2 Sat by Pulse 92 92 85 Oximetry 08/29/18 08/29/18 08/29/18 06:00 06:30 07:00 Temperature Pulse Rate 118 H 119 H 119 H Pulse Rate [ Bilateral] Pulse Rate [ From Monitor] Pulse Rate [ Left Lower Lobe ] Respiratory 27 H 27 H 27 H Rate Respiratory Rate [Bilateral ] Respiratory Rate [Left Lower Lobe] Blood Pressure 113/61 112/65 109/64 O2 Sat by Pulse 87 88 89 Oximetry 08/29/18 08/29/18 08/29/18 08:00 08:15 08:46 Temperature 103.1 F H Pulse Rate 123 H Pulse Rate [ 120 H Bilateral] Pulse Rate [ From Monitor] Pulse Rate [ 122 H Left Lower Lobe ] Respiratory Rate Respiratory 30 H Rate [Bilateral ] Respiratory 30 H Rate [Left Lower Lobe] Blood Pressure 112/61 O2 Sat by Pulse 90 Oximetry - Labs CBC & Chem 7: 08/29/18 04:20 08/30/18 04:10 Labs: Abnormal lab results 08/29/18 08/29/18 08/29/18 Range/Units 04:20 04:20 04:48 WBC 17.1 H (4.5-11.0) K/mm3 RBC 2.57 L (3.65-5.03) M/mm3 Hgb 7.3 L (11.8-15.2) gm/dl Hct 22.4 L (35.5-45.6) % RDW 19.4 H (13.2-15.2) % POC ABG pH 7.283 L (7.35-7.45) POC ABG pCO2 > 70 H (35-45) POC ABG pO2 71 L (80-105) Potassium 5.3 H (3.6-5.0) mmol/L Chloride 96.1 L (98-107) mmol/L Carbon Dioxide 42 H* (22-30) mmol/L BUN 31 H (9-20) mg/dL Glucose 126 H (75-100) mg/dL POC Glucose (70-105) Calcium 8.1 L (8.4-10.2) mg/dL AST 44 H (5-40) units/L Total Protein 5.5 L (6.3-8.2) g/dL Albumin 2.5 L (3.9-5) g/dL 08/29/18 Range/Units 12:11 WBC (4.5-11.0) K/mm3 RBC (3.65-5.03) M/mm3 Hgb (11.8-15.2) gm/dl Hct (35.5-45.6) % RDW (13.2-15.2) % POC ABG pH (7.35-7.45) POC ABG pCO2 (35-45) POC ABG pO2 (80-105) Potassium (3.6-5.0) mmol/L Chloride (98-107) mmol/L Carbon Dioxide (22-30) mmol/L BUN (9-20) mg/dL Glucose (75-100) mg/dL POC Glucose 181 H (70-105) Calcium (8.4-10.2) mg/dL AST (5-40) units/L Total Protein (6.3-8.2) g/dL Albumin (3.9-5) g/dL
--- NOTE | 2018-08-29 14:44 | Progress Note ---
Assessment and Plan Cultures: 08/14/2018 Blood culture: No growth 08/18/2018 resp culture: normal resp aminata Legionella Ag: negative Strep pneumoniae Ur Ag: negative 08/25/2018 tracheal aspirate: normal resp aminata HIV negative 08/25/2018 BAL: fungal and AFB stains negative. A/P: 52-year-old male with history of developmental delay, schizophrenia, recently discharged from a psychiatric facility for suicidal ideation now with: 1) Acute respiratory failure secondary to bilateral pneumonia: worsening. Cultures growing normal resp aminata. Intubated, sedated. High O2 requirements, ?ARDS. HIV negative. 2) Schizophrenia, Depression: Patient is on risperidone, olanzapine, Haldol. Also on Wellbutrin and fluoxetine. At risk of QT prolongation especially with levofloxacin. 3) PCN allergy: unknown, at least >10 years history per his caregiver at the bedside. Low risk of cross reactivity with Cephalosporins. Tolerating Cefepime and Ceftriaxone well. 4) Leucocytosis: unexplained by steroids alone. RUQ US negative for hepatobiliary source. CT chest with worsening pneumonia. Recs: Given persistent fever, possibility of drug fever does exist. Hence, will switch abx to IV Aztreonam. D/Vasile Cefepime, Flagyl and Vancomycin. No MRSA on any cultures, so hold off on Linezolid (also patient on multiple psych meds). Avoiding other meds due to risk of QT prolongation from other psych meds Also, consider venous duplexes to eval for DVT Levi Lnua MD, FACP [facility] C: [phone] O: [phone] F: [phone] Subjective Date of service: 08/29/18 Principal diagnosis: Ac. hypoxemic resp failure; Multifocal Pneumonia (HAP); ARDS; Anemia Interval history: Patient continues to spike high fevers of 103F. Remains on the vent, high requirements. Discussed with bedside RN. Objective - Exam Narrative Exam: Physical Exam: Constitutional: sedated, intubated Head, Ears, Nose: Normocephalic, atraumatic. External ears, nose normal Eyes: Conjunctivae/corneas clear. No icterus. No ptosis. Neck: Supple, no meningeal signs Oral: intubated Cardiovascular: S1, S2 normal, no murmur heard Respiratory: coarse sounds bilaterally GI: Soft, non-tender; bowel sounds normal. No peritoneal signs Musculoskeletal: trace pedal edema, no cyanosis. Skin: No rash or abscess. Hem/Lymphatic: No palpable cervical or supraclavicular nodes. No lymphangitis Psych: sedated. Neurological: sedated, intubated, on vent - Constitutional Vitals: Vital Signs Temp Pulse Resp BP Pulse Ox 103.1 F H 120 H 30 H 112/61 90 08/29/18 08:00 08/29/18 08:46 08/29/18 08:46 08/29/18 08:15 08/29/18 08:15 Temperature -Last 24 Hours Temperature 103.1 F Temperature 103 F Temperature 101.3 F Temperature 100.9 F Temperature 100.9 F Temperature 100.9 F Temperature 100.9 F Temperature 98.3 F - Labs CBC & Chem 7: 08/29/18 04:20 08/29/18 04:20 Labs: Abnormal lab results 08/29/18 08/29/18 08/29/18 Range/Units 04:20 04:20 04:48 WBC 17.1 H (4.5-11.0) K/mm3 RBC 2.57 L (3.65-5.03) M/mm3 Hgb 7.3 L (11.8-15.2) gm/dl Hct 22.4 L (35.5-45.6) % RDW 19.4 H (13.2-15.2) % POC ABG pH 7.283 L (7.35-7.45) POC ABG pCO2 > 70 H (35-45) POC ABG pO2 71 L (80-105) Potassium 5.3 H (3.6-5.0) mmol/L Chloride 96.1 L (98-107) mmol/L Carbon Dioxide 42 H* (22-30) mmol/L BUN 31 H (9-20) mg/dL Glucose 126 H (75-100) mg/dL POC Glucose (70-105) Calcium 8.1 L (8.4-10.2) mg/dL AST 44 H (5-40) units/L Total Protein 5.5 L (6.3-8.2) g/dL Albumin 2.5 L (3.9-5) g/dL 08/29/18 Range/Units 12:11 WBC (4.5-11.0) K/mm3 RBC (3.65-5.03) M/mm3 Hgb (11.8-15.2) gm/dl Hct (35.5-45.6) % RDW (13.2-15.2) % POC ABG pH (7.35-7.45) POC ABG pCO2 (35-45) POC ABG pO2 (80-105) Potassium (3.6-5.0) mmol/L Chloride (98-107) mmol/L Carbon Dioxide (22-30) mmol/L BUN (9-20) mg/dL Glucose (75-100) mg/dL POC Glucose 181 H (70-105) Calcium (8.4-10.2) mg/dL AST (5-40) units/L Total Protein (6.3-8.2) g/dL Albumin (3.9-5) g/dL - Imaging and cardiology Chest x-ray: report reviewed, image reviewed (b/l airspace opacities, ?slightly improved)
[2018-08-29] MEDS: LEVOPHED DRIP 4 MG/NS 250 ML 4 MG/250 ML BAG IV SCH (18:09)
[2018-08-29 20:36] LABS: HIV-1 RNA QN PCR <1.30 Log cps/mL; HIV-1 RNA QN PCR <20 Copies/mL
[2018-08-29] MEDS: ATIVAN PO SCH (21:47)
[2018-08-29] MEDS: AZACTAM/NS 1 GM/50 ML 1 GM/50 ML VIAL IV SCH (21:48)
[2018-08-29] MEDS: PRAVACHOL PO SCH (21:48)
[2018-08-29] MEDS: BENADRYL PO SCH (21:48)
[2018-08-29] MEDS: SODIUM CHLORIDE FLUSH SYRINGE 10 ML IV SCH ×2 (21:51→22:45)
[2018-08-30] MEDS: TYLENOL PO PRN ×2 (00:24→23:23)
[2018-08-30] MEDS: LEVOPHED DRIP 4 MG/NS 250 ML 4 MG/250 ML BAG IV SCH ×3 (00:55→21:58)
[2018-08-30] MEDS: AZACTAM/NS 1 GM/50 ML 1 GM/50 ML VIAL IV SCH ×3 (05:56→22:01)
[2018-08-30] MEDS: DIPRIVAN 10 MG/ML 1,000 MG/100 ML BOTTLE IV SCH (06:14)
--- NOTE | 2018-08-30 07:22 | Progress Note ---
Assessment and Plan Acute respiratory failure secondary to bilateral pneumonia, on MVS HAP present on admission s/p Bronchoscopy Subcutaneous emphysema, right neck- no pneumothorax Schizophrenia, Depression Developmental delay Leukocytosis Acute renal failure -Lung protective strategies -Gentle IV hydration -Wean FIO2 , once at 50 % with acceptable PaO2, start weaning PEEP -CXR and ABG in am -VAP bundle addressed -Supplemental oxygen to keep O2 sats 88-90% -Bronchodilators -Accuchecks with glycemic control -Target blood glucose <180mg/dL -Enteral nutrition with aspiration precautions -Agitation management -Titrate sedation to RAAS 0 to -1 -Prevention of delirium, maintenance of sleep-wake cycle -Antibiotics per ID service. -Avoid nephrotoxic agents, adjust all antibiotics and medications for CrCL and GFR -VTE and Stress ulcer prophylaxis -Ruvalcaba catheter for recurrent urinary retention -Cultures negative on BAL, evaluate for non-infectious causes of fevers in the ICU Discussed with RT/high school professional consult Surgery consult early next week fro tracheostomy and PEG placement CONDITION: CRITICAL PROGNOSIS: GUARDED CODE STATUS: FULL CODE The high probability of a clinically significant, sudden or life-threatening deterioration of the [respiratory, renal, ID] system(s) required my full and direct attention, intervention and personal management. The aggregate critical care time was [35] minutes without overlap. Time includes spent on; [x] Data Review and interpretation [x] Patient assessment and monitoring of vital signs [x] Documentation [x] Medication orders and management Subjective Date of service: 08/30/18 Principal diagnosis: Ac. hypoxemic resp failure; Multifocal Pneumonia (HAP); ARDS; Anemia Interval history: Patient is seen today for: Acute hypoxemic respiratory failure, multifocal pneumonia, sepsis Seen and examined at bedside; 24hour events reviewed; nursing and respiratory care staff consulted; no adverse overnight events reported to me; on going low grade fevers. Vitals, labs, medications, chart and imaging reviewed. Remains on mechanical ventilatory support, critically ill. No vomiting. Tolerating tube feedings, ongoing tachypnea. Started on norepinephrine overnight for hypotension Objective Vital Signs - 12hr 08/29/18 08/29/18 08/29/18 19:22 19:30 20:00 Temperature 103.2 F H Pulse Rate 134 H 132 H Pulse Rate [ 128 H From Monitor] Pulse Rate [ 134 H Left Lower Lobe ] Respiratory 19 29 H Rate Respiratory 30 H Rate [Left Lower Lobe] Blood Pressure 96/44 97/49 O2 Sat by Pulse 96 92 Oximetry 08/29/18 08/29/18 08/29/18 20:30 21:00 21:30 Temperature Pulse Rate 130 H 126 H 129 H Pulse Rate [ From Monitor] Pulse Rate [ Left Lower Lobe ] Respiratory 25 H 23 30 H Rate Respiratory Rate [Left Lower Lobe] Blood Pressure 102/50 97/55 96/56 O2 Sat by Pulse 96 95 95 Oximetry 08/29/18 08/29/18 08/29/18 22:00 22:30 23:00 Temperature Pulse Rate 129 H 130 H 130 H Pulse Rate [ From Monitor] Pulse Rate [ Left Lower Lobe ] Respiratory 31 H 30 H 30 H Rate Respiratory Rate [Left Lower Lobe] Blood Pressure 102/55 95/49 96/48 O2 Sat by Pulse 95 93 92 Oximetry 08/29/18 08/29/18 08/30/18 23:08 23:30 00:00 Temperature 103 F H Pulse Rate 129 H 129 H 128 H Pulse Rate [ 124 H From Monitor] Pulse Rate [ Left Lower Lobe ] Respiratory 31 H 31 H 32 H Rate Respiratory Rate [Left Lower Lobe] Blood Pressure 96/48 98/49 96/49 O2 Sat by Pulse 92 93 92 Oximetry 08/30/18 08/30/18 08/30/18 00:30 01:00 01:30 Temperature Pulse Rate 124 H 122 H 120 H Pulse Rate [ From Monitor] Pulse Rate [ Left Lower Lobe ] Respiratory 31 H 30 H 30 H Rate Respiratory Rate [Left Lower Lobe] Blood Pressure 96/57 96/51 99/57 O2 Sat by Pulse 93 94 94 Oximetry 08/30/18 08/30/18 08/30/18 02:00 02:30 03:00 Temperature Pulse Rate 119 H 118 H 118 H Pulse Rate [ From Monitor] Pulse Rate [ Left Lower Lobe ] Respiratory 30 H 30 H 30 H Rate Respiratory Rate [Left Lower Lobe] Blood Pressure 95/53 101/60 101/61 O2 Sat by Pulse 95 96 97 Oximetry 08/30/18 08/30/18 08/30/18 03:30 04:00 04:30 Temperature 100 F H Pulse Rate 119 H 120 H 118 H Pulse Rate [ 116 H From Monitor] Pulse Rate [ Left Lower Lobe ] Respiratory 30 H 30 H 30 H Rate Respiratory Rate [Left Lower Lobe] Blood Pressure 101/62 102/66 104/58 O2 Sat by Pulse 97 97 97 Oximetry 08/30/18 08/30/18 08/30/18 04:34 05:00 05:30 Temperature Pulse Rate 118 H 120 H 115 H Pulse Rate [ From Monitor] Pulse Rate [ Left Lower Lobe ] Respiratory 31 H 29 H Rate Respiratory Rate [Left Lower Lobe] Blood Pressure 104/58 94/60 100/59 O2 Sat by Pulse 96 97 97 Oximetry 08/30/18 08/30/18 08/30/18 06:00 06:30 07:00 Temperature Pulse Rate 115 H 113 H 112 H Pulse Rate [ From Monitor] Pulse Rate [ Left Lower Lobe ] Respiratory 31 H 30 H 30 H Rate Respiratory Rate [Left Lower Lobe] Blood Pressure 95/58 89/52 94/49 O2 Sat by Pulse 97 98 96 Oximetry Constitutional: no acute distress, other (right neck subcutaneous emphysema) Eyes: non-icteric ENT: oropharynx moist, other (ETT 23 cm VENTURA) Neck: supple, no lymphadenopathy, other (no thyromegaly) Effort: mildly labored Ascultation: Bilateral: rales Percussion: Bilateral: not dull Cardiovascular: regular rate and rhythm, other (No R/M) Gastrointestinal: normoactive bowel sounds, soft, non-tender, non-distended Integumentary: normal Extremities: no cyanosis, no edema, pink and warm, pulses normal, no ischemia or petechiae Neurologic: non-focal exam, pupils equal and round, unable to assess, other (sedated) Psychiatric: other (sedated) CBC and BMP: 09/01/18 05:20 09/01/18 05:20 ABG, PT/INR, D-dimer: ABG POC ABG pH 7.319 (7.35-7.45) L 08/30/18 04:48 POC ABG pO2 97 (80-105) 08/30/18 04:48 POC ABG HCO3 41.7 (22-26 mml/L) 08/30/18 04:48 POC ABG Total CO2 44 (23-27mmol/L) 08/30/18 04:48 POC ABG O2 Sat 96 08/30/18 04:48 PT/INR, D-dimer PT 15.1 Sec. (12.2-14.9) H 08/14/18 16:43 INR 1.22 (0.87-1.13) H 08/14/18 16:43 Abnormal lab findings: Abnormal Labs 08/14/18 08/14/18 08/14/18 16:33 16:33 16:43 WBC RBC 3.38 L Hgb 9.9 L Hct 29.2 L MCHC RDW 17.3 H Lymph % (Auto) Clarke % (Auto) Lymph # Seg Neutrophils % Seg Neuts % (Manual) 87.0 H Lymphocytes % (Manual) 6.0 L Seg Neutrophils # Man Lymphocytes # (Manual) 0.5 L PT INR POC ABG pH POC ABG pCO2 POC ABG pO2 Sodium Potassium 3.5 L Chloride Carbon Dioxide BUN Creatinine Glucose POC Glucose Lactic Acid Calcium Magnesium AST ALT Alkaline Phosphatase Total Creatine Kinase 204 H C-Reactive Protein Total Protein Albumin Vancomycin Trough 08/14/18 08/14/18 08/17/18 16:43 17:01 09:09 WBC RBC 3.12 L Hgb 9.0 L Hct 27.0 L MCHC RDW 17.0 H Lymph % (Auto) 7.1 L Clarke % (Auto) 9.2 H Lymph # 0.5 L Seg Neutrophils % 82.7 H Seg Neuts % (Manual) Lymphocytes % (Manual) Seg Neutrophils # Man Lymphocytes # (Manual) PT 15.1 H INR 1.22 H POC ABG pH 7.468 H POC ABG pCO2 POC ABG pO2 57 L Sodium Potassium Chloride Carbon Dioxide BUN Creatinine Glucose POC Glucose Lactic Acid Calcium Magnesium AST ALT Alkaline Phosphatase Total Creatine Kinase C-Reactive Protein Total Protein Albumin Vancomycin Trough 08/17/18 08/17/18 08/17/18 09:09 11:30 23:21 WBC RBC Hgb Hct MCHC RDW Lymph % (Auto) Clarke % (Auto) Lymph # Seg Neutrophils % Seg Neuts % (Manual) Lymphocytes % (Manual) Seg Neutrophils # Man Lymphocytes # (Manual) PT INR POC ABG pH 7.225 L POC ABG pCO2 54.6 H POC ABG pO2 50 L 110 H Sodium Potassium 3.5 L Chloride Carbon Dioxide 20 L BUN 7 L Creatinine Glucose 125 H POC Glucose Lactic Acid Calcium Magnesium AST ALT Alkaline Phosphatase Total Creatine Kinase C-Reactive Protein Total Protein 6.2 L Albumin 3.2 L Vancomycin Trough 08/18/18 08/18/18 08/18/18 04:49 13:06 13:50 WBC RBC Hgb Hct MCHC RDW Lymph % (Auto) Clarke % (Auto) Lymph # Seg Neutrophils % Seg Neuts % (Manual) Lymphocytes % (Manual) Seg Neutrophils # Man Lymphocytes # (Manual) PT INR POC ABG pH POC ABG pCO2 POC ABG pO2 58 L Sodium Potassium Chloride Carbon Dioxide BUN Creatinine Glucose POC Glucose Lactic Acid Calcium Magnesium AST ALT Alkaline Phosphatase Total Creatine Kinase C-Reactive Protein 31.10 H Total Protein Albumin Vancomycin Trough 4.7 L 08/18/18 08/19/18 08/19/18 13:50 07:25 07:25 WBC 14.8 H 12.7 H RBC 3.46 L 3.32 L Hgb 10.1 L 9.5 L Hct 30.2 L 28.9 L MCHC RDW 17.6 H 17.7 H Lymph % (Auto) Clarke % (Auto) Lymph # Seg Neutrophils % Seg Neuts % (Manual) 95.0 H 95.0 H Lymphocytes % (Manual) 3.0 L 5.0 L Seg Neutrophils # Man 14.1 H 12.1 H Lymphocytes # (Manual) 0.4 L 0.6 L PT INR POC ABG pH POC ABG pCO2 POC ABG pO2 Sodium Potassium Chloride Carbon Dioxide BUN 23 H Creatinine Glucose 139 H POC Glucose Lactic Acid Calcium Magnesium AST 41 H ALT Alkaline Phosphatase 149 H Total Creatine Kinase C-Reactive Protein Total Protein Albumin 3.0 L Vancomycin Trough 08/19/18 08/20/18 08/21/18 15:10 04:03 04:18 WBC RBC Hgb Hct MCHC RDW Lymph % (Auto) Clarke % (Auto) Lymph # Seg Neutrophils % Seg Neuts % (Manual) Lymphocytes % (Manual) Seg Neutrophils # Man Lymphocytes # (Manual) PT INR POC ABG pH 7.346 L POC ABG pCO2 49.0 H 50.2 H 51.0 H POC ABG pO2 71 L 180 H 78 L Sodium Potassium Chloride Carbon Dioxide BUN Creatinine Glucose POC Glucose Lactic Acid Calcium Magnesium AST ALT Alkaline Phosphatase Total Creatine Kinase C-Reactive Protein Total Protein Albumin Vancomycin Trough 08/21/18 08/21/18 08/21/18 04:43 04:43 15:54 WBC 14.1 H RBC 3.02 L Hgb 8.5 L Hct 26.3 L MCHC RDW 17.9 H Lymph % (Auto) Clarke % (Auto) Lymph # Seg Neutrophils % Seg Neuts % (Manual) 95.0 H Lymphocytes % (Manual) 3.0 L Seg Neutrophils # Man 13.4 H Lymphocytes # (Manual) 0.4 L PT INR POC ABG pH POC ABG pCO2 POC ABG pO2 Sodium 149 H Potassium Chloride 111.2 H Carbon Dioxide BUN 27 H Creatinine Glucose 164 H POC Glucose Lactic Acid Calcium Magnesium AST ALT Alkaline Phosphatase Total Creatine Kinase C-Reactive Protein 3.60 H Total Protein Albumin Vancomycin Trough 08/21/18 08/21/18 08/21/18 19:15 20:10 21:33 WBC RBC Hgb Hct MCHC RDW Lymph % (Auto) Clarke % (Auto) Lymph # Seg Neutrophils % Seg Neuts % (Manual) Lymphocytes % (Manual) Seg Neutrophils # Man Lymphocytes # (Manual) PT INR POC ABG pH POC ABG pCO2 51.6 H POC ABG pO2 63 L Sodium Potassium Chloride Carbon Dioxide BUN Creatinine Glucose POC Glucose Lactic Acid 2.80 H* 2.20 H* Calcium Magnesium AST ALT Alkaline Phosphatase Total Creatine Kinase C-Reactive Protein Total Protein Albumin Vancomycin Trough 08/21/18 08/22/18 08/22/18 23:08 04:20 05:46 WBC RBC Hgb Hct MCHC RDW Lymph % (Auto) Clarke % (Auto) Lymph # Seg Neutrophils % Seg Neuts % (Manual) Lymphocytes % (Manual) Seg Neutrophils # Man Lymphocytes # (Manual) PT INR POC ABG pH POC ABG pCO2 49.4 H POC ABG pO2 53 L Sodium Potassium Chloride Carbon Dioxide BUN Creatinine Glucose POC Glucose Lactic Acid 2.20 H* 2.10 H* Calcium Magnesium AST ALT Alkaline Phosphatase Total Creatine Kinase C-Reactive Protein Total Protein Albumin Vancomycin Trough 08/22/18 08/22/18 08/22/18 05:46 09:08 23:20 WBC RBC Hgb Hct MCHC RDW Lymph % (Auto) Clarke % (Auto) Lymph # Seg Neutrophils % Seg Neuts % (Manual) Lymphocytes % (Manual) Seg Neutrophils # Man Lymphocytes # (Manual) PT INR POC ABG pH POC ABG pCO2 POC ABG pO2 Sodium 148 H Potassium Chloride Carbon Dioxide BUN 28 H Creatinine Glucose 155 H POC Glucose Lactic Acid 2.20 H* 2.20 H* Calcium Magnesium AST ALT Alkaline Phosphatase Total Creatine Kinase C-Reactive Protein Total Protein Albumin Vancomycin Trough 08/23/18 08/23/18 08/23/18 00:55 05:14 05:34 WBC 19.6 H RBC 3.02 L Hgb 8.5 L Hct 26.3 L MCHC RDW 18.2 H Lymph % (Auto) Clarke % (Auto) Lymph # Seg Neutrophils % Seg Neuts % (Manual) 92.0 H Lymphocytes % (Manual) 1.0 L Seg Neutrophils # Man 18.0 H Lymphocytes # (Manual) 0.2 L PT INR POC ABG pH POC ABG pCO2 52.8 H POC ABG pO2 65 L Sodium Potassium Chloride Carbon Dioxide BUN Creatinine Glucose POC Glucose 183 H Lactic Acid Calcium Magnesium AST ALT Alkaline Phosphatase Total Creatine Kinase C-Reactive Protein Total Protein Albumin Vancomycin Trough 08/23/18 08/23/18 08/23/18 05:34 05:34 13:06 WBC RBC Hgb Hct MCHC RDW Lymph % (Auto) Clarke % (Auto) Lymph # Seg Neutrophils % Seg Neuts % (Manual) Lymphocytes % (Manual) Seg Neutrophils # Man Lymphocytes # (Manual) PT INR POC ABG pH POC ABG pCO2 POC ABG pO2 Sodium 146 H Potassium Chloride Carbon Dioxide 33 H BUN 27 H Creatinine 0.7 L Glucose 158 H POC Glucose Lactic Acid 2.30 H* 2.70 H* Calcium Magnesium AST ALT Alkaline Phosphatase Total Creatine Kinase C-Reactive Protein 2.00 H Total Protein Albumin Vancomycin Trough 08/23/18 08/23/18 08/24/18 22:04 23:48 04:03 WBC RBC Hgb Hct MCHC RDW Lymph % (Auto) Clarke % (Auto) Lymph # Seg Neutrophils % Seg Neuts % (Manual) Lymphocytes % (Manual) Seg Neutrophils # Man Lymphocytes # (Manual) PT INR POC ABG pH POC ABG pCO2 59.1 H POC ABG pO2 55 L Sodium Potassium Chloride Carbon Dioxide BUN Creatinine Glucose POC Glucose Lactic Acid 2.50 H* 2.20 H* Calcium Magnesium AST ALT Alkaline Phosphatase Total Creatine Kinase C-Reactive Protein Total Protein Albumin Vancomycin Trough 08/24/18 08/24/18 08/24/18 05:13 05:13 05:13 WBC 26.2 H RBC 3.03 L Hgb 8.6 L Hct 26.6 L MCHC RDW 18.4 H Lymph % (Auto) Clarke % (Auto) Lymph # Seg Neutrophils % Seg Neuts % (Manual) Lymphocytes % (Manual) Seg Neutrophils # Man Lymphocytes # (Manual) PT INR POC ABG pH POC ABG pCO2 POC ABG pO2 Sodium Potassium Chloride Carbon Dioxide 34 H BUN 27 H Creatinine Glucose 176 H POC Glucose Lactic Acid 2.40 H* Calcium Magnesium AST 67 H ALT Alkaline Phosphatase 143 H Total Creatine Kinase C-Reactive Protein Total Protein 5.7 L Albumin 3.2 L Vancomycin Trough 08/24/18 08/25/18 08/25/18 11:05 04:20 05:00 WBC 28.4 H RBC 2.98 L Hgb 8.4 L Hct 26.3 L MCHC RDW 18.7 H Lymph % (Auto) Clarke % (Auto) Lymph # Seg Neutrophils % Seg Neuts % (Manual) Lymphocytes % (Manual) Seg Neutrophils # Man Lymphocytes # (Manual) PT INR POC ABG pH POC ABG pCO2 59.9 H POC ABG pO2 62 L Sodium Potassium Chloride Carbon Dioxide BUN Creatinine Glucose POC Glucose Lactic Acid 2.10 H* Calcium Magnesium AST ALT Alkaline Phosphatase Total Creatine Kinase C-Reactive Protein Total Protein Albumin Vancomycin Trough 08/25/18 08/25/18 08/26/18 05:00 20:47 04:54 WBC RBC Hgb Hct MCHC RDW Lymph % (Auto) Clarke % (Auto) Lymph # Seg Neutrophils % Seg Neuts % (Manual) Lymphocytes % (Manual) Seg Neutrophils # Man Lymphocytes # (Manual) PT INR POC ABG pH 7.340 L 7.315 L POC ABG pCO2 > 70 H > 70 H POC ABG pO2 Sodium Potassium Chloride Carbon Dioxide 37 H BUN 32 H Creatinine Glucose 147 H POC Glucose Lactic Acid Calcium Magnesium AST ALT Alkaline Phosphatase Total Creatine Kinase C-Reactive Protein Total Protein Albumin Vancomycin Trough 08/26/18 08/26/18 08/26/18 05:05 05:05 23:03 WBC 24.3 H RBC 2.97 L Hgb 8.3 L Hct 26.2 L MCHC RDW 19.0 H Lymph % (Auto) Clarke % (Auto) Lymph # Seg Neutrophils % Seg Neuts % (Manual) Lymphocytes % (Manual) Seg Neutrophils # Man Lymphocytes # (Manual) PT INR POC ABG pH 7.323 L POC ABG pCO2 > 70 H POC ABG pO2 Sodium Potassium Chloride Carbon Dioxide 37 H BUN 29 H Creatinine Glucose 184 H POC Glucose Lactic Acid Calcium Magnesium AST ALT Alkaline Phosphatase Total Creatine Kinase C-Reactive Protein Total Protein Albumin Vancomycin Trough 08/27/18 08/27/18 08/27/18 04:37 05:10 05:10 WBC 20.8 H RBC 2.87 L Hgb 8.0 L Hct 25.6 L MCHC 31 L RDW 19.2 H Lymph % (Auto) Clarke % (Auto) Lymph # Seg Neutrophils % Seg Neuts % (Manual) Lymphocytes % (Manual) Seg Neutrophils # Man Lymphocytes # (Manual) PT INR POC ABG pH 7.332 L POC ABG pCO2 > 70 H POC ABG pO2 165 H Sodium Potassium Chloride Carbon Dioxide 36 H BUN 29 H Creatinine Glucose 149 H POC Glucose Lactic Acid Calcium 8.2 L Magnesium AST 63 H ALT 63 H Alkaline Phosphatase Total Creatine Kinase C-Reactive Protein Total Protein 5.6 L Albumin 2.5 L Vancomycin Trough 08/28/18 08/28/18 08/28/18 03:40 03:40 04:39 WBC 18.7 H RBC 2.65 L Hgb 7.6 L Hct 23.4 L MCHC RDW 19.2 H Lymph % (Auto) Clarke % (Auto) Lymph # Seg Neutrophils % Seg Neuts % (Manual) Lymphocytes % (Manual) Seg Neutrophils # Man Lymphocytes # (Manual) PT INR POC ABG pH 7.241 L POC ABG pCO2 > 70 H POC ABG pO2 Sodium Potassium Chloride 97.7 L Carbon Dioxide 37 H BUN 23 H Creatinine Glucose 155 H POC Glucose Lactic Acid Calcium 7.8 L Magnesium AST 44 H ALT Alkaline Phosphatase Total Creatine Kinase C-Reactive Protein Total Protein 5.3 L Albumin 2.4 L Vancomycin Trough 08/28/18 08/29/18 08/29/18 10:32 04:20 04:20 WBC 17.1 H RBC 2.57 L Hgb 7.3 L Hct 22.4 L MCHC RDW 19.4 H Lymph % (Auto) Clarke % (Auto) Lymph # Seg Neutrophils % Seg Neuts % (Manual) Lymphocytes % (Manual) Seg Neutrophils # Man Lymphocytes # (Manual) PT INR POC ABG pH 7.194 L POC ABG pCO2 POC ABG pO2 Sodium Potassium 5.3 H Chloride 96.1 L Carbon Dioxide 42 H* BUN 31 H Creatinine Glucose 126 H POC Glucose Lactic Acid Calcium 8.1 L Magnesium AST 44 H ALT Alkaline Phosphatase Total Creatine Kinase C-Reactive Protein Total Protein 5.5 L Albumin 2.5 L Vancomycin Trough 08/29/18 08/29/18 08/29/18 04:48 12:11 18:31 WBC RBC Hgb Hct MCHC RDW Lymph % (Auto) Clarke % (Auto) Lymph # Seg Neutrophils % Seg Neuts % (Manual) Lymphocytes % (Manual) Seg Neutrophils # Man Lymphocytes # (Manual) PT INR POC ABG pH 7.283 L POC ABG pCO2 > 70 H POC ABG pO2 71 L Sodium Potassium Chloride Carbon Dioxide BUN Creatinine Glucose POC Glucose 181 H 199 H Lactic Acid Calcium Magnesium AST ALT Alkaline Phosphatase Total Creatine Kinase C-Reactive Protein Total Protein Albumin Vancomycin Trough 08/30/18 08/30/18 04:10 04:48 WBC RBC Hgb Hct MCHC RDW Lymph % (Auto) Clarke % (Auto) Lymph # Seg Neutrophils % Seg Neuts % (Manual) Lymphocytes % (Manual) Seg Neutrophils # Man Lymphocytes # (Manual) PT INR POC ABG pH 7.319 L POC ABG pCO2 POC ABG pO2 Sodium Potassium Chloride Carbon Dioxide 39 H BUN 59 H Creatinine 2.1 H D Glucose 139 H POC Glucose Lactic Acid Calcium 8.0 L Magnesium 2.70 H AST ALT Alkaline Phosphatase Total Creatine Kinase C-Reactive Protein Total Protein Albumin Vancomycin Trough Chest x-ray: image reviewed Allied health notes reviewed: nursing
[2018-08-30] MEDS: DUONEB *Not for PRN Use IH SCH ×4 (08:02→19:41)
--- NOTE | 2018-08-30 08:07 | XRay Report ---
CHEST 1 VIEW INDICATION: respiratory failure. COMPARISON: 08/28/2018 FINDINGS: Support devices: The feeding tube remains in similar position although its distal tip is not included . Right arm PICC is in good position. Heart: Within normal limits. Lungs/Pleura: Bilateral pulmonary edema has decreased by 50%. No large pleural effusion or pneumothor ax. No consolidation. Additional findings: None. IMPRESSION: Decreased pulmonary edema by 50% since 08/28/2018. Signer Name: Nelson Pugh Jr, MD Signed: 08/30/2018 8:03 AM Workstation Name: [id number]
[2018-08-30] MEDS: NACL 0.9% 1000 ML 1,000 ML IV SCH ×2 (08:08→21:58)
[2018-08-30] MEDS ORDERED: NACL 0.9% 500 ML 500 ML IV ONE (09:00)
[2018-08-30] MEDS: COLACE FEEDTUBE SCH ×2 (09:50→22:03)
[2018-08-30] MEDS: WELLBUTRIN PO SCH ×2 (09:50→22:04)
[2018-08-30] MEDS: LOVENOX SUB-Q SCH (09:50)
[2018-08-30] MEDS: ZYLOPRIM PO SCH (09:50)
[2018-08-30] MEDS: RisperDAL PO SCH (09:51)
[2018-08-30] MEDS: PEPCID PO SCH (09:51)
[2018-08-30] MEDS: FLOMAX PO SCH (09:51)
[2018-08-30] MEDS: SODIUM CHLORIDE FLUSH SYRINGE 10 ML IV SCH ×2 (09:52→22:03)
[2018-08-30] MEDS: fentaNYL DRIP Premix 2,000 MCG/100 ML BAG IV SCH (10:07)
--- NOTE | 2018-08-30 11:38 | Progress Note ---
Assessment and Plan Cultures: 08/14/2018 Blood culture: No growth 08/18/2018 resp culture: normal resp aminata Legionella Ag: negative Strep pneumoniae Ur Ag: negative 08/25/2018 tracheal aspirate: normal resp aminata HIV negative 08/25/2018 BAL: fungal and AFB stains negative. A/P: 52-year-old male with history of developmental delay, schizophrenia, recently discharged from a psychiatric facility for suicidal ideation now with: 1) Acute respiratory failure secondary to bilateral pneumonia: worsening. Cultures growing normal resp aminata. Intubated, sedated. High O2 requirements, ?ARDS. HIV negative. Persistent fevers. Venous duplex on 08/22/2018 was negative for DVT. 2) Schizophrenia, Depression: Patient is on risperidone, olanzapine, Haldol. Also on Wellbutrin and fluoxetine. At risk of QT prolongation especially with levofloxacin. 3) PCN allergy: unknown, at least >10 years history per his caregiver at the bedside. Low risk of cross reactivity with Cephalosporins. Tolerating Cefepime and Ceftriaxone well. 4) Leucocytosis: unexplained by steroids alone. RUQ US negative for hepatobiliar y source. CT chest with worsening pneumonia. 5) YOLANDA: ?from diuresis. Also on pressors today. Recs: - Drug fever may take a while to resolve. However, patient on pressors ?diuresis related. Will add IV Levofloxacin 500 mg q48h and Flagyl 500 mg q8 continue IV Aztreonam. - CBC with differential in AM D/W ICU pharmacist and RN. Levi Luna MD, FACP [facility] C: [phone] O: [phone] F: [phone] Subjective Date of service: 08/30/18 Principal diagnosis: Ac. hypoxemic resp failure; Multifocal Pneumonia (HAP); ARDS; Anemia Interval history: Still on the vent. Still febrile. Now also on levophed. Discussed with RN, only 1 liquid BM, also on tube feeds. Objective - Exam Narrative Exam: Physical Exam: Constitutional: sedated, intubated Head, Ears, Nose: Normocephalic, atraumatic. External ears, nose normal Eyes: Conjunctivae/corneas clear. No icterus. No ptosis. Neck: Supple, no meningeal signs Oral: intubated Cardiovascular: S1, S2 normal, no murmur heard Respiratory: clear bilaterally, occasional rhonchi GI: Soft, non-tender; bowel sounds normal. No peritoneal signs Musculoskeletal: trace pedal edema, no cyanosis. Skin: No rash or abscess. Hem/Lymphatic: No palpable cervical or supraclavicular nodes. No lymphangitis Psych: sedated. Neurological: sedated, intubated, on vent - Constitutional Vitals: Vital Signs Temp Pulse Resp BP Pulse Ox 98.9 F 121 H 23 96/50 93 08/30/18 08:00 08/30/18 11:00 08/30/18 11:00 08/30/18 11:00 08/30/18 11:00 Temperature -Last 24 Hours Temperature 98.9 F Temperature 100 F Temperature 103 F Temperature 103.2 F Temperature 103.6 F Temperature 103 F - Labs CBC & Chem 7: 08/29/18 04:20 08/30/18 04:10 Labs: Abnormal lab results 08/29/18 08/29/18 08/29/18 Range/Units 04:48 12:11 18:31 POC ABG pH (7.35-7.45) POC ABG pCO2 > 70 H (35-45) Carbon Dioxide (22-30) mmol/L BUN (9-20) mg/dL Creatinine (0.8-1.5) mg/dL Glucose (75-100) mg/dL POC Glucose 181 H 199 H (70-105) Calcium (8.4-10.2) mg/dL Magnesium (1.7-2.3) mg/dL 08/30/18 08/30/18 Range/Units 04:10 04:48 POC ABG pH 7.319 L (7.35-7.45) POC ABG pCO2 (35-45) Carbon Dioxide 39 H (22-30) mmol/L BUN 59 H (9-20) mg/dL Creatinine 2.1 H D (0.8-1.5) mg/dL Glucose 139 H (75-100) mg/dL POC Glucose (70-105) Calcium 8.0 L (8.4-10.2) mg/dL Magnesium 2.70 H (1.7-2.3) mg/dL - Imaging and cardiology Chest x-ray: report reviewed, image reviewed (improved pulmonary edema.)
[2018-08-30] MEDS: PROzac PO SCH (13:04)
--- NOTE | 2018-08-30 15:22 | Progress Note ---
Assessment and Plan /Acute Respiratory failure with hypoxia s/p intubated 08/19/18 cont Duonebs IV Solumedrol and IV abx /Bilateral pneumonia, Cont Abx, follow cx, ID consulted,following /Sepsis with septic shock Now on IV Levofloxacin 500 mg q48h and Flagyl 500 mg q8 and IV Aztreonam. Levophed started back on today /Leukocytosis, from severe sepsis, Monitor /Fever due to sepsis /Anemia due to sepsis Anemia w/u ordered /Hypokalemia, Resolved / YOLANDA: Continue to monitor BMP, IV fluids Schizophrenia, on Zyprexa Depression, on antidepressants Gout , Cont Allopurinol HLD (hyperlipidemia), Cont statins DVT prophylaxis: On Lovenox GI Prophylaxis:Pepcid Urinary retention, re-catheterized Full code status The high probability of a clinically significant, sudden or life threatening deterioration of the [4] system(s) required my full and direct attention, intervention and personal management. The aggregate critical care time was [35] minutes. This time is in addition to time spent performing reported procedures but includes the following: [x] Data Review and interpretation [x] Patient assessment and monitoring of vital signs [x] Documentation [x] Medication orders and management Brief History: Patient is 52-year-old male with PMHx of developmental delay, schizophrenia, and depression with recent h/o SI presented to the ER with complaints of shortness of breath and cough 1 day. Patient O2 sat was noted to be 86% and improve after application of oxygen via n/c. Pt denies a history of COPD but admits to history of smoking. In the ER, pt had a chest x-ray that showed multifocal bilateral air space disease suspicious for pneumonia. After admission went into resp distress and transferred to ICU for Intesive care On BIPAP. He then eventually intubated on 08/19 and is still intubated. became hypotensive and started on levophed 08/25/18. Patient still vent dependent, on Levophed intermi ttently, critically ill. Hospitalist Physical Gen: Not in acute distress, intubated, sedated HEENT: Normocephalic, atraumatic Neck: supple, no JVD Heart: S1 and S2 reg, no murmurs, rubs or gallop Lungs: Bilateral rhonchi, Abd: soft, non tender, non distended, normal BS Ext: No edema, no clubbing, no cyanosis, Neuro: Sedated, intubated Subjective Date of service: 08/30/18 Principal diagnosis: Ac. hypoxemic resp failure; Multifocal Pneumonia (HAP); ARDS; Anemia Interval history: Patient seen and examined. Medical records and medication list reviewed. Patient remained intubated and sedated Back on levophed this am Discussed with CM Objective - Constitutional Vitals: Vital Signs - 12hr 08/30/18 08/30/18 08/30/18 03:30 04:00 04:30 Temperature 100 F H Pulse Rate 119 H 120 H 118 H Pulse Rate [ 116 H From Monitor] Pulse Rate [ Left Lower Lobe ] Respiratory 30 H 30 H 30 H Rate Respiratory Rate [Left Lower Lobe] Blood Pressure 101/62 102/66 104/58 O2 Sat by Pulse 97 97 97 Oximetry 08/30/18 08/30/18 08/30/18 04:34 05:00 05:30 Temperature Pulse Rate 118 H 120 H 115 H Pulse Rate [ From Monitor] Pulse Rate [ Left Lower Lobe ] Respiratory 31 H 29 H Rate Respiratory Rate [Left Lower Lobe] Blood Pressure 104/58 94/60 100/59 O2 Sat by Pulse 96 97 97 Oximetry 08/30/18 08/30/18 08/30/18 06:00 06:30 07:00 Temperature Pulse Rate 115 H 113 H 112 H Pulse Rate [ From Monitor] Pulse Rate [ Left Lower Lobe ] Respiratory 31 H 30 H 30 H Rate Respiratory Rate [Left Lower Lobe] Blood Pressure 95/58 89/52 94/49 O2 Sat by Pulse 97 98 96 Oximetry 08/30/18 08/30/18 08/30/18 07:30 07:58 08:00 Temperature 98.9 F Pulse Rate 116 H 121 H 120 H Pulse Rate [ 120 H From Monitor] Pulse Rate [ 117 H Left Lower Lobe ] Respiratory 30 H 31 H Rate Respiratory 32 H Rate [Left Lower Lobe] Blood Pressure 101/47 96/50 92/51 O2 Sat by Pulse 95 93 99 Oximetry 08/30/18 08/30/18 08/30/18 08:20 08:30 09:00 Temperature Pulse Rate 118 H 115 H Pulse Rate [ From Monitor] Pulse Rate [ 117 H Left Lower Lobe ] Respiratory 31 H 31 H Rate Respiratory 38 H Rate [Left Lower Lobe] Blood Pressure 91/51 94/49 O2 Sat by Pulse 99 97 Oximetry 08/30/18 08/30/18 08/30/18 09:30 10:00 10:30 Temperature Pulse Rate 117 H 118 H 122 H Pulse Rate [ From Monitor] Pulse Rate [ Left Lower Lobe ] Respiratory 39 H 25 H 25 H Rate Respiratory Rate [Left Lower Lobe] Blood Pressure 91/52 98/51 95/45 O2 Sat by Pulse 95 93 95 Oximetry 08/30/18 08/30/18 08/30/18 11:00 11:50 13:25 Temperature 99.3 F Pulse Rate 121 H Pulse Rate [ From Monitor] Pulse Rate [ 121 H Left Lower Lobe ] Respiratory 23 Rate Respiratory 36 H Rate [Left Lower Lobe] Blood Pressure 96/50 O2 Sat by Pulse 93 Oximetry 08/30/18 08/30/18 13:35 13:44 Temperature Pulse Rate 129 H Pulse Rate [ From Monitor] Pulse Rate [ 131 H Left Lower Lobe ] Respiratory Rate Respiratory 32 H Rate [Left Lower Lobe] Blood Pressure 91/54 O2 Sat by Pulse 96 Oximetry - Labs CBC & Chem 7: 08/29/18 04:20 08/31/18 00:35 Labs: Abnormal lab results 08/29/18 08/30/18 08/30/18 Range/Units 18:31 04:10 04:48 POC ABG pH 7.319 L (7.35-7.45) POC ABG pCO2 > 70 H (35-45) Carbon Dioxide 39 H (22-30) mmol/L BUN 59 H (9-20) mg/dL Creatinine 2.1 H D (0.8-1.5) mg/dL Glucose 139 H (75-100) mg/dL POC Glucose 199 H (70-105) Calcium 8.0 L (8.4-10.2) mg/dL Magnesium 2.70 H (1.7-2.3) mg/dL
[2018-08-30] MEDS: ATIVAN PO SCH (22:03)
[2018-08-30] MEDS: BENADRYL PO SCH (22:04)
[2018-08-30] MEDS: PRAVACHOL PO SCH (22:04)
[2018-08-31 01:09] LABS: Calcium 7.6 mg/dL (8.4-10.2)
[2018-08-31] MEDS: fentaNYL DRIP Premix 2,000 MCG/100 ML BAG IV SCH (01:26)
[2018-08-31] MEDS ORDERED: APRESOLINE IV PRN (03:56)
[2018-08-31] MEDS: DIPRIVAN 10 MG/ML 1,000 MG/100 ML BOTTLE IV SCH (06:18)
[2018-08-31] MEDS: LEVOPHED DRIP 4 MG/NS 250 ML 4 MG/250 ML BAG IV SCH ×6 (06:20→23:27)
[2018-08-31] MEDS: AZACTAM/NS 1 GM/50 ML 1 GM/50 ML VIAL IV SCH ×3 (06:23→23:57)
[2018-08-31] MEDS: DUONEB *Not for PRN Use IH SCH ×4 (07:11→19:45)
[2018-08-31] MEDS ORDERED: LEVAQUIN 500MG/100ML 500 MG/100 ML BAG IV SCH (10:00)
--- NOTE | 2018-08-31 10:27 | Progress Note ---
Assessment and Plan Cultures: 08/14/2018 Blood culture: No growth 08/18/2018 resp culture: normal resp aminata Legionella Ag: negative Strep pneumoniae Ur Ag: negative 08/25/2018 tracheal aspirate: normal resp aminata HIV negative 08/25/2018 BAL: fungal and AFB stains negative. 08/29/2018 Blood culture: No growth thus far A/P: 52-year-old male with history of developmental delay, schizophrenia, recently discharged from a psychiatric facility for suicidal ideation now with: 1) ARDS / Acute respiratory failure secondary to bilateral pneumonia: Cultures growing normal resp aminata. Intubated, sedated. High O2 requirements, ?ARDS. HIV negative. Persistent fevers. Venous duplex on 08/22/2018 was negative for DVT. ?drug fever. 2) Schizophrenia, Depression: Patient is on risperidone, olanzapine, Haldol. Also on Wellbutrin and fluoxetine. At risk of QT prolongation especially with levofloxacin. 3) PCN allergy: unknown, at least >10 years history per his caregiver at the bedside. Low risk of cross reactivity with Cephalosporins. Tolerating Cefepime and Ceftriaxone well. 4) Leucocytosis: unexplained by steroids alone. RUQ US negative for hepatobiliary source. CT chest with worsening pneumonia. 5) YOLANDA: ?from diuresis. Renally dose abx. Recs: - Fever trending down, continue IV Levofloxacin 500 mg q48h, Flagyl 500 mg q8h along with IV Aztreonam renally adjusted - ordered CBC with differential Levi Luna MD, FACP [facility] C: [phone] O: [phone] F: [phone] Subjective Date of service: 08/31/18 Principal diagnosis: Ac. hypoxemic resp failure; Multifocal Pneumonia (HAP); ARDS; Anemia Interval history: Fevers + but lower than before. Remains on the vent. No report of diarrhea per RN. Objective - Exam Narrative Exam: Physical Exam: Constitutional: sedated, intubated Head, Ears, Nose: Normocephalic, atraumatic. External ears, nose normal Eyes: Conjunctivae/corneas clear. No icterus. No ptosis. Neck: Supple, no meningeal signs Oral: intubated Cardiovascular: S1, S2 normal, no murmur heard Respiratory: clear bilaterally, GI: Soft, non-tender; bowel sounds normal. No peritoneal signs Musculoskeletal: edema of all 4 ext, no cyanosis. Skin: No rash or abscess. Hem/Lymphatic: No palpable cervical or supraclavicular nodes. No lymphangitis Psych: sedated. Neurological: sedated, intubated, on vent - Constitutional Vitals: Vital Signs Temp Pulse Resp BP Pulse Ox 100.1 F H 124 H 26 H 92/57 87 08/31/18 05:20 08/31/18 10:00 08/31/18 10:00 08/31/18 10:00 08/31/18 10:00 Temperature -Last 24 Hours Temperature 100.1 F Temperature 101.7 F Temperature 100.1 F Temperature 98.0 F Temperature 99.3 F - Labs CBC & Chem 7: 08/29/18 04:20 08/31/18 00:35 Labs: Abnormal lab results 08/30/18 08/31/18 08/31/18 Range/Units 04:48 00:15 00:35 POC ABG pH (7.35-7.45) POC ABG pCO2 > 70 H (35-45) POC ABG pO2 (80-105) Sodium 146 H (137-145) mmol/L Potassium 5.1 H (3.6-5.0) mmol/L Carbon Dioxide 38 H (22-30) mmol/L BUN 70 H (9-20) mg/dL Creatinine 2.2 H (0.8-1.5) mg/dL Glucose 200 H (75-100) mg/dL POC Glucose 236 H (70-105) Calcium 7.6 L (8.4-10.2) mg/dL 08/31/18 08/31/18 Range/Units 04:11 05:04 POC ABG pH 7.294 L (7.35-7.45) POC ABG pCO2 (35-45) POC ABG pO2 66 L (80-105) Sodium (137-145) mmol/L Potassium (3.6-5.0) mmol/L Carbon Dioxide (22-30) mmol/L BUN (9-20) mg/dL Creatinine (0.8-1.5) mg/dL Glucose (75-100) mg/dL POC Glucose 250 H (70-105) Calcium (8.4-10.2) mg/dL
[2018-08-31] MEDS: WELLBUTRIN PO SCH ×2 (10:53→23:20)
[2018-08-31] MEDS: ZYLOPRIM PO SCH (10:53)
[2018-08-31] MEDS: RisperDAL PO SCH (10:53)
[2018-08-31] MEDS: FLOMAX PO SCH (10:53)
[2018-08-31] MEDS: PEPCID PO SCH (10:54)
[2018-08-31] MEDS: LOVENOX SUB-Q SCH (10:54)
[2018-08-31] MEDS: SODIUM CHLORIDE FLUSH SYRINGE 10 ML IV SCH ×2 (10:54→23:19)
[2018-08-31] MEDS: COLACE FEEDTUBE SCH ×2 (10:54→23:19)
[2018-08-31] MEDS: HumaLOG SUB-Q SCH ×3 (11:00→18:33)
[2018-08-31] MEDS: PROzac PO SCH (11:01)
--- NOTE | 2018-08-31 11:18 | Progress Note ---
Assessment and Plan Acute hypoxemic respiratory failure. Acute respiratory distress syndrome. Possible aspiration pneumonia (HAP) History of depression. History of schizophrenia. Anemia that is normocytic. Mild metabolic acidosis. Hypokalemia. Developmental delay (stil feel significant element of pulmonary edema) - added vasopressin and will continue levophed and dopamine - volume bolus given (approx 500 mls IVNS) during decompensation now will continue at 75 mls/hr X 1 liter - get nephrology evalaution - wean vasopressors for target MAP > 65 mmHg - continue ARDS ventilatory strategies (4-6 mls/kg IBW) - replaced hernandez catheter due to retention; will continue flomax - bronch cultures no growth and cytology negative for AFB, PJP, fungal elements - empiric Anti-infective's per ID rec's - keep peep at 16 for now (monitor plateau pressures with optimal target < 30 cm H2O) - continue to advance enteral nutrition to goal rate - continue Flomax (Urinary retention reported with 1.5 liters drained post hernandez catheter) - continue albuterol nebs with pulmonary hygiene per RT - continue lung protective strategies - daily CXR and ABG in short term - VAP bundle addressed - continue supplemental oxygen to keep O2 sats 88-90% - continue bronchodilators with pulmonary hygiene per RT - continus systemic steroids with quick taper - continue accuchecks with glycemic control per SSI for target blood glucose <180mg/dL - Agitation management - Titrate sedation to RASS 0 to -1 - Prevention of delirium, maintenance of sleep-wake cycle - Will de-escalate therapy based on microbiology/SD/Cultures - Avoid nephrotoxic agents, adjust all antibiotics and medications for CrCL and GFR - VTE and Stress ulcer prophylaxis CONDITION: CRITICAL PROGNOSIS: GRAVE to GUARDED CODE STATUS: FULL CODE The high probability of a clinically significant, sudden or life-threatening deterioration of the [respiratory] system(s) required my full and direct attention, intervention and personal management. The aggregate critical care t terell was [45] minutes without overlap. Time includes spent on; [x] Data Review and interpretation [x] Patient assessment and monitoring of vital signs [x] Documentation [x] Medication orders and management Subjective Date of service: 08/31/18 Principal diagnosis: Ac. hypoxemic resp failure; Multifocal Pneumonia (HAP); ARDS; Anemia Interval history: Patient is seen today for: Acute hypoxemic respiratory failure; multifocal pneumonia (HAP); ARDS; depression; schizophrenia; Anemia; Developmental delay Seen and examined at bedside; 24hour events reviewed; nursing and respiratory care staff consulted; no adverse overnight events reported to me; remains on MVS; s/p rapid response and required bagging to recover after he de-saturated acutely with hypercapnia and hypoxemia; remains on levophed drip but MAP's now in 50's; AMS is persistent; no seizures and no gross bleeding Objective Vital Signs - 12hr 08/30/18 08/30/18 08/30/18 23:23 23:30 23:55 Temperature Pulse Rate 128 H 127 H Pulse Rate [ Bilateral] Pulse Rate [ From Monitor] Pulse Rate [ None] Respiratory 30 H 31 H 35 H Rate Respiratory Rate [Bilateral ] Blood Pressure 93/53 93/53 O2 Sat by Pulse 95 94 Oximetry 08/31/18 08/31/18 08/31/18 00:00 00:23 00:30 Temperature Pulse Rate 127 H 126 H Pulse Rate [ Bilateral] Pulse Rate [ From Monitor] Pulse Rate [ None] Respiratory 36 H 31 H 31 H Rate Respiratory Rate [Bilateral ] Blood Pressure 93/56 100/51 O2 Sat by Pulse 93 96 Oximetry 08/31/18 08/31/18 08/31/18 01:00 01:30 02:00 Temperature Pulse Rate 124 H 123 H 152 H Pulse Rate [ Bilateral] Pulse Rate [ 122 H From Monitor] Pulse Rate [ None] Respiratory 23 29 H 25 H Rate Respiratory Rate [Bilateral ] Blood Pressure 92/53 95/53 95/53 O2 Sat by Pulse 90 92 91 Oximetry 08/31/18 08/31/18 08/31/18 02:30 02:58 03:00 Temperature Pulse Rate 123 H 122 H Pulse Rate [ Bilateral] Pulse Rate [ 122 H From Monitor] Pulse Rate [ None] Respiratory 25 H 21 17 Rate Respiratory Rate [Bilateral ] Blood Pressure 98/56 98/55 O2 Sat by Pulse 92 90 91 Oximetry 08/31/18 08/31/18 08/31/18 03:30 04:00 04:30 Temperature Pulse Rate 121 H 122 H 121 H Pulse Rate [ Bilateral] Pulse Rate [ From Monitor] Pulse Rate [ None] Respiratory 19 25 H 20 Rate Respiratory Rate [Bilateral ] Blood Pressure 96/56 90/57 90/49 O2 Sat by Pulse 89 89 89 Oximetry 08/31/18 08/31/18 08/31/18 04:34 05:00 05:20 Temperature 100.1 F H Pulse Rate 121 H 123 H 123 H Pulse Rate [ Bilateral] Pulse Rate [ 122 H From Monitor] Pulse Rate [ 101 H None] Respiratory 27 H 21 Rate Respiratory Rate [Bilateral ] Blood Pressure 100/57 97/58 97/58 O2 Sat by Pulse 90 89 90 Oximetry 08/31/18 08/31/18 08/31/18 05:30 06:00 06:15 Temperature Pulse Rate 122 H 122 H 119 H Pulse Rate [ Bilateral] Pulse Rate [ From Monitor] Pulse Rate [ None] Respiratory 26 H 25 H 24 Rate Respiratory Rate [Bilateral ] Blood Pressure 93/56 97/55 95/55 O2 Sat by Pulse 88 88 88 Oximetry 08/31/18 08/31/18 08/31/18 06:30 06:45 07:00 Temperature Pulse Rate 123 H 124 H 122 H Pulse Rate [ Bilateral] Pulse Rate [ From Monitor] Pulse Rate [ None] Respiratory 16 20 23 Rate Respiratory Rate [Bilateral ] Blood Pressure 100/58 98/56 102/53 O2 Sat by Pulse 88 90 89 Oximetry 08/31/18 08/31/18 08/31/18 07:06 07:11 07:15 Temperature Pulse Rate 122 H 123 H Pulse Rate [ 122 H Bilateral] Pulse Rate [ From Monitor] Pulse Rate [ None] Respiratory 30 H Rate Respiratory 21 Rate [Bilateral ] Blood Pressure 102/53 95/55 O2 Sat by Pulse 90 90 Oximetry 08/31/18 08/31/18 08/31/18 07:30 07:45 08:00 Temperature Pulse Rate 122 H 123 H 122 H Pulse Rate [ Bilateral] Pulse Rate [ From Monitor] Pulse Rate [ None] Respiratory 31 H 23 26 H Rate Respiratory Rate [Bilateral ] Blood Pressure 93/55 95/54 98/55 O2 Sat by Pulse 90 88 88 Oximetry 08/31/18 08/31/18 08/31/18 08:15 08:30 08:45 Temperature Pulse Rate 123 H 123 H 123 H Pulse Rate [ Bilateral] Pulse Rate [ From Monitor] Pulse Rate [ None] Respiratory 32 H 26 H 22 Rate Respiratory Rate [Bilateral ] Blood Pressure 96/56 96/56 96/52 O2 Sat by Pulse 88 88 86 Oximetry 08/31/18 08/31/18 08/31/18 09:00 09:15 09:30 Temperature Pulse Rate 123 H 123 H 124 H Pulse Rate [ Bilateral] Pulse Rate [ From Monitor] Pulse Rate [ None] Respiratory 29 H 28 H 27 H Rate Respiratory Rate [Bilateral ] Blood Pressure 93/53 94/55 94/55 O2 Sat by Pulse 86 87 88 Oximetry 08/31/18 08/31/18 09:45 10:00 Temperature Pulse Rate 125 H 124 H Pulse Rate [ Bilateral] Pulse Rate [ From Monitor] Pulse Rate [ None] Respiratory 26 H 26 H Rate Respiratory Rate [Bilateral ] Blood Pressure 94/56 92/57 O2 Sat by Pulse 86 87 Oximetry Constitutional: no acute distress, other (middle aged CM, normocephalic on MVS and riding set rate of 28/min) Eyes: non-icteric ENT: oropharynx moist, other (ETT 23 cm VENTURA) Neck: supple, no lymphadenopathy, other (no thyromegaly) Effort: mildly labored Ascultation: Bilateral: rales Percussion: Bilateral: not dull Cardiovascular: regular rate and rhythm, other (No R/M) Gastrointestinal: normoactive bowel sounds, soft, non-tender, non-distended Integumentary: normal Extremities: no cyanosis, no edema, pink and warm, pulses normal, no ischemia or petechiae Neurologic: non-focal exam (grossly), pupils equal and round, motor strength normal and, unable to assess, other (sedated) Psychiatric: other (sedated) CBC and BMP: 08/29/18 04:20 08/31/18 00:35 ABG, PT/INR, D-dimer: ABG POC ABG pH 7.294 (7.35-7.45) L 08/31/18 04:11 POC ABG pO2 66 (80-105) L 08/31/18 04:11 POC ABG HCO3 37.4 (22-26 mml/L) 08/31/18 04:11 POC ABG Total CO2 40 (23-27mmol/L) 08/31/18 04:11 POC ABG O2 Sat 89 08/31/18 04:11 PT/INR, D-dimer PT 15.1 Sec. (12.2-14.9) H 08/14/18 16:43 INR 1.22 (0.87-1.13) H 08/14/18 16:43 Abnormal lab findings: Abnormal Labs 08/14/18 08/14/18 08/14/18 16:33 16:33 16:43 WBC RBC 3.38 L Hgb 9.9 L Hct 29.2 L MCHC RDW 17.3 H Lymph % (Auto) Bradley % (Auto) Lymph # Seg Neutrophils % Seg Neuts % (Manual) 87.0 H Lymphocytes % (Manual) 6.0 L Seg Neutrophils # Man Lymphocytes # (Manual) 0.5 L PT INR POC ABG pH POC ABG pCO2 POC ABG pO2 Sodium Potassium 3.5 L Chloride Carbon Dioxide BUN Creatinine Glucose POC Glucose Lactic Acid Calcium Magnesium AST ALT Alkaline Phosphatase Total Creatine Kinase 204 H C-Reactive Protein Total Protein Albumin Vancomycin Trough 08/14/18 08/14/18 08/17/18 16:43 17:01 09:09 WBC RBC 3.12 L Hgb 9.0 L Hct 27.0 L MCHC RDW 17.0 H Lymph % (Auto) 7.1 L Bradley % (Auto) 9.2 H Lymph # 0.5 L Seg Neutrophils % 82.7 H Seg Neuts % (Manual) Lymphocytes % (Manual) Seg Neutrophils # Man Lymphocytes # (Manual) PT 15.1 H INR 1.22 H POC ABG pH 7.468 H POC ABG pCO2 POC ABG pO2 57 L Sodium Potassium Chloride Carbon Dioxide BUN Creatinine Glucose POC Glucose Lactic Acid Calcium Magnesium AST ALT Alkaline Phosphatase Total Creatine Kinase C-Reactive Protein Total Protein Albumin Vancomycin Trough 08/17/18 08/17/18 08/17/18 09:09 11:30 23:21 WBC RBC Hgb Hct MCHC RDW Lymph % (Auto) Bradley % (Auto) Lymph # Seg Neutrophils % Seg Neuts % (Manual) Lymphocytes % (Manual) Seg Neutrophils # Man Lymphocytes # (Manual) PT INR POC ABG pH 7.225 L POC ABG pCO2 54.6 H POC ABG pO2 50 L 110 H Sodium Potassium 3.5 L Chloride Carbon Dioxide 20 L BUN 7 L Creatinine Glucose 125 H POC Glucose Lactic Acid Calcium Magnesium AST ALT Alkaline Phosphatase Total Creatine Kinase C-Reactive Protein Total Protein 6.2 L Albumin 3.2 L Vancomycin Trough 08/18/18 08/18/18 08/18/18 04:49 13:06 13:50 WBC RBC Hgb Hct MCHC RDW Lymph % (Auto) Bradley % (Auto) Lymph # Seg Neutrophils % Seg Neuts % (Manual) Lymphocytes % (Manual) Seg Neutrophils # Man Lymphocytes # (Manual) PT INR POC ABG pH POC ABG pCO2 POC ABG pO2 58 L Sodium Potassium Chloride Carbon Dioxide BUN Creatinine Glucose POC Glucose Lactic Acid Calcium Magnesium AST ALT Alkaline Phosphatase Total Creatine Kinase C-Reactive Protein 31.10 H Total Protein Albumin Vancomycin Trough 4.7 L 08/18/18 08/19/18 08/19/18 13:50 07:25 07:25 WBC 14.8 H 12.7 H RBC 3.46 L 3.32 L Hgb 10.1 L 9.5 L Hct 30.2 L 28.9 L MCHC RDW 17.6 H 17.7 H Lymph % (Auto) Bradley % (Auto) Lymph # Seg Neutrophils % Seg Neuts % (Manual) 95.0 H 95.0 H Lymphocytes % (Manual) 3.0 L 5.0 L Seg Neutrophils # Man 14.1 H 12.1 H Lymphocytes # (Manual) 0.4 L 0.6 L PT INR POC ABG pH POC ABG pCO2 POC ABG pO2 Sodium Potassium Chloride Carbon Dioxide BUN 23 H Creatinine Glucose 139 H POC Glucose Lactic Acid Calcium Magnesium AST 41 H ALT Alkaline Phosphatase 149 H Total Creatine Kinase C-Reactive Protein Total Protein Albumin 3.0 L Vancomycin Trough 08/19/18 08/20/18 08/21/18 15:10 04:03 04:18 WBC RBC Hgb Hct MCHC RDW Lymph % (Auto) Bradley % (Auto) Lymph # Seg Neutrophils % Seg Neuts % (Manual) Lymphocytes % (Manual) Seg Neutrophils # Man Lymphocytes # (Manual) PT INR POC ABG pH 7.346 L POC ABG pCO2 49.0 H 50.2 H 51.0 H POC ABG pO2 71 L 180 H 78 L Sodium Potassium Chloride Carbon Dioxide BUN Creatinine Glucose POC Glucose Lactic Acid Calcium Magnesium AST ALT Alkaline Phosphatase Total Creatine Kinase C-Reactive Protein Total Protein Albumin Vancomycin Trough 08/21/18 08/21/18 08/21/18 04:43 04:43 15:54 WBC 14.1 H RBC 3.02 L Hgb 8.5 L Hct 26.3 L MCHC RDW 17.9 H Lymph % (Auto) Bradley % (Auto) Lymph # Seg Neutrophils % Seg Neuts % (Manual) 95.0 H Lymphocytes % (Manual) 3.0 L Seg Neutrophils # Man 13.4 H Lymphocytes # (Manual) 0.4 L PT INR POC ABG pH POC ABG pCO2 POC ABG pO2 Sodium 149 H Potassium Chloride 111.2 H Carbon Dioxide BUN 27 H Creatinine Glucose 164 H POC Glucose Lactic Acid Calcium Magnesium AST ALT Alkaline Phosphatase Total Creatine Kinase C-Reactive Protein 3.60 H Total Protein Albumin Vancomycin Trough 08/21/18 08/21/18 08/21/18 19:15 20:10 21:33 WBC RBC Hgb Hct MCHC RDW Lymph % (Auto) Bradley % (Auto) Lymph # Seg Neutrophils % Seg Neuts % (Manual) Lymphocytes % (Manual) Seg Neutrophils # Man Lymphocytes # (Manual) PT INR POC ABG pH POC ABG pCO2 51.6 H POC ABG pO2 63 L Sodium Potassium Chloride Carbon Dioxide BUN Creatinine Glucose POC Glucose Lactic Acid 2.80 H* 2.20 H* Calcium Magnesium AST ALT Alkaline Phosphatase Total Creatine Kinase C-Reactive Protein Total Protein Albumin Vancomycin Trough 08/21/18 08/22/18 08/22/18 23:08 04:20 05:46 WBC RBC Hgb Hct MCHC RDW Lymph % (Auto) Bradley % (Auto) Lymph # Seg Neutrophils % Seg Neuts % (Manual) Lymphocytes % (Manual) Seg Neutrophils # Man Lymphocytes # (Manual) PT INR POC ABG pH POC ABG pCO2 49.4 H POC ABG pO2 53 L Sodium Potassium Chloride Carbon Dioxide BUN Creatinine Glucose POC Glucose Lactic Acid 2.20 H* 2.10 H* Calcium Magnesium AST ALT Alkaline Phosphatase Total Creatine Kinase C-Reactive Protein Total Protein Albumin Vancomycin Trough 08/22/18 08/22/18 08/22/18 05:46 09:08 23:20 WBC RBC Hgb Hct MCHC RDW Lymph % (Auto) Bradley % (Auto) Lymph # Seg Neutrophils % Seg Neuts % (Manual) Lymphocytes % (Manual) Seg Neutrophils # Man Lymphocytes # (Manual) PT INR POC ABG pH POC ABG pCO2 POC ABG pO2 Sodium 148 H Potassium Chloride Carbon Dioxide BUN 28 H Creatinine Glucose 155 H POC Glucose Lactic Acid 2.20 H* 2.20 H* Calcium Magnesium AST ALT Alkaline Phosphatase Total Creatine Kinase C-Reactive Protein Total Protein Albumin Vancomycin Trough 08/23/18 08/23/18 08/23/18 00:55 05:14 05:34 WBC 19.6 H RBC 3.02 L Hgb 8.5 L Hct 26.3 L MCHC RDW 18.2 H Lymph % (Auto) Bradley % (Auto) Lymph # Seg Neutrophils % Seg Neuts % (Manual) 92.0 H Lymphocytes % (Manual) 1.0 L Seg Neutrophils # Man 18.0 H Lymphocytes # (Manual) 0.2 L PT INR POC ABG pH POC ABG pCO2 52.8 H POC ABG pO2 65 L Sodium Potassium Chloride Carbon Dioxide BUN Creatinine Glucose POC Glucose 183 H Lactic Acid Calcium Magnesium AST ALT Alkaline Phosphatase Total Creatine Kinase C-Reactive Protein Total Protein Albumin Vancomycin Trough 08/23/18 08/23/18 08/23/18 05:34 05:34 13:06 WBC RBC Hgb Hct MCHC RDW Lymph % (Auto) Bradley % (Auto) Lymph # Seg Neutrophils % Seg Neuts % (Manual) Lymphocytes % (Manual) Seg Neutrophils # Man Lymphocytes # (Manual) PT INR POC ABG pH POC ABG pCO2 POC ABG pO2 Sodium 146 H Potassium Chloride Carbon Dioxide 33 H BUN 27 H Creatinine 0.7 L Glucose 158 H POC Glucose Lactic Acid 2.30 H* 2.70 H* Calcium Magnesium AST ALT Alkaline Phosphatase Total Creatine Kinase C-Reactive Protein 2.00 H Total Protein Albumin Vancomycin Trough 08/23/18 08/23/18 08/24/18 22:04 23:48 04:03 WBC RBC Hgb Hct MCHC RDW Lymph % (Auto) Bradley % (Auto) Lymph # Seg Neutrophils % Seg Neuts % (Manual) Lymphocytes % (Manual) Seg Neutrophils # Man Lymphocytes # (Manual) PT INR POC ABG pH POC ABG pCO2 59.1 H POC ABG pO2 55 L Sodium Potassium Chloride Carbon Dioxide BUN Creatinine Glucose POC Glucose Lactic Acid 2.50 H* 2.20 H* Calcium Magnesium AST ALT Alkaline Phosphatase Total Creatine Kinase C-Reactive Protein Total Protein Albumin Vancomycin Trough 08/24/18 08/24/18 08/24/18 05:13 05:13 05:13 WBC 26.2 H RBC 3.03 L Hgb 8.6 L Hct 26.6 L MCHC RDW 18.4 H Lymph % (Auto) Bradley % (Auto) Lymph # Seg Neutrophils % Seg Neuts % (Manual) Lymphocytes % (Manual) Seg Neutrophils # Man Lymphocytes # (Manual) PT INR POC ABG pH POC ABG pCO2 POC ABG pO2 Sodium Potassium Chloride Carbon Dioxide 34 H BUN 27 H Creatinine Glucose 176 H POC Glucose Lactic Acid 2.40 H* Calcium Magnesium AST 67 H ALT Alkaline Phosphatase 143 H Total Creatine Kinase C-Reactive Protein Total Protein 5.7 L Albumin 3.2 L Vancomycin Trough 08/24/18 08/25/18 08/25/18 11:05 04:20 05:00 WBC 28.4 H RBC 2.98 L Hgb 8.4 L Hct 26.3 L MCHC RDW 18.7 H Lymph % (Auto) Bradley % (Auto) Lymph # Seg Neutrophils % Seg Neuts % (Manual) Lymphocytes % (Manual) Seg Neutrophils # Man Lymphocytes # (Manual) PT INR POC ABG pH POC ABG pCO2 59.9 H POC ABG pO2 62 L Sodium Potassium Chloride Carbon Dioxide BUN Creatinine Glucose POC Glucose Lactic Acid 2.10 H* Calcium Magnesium AST ALT Alkaline Phosphatase Total Creatine Kinase C-Reactive Protein Total Protein Albumin Vancomycin Trough 08/25/18 08/25/18 08/26/18 05:00 20:47 04:54 WBC RBC Hgb Hct MCHC RDW Lymph % (Auto) Bradley % (Auto) Lymph # Seg Neutrophils % Seg Neuts % (Manual) Lymphocytes % (Manual) Seg Neutrophils # Man Lymphocytes # (Manual) PT INR POC ABG pH 7.340 L 7.315 L POC ABG pCO2 > 70 H > 70 H POC ABG pO2 Sodium Potassium Chloride Carbon Dioxide 37 H BUN 32 H Creatinine Glucose 147 H POC Glucose Lactic Acid Calcium Magnesium AST ALT Alkaline Phosphatase Total Creatine Kinase C-Reactive Protein Total Protein Albumin Vancomycin Trough 08/26/18 08/26/18 08/26/18 05:05 05:05 23:03 WBC 24.3 H RBC 2.97 L Hgb 8.3 L Hct 26.2 L MCHC RDW 19.0 H Lymph % (Auto) Bradley % (Auto) Lymph # Seg Neutrophils % Seg Neuts % (Manual) Lymphocytes % (Manual) Seg Neutrophils # Man Lymphocytes # (Manual) PT INR POC ABG pH 7.323 L POC ABG pCO2 > 70 H POC ABG pO2 Sodium Potassium Chloride Carbon Dioxide 37 H BUN 29 H Creatinine Glucose 184 H POC Glucose Lactic Acid Calcium Magnesium AST ALT Alkaline Phosphatase Total Creatine Kinase C-Reactive Protein Total Protein Albumin Vancomycin Trough 08/27/18 08/27/18 08/27/18 04:37 05:10 05:10 WBC 20.8 H RBC 2.87 L Hgb 8.0 L Hct 25.6 L MCHC 31 L RDW 19.2 H Lymph % (Auto) Bradley % (Auto) Lymph # Seg Neutrophils % Seg Neuts % (Manual) Lymphocytes % (Manual) Seg Neutrophils # Man Lymphocytes # (Manual) PT INR POC ABG pH 7.332 L POC ABG pCO2 > 70 H POC ABG pO2 165 H Sodium Potassium Chloride Carbon Dioxide 36 H BUN 29 H Creatinine Glucose 149 H POC Glucose Lactic Acid Calcium 8.2 L Magnesium AST 63 H ALT 63 H Alkaline Phosphatase Total Creatine Kinase C-Reactive Protein Total Protein 5.6 L Albumin 2.5 L Vancomycin Trough 08/28/18 08/28/18 08/28/18 03:40 03:40 04:39 WBC 18.7 H RBC 2.65 L Hgb 7.6 L Hct 23.4 L MCHC RDW 19.2 H Lymph % (Auto) Bradley % (Auto) Lymph # Seg Neutrophils % Seg Neuts % (Manual) Lymphocytes % (Manual) Seg Neutrophils # Man Lymphocytes # (Manual) PT INR POC ABG pH 7.241 L POC ABG pCO2 > 70 H POC ABG pO2 Sodium Potassium Chloride 97.7 L Carbon Dioxide 37 H BUN 23 H Creatinine Glucose 155 H POC Glucose Lactic Acid Calcium 7.8 L Magnesium AST 44 H ALT Alkaline Phosphatase Total Creatine Kinase C-Reactive Protein Total Protein 5.3 L Albumin 2.4 L Vancomycin Trough 08/28/18 08/29/18 08/29/18 10:32 04:20 04:20 WBC 17.1 H RBC 2.57 L Hgb 7.3 L Hct 22.4 L MCHC RDW 19.4 H Lymph % (Auto) Bradley % (Auto) Lymph # Seg Neutrophils % Seg Neuts % (Manual) Lymphocytes % (Manual) Seg Neutrophils # Man Lymphocytes # (Manual) PT INR POC ABG pH 7.194 L POC ABG pCO2 POC ABG pO2 Sodium Potassium 5.3 H Chloride 96.1 L Carbon Dioxide 42 H* BUN 31 H Creatinine Glucose 126 H POC Glucose Lactic Acid Calcium 8.1 L Magnesium AST 44 H ALT Alkaline Phosphatase Total Creatine Kinase C-Reactive Protein Total Protein 5.5 L Albumin 2.5 L Vancomycin Trough 08/29/18 08/29/18 08/29/18 04:48 12:11 18:31 WBC RBC Hgb Hct MCHC RDW Lymph % (Auto) Bradley % (Auto) Lymph # Seg Neutrophils % Seg Neuts % (Manual) Lymphocytes % (Manual) Seg Neutrophils # Man Lymphocytes # (Manual) PT INR POC ABG pH 7.283 L POC ABG pCO2 > 70 H POC ABG pO2 71 L Sodium Potassium Chloride Carbon Dioxide BUN Creatinine Glucose POC Glucose 181 H 199 H Lactic Acid Calcium Magnesium AST ALT Alkaline Phosphatase Total Creatine Kinase C-Reactive Protein Total Protein Albumin Vancomycin Trough 08/30/18 08/30/18 08/31/18 04:10 04:48 00:15 WBC RBC Hgb Hct MCHC RDW Lymph % (Auto) Bradley % (Auto) Lymph # Seg Neutrophils % Seg Neuts % (Manual) Lymphocytes % (Manual) Seg Neutrophils # Man Lymphocytes # (Manual) PT INR POC ABG pH 7.319 L POC ABG pCO2 > 70 H POC ABG pO2 Sodium Potassium Chloride Carbon Dioxide 39 H BUN 59 H Creatinine 2.1 H D Glucose 139 H POC Glucose 236 H Lactic Acid Calcium 8.0 L Magnesium 2.70 H AST ALT Alkaline Phosphatase Total Creatine Kinase C-Reactive Protein Total Protein Albumin Vancomycin Trough 08/31/18 08/31/18 08/31/18 00:35 04:11 05:04 WBC RBC Hgb Hct MCHC RDW Lymph % (Auto) Bradley % (Auto) Lymph # Seg Neutrophils % Seg Neuts % (Manual) Lymphocytes % (Manual) Seg Neutrophils # Man Lymphocytes # (Manual) PT INR POC ABG pH 7.294 L POC ABG pCO2 POC ABG pO2 66 L Sodium 146 H Potassium 5.1 H Chloride Carbon Dioxide 38 H BUN 70 H Creatinine 2.2 H Glucose 200 H POC Glucose 250 H Lactic Acid Calcium 7.6 L Magnesium AST ALT Alkaline Phosphatase Total Creatine Kinase C-Reactive Protein Total Protein Albumin Vancomycin Trough 08/31/18 10:51 WBC RBC Hgb Hct MCHC RDW Lymph % (Auto) Bradley % (Auto) Lymph # Seg Neutrophils % Seg Neuts % (Manual) Lymphocytes % (Manual) Seg Neutrophils # Man Lymphocytes # (Manual) PT INR POC ABG pH POC ABG pCO2 POC ABG pO2 Sodium Potassium Chloride Carbon Dioxide BUN Creatinine Glucose POC Glucose 223 H Lactic Acid Calcium Magnesium AST ALT Alkaline Phosphatase Total Creatine Kinase C-Reactive Protein Total Protein Albumin Vancomycin Trough Chest x-ray: image reviewed (ETT in good position; no pneumothorax; persistent bilateral infiltrates +/- layering effusions) Allied health notes reviewed: nursing
[2018-08-31] MEDS ORDERED: INTROPIN DRIP 800 MG/D5W 250 ML 800 MG/250 ML BAG IV SCH ×2 (12:45→22:00)
[2018-08-31] MEDS: Vasostrict 20 UNIT in NACL 0.9% 100 ML IV SCH ×2 (12:51→21:51)
--- NOTE | 2018-08-31 13:05 | XRay Report ---
CHEST 1 VIEW INDICATION: possible pneumothorax. Follow-up respiratory failure COMPARISON: 08/30/2018 FINDINGS: Support devices: The endotracheal tube terminates 4.6 cm superior to the ben. A feeding tube is fo llowed to the distal stomach but its distal tip is cut off the field of view. Right arm PICC terminat es near the cavoatrial junction. Heart: Within normal limits. Lungs/Pleura: Bilateral pulmonary edema versus infiltrates appear stable since yesterday's exam. No c onsolidation, large pleural effusion or pneumothorax is identified. Additional findings: None. IMPRESSION: No significant change in the bilateral pulmonary edema or infiltrates since yesterday's exam. Signer Name: Nelson Pugh Jr, MD Signed: 08/31/2018 1:00 PM Workstation Name: [id number]
[2018-08-31] MEDS: FLAGYL 500 MG/100 ML 500 MG/100 ML BAG IV SCH ×2 (13:21→23:19)
--- NOTE | 2018-08-31 16:07 | Progress Note ---
Assessment and Plan /Acute Respiratory failure with hypoxia - ARDS s/p intubated 08/19/18 Patient on 100% FiO2, cont Duonebs IV Solumedrol and IV abx /Bilateral pneumonia, Cont Abx, follow cx, ID consulted,following /Sepsis with septic shock Now on IV Levofloxacin 500 mg q48h and Flagyl 500 mg q8 and IV Aztreonam. cont Levophed and wean off as tolerated /Leukocytosis, from severe sepsis, Monitor /Fever due to sepsis, monitor /Anemia due to sepsis , transfused if Hb <7 /Hypokalemia, Resolved / YOLANDA: Continue to monitor BMP, IV fluids /hyperkalemia, K 5.1 today, likely from YOLANDA, cont IV fluid, kayexalate if >5.2 Schizophrenia, on Zyprexa Depression, on antidepressants Gout , Cont Allopurinol HLD (hyperlipidemia), Cont statins DVT prophylaxis: On Lovenox GI Prophylaxis:Pepcid Urinary retention, re-catheterized Full code status The high probability of a clinically significant, sudden or life threatening deterioration of the [4] system(s) required my full and direct attention, intervention and personal management. The aggregate critical care time was [35] minutes. This time is in addition to time spent performing reported procedures but includes the following: [x] Data Review and interpretation [x] Patient assessment and monitoring of vital signs [x] Documentation [x] Medication orders and management Brief History: Patient is 52-year-old male with PMHx of developmental delay, schizophrenia, and depression with recent h/o SI presented to the ER with complaints of shortness of breath and cough 1 day. Patient O2 sat was noted to be 86% and improve after application of oxygen via n/c. Pt denies a history of COPD but admits to history of smoking. In the ER, pt had a chest x-ray that showed multifocal bilateral air space disease suspicious for pneumonia. After admission went into resp distress and transferred to ICU for Intesive care On BIPAP. He then eventually intubated on 08/19 and is still intubated. became hypotensive and started on levophed 08/25/18. Patient still vent dependent and unable to wean off, on Levophed intermittently, critically ill. Hospitalist Physical Gen: Not in acute distress, intubated, sedated HEENT: Normocephalic, atraumatic Neck: supple, no JVD Heart: S1 and S2 reg, no murmurs, rubs or gallop Lungs: Bilateral rhonchi, Abd: soft, non tender, non distended, normal BS Ext: No edema, no clubbing, no cyanosis, Neuro: Sedated, intubated Subjective Date of service: 08/31/18 Principal diagnosis: Ac. hypoxemic resp failure; Multifocal Pneumonia (HAP); A RDS; Anemia Interval history: Patient seen and examined. Medical records and medication list reviewed. Patient remained intubated and sedated On levophed, BP at borderline Discussed with CM Objective - Constitutional Vitals: Vital Signs - 12hr 08/31/18 08/31/18 08/31/18 04:30 04:34 05:00 Temperature Pulse Rate 121 H 121 H 123 H Pulse Rate [ Bilateral] Pulse Rate [ From Monitor] Pulse Rate [ None] Respiratory 20 27 H Rate Respiratory Rate [Bilateral ] Blood Pressure 90/49 100/57 97/58 O2 Sat by Pulse 89 90 89 Oximetry 08/31/18 08/31/18 08/31/18 05:20 05:30 06:00 Temperature 100.1 F H Pulse Rate 123 H 122 H 122 H Pulse Rate [ Bilateral] Pulse Rate [ 122 H From Monitor] Pulse Rate [ 101 H None] Respiratory 21 26 H 25 H Rate Respiratory Rate [Bilateral ] Blood Pressure 97/58 93/56 97/55 O2 Sat by Pulse 90 88 88 Oximetry 08/31/18 08/31/18 08/31/18 06:15 06:30 06:45 Temperature Pulse Rate 119 H 123 H 124 H Pulse Rate [ Bilateral] Pulse Rate [ From Monitor] Pulse Rate [ None] Respiratory 24 16 20 Rate Respiratory Rate [Bilateral ] Blood Pressure 95/55 100/58 98/56 O2 Sat by Pulse 88 88 90 Oximetry 08/31/18 08/31/18 08/31/18 07:00 07:06 07:11 Temperature Pulse Rate 122 H 122 H Pulse Rate [ 122 H Bilateral] Pulse Rate [ From Monitor] Pulse Rate [ None] Respiratory 23 Rate Respiratory 21 Rate [Bilateral ] Blood Pressure 102/53 102/53 O2 Sat by Pulse 89 90 Oximetry 08/31/18 08/31/18 08/31/18 07:15 07:30 07:45 Temperature Pulse Rate 123 H 122 H 123 H Pulse Rate [ Bilateral] Pulse Rate [ From Monitor] Pulse Rate [ None] Respiratory 30 H 31 H 23 Rate Respiratory Rate [Bilateral ] Blood Pressure 95/55 93/55 95/54 O2 Sat by Pulse 90 90 88 Oximetry 08/31/18 08/31/18 08/31/18 08:00 08:15 08:30 Temperature 97.8 F Pulse Rate 122 H 123 H 123 H Pulse Rate [ Bilateral] Pulse Rate [ From Monitor] Pulse Rate [ None] Respiratory 26 H 32 H 26 H Rate Respiratory Rate [Bilateral ] Blood Pressure 98/55 96/56 96/56 O2 Sat by Pulse 88 88 88 Oximetry 08/31/18 08/31/18 08/31/18 08:45 09:00 09:15 Temperature Pulse Rate 123 H 123 H 123 H Pulse Rate [ Bilateral] Pulse Rate [ From Monitor] Pulse Rate [ None] Respiratory 22 29 H 28 H Rate Respiratory Rate [Bilateral ] Blood Pressure 96/52 93/53 94/55 O2 Sat by Pulse 86 86 87 Oximetry 08/31/18 08/31/18 08/31/18 09:30 09:45 10:00 Temperature Pulse Rate 124 H 125 H 124 H Pulse Rate [ Bilateral] Pulse Rate [ From Monitor] Pulse Rate [ None] Respiratory 27 H 26 H 26 H Rate Respiratory Rate [Bilateral ] Blood Pressure 94/55 94/56 92/57 O2 Sat by Pulse 88 86 87 Oximetry 08/31/18 08/31/18 08/31/18 11:21 11:28 12:00 Temperature 97.6 F Pulse Rate 127 H Pulse Rate [ 126 H 124 H Bilateral] Pulse Rate [ From Monitor] Pulse Rate [ None] Respiratory Rate Respiratory 28 H 26 H Rate [Bilateral ] Blood Pressure 88/47 O2 Sat by Pulse 92 Oximetry 08/31/18 08/31/18 08/31/18 14:31 15:52 15:53 Temperature Pulse Rate 125 H Pulse Rate [ 123 H 120 H Bilateral] Pulse Rate [ From Monitor] Pulse Rate [ None] Respiratory Rate Respiratory 28 H 20 Rate [Bilateral ] Blood Pressure 124/69 O2 Sat by Pulse 92 Oximetry - Labs CBC & Chem 7: 09/01/18 05:20 09/01/18 05:20 Labs: Abnormal lab results 08/31/18 08/31/18 08/31/18 Range/Units 00:15 00:35 04:11 POC ABG pH 7.294 L (7.35-7.45) POC ABG pO2 66 L (80-105) Sodium 146 H (137-145) mmol/L Potassium 5.1 H (3.6-5.0) mmol/L Carbon Dioxide 38 H (22-30) mmol/L BUN 70 H (9-20) mg/dL Creatinine 2.2 H (0.8-1.5) mg/dL Glucose 200 H (75-100) mg/dL POC Glucose 236 H (70-105) Calcium 7.6 L (8.4-10.2) mg/dL 08/31/18 08/31/18 08/31/18 Range/Units 05:04 10:51 12:45 POC ABG pH 7.216 L (7.35-7.45) POC ABG pO2 (80-105) Sodium (137-145) mmol/L Potassium (3.6-5.0) mmol/L Carbon Dioxide (22-30) mmol/L BUN (9-20) mg/dL Creatinine (0.8-1.5) mg/dL Glucose (75-100) mg/dL POC Glucose 250 H 223 H (70-105) Calcium (8.4-10.2) mg/dL 08/31/18 08/31/18 Range/Units 13:00 13:08 POC ABG pH 7.171 L (7.35-7.45) POC ABG pO2 70 L (80-105) Sodium (137-145) mmol/L Potassium (3.6-5.0) mmol/L Carbon Dioxide (22-30) mmol/L BUN (9-20) mg/dL Creatinine (0.8-1.5) mg/dL Glucose (75-100) mg/dL POC Glucose 289 H (70-105) Calcium (8.4-10.2) mg/dL
[2018-08-31] MEDS: INTROPIN DRIP 800 MG/D5W 250 ML 800 MG/250 ML BAG IV ONE ×2 (21:25→21:28)
[2018-08-31] MEDS ORDERED: NEO-SYNEPHRINE 100 MG in NACL 0.9% 90 ML IV SCH (22:00)
[2018-08-31] MEDS: NACL 0.9% 1000 ML 1,000 ML IV SCH (22:30)
[2018-08-31] MEDS: ATIVAN PO SCH (23:00)
[2018-08-31] MEDS: BENADRYL PO SCH (23:18)
[2018-08-31] MEDS: PRAVACHOL PO SCH (23:19)
[2018-09-01] MEDS: HumaLOG SUB-Q SCH ×2 (00:35→05:33)
[2018-09-01] MEDS: LEVOPHED DRIP 4 MG/NS 250 ML 4 MG/250 ML BAG IV SCH ×4 (01:26→06:09)
[2018-09-01] MEDS: AZACTAM/NS 1 GM/50 ML 1 GM/50 ML VIAL IV SCH (05:34)
[2018-09-01] MEDS: FLAGYL 500 MG/100 ML 500 MG/100 ML BAG IV SCH (05:34)
[2018-09-01 06:03] LABS: Hematocrit 21.2 % (35.5-45.6); Hemoglobin 6.5 gm/dl (11.8-15.2); Mean Corpuscular HGB Conc 31 % (32-34); Mean Corpuscular Volume 90 fl (84-94); Platelet Count 123 K/mm3 (140-440); Red Blood Count 2.35 M/mm3 (3.65-5.03)
[2018-09-01 06:18] LABS: Calcium 7.1 mg/dL (8.4-10.2)
[2018-09-01 06:38] LABS: Red Cell Distribution Width 20.2 % (13.2-15.2)
[2018-09-01] MEDS ORDERED: NACL 0.9% 500 ML 500 ML IV NR (08:00)
[2018-09-01] MEDS: DUONEB *Not for PRN Use IH SCH (08:13)
[2018-09-01] MEDS ORDERED: D50W (25GM) Syringe IV ONE (09:00)
[2018-09-01] MEDS ORDERED: CALCIUM GLUCONATE 2,000 MG in NACL 0.9% 100 ML IV ONE (09:00)
[2018-09-01] MEDS ORDERED: HumuLIN R SUB-Q ONE (09:00)
[2018-09-01] MEDS ORDERED: ADRENALIN ONE (09:10)
[2018-09-01] MEDS ORDERED: CALCIUM CHLORIDE IV ONE (09:18)
[2018-09-01] MEDS ORDERED: LEVOPHED 8 MG in NACL 0.9% 250ML 242 ML IV SCH (09:30)
[2018-09-01] MEDS ORDERED: KIONEX PO ONE (09:30)
--- NOTE | 2018-09-01 09:39 | Consultation ---
History of Present Illness - Reason for Consult Consult date: 09/01/18 acute renal failure, hyperkalemia - History of Present Illness 52 y/o male with PMHx of significant baseline cognitive dysfunction, schizophrenia, and suicidal ideation with recent admission into psychiatric facility due to the former, presented to the ED secondary to worsening respiratory distress. Overall respiratory status worsened and patient had to be intubated, in the setting of acute respiratory distress syndrome with underlying concern for aspiration pneumonia. Patient' overall hemodynamic status has progressively worsened over the last few days in the ICU, and he is current pressor dependant at this time, managed on leveophed and vasopressin. Chest xray has been concerning for worsening pulmonary edema. He has had been diuresed appropriately. Over the last 3 days, he has shown a steady decline in his renal function for which nephrology is consulted at this time for further evaluation. Per documentation, overall urine output has been as declining into the oliguric range. Diuretics are on hold and he is being gently hydrated with NS at 75 cc/hr. Past History Past Medical History: No medical history, other (schizophrenia) Past Surgical History: No surgical history Social history: no significant social history Family history: no significant family history Medications and Allergies Allergies Allergy/AdvReac Type Severity Reaction Status Date / Time Penicillins Allergy Unknown Verified 08/14/18 15:52 Home Medications Medication Instructions Recorded Confirmed Last Taken Type FLUoxetine [PROzac] 40 mg PO QAM 08/03/18 08/14/18 08/03/18 History diphenhydrAMINE [Benadryl CAP] 100 mg PO QHS 08/03/18 08/14/18 08/03/18 History Allopurinol [Zyloprim] 100 mg PO QDAY 08/14/18 08/14/18 Unknown History Cholecalciferol (Vitamin D3) 50,000 unit PO QWEEK 08/14/18 08/14/18 Unknown Hist ory [Vitamin D3 50,000UNIT CAP] FLUoxetine [PROzac] 20 mg PO DAILY@1200 08/14/18 08/14/18 Unknown History LORazepam [Ativan] 1 mg PO QAM 08/14/18 08/14/18 Unknown History LORazepam [Ativan] 2 mg PO QHS 08/14/18 08/14/18 Unknown History Multivitamin Tab [Multiple Vitamin 1 each PO QDAY 08/14/18 08/14/18 Unknown History TAB (Theragran)] OLANZapine [Zyprexa] 10 mg PO QAM 08/14/18 08/14/18 Unknown History OLANZapine [Zyprexa] 20 mg PO 08/14/18 08/14/18 Unknown History Simvastatin 20 mg PO 08/14/18 08/14/18 Unknown History buPROPion XL [Wellbutrin Xl] 150 mg PO QAM 08/14/18 08/14/18 Unknown History risperiDONE [Risperdal] 2 mg PO QA 08/14/18 08/14/18 Unknown History Active Meds: Active Medications Acetaminophen (Tylenol) 650 mg PO Q4H PRN PRN Reason: Pain MILD(1-3)/Fever >100.5/LOCO Last Admin: 08/30/18 23:23 Dose: 650 mg Documented by: Albuterol (Proventil) 2.5 mg IH Q4HRT PRN PRN Reason: Shortness Of Breath Albuterol/Ipratropium (Duoneb *Not For Prn Use*) 1 ampul IH QIDRT [facility] Last Admin: 09/01/18 08:13 Dose: 1 ampul Documented by: Allopurinol (Zyloprim) 100 mg PO QDAY [facility] Last Admin: 08/31/18 10:53 Dose: 100 mg Documented by: Lipase/Protease/Amylase (Sangita Palacios 10,500 Unit) 1 each FEEDTUBE PRN PRN PRN Reason: For Clogged Feeding Tube Bupropion HCl (Wellbutrin) 75 mg PO BID [facility] Last Admin: 08/31/18 23:20 Dose: 75 mg Documented by: Diphenhydramine HCl (Benadryl) 100 mg PO QHS [facility] Last Admin: 08/31/18 23:18 Dose: 100 mg Documented by: Docusate Sodium (Colace) 100 mg FEEDTUBE BID [facility] Last Admin: 08/31/18 23:19 Dose: 100 mg Documented by: Enoxaparin Sodium (Lovenox) 30 mg SUB-Q QDAY [facility] Last Admin: 08/31/18 10:54 Dose: 30 mg Documented by: Famotidine (Pepcid) 20 mg PO DAILY [facility] Last Admin: 08/31/18 10:54 Dose: 20 mg Documented by: Fentanyl (Sublimaze) 50 mcg IV Q10MIN PRN PRN Reason: ANALGESIA Fluoxetine HCl (Prozac) 20 mg PO DAILY@1200 [facility] Last Admin: 08/31/18 11:01 Dose: 20 mg Documented by: Hydralazine HCl (Apresoline) 10 mg IV Q4HR PRN PRN Reason: Hypertension Hydrocodone Bit/Homatropine Methylb (Hydromet) 10 ml PO Q6H PRN PRN Reason: Cough Last Admin: 08/18/18 13:35 Dose: 10 ml Documented by: Hydrophilic Ointment (Vaseline Lip Therapy) 1 applic TP Q2HR PRN PRN Reason: Dry Lips Fentanyl Citrate (Fentanyl Drip Premix) 2,000 mcg in 100 mls @ 3.935 mls/hr IV TITR [facility]; Protocol Last Titration: 08/31/18 19:35 Dose: 0 mcg/kg/hr, 0 mls/hr Documented by: Propofol (Diprivan 10 Mg/Ml) 1,000 mg in 100 mls @ 2.361 mls/hr IV TITR [facility]; Protocol Last Titration: 08/31/18 19:39 Dose: 0 mcg/kg/min, 0 mls/hr Documented by: Sodium Chloride (Nacl 0.9% 500 Ml) 500 mls @ 10 mls/hr IV DIRECT [facility] Last Admin: 08/28/18 10:01 Dose: 10 mls/hr Documented by: Aztreonam (Azactam/Ns 1 Gm/50 Ml) 1 gm in 50 mls @ 50 mls/hr IV Q8HR [facility]; Sanjana col Last Admin: 09/01/18 05:34 Dose: 50 mls/hr Documented by: Sodium Chloride (Nacl 0.9% 1000 Ml) 1,000 mls @ 75 mls/hr IV DIRECT [facility] Last Admin: 08/31/18 22:30 Dose: 75 mls/hr Documented by: Metronidazole (Flagyl 500 Mg/100 Ml) 500 mg in 100 mls @ 100 mls/hr IV Q8HR [facility] Last Admin: 09/01/18 05:34 Dose: 100 mls/hr Documented by: Levofloxacin/Dextrose (Levaquin 500mg/100ml) 500 mg in 100 mls @ 100 mls/hr IV Q48HR [facility] Last Admin: 08/31/18 10:53 Dose: 100 mls/hr Documented by: Vasopressin 20 unit/ Sodium (Chloride) 101 mls @ 9.09 mls/hr IV TITR [facility]; Protocol Last Admin: 08/31/18 21:51 Dose: 0.03 units/min, 9.09 mls/hr Documented by: Dopamine HCl/Dextrose (Intropin Drip 800 Mg/D5w 250 Ml) 800 mg in 250 mls @ 3.296 mls/hr IV TITR [facility]; Protocol Last Titration: 08/31/18 13:00 Dose: 0 mcg/kg/min, 0 mls/hr Documented by: Phenylephrine HCl 100 mg/ (Sodium Chloride) 100 mls @ 3 mls/hr IV TITR [facility]; Protocol Last Titration: 09/01/18 04:31 Dose: 80 mcg/min, 4.8 mls/hr Documented by: Sodium Chloride (Nacl 0.9% 500 Ml) 500 mls @ 0 mls/hr IV ONCE NR Stop: 09/01/18 17:00 Norepinephrine 8 mg/ Sodium (Chloride) 250 mls @ 3.75 mls/hr IV TITR [facility]; Protocol Epinephrine 8 mg/ Sodium (Chloride) 250 mls @ 3.75 mls/hr IV TITR [facility]; Protocol Sodium Bicarbonate 150 meq/ (Sodium Chloride) 1,150 mls @ 100 mls/hr IV ONCE ONE Stop: 09/01/18 21:29 Insulin Human Lispro (Humalog) 0 unit SUB-Q Q6HR [facility]; Protocol Last Admin: 09/01/18 05:33 Dose: 4 unit Documented by: Lorazepam (Ativan) 2 mg PO QHS [facility] Last Admin: 08/31/18 23:00 Dose: 2 mg Documented by: Magnesium Hydroxide (Milk Of Magnesia) 30 ml PO Q4H PRN PRN Reason: Constipation Multi-Ingred Cream/Lotion/Oil/Oint (Artificial Tears Ophth Oint) 1 applic OU Q4HR PRN PRN Reason: Dry Eye(s) Olanzapine (Zyprexa) 20 mg PO QHS [facility] Last Admin: 08/31/18 23:25 Dose: 20 mg Documented by: Ondansetron HCl (Zofran) 4 mg IV Q8H PRN PRN Reason: Nausea And Vomiting Pravastatin Sodium (Pravachol) 40 mg PO QHS [facility] Last Admin: 08/31/18 23:19 Dose: 40 mg Documented by: Risperidone (Risperdal) 2 mg PO QAM [facility] Last Admin: 08/31/18 10:53 Dose: 2 mg Documented by: Simple Syrup (Simple Syrup) 15 ml FEEDTUBE PRN PRN PRN Reason: Hypoglycemia Simple Syrup (Simple Syrup) 30 ml FEEDTUBE PRN PRN PRN Reason: Hypoglycemia Sodium Bicarbonate (Sodium Bicarbonate) 325 mg FEEDTUBE PRN PRN PRN Reason: For Clogged Feeding Tube Sodium Bicarbonate (Sodium Bicarbonate 50meq Syringe) 50 meq IV ONCE NR Stop: 09/01/18 10:00 Sodium Chloride (Sodium Chloride Flush Syringe 10 Ml) 10 ml IV BID [facility] Last Admin: 08/31/18 23:19 Dose: 10 ml Documented by: Sodium Chloride (Sodium Chloride Flush Syringe 10 Ml) 10 ml IV PRN PRN PRN Reason: LINE FLUSH Tamsulosin HCl (Flomax) 0.4 mg PO QDAY [facility] Last Admin: 08/31/18 10:53 Dose: 0.4 mg Documented by: Review of Systems ROS unobtainable: due to endotracheal tube Exam - Vital Signs Vital signs: Vital Signs Temp Pulse Ox 98.7 F 86 08/14/18 16:00 08/14/18 16:00 - General Appearance General appearance: appears stated age, intubated, comatose EENT: ATNC Neck: Present: neck supple, trachea midline Respiratory: Ronchi Heart: regular, S1S2 Gastrointestinal: Present: normal, normoactive bowel sounds Integumentary: no rash, warm and dry Neurologic: other (intubated, unresponsive ) Musculoskeletal: Present: other (+edema ) Results - Lab Results 09/01/18 05:20 09/01/18 05:20 Most recent lab results Calcium 7.1 mg/dL (8.4-10.2) L 09/01/18 05:20 Phosphorus 3.20 mg/dL (2.5-4.5) 08/30/18 04:10 Magnesium 2.70 mg/dL (1.7-2.3) H 08/30/18 04:10 - Image Kidney/bladder ultrasound: pending Assessment and Plan - Patient Problems (1) Acute renal failure Current Visit: Yes Status: Acute Qualifiers: Acute renal failure type: with acute tubular necrosis Qualified Code(s): N17.0 - Acute kidney failure with tubular necrosis Plan to address problem: Patient is likely showing signs of ATN in the setting of significant pre-renal injury due to ARDS, sepsis, pneumonia, with prominent pulmonary edema. Will obtain a renal US as well as UA and urine electrolytes. Would favor low dose of diuretics, with lasix 20 mg IV BID. This will also help augment potassium excretion. Patient is on IVF at 75 cc/hr, which needs to be monitored closely, especially considering current respiratory status. Avoid nephrotoxins, maintain MAP above 65mmHg. Will monitor closely. Please ensure that antibiotics are dosed appropriately for his current renal function. (2) Acute and chronic respiratory failure with hypoxia Current Visit: Yes Status: Acute (3) Pulmonary edema Current Visit: Yes Status: Acute (4) Hyperkalemia Current Visit: Yes Status: Acute
--- NOTE | 2018-09-01 09:47 | Death Summary ---
Summary - Providers Date of service: 09/01/18 Consults: 08/18/18 12:26 Consult to Physician [CONS] Routine Comment: Consulting Provider: CAITIE BOYD Physician Instructions: Reason For Exam: critical care 08/18/18 13:23 Consult to Physician [CONS] Routine Comment: Consulting Provider: KWAKU HILTON Physician Instructions: Reason For Exam: bilateral pneumonia 08/19/18 11:57 Consult to Dietitian/Nutrition [CONS] Routine Physician Instructions: Reason For Exam: Reason for Consult: Write/Manage Tube Feeding 08/19/18 12:01 Consult to Dietitian/Nutrition [CONS] Routine Physician Instructions: Reason For Exam: Reason for Consult: Evaluate nutritional intake 08/23/18 13:48 Consult to PICC Line RN [CONS] Routine Reason For Exam: central access Type Line:: PICC 08/31/18 13:56 Consult to Physician [CONS] Routine Comment: Consulting Provider: SLIME FORTUNE Physician Instructions: Reason For Exam: Acute Kidney Injury Attending: ELIANA LANDAVERDE - summary Date of admission: 08/14/18 22:09 Date of : 09/01/18 Reason for admission: PNA Significant findings: Brief History: Patient is 52-year-old male with PMHx of developmental delay, schizophrenia, and depression with recent h/o SI presented to the ER with complaints of shortness of breath and cough 1 day. Patient O2 sat was noted to be 86% and improve after application of oxygen via n/c. Patient denied a history of COPD but admited to history of smoking. In the ER, pt had a chest x-ray that showed multifocal bilateral air space disease suspicious for pneumonia. After admission went into resp distress and transferred to ICU for Intesive care and placed On BIPAP. He then eventually intubated on 08/19. Eventually became hypotensive and started on levophed 08/25/18. Patient remained vent dependent and unable to wean off, placed on multiple pressors to maintain MAP >65 but remained critically ill. His renal function started to decline also. No family members were available to discuss code status and plan of care. On 09/01 Noted bradycardia in the 40-50s followed by asystole on the monitor. Code blue was called and compression started at 0857. ACLS protocol implemented, got RSBC with pulse at 0907. Patient lost pulse again at 0910, ACLS implemented without RSBC. See code sheet for full report. Patient was pronounced at 0921. Caregiver, Francisco Damon, was notified immediately. Cause of : Cardiorespiratory arrest due to ARDS due to severe septic shock with PNA and acute renal failure.
[2018-09-01] MEDS ORDERED: ADRENALIN 8 MG in NACL 0.9% 250ML 242 ML IV SCH (10:00)
[2018-09-01] MEDS ORDERED: SODIUM BICARBONATE 150 MEQ in NACL 0.9% 1000 ML 1,000 ML IV ONE (10:00)
[2018-09-01 10:01] VITALS: BP 241/20
[2018-09-01 10:17] LABS: Anisocytosis 1+; Basophils % (Manual) 0 % (0.0-1.8); Eosinophils % (Manual) 0 % (0.0-4.3); Large Platelets Few; Platelet Estimate Consistent w Auto; Total Cells Counted 100
--- NOTE | 2018-09-01 11:45 | Progress Note ---
Assessment and Plan Acute hypoxemic respiratory failure. Acute respiratory distress syndrome. Possible aspiration pneumonia (HAP) History of depression. History of schizophrenia. Anemia that is normocytic. Mild metabolic acidosis. Hypokalemia. Developmental delay (stil feel significant element of pulmonary edema) - added vasopressin and will continue levophed and dopamine - volume bolus given (approx 500 mls IVNS) during decompensation now will continue at 75 mls/hr X 1 liter - get nephrology evalaution - wean vasopressors for target MAP > 65 mmHg - continue ARDS ventilatory strategies (4-6 mls/kg IBW) - replaced hernandez catheter due to retention; will continue flomax - bronch cultures no growth and cytology negative for AFB, PJP, fungal elements - empiric Anti-infective's per ID rec's - keep peep at 16 for now (monitor plateau pressures with optimal target < 30 cm H2O) - continue to advance enteral nutrition to goal rate - continue Flomax (Urinary retention reported with 1.5 liters drained post hernandez catheter) - continue albuterol nebs with pulmonary hygiene per RT - continue lung protective strategies - daily CXR and ABG in short term - VAP bundle addressed - continue supplemental oxygen to keep O2 sats 88-90% - continue bronchodilators with pulmonary hygiene per RT - continus systemic steroids with quick taper - continue accuchecks with glycemic control per SSI for target blood glucose <180mg/dL - Agitation management - Titrate sedation to RASS 0 to -1 - Prevention of delirium, maintenance of sleep-wake cycle - Will de-escalate therapy based on microbiology/SD/Cultures - Avoid nephrotoxic agents, adjust all antibiotics and medications for CrCL and GFR - VTE and Stress ulcer prophylaxis CONDITION: CRITICAL PROGNOSIS: GRAVE to GUARDED CODE STATUS: FULL CODE The high probability of a clinically significant, sudden or life-threatening deterioration of the [respiratory] system(s) required my full and direct attention, intervention and personal management. The aggregate critical care t terell was [45] minutes without overlap. Time includes spent on; [x] Data Review and interpretation [x] Patient assessment and monitoring of vital signs [x] Documentation [x] Medication orders and management Subjective Date of service: 09/01/18 Principal diagnosis: Ac. hypoxemic resp failure; Multifocal Pneumonia (HAP); ARDS; Anemia Interval history: Patient is seen today for: Acute hypoxemic respiratory failure; multifocal pneumonia (HAP); ARDS; depression; schizophrenia; Anemia; Developmental delay Seen and examined at bedside; 24hour events reviewed; nursing and respiratory care staff consulted; no adverse overnight events reported to me; remains on MVS; Objective Vital Signs - 12hr 08/31/18 09/01/18 09/01/18 23:50 00:00 00:15 Temperature Pulse Rate 129 H 132 H 133 H Pulse Rate [ Bilateral] Pulse Rate [ From Monitor] Respiratory 30 H 34 H Rate Respiratory Rate [Bilateral ] Blood Pressure 111/63 98/56 91/56 O2 Sat by Pulse 92 91 90 Oximetry 09/01/18 09/01/18 09/01/18 00:30 00:45 01:00 Temperature Pulse Rate 131 H 129 H 127 H Pulse Rate [ Bilateral] Pulse Rate [ From Monitor] Respiratory 39 H 34 H 35 H Rate Respiratory Rate [Bilateral ] Blood Pressure 98/54 95/58 97/61 O2 Sat by Pulse 91 91 90 Oximetry 09/01/18 09/01/18 09/01/18 01:15 01:30 01:45 Temperature Pulse Rate 128 H 126 H 126 H Pulse Rate [ Bilateral] Pulse Rate [ From Monitor] Respiratory 36 H 38 H 38 H Rate Respiratory Rate [Bilateral ] Blood Pressure 98/61 95/56 109/58 O2 Sat by Pulse 92 91 93 Oximetry 09/01/18 09/01/18 09/01/18 02:00 02:15 02:30 Temperature Pulse Rate 126 H 125 H 125 H Pulse Rate [ Bilateral] Pulse Rate [ From Monitor] Respiratory 33 H 35 H 38 H Rate Respiratory Rate [Bilateral ] Blood Pressure 101/60 99/60 104/59 O2 Sat by Pulse 93 93 93 Oximetry 09/01/18 09/01/18 09/01/18 02:45 03:00 03:15 Temperature 98.8 F Pulse Rate 125 H 124 H 124 H Pulse Rate [ Bilateral] Pulse Rate [ From Monitor] Respiratory 35 H 36 H 32 H Rate Respiratory Rate [Bilateral ] Blood Pressure 107/54 96/72 103/61 O2 Sat by Pulse 93 94 93 Oximetry 09/01/18 09/01/18 09/01/18 03:30 03:45 04:00 Temperature Pulse Rate 122 H 124 H 124 H Pulse Rate [ Bilateral] Pulse Rate [ From Monitor] Respiratory 32 H 31 H 33 H Rate Respiratory Rate [Bilateral ] Blood Pressure 104/59 109/57 113/64 O2 Sat by Pulse 92 93 94 Oximetry 09/01/18 09/01/18 09/01/18 04:15 04:30 04:45 Temperature Pulse Rate 102 H 96 H 121 H Pulse Rate [ Bilateral] Pulse Rate [ From Monitor] Respiratory 27 H 29 H 32 H Rate Respiratory Rate [Bilateral ] Blood Pressure 57/26 72/29 72/29 O2 Sat by Pulse 92 78 L 91 Oximetry 09/01/18 09/01/18 09/01/18 05:00 05:15 05:30 Temperature Pulse Rate 123 H 123 H 122 H Pulse Rate [ Bilateral] Pulse Rate [ From Monitor] Respiratory 34 H 36 H 34 H Rate Respiratory Rate [Bilateral ] Blood Pressure 115/64 115/68 114/62 O2 Sat by Pulse 92 94 95 Oximetry 09/01/18 09/01/18 09/01/18 05:45 06:00 06:15 Temperature Pulse Rate 123 H 123 H 123 H Pulse Rate [ Bilateral] Pulse Rate [ From Monitor] Respiratory 33 H 33 H 35 H Rate Respiratory Rate [Bilateral ] Blood Pressure 115/66 116/65 115/67 O2 Sat by Pulse 95 95 96 Oximetry 09/01/18 09/01/18 09/01/18 06:30 06:45 07:00 Temperature 101.0 F H Pulse Rate 124 H 122 H 123 H Pulse Rate [ Bilateral] Pulse Rate [ From Monitor] Respiratory 33 H 25 H 31 H Rate Respiratory Rate [Bilateral ] Blood Pressure 117/67 118/69 109/65 O2 Sat by Pulse 94 92 91 Oximetry 09/01/18 09/01/18 09/01/18 07:15 07:30 07:45 Temperature Pulse Rate 123 H 123 H 123 H Pulse Rate [ Bilateral] Pulse Rate [ From Monitor] Respiratory 31 H 32 H 29 H Rate Respiratory Rate [Bilateral ] Blood Pressure 115/66 115/65 106/61 O2 Sat by Pulse 93 92 90 Oximetry 09/01/18 09/01/18 09/01/18 08:00 08:15 08:24 Temperature Pulse Rate 123 H 123 H 122 H Pulse Rate [ 123 H Bilateral] Pulse Rate [ 123 H From Monitor] Respiratory 29 H 30 H Rate Respiratory 32 H Rate [Bilateral ] Blood Pressure 110/59 108/61 108/61 O2 Sat by Pulse 91 91 92 Oximetry 09/01/18 09/01/18 09/01/18 08:30 08:34 08:45 Temperature Pulse Rate 124 H 72 Pulse Rate [ 120 H Bilateral] Pulse Rate [ From Monitor] Respiratory 27 H 28 H Rate Respiratory 30 H Rate [Bilateral ] Blood Pressure 112/65 112/65 O2 Sat by Pulse 93 88 Oximetry 09/01/18 09/01/18 09/01/18 09:01 09:15 09:31 Temperature Pulse Rate 187 H 119 H Pulse Rate [ Bilateral] Pulse Rate [ From Monitor] Respiratory 36 H 62 H 0 L Rate Respiratory Rate [Bilateral ] Blood Pressure 174/34 225/20 241/20 O2 Sat by Pulse 66 L 100 Oximetry 09/01/18 09:45 Temperature Pulse Rate Pulse Rate [ Bilateral] Pulse Rate [ From Monitor] Respiratory 0 L Rate Respiratory Rate [Bilateral ] Blood Pressure 241/20 O2 Sat by Pulse Oximetry Constitutional: no acute distress, other (middle aged CM, normocephalic on MVS and riding set rate of 28/min) Eyes: non-icteric ENT: oropharynx moist, other (ETT 23 cm VENTURA) Neck: supple, no lymphadenopathy, other (no thyromegaly) Effort: mildly labored Ascultation: Bilateral: rales Percussion: Bilateral: not dull Cardiovascular: regular rate and rhythm, other (No R/M) Gastrointestinal: normoactive bowel sounds, soft, non-tender, non-distended Integumentary: normal Extremities: no cyanosis, no edema, pink and warm, pulses normal, no ischemia or petechiae Neurologic: non-focal exam (grossly), pupils equal and round, motor strength normal and, unable to assess, other (sedated) Psychiatric: other (sedated) CBC and BMP: 09/01/18 05:20 09/01/18 05:20 ABG, PT/INR, D-dimer: ABG POC ABG pH 7.208 (7.35-7.45) L 09/01/18 04:09 POC ABG pO2 88 (80-105) 09/01/18 04:09 POC ABG HCO3 34.3 (22-26 mml/L) 09/01/18 04:09 POC ABG Total CO2 37 (23-27mmol/L) 09/01/18 04:09 POC ABG O2 Sat 94 09/01/18 04:09 PT/INR, D-dimer PT 15.1 Sec. (12.2-14.9) H 08/14/18 16:43 INR 1.22 (0.87-1.13) H 08/14/18 16:43 Abnormal lab findings: Abnormal Labs 08/14/18 08/14/18 08/14/18 16:33 16:33 16:43 WBC RBC 3.38 L Hgb 9.9 L Hct 29.2 L MCHC RDW 17.3 H Plt Count Lymph % (Auto) [place] % (Auto) Lymph # Seg Neutrophils % Seg Neuts % (Manual) 87.0 H Lymphocytes % (Manual) 6.0 L Seg Neutrophils # Man Lymphocytes # (Manual) 0.5 L Monocytes # (Manual) PT INR POC ABG pH POC ABG pCO2 POC ABG pO2 Sodium Potassium 3.5 L Chloride Carbon Dioxide BUN Creatinine Glucose POC Glucose Lactic Acid Calcium Magnesium AST ALT Alkaline Phosphatase Total Creatine Kinase 204 H C-Reactive Protein Total Protein Albumin Vancomycin Trough Crossmatch 08/14/18 08/14/18 08/17/18 16:43 17:01 09:09 WBC RBC 3.12 L Hgb 9.0 L Hct 27.0 L MCHC RDW 17.0 H Plt Count Lymph % (Auto) 7.1 L [place] % (Auto) 9.2 H Lymph # 0.5 L Seg Neutrophils % 82.7 H Seg Neuts % (Manual) Lymphocytes % (Manual) Seg Neutrophils # Man Lymphocytes # (Manual) Monocytes # (Manual) PT 15.1 H INR 1.22 H POC ABG pH 7.468 H POC ABG pCO2 POC ABG pO2 57 L Sodium Potassium Chloride Carbon Dioxide BUN Creatinine Glucose POC Glucose Lactic Acid Calcium Magnesium AST ALT Alkaline Phosphatase Total Creatine Kinase C-Reactive Protein Total Protein Albumin Vancomycin Trough Crossmatch 08/17/18 08/17/18 08/17/18 09:09 11:30 23:21 WBC RBC Hgb Hct MCHC RDW Plt Count Lymph % (Auto) [place] % (Auto) Lymph # Seg Neutrophils % Seg Neuts % (Manual) Lymphocytes % (Manual) Seg Neutrophils # Man Lymphocytes # (Manual) Monocytes # (Manual) PT INR POC ABG pH 7.225 L POC ABG pCO2 54.6 H POC ABG pO2 50 L 110 H Sodium Potassium 3.5 L Chloride Carbon Dioxide 20 L BUN 7 L Creatinine Glucose 125 H POC Glucose Lactic Acid Calcium Magnesium AST ALT Alkaline Phosphatase Total Creatine Kinase C-Reactive Protein Total Protein 6.2 L Albumin 3.2 L Vancomycin Trough Crossmatch 08/18/18 08/18/18 08/18/18 04:49 13:06 13:50 WBC RBC Hgb Hct MCHC RDW Plt Count Lymph % (Auto) [place] % (Auto) Lymph # Seg Neutrophils % Seg Neuts % (Manual) Lymphocytes % (Manual) Seg Neutrophils # Man Lymphocytes # (Manual) Monocytes # (Manual) PT INR POC ABG pH POC ABG pCO2 POC ABG pO2 58 L Sodium Potassium Chloride Carbon Dioxide BUN Creatinine Glucose POC Glucose Lactic Acid Calcium Magnesium AST ALT Alkaline Phosphatase Total Creatine Kinase C-Reactive Protein 31.10 H Total Protein Albumin Vancomycin Trough 4.7 L Crossmatch 08/18/18 08/19/18 08/19/18 13:50 07:25 07:25 WBC 14.8 H 12.7 H RBC 3.46 L 3.32 L Hgb 10.1 L 9.5 L Hct 30.2 L 28.9 L MCHC RDW 17.6 H 17.7 H Plt Count Lymph % (Auto) [place] % (Auto) Lymph # Seg Neutrophils % Seg Neuts % (Manual) 95.0 H 95.0 H Lymphocytes % (Manual) 3.0 L 5.0 L Seg Neutrophils # Man 14.1 H 12.1 H Lymphocytes # (Manual) 0.4 L 0.6 L Monocytes # (Manual) PT INR POC ABG pH POC ABG pCO2 POC ABG pO2 Sodium Potassium Chloride Carbon Dioxide BUN 23 H Creatinine Glucose 139 H POC Glucose Lactic Acid Calcium Magnesium AST 41 H ALT Alkaline Phosphatase 149 H Total Creatine Kinase C-Reactive Protein Total Protein Albumin 3.0 L Vancomycin Trough Crossmatch 08/19/18 08/20/18 08/21/18 15:10 04:03 04:18 WBC RBC Hgb Hct MCHC RDW Plt Count Lymph % (Auto) [place] % (Auto) Lymph # Seg Neutrophils % Seg Neuts % (Manual) Lymphocytes % (Manual) Seg Neutrophils # Man Lymphocytes # (Manual) Monocytes # (Manual) PT INR POC ABG pH 7.346 L POC ABG pCO2 49.0 H 50.2 H 51.0 H POC ABG pO2 71 L 180 H 78 L Sodium Potassium Chloride Carbon Dioxide BUN Creatinine Glucose POC Glucose Lactic Acid Calcium Magnesium AST ALT Alkaline Phosphatase Total Creatine Kinase C-Reactive Protein Total Protein Albumin Vancomycin Trough Crossmatch 08/21/18 08/21/18 08/21/18 04:43 04:43 15:54 WBC 14.1 H RBC 3.02 L Hgb 8.5 L Hct 26.3 L MCHC RDW 17.9 H Plt Count Lymph % (Auto) [place] % (Auto) Lymph # Seg Neutrophils % Seg Neuts % (Manual) 95.0 H Lymphocytes % (Manual) 3.0 L Seg Neutrophils # Man 13.4 H Lymphocytes # (Manual) 0.4 L Monocytes # (Manual) PT INR POC ABG pH POC ABG pCO2 POC ABG pO2 Sodium 149 H Potassium Chloride 111.2 H Carbon Dioxide BUN 27 H Creatinine Glucose 164 H POC Glucose Lactic Acid Calcium Magnesium AST ALT Alkaline Phosphatase Total Creatine Kinase C-Reactive Protein 3.60 H Total Protein Albumin Vancomycin Trough Crossmatch 08/21/18 08/21/18 08/21/18 19:15 20:10 21:33 WBC RBC Hgb Hct MCHC RDW Plt Count Lymph % (Auto) [place] % (Auto) Lymph # Seg Neutrophils % Seg Neuts % (Manual) Lymphocytes % (Manual) Seg Neutrophils # Man Lymphocytes # (Manual) Monocytes # (Manual) PT INR POC ABG pH POC ABG pCO2 51.6 H POC ABG pO2 63 L Sodium Potassium Chloride Carbon Dioxide BUN Creatinine Glucose POC Glucose Lactic Acid 2.80 H* 2.20 H* Calcium Magnesium AST ALT Alkaline Phosphatase Total Creatine Kinase C-Reactive Protein Total Protein Albumin Vancomycin Trough Crossmatch 08/21/18 08/22/18 08/22/18 23:08 04:20 05:46 WBC RBC Hgb Hct MCHC RDW Plt Count Lymph % (Auto) [place] % (Auto) Lymph # Seg Neutrophils % Seg Neuts % (Manual) Lymphocytes % (Manual) Seg Neutrophils # Man Lymphocytes # (Manual) Monocytes # (Manual) PT INR POC ABG pH POC ABG pCO2 49.4 H POC ABG pO2 53 L Sodium Potassium Chloride Carbon Dioxide BUN Creatinine Glucose POC Glucose Lactic Acid 2.20 H* 2.10 H* Calcium Magnesium AST ALT Alkaline Phosphatase Total Creatine Kinase C-Reactive Protein Total Protein Albumin Vancomycin Trough Crossmatch 08/22/18 08/22/18 08/22/18 05:46 09:08 23:20 WBC RBC Hgb Hct MCHC RDW Plt Count Lymph % (Auto) [place] % (Auto) Lymph # Seg Neutrophils % Seg Neuts % (Manual) Lymphocytes % (Manual) Seg Neutrophils # Man Lymphocytes # (Manual) Monocytes # (Manual) PT INR POC ABG pH POC ABG pCO2 POC ABG pO2 Sodium 148 H Potassium Chloride Carbon Dioxide BUN 28 H Creatinine Glucose 155 H POC Glucose Lactic Acid 2.20 H* 2.20 H* Calcium Magnesium AST ALT Alkaline Phosphatase Total Creatine Kinase C-Reactive Protein Total Protein Albumin Vancomycin Trough Crossmatch 08/23/18 08/23/18 08/23/18 00:55 05:14 05:34 WBC 19.6 H RBC 3.02 L Hgb 8.5 L Hct 26.3 L MCHC RDW 18.2 H Plt Count Lymph % (Auto) [place] % (Auto) Lymph # Seg Neutrophils % Seg Neuts % (Manual) 92.0 H Lymphocytes % (Manual) 1.0 L Seg Neutrophils # Man 18.0 H Lymphocytes # (Manual) 0.2 L Monocytes # (Manual) PT INR POC ABG pH POC ABG pCO2 52.8 H POC ABG pO2 65 L Sodium Potassium Chloride Carbon Dioxide BUN Creatinine Glucose POC Glucose 183 H Lactic Acid Calcium Magnesium AST ALT Alkaline Phosphatase Total Creatine Kinase C-Reactive Protein Total Protein Albumin Vancomycin Trough Crossmatch 08/23/18 08/23/18 08/23/18 05:34 05:34 13:06 WBC RBC Hgb Hct MCHC RDW Plt Count Lymph % (Auto) [place] % (Auto) Lymph # Seg Neutrophils % Seg Neuts % (Manual) Lymphocytes % (Manual) Seg Neutrophils # Man Lymphocytes # (Manual) Monocytes # (Manual) PT INR POC ABG pH POC ABG pCO2 POC ABG pO2 Sodium 146 H Potassium Chloride Carbon Dioxide 33 H BUN 27 H Creatinine 0.7 L Glucose 158 H POC Glucose Lactic Acid 2.30 H* 2.70 H* Calcium Magnesium AST ALT Alkaline Phosphatase Total Creatine Kinase C-Reactive Protein 2.00 H Total Protein Albumin Vancomycin Trough Crossmatch 08/23/18 08/23/18 08/24/18 22:04 23:48 04:03 WBC RBC Hgb Hct MCHC RDW Plt Count Lymph % (Auto) [place] % (Auto) Lymph # Seg Neutrophils % Seg Neuts % (Manual) Lymphocytes % (Manual) Seg Neutrophils # Man Lymphocytes # (Manual) Monocytes # (Manual) PT INR POC ABG pH POC ABG pCO2 59.1 H POC ABG pO2 55 L Sodium Potassium Chloride Carbon Dioxide BUN Creatinine Glucose POC Glucose Lactic Acid 2.50 H* 2.20 H* Calcium Magnesium AST ALT Alkaline Phosphatase Total Creatine Kinase C-Reactive Protein Total Protein Albumin Vancomycin Trough Crossmatch 08/24/18 08/24/18 08/24/18 05:13 05:13 05:13 WBC 26.2 H RBC 3.03 L Hgb 8.6 L Hct 26.6 L MCHC RDW 18.4 H Plt Count Lymph % (Auto) [place] % (Auto) Lymph # Seg Neutrophils % Seg Neuts % (Manual) Lymphocytes % (Manual) Seg Neutrophils # Man Lymphocytes # (Manual) Monocytes # (Manual) PT INR POC ABG pH POC ABG pCO2 POC ABG pO2 Sodium Potassium Chloride Carbon Dioxide 34 H BUN 27 H Creatinine Glucose 176 H POC Glucose Lactic Acid 2.40 H* Calcium Magnesium AST 67 H ALT Alkaline Phosphatase 143 H Total Creatine Kinase C-Reactive Protein Total Protein 5.7 L Albumin 3.2 L Vancomycin Trough Crossmatch 08/24/18 08/25/18 08/25/18 11:05 04:20 05:00 WBC 28.4 H RBC 2.98 L Hgb 8.4 L Hct 26.3 L MCHC RDW 18.7 H Plt Count Lymph % (Auto) [place] % (Auto) Lymph # Seg Neutrophils % Seg Neuts % (Manual) Lymphocytes % (Manual) Seg Neutrophils # Man Lymphocytes # (Manual) Monocytes # (Manual) PT INR POC ABG pH POC ABG pCO2 59.9 H POC ABG pO2 62 L Sodium Potassium Chloride Carbon Dioxide BUN Creatinine Glucose POC Glucose Lactic Acid 2.10 H* Calcium Magnesium AST ALT Alkaline Phosphatase Total Creatine Kinase C-Reactive Protein Total Protein Albumin Vancomycin Trough Crossmatch 08/25/18 08/25/18 08/26/18 05:00 20:47 04:54 WBC RBC Hgb Hct MCHC RDW Plt Count Lymph % (Auto) [place] % (Auto) Lymph # Seg Neutrophils % Seg Neuts % (Manual) Lymphocytes % (Manual) Seg Neutrophils # Man Lymphocytes # (Manual) Monocytes # (Manual) PT INR POC ABG pH 7.340 L 7.315 L POC ABG pCO2 > 70 H > 70 H POC ABG pO2 Sodium Potassium Chloride Carbon Dioxide 37 H BUN 32 H Creatinine Glucose 147 H POC Glucose Lactic Acid Calcium Magnesium AST ALT Alkaline Phosphatase Total Creatine Kinase C-Reactive Protein Total Protein Albumin Vancomycin Trough Crossmatch 08/26/18 08/26/18 08/26/18 05:05 05:05 23:03 WBC 24.3 H RBC 2.97 L Hgb 8.3 L Hct 26.2 L MCHC RDW 19.0 H Plt Count Lymph % (Auto) [place] % (Auto) Lymph # Seg Neutrophils % Seg Neuts % (Manual) Lymphocytes % (Manual) Seg Neutrophils # Man Lymphocytes # (Manual) Monocytes # (Manual) PT INR POC ABG pH 7.323 L POC ABG pCO2 > 70 H POC ABG pO2 Sodium Potassium Chloride Carbon Dioxide 37 H BUN 29 H Creatinine Glucose 184 H POC Glucose Lactic Acid Calcium Magnesium AST ALT Alkaline Phosphatase Total Creatine Kinase C-Reactive Protein Total Protein Albumin Vancomycin Trough Crossmatch 08/27/18 08/27/18 08/27/18 04:37 05:10 05:10 WBC 20.8 H RBC 2.87 L Hgb 8.0 L Hct 25.6 L MCHC 31 L RDW 19.2 H Plt Count Lymph % (Auto) [place] % (Auto) Lymph # Seg Neutrophils % Seg Neuts % (Manual) Lymphocytes % (Manual) Seg Neutrophils # Man Lymphocytes # (Manual) Monocytes # (Manual) PT INR POC ABG pH 7.332 L POC ABG pCO2 > 70 H POC ABG pO2 165 H Sodium Potassium Chloride Carbon Dioxide 36 H BUN 29 H Creatinine Glucose 149 H POC Glucose Lactic Acid Calcium 8.2 L Magnesium AST 63 H ALT 63 H Alkaline Phosphatase Total Creatine Kinase C-Reactive Protein Total Protein 5.6 L Albumin 2.5 L Vancomycin Trough Crossmatch 08/28/18 08/28/18 08/28/18 03:40 03:40 04:39 WBC 18.7 H RBC 2.65 L Hgb 7.6 L Hct 23.4 L MCHC RDW 19.2 H Plt Count Lymph % (Auto) [place] % (Auto) Lymph # Seg Neutrophils % Seg Neuts % (Manual) Lymphocytes % (Manual) Seg Neutrophils # Man Lymphocytes # (Manual) Monocytes # (Manual) PT INR POC ABG pH 7.241 L POC ABG pCO2 > 70 H POC ABG pO2 Sodium Potassium Chloride 97.7 L Carbon Dioxide 37 H BUN 23 H Creatinine Glucose 155 H POC Glucose Lactic Acid Calcium 7.8 L Magnesium AST 44 H ALT Alkaline Phosphatase Total Creatine Kinase C-Reactive Protein Total Protein 5.3 L Albumin 2.4 L Vancomycin Trough Crossmatch 08/28/18 08/29/18 08/29/18 10:32 04:20 04:20 WBC 17.1 H RBC 2.57 L Hgb 7.3 L Hct 22.4 L MCHC RDW 19.4 H Plt Count Lymph % (Auto) [place] % (Auto) Lymph # Seg Neutrophils % Seg Neuts % (Manual) Lymphocytes % (Manual) Seg Neutrophils # Man Lymphocytes # (Manual) Monocytes # (Manual) PT INR POC ABG pH 7.194 L POC ABG pCO2 POC ABG pO2 Sodium Potassium 5.3 H Chloride 96.1 L Carbon Dioxide 42 H* BUN 31 H Creatinine Glucose 126 H POC Glucose Lactic Acid Calcium 8.1 L Magnesium AST 44 H ALT Alkaline Phosphatase Total Creatine Kinase C-Reactive Protein Total Protein 5.5 L Albumin 2.5 L Vancomycin Trough Crossmatch 08/29/18 08/29/18 08/29/18 04:48 12:11 18:31 WBC RBC Hgb Hct MCHC RDW Plt Count Lymph % (Auto) [place] % (Auto) Lymph # Seg Neutrophils % Seg Neuts % (Manual) Lymphocytes % (Manual) Seg Neutrophils # Man Lymphocytes # (Manual) Monocytes # (Manual) PT INR POC ABG pH 7.283 L POC ABG pCO2 > 70 H POC ABG pO2 71 L Sodium Potassium Chloride Carbon Dioxide BUN Creatinine Glucose POC Glucose 181 H 199 H Lactic Acid Calcium Magnesium AST ALT Alkaline Phosphatase Total Creatine Kinase C-Reactive Protein Total Protein Albumin Vancomycin Trough Crossmatch 08/30/18 08/30/18 08/31/18 04:10 04:48 00:15 WBC RBC Hgb Hct MCHC RDW Plt Count Lymph % (Auto) [place] % (Auto) Lymph # Seg Neutrophils % Seg Neuts % (Manual) Lymphocytes % (Manual) Seg Neutrophils # Man Lymphocytes # (Manual) Monocytes # (Manual) PT INR POC ABG pH 7.319 L POC ABG pCO2 > 70 H POC ABG pO2 Sodium Potassium Chloride Carbon Dioxide 39 H BUN 59 H Creatinine 2.1 H D Glucose 139 H POC Glucose 236 H Lactic Acid Calcium 8.0 L Magnesium 2.70 H AST ALT Alkaline Phosphatase Total Creatine Kinase C-Reactive Protein Total Protein Albumin Vancomycin Trough Crossmatch 07/01/0908/31/18 08/31/18 00:35 04:11 05:04 WBC RBC Hgb Hct MCHC RDW Plt Count Lymph % (Auto) [place] % (Auto) Lymph # Seg Neutrophils % Seg Neuts % (Manual) Lymphocytes % (Manual) Seg Neutrophils # Man Lymphocytes # (Manual) Monocytes # (Manual) PT INR POC ABG pH 7.294 L POC ABG pCO2 POC ABG pO2 66 L Sodium 146 H Potassium 5.1 H Chloride Carbon Dioxide 38 H BUN 70 H Creatinine 2.2 H Glucose 200 H POC Glucose 250 H Lactic Acid Calcium 7.6 L Magnesium AST ALT Alkaline Phosphatase Total Creatine Kinase C-Reactive Protein Total Protein Albumin Vancomycin Trough Crossmatch 08/31/18 08/31/18 08/31/18 10:51 12:45 13:00 WBC RBC Hgb Hct MCHC RDW Plt Count Lymph % (Auto) [place] % (Auto) Lymph # Seg Neutrophils % Seg Neuts % (Manual) Lymphocytes % (Manual) Seg Neutrophils # Man Lymphocytes # (Manual) Monocytes # (Manual) PT INR POC ABG pH 7.216 L 7.171 L POC ABG pCO2 POC ABG pO2 70 L Sodium Potassium Chloride Carbon Dioxide BUN Creatinine Glucose POC Glucose 223 H Lactic Acid Calcium Magnesium AST ALT Alkaline Phosphatase Total Creatine Kinase C-Reactive Protein Total Protein Albumin Vancomycin Trough Crossmatch 08/31/18 08/31/18 08/31/18 13:08 18:21 18:44 WBC RBC Hgb Hct MCHC RDW Plt Count Lymph % (Auto) [place] % (Auto) Lymph # Seg Neutrophils % Seg Neuts % (Manual) Lymphocytes % (Manual) Seg Neutrophils # Man Lymphocytes # (Manual) Monocytes # (Manual) PT INR POC ABG pH 7.224 L POC ABG pCO2 POC ABG pO2 60 L Sodium Potassium Chloride Carbon Dioxide BUN Creatinine Glucose POC Glucose 289 H 205 H Lactic Acid Calcium Magnesium AST ALT Alkaline Phosphatase Total Creatine Kinase C-Reactive Protein Total Protein Albumin Vancomycin Trough Crossmatch 08/31/18 09/01/18 09/01/18 23:53 04:09 05:15 WBC RBC Hgb Hct MCHC RDW Plt Count Lymph % (Auto) [place] % (Auto) Lymph # Seg Neutrophils % Seg Neuts % (Manual) Lymphocytes % (Manual) Seg Neutrophils # Man Lymphocytes # (Manual) Monocytes # (Manual) PT INR POC ABG pH 7.208 L POC ABG pCO2 POC ABG pO2 Sodium Potassium Chloride Carbon Dioxide BUN Creatinine Glucose POC Glucose 267 H 243 H Lactic Acid Calcium Magnesium AST ALT Alkaline Phosphatase Total Creatine Kinase C-Reactive Protein Total Protein Albumin Vancomycin Trough Crossmatch 09/01/18 09/01/18 09/01/18 05:20 05:20 07:30 WBC 20.2 H RBC 2.35 L Hgb 6.5 L Hct 21.2 L MCHC 31 L RDW 20.2 H Plt Count 123 L Lymph % (Auto) [place] % (Auto) Lymph # Seg Neutrophils % Seg Neuts % (Manual) 90.0 H Lymphocytes % (Manual) 4.0 L Seg Neutrophils # Man 18.2 H Lymphocytes # (Manual) 0.8 L Monocytes # (Manual) 1.2 H PT INR POC ABG pH POC ABG pCO2 POC ABG pO2 Sodium 146 H Potassium 6.2 H* D Chloride Carbon Dioxide 32 H BUN 90 H Creatinine 2.7 H Glucose 230 H POC Glucose Lactic Acid Calcium 7.1 L Magnesium AST ALT Alkaline Phosphatase Total Creatine Kinase C-Reactive Protein Total Protein Albumin Vancomycin Trough Crossmatch See Detail 09/01/18 09:07 WBC RBC Hgb Hct MCHC RDW Plt Count Lymph % (Auto) [place] % (Auto) Lymph # Seg Neutrophils % Seg Neuts % (Manual) Lymphocytes % (Manual) Seg Neutrophils # Man Lymphocytes # (Manual) Monocytes # (Manual) PT INR POC ABG pH POC ABG pCO2 POC ABG pO2 Sodium Potassium Chloride Carbon Dioxide BUN Creatinine Glucose POC Glucose 334 H Lactic Acid Calcium Magnesium AST ALT Alkaline Phosphatase Total Creatine Kinase C-Reactive Protein Total Protein Albumin Vancomycin Trough Crossmatch Allied health notes [id number]: [id number]
== END 2018-09-01 13:05 | DRG 870 ==
LOC: ED 15:51 → 3A 22:09 → CC1 08-18 00:10
PROVIDERS: ADMIT Internal Medicine; ATTEND Internal Medicine
PROC: 4A033R1 Measurement of Arterial Saturation, Peripheral, Percutaneous Approach (ICD-10-PCS; 2018-08-14)
PROC: 5A09357 Assistance with Respiratory Ventilation, Less than 24 Consecutive Hours, Continuous Positive Airway Pressure (ICD-10-PCS; 2018-08-17)
PROC: 5A09357 Assistance with Respiratory Ventilation, Less than 24 Consecutive Hours, Continuous Positive Airway Pressure (ICD-10-PCS; 2018-08-18)
PROC: 5A1955Z Respiratory Ventilation, Greater than 96 Consecutive Hours (ICD-10-PCS; principal; 2018-08-19)
PROC: 0BH17EZ Insertion of Endotracheal Airway into Trachea, Via Natural or Artificial Opening (ICD-10-PCS; 2018-08-19)
PROC: 0CJS8ZZ Inspection of Larynx, Via Natural or Artificial Opening Endoscopic (ICD-10-PCS; 2018-08-19)
PROC: 5A09357 Assistance with Respiratory Ventilation, Less than 24 Consecutive Hours, Continuous Positive Airway Pressure (ICD-10-PCS; 2018-08-19)
PROC: 02H633Z Insertion of Infusion Device into Right Atrium, Percutaneous Approach (ICD-10-PCS; 2018-08-24)
PROC: 0B938ZZ Drainage of Right Main Bronchus, Via Natural or Artificial Opening Endoscopic (ICD-10-PCS; 2018-08-25)
DX: A41.9 Sepsis, unspecified organism (principal); J96.01 Acute respiratory failure with hypoxia; J18.9 Pneumonia, unspecified organism; R65.21 Severe sepsis with septic shock; R45.851 Suicidal ideations; N17.9 Acute kidney failure, unspecified; D64.9 Anemia, unspecified; F20.9 Schizophrenia, unspecified; F32.9 Major depressive disorder, single episode, unspecified; E87.6 Hypokalemia; M10.9 Gout, unspecified; E78.2 Mixed hyperlipidemia; R62.50 Unspecified lack of expected normal physiological development in childhood; I46.9 Cardiac arrest, cause unspecified; Z88.0 Allergy status to penicillin; Z79.899 Other long term (current) drug therapy
CPT/HCPCS: 36415; 36600; 71045; 71046; 71250; 71275; 76705; 80048; 80053; 80202; 80307; 82140; 82550; 82553; 82803; 82962; 83735; 83880; 84100; 84478; 84484; 85007; 85025; 85027; 85610; 85730; 86140; 86850; 86900; 86901; 86920; 87040; 87070; 87102; 87205; 87449; 87536; 87806; 88112; 88312; 93005; 93010; 93306; 93970; 94002; 94003; 94640; 94660; 94760; G0378; A9270-GY; J0171; J0330; J0610; J0692; J0696; J1265; J1630; J1650; J1815; J1940; J1956; J2250; J2370; J2704; J2930; J3010; J3370; J3480; J7030; J7040; J7050; J7060; Q9967